=== PATIENT | female | born 1935 | race Caucasian/White ===

== ENCOUNTER → 2020-11-28 15:33 | Outpatient (CLI) | payer OTHER, SELFPAY ==
--- NOTE | ~2020-11-28 | MM_ITS ---
EXAMINATION: MM screening aileen BI w guerrero HISTORY: Screening mammogram TECHNIQUE: Craniocaudal and mediolateral oblique 3-D tomosynthesis images were obtained and synthetic 2-D images were generated. CAD analysis was submitted and interpreted. COMPARISON: 12/30/2016, 12/28/2014, 02/27/2013 BREAST PARENCHYMAL COMPOSITION: There are scattered areas of fibroglandular density. FINDINGS: Again noted are bilateral breast masses which are stable on multiple prior examinations. Th ere is no evidence of suspicious mass, calcification, or architectural distortion to suggest malignan cy in either breast. There has been no suspicious interval change. IMPRESSION: 1. No mammographic evidence of malignancy. 2. Recommend routine screening mammography while the patient remains in good health. BI-RADS Category 2: Benign finding(s). Reviewed, dictated and finalized at location A. IMPRESSION: 1. No mammographic evidence of malignancy. 2. Recommend routine screening mammography while the patient remains in good he alth. BI-RADS Category 2: Benign finding(s).
== END ==
PROVIDERS: PCP Family Medicine; Visit Provider Family Medicine
DX: Z12.31 Encounter for screening mammogram for malignant neoplasm of breast (principal)
CPT/HCPCS: 77063; 77067

== ENCOUNTER 2022-06-27 15:44 | Inpatient (IN) | payer OTHER, SELFPAY ==
[2022-06-27] VITALS (8 sets, daily range): BP systolic 135–205; BP diastolic 64–94; PULSE 93–117; RESP 20–26; TEMP 36.6–37; O2SAT 95–100; BMI 37.2
--- NOTE | ~2022-06-27 | XR_ITS ---
XR chest 1V portable DATE: 06/28/2022 06:12 INDICATION: Preoperative evaluation TECHNIQUE: Portable upright AP chest on June 28, 2022 at 0545 hours COMPARISON: None FINDINGS: Cardiomegaly. Aortic calcification. No hilar or mediastinal enlargement. There is mild discoid atelectasis or scarring in the left lung base. Suggestion of bronchiectasis in the right lower lung. No pulmonary consolidation. No pleural effusion or pulmonary vascular congestio n or pneumothorax. Osteopenia. And levoscoliosis of the thoracic spine. IMPRESSION: Discoid atelectasis or scarring at the left lung base and suggestion of some bronchiectas is in the right lower lung Aortic atherosclerosis Osteopenia Reviewed, dictated and finalized at location A. SE SPECIALIST IMPRESSION: Discoid atelectasis or scarring at the left lung base and suggestio n of some bronchiectasis in the right lower lung Aortic atherosclerosis Osteopenia
--- NOTE | ~2022-06-27 | XR_ITS ---
EXAMINATION: XR surgery orthopedic DATE: 07/01/2022 16:00 ASSEMBLY DETAILER INDICATION: ORIF LT ANKLE . TECHNIQUE: 4 fluoroscopic images of the left ankle were obtained during left ankle ORIF performed by the surgeon. I was not present in the operating room. Fluoroscopy exposure time was 18 minutes and 39 .5 seconds. Air Kerma 45.405 mGy. DAP 0.9001 mGym2. COMPARISON: 06/27/2022 FINDINGS: Partially visualized fibular intramedullary romel. Syndesmotic fixation. Screw and plate fixation of th e medial malleolus. No unexpected radiopaque foreign body. IMPRESSION: Fluoroscopic documentation of left ankle ORIF. Please refer to the operative note for complete proced ural details . Reviewed, dictated and finalized at location K. MBLY DETAILER IMPRESSION: Fluoroscopic documentation of left ankle ORIF. Please refer to the operative no te for complete procedural details .
--- NOTE | ~2022-06-27 | XR_ITS ---
EXAM: XR ankle LT 2V DATE: 06/27/2022 18:16 HISTORY: post reduction . COMPARISON: X-ray ankle, same date at 4:05 PM. FINDINGS/IMPRESSION: Anatomic alignment of the tibiotalar joint, with persistent widening of the medi al gutter. Improved alignment of the trimalleolar fractures. Mild persistent posterior lateral displa cement of the distal fibular fragment. Mild anterior displacement and distraction of the malleolus fr agment. The posterior malleolar fragment appears to be anatomically aligned but is obscured by obliqu ity in the lateral view. Reviewed, dictated and finalized at location K. ET CLERK
--- NOTE | ~2022-06-27 | XR_ITS ---
EXAM: XR knee LT 3V, XR tibia fibula LT 2V, XR ankle LT 2V DATE: 06/27/2022 16:25 HISTORY: pain . COMPARISON: None available. FINDINGS: Normal mineralization. No fracture or dislocation. No lytic or blastic lesion. Moderate le ft knee osteoarthritis. Quadriceps enthesopathy. Oblique, posteriorly angulated fracture of the dista l left fibula above the level of the ankle joint. Transverse and posteriorly displaced fracture of th e medial malleolus. Dislocation of the talus. Posteriorly displaced posterior malleolus fracture. Ach illes and plantar enthesopathy. No erosion or periosteal change. Soft tissue swelling about the ankle . IMPRESSION: Displaced trimalleolar fracture of the left ankle, with posterior tibiotalar dislocation. No acute osseous finding in the remainder of the left tibia/fibula or the left knee. Reviewed, dictated and finalized at [facility] K. O PRESENTATION OPERATOR IMPRESSION: Displaced trimalleolar fracture of the left ankle, with posterior t ibiotalar dislocation. No acute osseous finding in the remainder of the left ti radha/fibula or the left knee. IMPRESSION: Displaced trimalleolar fracture of the left ankle, with posterior t ibiotalar dislocation. No acute osseous finding in the remainder of the left ti radha/fibula or the left knee.
--- NOTE | ~2022-06-27 | XR_ITS ---
EXAM: XR pelvis 1-2V DATE: 06/27/2022 16:25 HISTORY: fall . COMPARISON: None available. FINDINGS: Decreased mineralization. No fracture or dislocation. No lytic or blastic lesion. Degenera tive change in the lumbar spine and bilateral hips. No erosion or periosteal change. Soft tissues wit hin normal limits. IMPRESSION: No acute osseous finding in the pelvis. Reviewed, dictated and finalized at location K. ION WORKER
[2022-06-27 17:18] LABS: Basophils Absolute Auto 0.1 K/mm3 (0.0-0.1); Basophils Percent Auto 0.7 % (0.2-1.2); Eosinophils Absolute Auto 0.1 K/mm3 (0-0.3); Eosinophils Percent Auto 1.2 % (0-4.4); Hematocrit 39.9 % (37.0-47.0); Hemoglobin 12.9 g/dL (12.0-15.0); Immature Granulocyte Absolute 0.04 K/mm3 (0.00-0.031); Immature Granulocyte Percent A 0.4 % (0-0.5); Lymphocytes Absolute Auto 1.31 K/mm3 (0.9-3.2); Lymphocytes Percent Auto 12.1 % (18.3-44.2); Mean Corpuscular HGB Conc 32.3 g/dl (32-36); Mean Corpuscular Hemoglobin 28.9 pg (26-34); Mean Corpuscular Volume 89.5 fl (80-100); Monocytes Absolute Auto 0.8 K/mm3 (0.1-0.6); Monocytes Percent Auto 7.1 % (2.6-8.5); Neutrophils Absolute Auto 8.5 K/mm3 (1.3-6.7); Neutrophils Percent Auto 78.5 % (45.5-73.1); Platelet Count Result 211 k/mm3 (150-375); Red Blood Count 4.46 M/mm3 (4.2-5.4); Red Cell Distribution Width 14.1 % (11.5-14.5); White Blood Count 10.9 K/mm3 (4.5-10.0)
--- NOTE | 2022-06-27 17:28 | ED.LOWEXIN ---
HPI - Extremity Injury (Lower) General Chief Complaint: Extremity Injury, Lower Stated Complaint: Fell off ladder 6ft, ankle injury Time Seen by Provider: 06/27/22 15:50 History of Present Illness HPI Narrative: 86-year-old female who fell off the third rung of a ladder while trying to catch a squirrel, endorsing severe pain to her left ankle. Denies any numbness and is able to wiggle her toes but with pain. She is on Xarelto, denies pain anywhere else, denies hitting her head or neck, she landed only on her left ankle. Related Data Home Medications Medication Instructions Recorded Confirmed cholestyramine (with sugar) 4 gram 1 ea DAILY 06/27/22 06/27/22 oral powder hydralazine 25 mg tablet 25 mg PO TID 06/27/22 06/27/22 potassium chloride 10 mEq 10 meq PO DAILY 06/27/22 06/27/22 capsule,extended release rivaroxaban 20 mg tablet (Xarelto) 20 mg PO DAILY 06/27/22 06/27/22 ropinirole 1 mg tablet 1 mg PO DAILY 06/27/22 06/27/22 Allergies Allergy/AdvReac Type Severity Reaction Status Date / Time armodafinil Allergy Severe DYSPNEA Verified 03/16/16 10:26 bupropion Allergy Intermediate Siezure Verified 03/10/16 16:03 Tetracyclines Allergy Mild HIVES Verified 03/16/16 10:26 iodine Allergy Unknown Verified 03/10/16 16:03 Review of Systems Review of Systems: CONST: No fever. HEENT: No head trauma or neck trauma C/V: No chest pain RESP: No cough GI: No abdominal pain, nausea or vomiting : No dysuria. M/S: Left ankle pain SKIN: No rash. NEURO: [No headache or focal numbness or weakness] PSYCH: [No depression] [facility] Past Medical History Medical History (Updated 06/27/22 @ 23:05 by Isabella Isidro MD) Chronic anticoagulation Hypertension Paroxysmal atrial fibrillation Restless leg syndrome Surgical History Surgical History (Updated 06/27/22 @ 22:02 by Joy Nicholson PA-C) History of cardiac catheterization Mild, nonobstructing disease per patient report. History of cholecystectomy History of hysterectomy for benign disease History of laparoscopy For endometriosis. Family History Family History (Updated 06/27/22 @ 22:02 by Joy Nicholson PA-C) Other Heart disease Hypertension Social History Social History (Updated 06/27/22 @ 22:04 by Joy Nicholson PA-C) Social History: Surrogate medical decision maker: Prudence Elias, friend. Code status: Do not resuscitate. Smoking status: Never smoker Alcohol intake: never Substance use: never Lack of Transportation: No Lack of Food: Never True Current Housing: I Have Housing Concerned About Future Housing: No Difficulty Paying Gas/Electric Bills: No Difficulty Paying for Meds: No Currently Unemployed: No Education: High School Diploma/GED Difficulty w/ Childcare or Family Care: No Additional living arrangements comments: The patient lives in her own home in [place]. She has 2 children, 1 daughter in [place] and another on [facility] with him she does not keep in close contact. 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 Spiritual care concerns: No Exam Narrative: EXAMINATION OF ORGAN SYSTEMS/BODY AREAS: Constitutional: Vital signs per nursing GENERAL: Appears to be in pain HEAD: Normal with no signs of head trauma. EYES: EOMI, conjunctiva normal ENT: Hearing grossly intact NECK: No c spine tenderness LUNGS: Nonlabored breathing. No chest wall tenderness HEART: [Regular rate and rhythm] ABD: [Soft], [nontender to palpation] EXT: Obvious deformity left ankle with swelling; DP pulse palpable, able to wiggle toes SKIN: [No rashes or lesions.] NEURO: [Alert and oriented x 3. No gross focal sensory or strength deficits.] PSYCH: Normal affect Course Vital Signs Vital signs: Vital Signs Temperature 97.9 F 06/27/22 15:46 Pulse Rate 99 06/27/22 15:46 Respiratory Rate 26 H 06/27/22 15:46 Blood Pressure 205/84 H 06/27/22 15:46 Pulse Oximetry 100 02
[2022-06-27 17:29] LABS: Anion Gap 7 mmol/L (8-16); Blood Urea Nitrogen 13 mg/dL (7-17); Calcium 8.4 mg/dL (8.4-10.2); Carbon Dioxide 27 mmol/L (22-30); Chloride 109 mmol/L (98-107); Estimated CRCL calculation 36 ml/min; Estimated Glomerular Filt Rate 53; Glucose 111 mg/dL (65-110); Potassium 3.5 mmol/L (3.4-5.0); Sodium 143 mmol/L (137-145)
--- NOTE | 2022-06-27 17:57 | PC.NURSE ---
1757: EDP Isidro and ED respiratory in room for sedation. EDP gave 80mg Propofol IVP at this time. 1758: EDP gave an additional 40mg Propofol IVP.
--- NOTE | 2022-06-27 18:56 | PC.NURSE ---
Morphine not given, patient in no pain following reduction of left ankle.
--- NOTE | 2022-06-27 19:00 | PM.IMHP ---
H&P: HPI History of Present Illness Date/Time: 06/27/22 19:00 Chief Complaint: Left ankle pain after fall. Narrative: This is a very pleasant 86-year-old female with history of pontine stroke, paroxysmal atrial fibrillation on chronic anticoagulation, hypertension, and restless leg syndrome who presented to the emergency department via EMS from home for evaluation of left ankle pain after a fall. She was on the 3rd rung of a step ladder trying to fix a suet feeder that had been moved from its position by a menacing squirrel. The leg of the ladder was in soft soil and it tilted and caused her to slip off of the ladder. She landed with a majority of her weight on her left leg, twisted her ankle, and fell forward onto her hands. She had immediate pain in the left ankle and was unable to get herself up. She called [facility] and was brought into the ER where she was found to have a displaced left trimalleolar fracture which has subsequently been reduced and splinted. She is being admitted in this setting for pain control and orthopedic consultation. She sustained no other injuries in the fall and denies head trauma and loss of consciousness. She denies skin color, paresthesias, and temperature changes distal to the fracture site. Review of Systems Review of Systems: Twelve systems were reviewed. No fever, chills, or sweats. No recent cold or flu symptoms. She denies syncope near syncope. No exertional chest pain or shortness of breath. She is followed by Dr. aJy and she reports having an echocardiogram and stress test done within the last 1 year, never abnormal. Years ago she had a cardiac catheterization which showed mild, nonobstructing disease. Except as documented, all other systems were reviewed and are negative. [facility] Past Medical History Medical History (Updated 06/28/22 @ 15:27 by Joy Nicholson PA-C) Chronic anticoagulation Gout Hypertension Obstructive sleep apnea Paroxysmal atrial fibrillation Restless leg syndrome Surgical History Surgical History (Updated 06/28/22 @ 15:27 by Joy Nicholson PA-C) History of bilateral cataract extraction History of cardiac catheterization Mild, nonobstructing disease per patient report. History of cholecystectomy History of hysterectomy for benign disease History of laparoscopy For endometriosis. Family History Family History Other Heart disease Hypertension Social History Social History Social History: Surrogate medical decision maker: Prudence Elias, friend. Code status: Do not resuscitate. Smoking status: Never smoker Alcohol intake: never Substance use: never Lack of Transportation: No Lack of Food: Never True Current Housing: I Have Housing Concerned About Future Housing: No Difficulty Paying Gas/Electric Bills: No Difficulty Paying for Meds: No Currently Unemployed: No Education: High School Diploma/GED Difficulty w/ Childcare or Family Care: No Additional living arrangements comments: The patient lives in her own home in [place]. She has 2 children, 1 daughter in [place] and another on [facility] with him she does not keep in close contact. 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
[2022-06-27 19:35] LABS: Influenza A QL RT-PCR Negative (Negative); Influenza B QL RT-PCR Negative (Negative); RSV RNA, RT-PCR Negative (Negative); SARS-CoV-2 RNA PCR Negative
--- NOTE | 2022-06-27 19:58 | ADMGEN ---
This patient, Ana Laura Perez, was admitted to Medical Room 249-01. Patient/family oriented to hospital policies and general routines including ID bracelet, bed and alarms, visiting hours, pain management, procedures, bathroom and other care routines, personal items, smoking policy, room service/diet, and visiting hours. Information on how to activate the Rapid Response Team has been discussed. Patient/Family are encouraged to report perceived risks to care and to ask questions if they do not understand what they are told or what they should do.
[2022-06-27] MEDS: MORPHINE SULFATE (*CRX) 4 MG/ML INJ IV PUSH (20:25)
[2022-06-27] MEDS: rOPINIRole HCL 1 MG TABLET PO (21:55)
[2022-06-27] MEDS: HYDROcodone/acetaminophen (*CRX) 5-325 MG TABLET 1 TAB PO (23:15)
[2022-06-27] MEDS: hydrALAZINE HCL 25 MG TABLET PO (23:31)
--- NOTE | 2022-06-28 00:10 | ECG_ITS ---
Measurements Intervals Lagrange Rate: 91 P: 72 IA: 188 QRS: -6 QRSD: 87 T: 60 QT: 373 QTc: 460 Interpretive Statements SINUS RHYTHM NONSPECIFIC T-WAVE ABNORMALITY NO PREVIOUS ECG AVAILABLE FOR COMPARISON Electronically Signed On 06-28-2022 8:29:12 COMMUNICATION CLERK by Anay Noyola M.D.
[2022-06-28 01:05] VITALS: O2SAT 98
[2022-06-28 02:00] VITALS: BP 145/56
[2022-06-28] MEDS: HYDROcodone/acetaminophen (*CRX) 5-325 MG TABLET 1 TAB PO ×3 (05:10→14:03)
[2022-06-28 05:20] LABS: Hematocrit 37.3 % (37.0-47.0); Mean Corpuscular HGB Conc 32.2 g/dl (32-36); Mean Corpuscular Hemoglobin 28.8 pg (26-34); Mean Corpuscular Volume 89.7 fl (80-100); Mean Platelet Volume 9.9 fl (7.4-10.4); Platelet Count Result 207 k/mm3 (150-375); Red Blood Count 4.16 M/mm3 (4.2-5.4); Red Cell Distribution Width 14.3 % (11.5-14.5); White Blood Count 10.8 K/mm3 (4.5-10.0)
[2022-06-28 05:44] LABS: Alanine Aminotransferase 30 U/L (6-35); Albumin Level 4.1 g/dL (3.5-5.1); Alkaline Phosphatase 74 U/L (38-126); Anion Gap 6 mmol/L (8-16); Aspartate Amino Transferase 33 U/L (14-36); Bilirubin,Total 0.5 mg/dL (0.2-1.3); Blood Urea Nitrogen 12 mg/dL (7-17); Calcium 8.3 mg/dL (8.4-10.2); Carbon Dioxide 26 mmol/L (22-30); Chloride 109 mmol/L (98-107); Estimated CRCL calculation 41 ml/min; Estimated Glomerular Filt Rate 60; Glucose 121 mg/dL (65-110); Potassium 3.5 mmol/L (3.4-5.0); Sodium 141 mmol/L (137-145)
[2022-06-28 06:00] VITALS: BP 138/48; PULSE 88; RESP 18; TEMP 37.4; O2SAT 95
--- NOTE | 2022-06-28 07:45 | PM.IMPN ---
Progress Note: A&P Assessment and Plan (1) Displaced trimalleolar fracture of left ankle: Qualifiers: Encounter type: initial encounter Fracture type: closed Qualified Code(s): S82.852A - Displaced trimalleolar fracture of left lower leg, initial encounter for closed fracture Code(s): S82.852A - Displaced trimalleolar fracture of left lower leg, initial encounter for closed fracture Status: Acute Assessment and Plan: Patient is s/p fall from a ladder and imaging demonstrates left displaced trimalleolar fracture, reduced in the ED. Orthopedic surgery was consulted. Plan to reevaluate in the morning for improvement in soft-tissue swelling. NPO after midnight. Continue pain control- change to scheduled acetaminophen 1 gram Q8 hours, PRN tramadol 50 mg Q4 hours and PRN IV morphine for breakthrough pain. EKG SR with flattened T-waves in leads I, II, III, aVL and aVF. Revised Cardiac Risk Index score 1 and >65 yo- Check Troponin, BNP and echocardiogram d/t murmur. H/O paroxysmal afib and does not tolerate most blood pressure medications Hold Xarelto preop. Last dose Wednesday evening. (2) Fall from ladder: Qualifiers: Encounter type: initial encounter Qualified Code(s): W11.XXXA - Fall on and from ladder, initial encounter Code(s): W11.XXXA - Fall on and from ladder, initial encounter Status: Acute Assessment and Plan: PT/OT eval when cleared for out of bed by ortho. (3) Hypertension: Qualifiers: Hypertension type: primary hypertension Qualified Code(s): I10 - Essential (primary) hypertension Code(s): I10 - Essential (primary) hypertension Status: Chronic Assessment and Plan: chronic, BP 134/58 to 181/85 and likely elevated due to some component of pain. Continue hydralazine 25 mg TID. She is not currently on a beta-javed. (4) Restless leg syndrome: Code(s): G25.81 - Restless legs syndrome Status: Chronic Assessment and Plan: chronic, continue ropinirole. (5) Paroxysmal atrial fibrillation: Code(s): I48.0 - Paroxysmal atrial fibrillation Status: Chronic Assessment and Plan: H/O paroxysmal afib. EKG shows sinus rhythm On Xarelto, which is on hold currently preop (6) Chronic diarrhea: Code(s): K52.9 - Noninfective gastroenteritis and colitis, unspecified Status: Chronic Assessment and Plan: Post-cholecystectomy, chronic, not in acute exacerbation. Continue cholestyramine daily and PRN loperamide. (7) Vitamin D deficiency: Code(s): E55.9 - Vitamin D deficiency, unspecified Status: Acute Assessment and Plan: Vitamin D 25-oh 24. Ca 8.3 with normal albumin Start Vitamin D2 2000 IU daily, calcium carbonate/vit D supplement BID Plan CODE STATUS: DNR Discharge disposition: patient Time Spent With Patient Time: 25 min time spent reviewing chart, imaging, labs, patient assessment and developing plan of care. Subjective Date/time seen: 06/28/22 07:45 Patient is a 86-year-old female with history of pontine strokes, post-stroke/medication induced seizures in 2003, paroxysmal atrial fibrillation on chronic anticoagulation, hypertension, gout and restless leg syndrome who presented to the emergency department via EMS from home for evaluation of left ankle pain after a fall. Imaging demonstrated displaced left trimalleolar fracture that was reduced and splinted in the ED. She was admitted for orthopedic surgery evaluation and pain control. Patient found lying in bed. She reports persistent pain to her left ankle despite IV acetaminophen, norco and IV morphine use. She denies pallor, paralysis, but has neuropathy to both feet at baseline. No chest pain, SOB, palpitations, abd pain, N/V or constipation. She has chronic diarrhea that is not worsened. She is concerned some of her pain is from gout. Review of Systems Review of Systems: All s
[2022-06-28 08:58] LABS: Vitamin D 25 Hydroxy 24.7 ng/mL
[2022-06-28] MEDS: hydrALAZINE HCL 25 MG TABLET PO ×3 (09:14→18:08)
[2022-06-28] MEDS: POTASSIUM CHLORIDE 10 MEQ TABLET.ER PO (09:16)
[2022-06-28 10:03] LABS: Folic Acid > 20.0 ng/mL (2.76->20); Vitamin B12 > 1000.0 pg/mL (239-931)
--- NOTE | 2022-06-28 12:06 | PM.CNOR ---
Assessment and Plan Assessment and plan (1) Displaced trimalleolar fracture of left ankle: Qualifiers: Encounter type: initial encounter Fracture type: closed Qualified Code(s): S82.852A - Displaced trimalleolar fracture of left lower leg, initial encounter for closed fracture Code(s): S82.852A - Displaced trimalleolar fracture of left lower leg, initial encounter for closed fracture Status: Acute Assessment and Plan: WAYNE IS HERE FOR HER INJURY TO THE LEFT ANKLE RESULTING IN A TRIMALLEOLAR FRACTURE DISLOCATION OF THE LEFT ANKLE. SHE IS IN A SPLINT WITH GOOD ANKLE JOINT REDUCTION. SHE WILL REQUIRE LEFT ANKLE ORIF. WE WILL NEED TO CHECK HER SOFT TISSUES PRIOR TO SURGERY TO ASSESS THE TIMING OF SURGERY FOR IMMEDIATE ORIF VS DELAYED ORIF DUE TO SOFT TISSUE TRAUMA. HISTORY, EXAM AND RADIOGRAPHS REVIEWED WITH THE PATIENT. REFERRING PHYSICIAN RECORDS AND IMAGES REVIEWED. CONDITION, NATURE, ETIOLOGY AND COURSE OF NATURAL HISTORY REVIEWED. CONSERVATIVE AND OPERATIVE TREATMENT OPTIONS REVIEWED WELL THE RISKS AND BENEFITS OF EACH. PLAN IS TO TAKE THE PATIENT TO SURGERY FOR ORIF VS CLOSED REDUCTION AND SPLINTING IF HER SOFT TISSUES ARE NOT APPROPRIATE FOR SURGICAL TREATMENT DUE TO SEVERE SWELLING AND ECCHYMOSIS, SHE WILL HAVE TO WAIT FOR APPROXIMATELY 7 TO 10 DAYS UNTIL HER SWELLING HAS IMPROVED. SHE IS ALSO TAKING XARELTO AND HER LAST DOSE WAS TAKEN THIS 2 DAYS AGO. DISCUSSED NONOPERATIVE AND OPERATIVE TREATMENT OPTIONS WITH THE PATIENT. THE PATIENT'S QUESTIONS WERE ANSWERED. THE PATIENT DESIRES OPERATIVE TREATMENT. DISCUSSED ___ORIF LEFT ANKLE VS CLOSED REDUCTION AND SPLINTING . RISKS OF SURGERY INCLUDING BUT NOT LIMITED TO NEUROVASCULAR DAMAGE, WOUND COMPLICATIONS, BLOOD CLOT, PULMONARY EMBOLUS, STROKE, TX, ANESTHETIC RISKS UP TO AND INCLUDING WERE REVIEWED. CONTINUED PAIN AND POSSIBLE DYSFUNCTION WERE EXPLAINED. NO GUARANTEES WERE OFFERED. THE PATIENT UNDERSTANDS AND WISHES TO PROCEED. WILL PROCEED ONCE THE PATIENT HAS BEEN CLEARED BY INTERNAL MEDICINE. History of Present Illness HPI Consult date: 06/28/22 Chief complaint: trimal fx ankle Narrative: WAYNE IS HERE FOR EVALUATION OF HER LEFT ANKLE INJURY. SHE FELL OFF A LADDER AND TWISTED HER LEFT ANKLE. SHE WAS SEEN I THE ED AND DIAGNOSED WITH A TRIMALLEOLAR LEFT ANKLE FRACTURE DISLOCATION. SHE UNDERWENT CLOSED REDUCTION AND PLACED IN A SPLINT. POST REDUCTION XRAYS SHOW ANKLE JOINT REDUCED. SHE CURRENTLY C/O ONLY OF LEFT ANKLE PAIN. SHE DENIES ANY OTHER UPPER OR LOWER EXTREMITY PAIN OR ANY BACK OR NECK PAIN. [facility] Past Medical History Medical History Chronic anticoagulation Hypertension Paroxysmal atrial fibrillation Restless leg syndrome Surgical History Surgical History History of cardiac catheterization Mild, nonobstructing disease per patient report. History of cholecystectomy History of hysterectomy for benign disease History of laparoscopy For endometriosis. Family History Family History Other Heart disease Hypertension Social History Social History Social History: Surrogate medical decision maker: Prudence Elias, friend. Code status: Do not resuscitate. Smoking status: Never smoker Alcohol intake: never Substance use: never Lack of Transportation: No Lack of Food: Never True Current Housing: I Have Housing Concerned About Future Housing: No Difficulty Paying Gas/Electric Bills: No Difficulty Paying for Meds: No Currently Unemployed: No Education: High School Diploma/GED Difficulty w/ Childcare or Family Care: No Additional living arrangements comments: The patient lives in her own home in [place]. She has 2 children, 1 daughter in [facility]
[2022-06-28] MEDS: CHOLESTYRAMINE LIGHT 4 GM POWD.PACK 1 GM BY MOUTH (12:27)
[2022-06-28] MEDS: MORPHINE SULFATE (*CRX) 2 MG/ML INJ IV PUSH (12:28)
[2022-06-28 14:00] VITALS: BP 134/58; PULSE 100; RESP 18; TEMP 37.1; O2SAT 94
[2022-06-28 16:28] LABS: Troponin I < 0.012 ng/mL (0.000-0.034)
[2022-06-28] MEDS: traMADol HCL (*CRX) 50 MG TABLET PO (18:08)
[2022-06-28] MEDS: rOPINIRole HCL 1 MG TABLET PO (18:11)
[2022-06-28 21:20] VITALS: O2SAT 97
[2022-06-28] MEDS: ACETAMINOPHEN 500 MG TABLET 1000 MG PO (21:27)
[2022-06-28 22:00] VITALS: BP 154/64; PULSE 90; RESP 16; TEMP 36.9; O2SAT 97
--- NOTE | 2022-06-29 | ECHO_ITS ---
Patient Info Name: Ana Laura Perez Age: 86 years : 1935 Gender: Female Ht: 61 in Wt: 196 lbs BSA: 2.00 m2 HR: 88 bpm BP: 142 / 60 mmHg Heart Rhythm: Sinus Rhythm Technical Quality: Fair Exam Date: 06/29/2022 1:38 PM Exam Location: [facility] Pulmonary Exam Room: 249 Patient Status: Inpatient Admit Date: 06/27/2022 Staff Ordering Physician: Kathia Regan APRN Thoracic Medicine Specialist: Margo Vega RDCS Attending Provider: Milton Diaz MD Referring Physician: Jass GARCIAS; Exam Type: CA echo doppler color flow Study Info Indications - murmur pre op Complete two-dimensional, color flow and Doppler transthoracic echocardiogram is performed. Summary 1. Complete two-dimensional, color flow and Doppler transthoracic echocardiogram is performed. 2. Normal left ventricular size with mild concentric hypertrophy. Good systolic function of all segments with an ejection fraction 65%. No segmental wall motion abnormalities noted. Grade 2 diastolic dysfunction is present. 3. There is mild aortic valve stenosis with a peak velocity of 261 cm/s, mean gradient of 15 mmHg, and aortic valve area of 1.5 cm2. 4. There is mild mitral valve regurgitation. 5. There is mild eccentric tricuspid valve regurgitation. 6. Moderate pulmonary hypertension, estimated pulmonary arterial systolic pressure is 46 mmHg. 7. Normal sinus rhythm. Left Ventricle Left ventricular chamber dimension is normal. Left ventricular systolic function is normal, estimated at 60-65%. There is mildly increased left ventricular wall thickness. Left ventricular septal wall motion is normal. The left ventricular diastolic function is grade II diastolic dysfunction. Right Ventricle Right ventricular chamber dimension is normal. Right ventricular systolic function is normal. Left Atria Left atrial chamber dimension is moderately enlarged. Right Atria Right atrial chamber dimension is normal. Aortic Valve The aortic valve is trileaflet. There is no aortic valve sclerosis. There is mild aortic valve stenosis with a peak velocity of 261 cm/s, mean gradient of 15 mmHg, and aortic valve area of 1.5 cm2. There is trace aortic valve regurgitation. There is mild aortic valve calcification. Pulmonic Valve The pulmonic valve is normal. There is no pulmonic valve stenosis. There is no pulmonic regurgitation. Mitral Valve The mitral valve has normal leaflets. There is no mitral valve stenosis. There is mild mitral valve regurgitation. Tricuspid Valve The tricuspid valve leaflets are normal. There is no significant tricuspid valve stenosis. There is mild eccentric tricuspid valve regurgitation. Moderate pulmonary hypertension, estimated pulmonary arterial systolic pressure is 46 mmHg. Pericardium/Pleural The pericardium appears normal. There is no pericardial effusion. Inferior Vena Cava Normal inferior vena cava with >50% collapse upon inspiration consistent with Empty right atrial pressure, 10 mmHg. Aorta The aortic root size at the sinus of Valsalva is normal. The prox ascending aorta size is normal. Left Ventricular Outflow Tract Name Value Normal LVOT 2D LVOT Diameter 2.0 cm
[2022-06-29 05:13] LABS: INR 1.2; Prothrombin Time 14.9 Seconds (11.1-14.7)
[2022-06-29 05:14] LABS: Partial Thromboplastin Time 31.9 SECONDS (22.3-36.8)
[2022-06-29 05:17] LABS: Alanine Aminotransferase 26 U/L (6-35); Albumin Level 4.1 g/dL (3.5-5.1); Alkaline Phosphatase 73 U/L (38-126); Anion Gap 9 mmol/L (8-16); Aspartate Amino Transferase 27 U/L (14-36); Bilirubin,Total 0.7 mg/dL (0.2-1.3); Blood Urea Nitrogen 13 mg/dL (7-17); Calcium 8.3 mg/dL (8.4-10.2); Carbon Dioxide 26 mmol/L (22-30); Chloride 105 mmol/L (98-107); Estimated CRCL calculation 41 ml/min; Estimated Glomerular Filt Rate 60; Glucose 116 mg/dL (65-110); Potassium 3.3 mmol/L (3.4-5.0); Sodium 140 mmol/L (137-145)
[2022-06-29 05:20] LABS: NT Pro B Type Natriuretic Pept 137 pg/mL (19.9-100)
[2022-06-29] MEDS: ACETAMINOPHEN 500 MG TABLET 1000 MG PO ×3 (05:20→21:03)
[2022-06-29 06:00] VITALS: BP 142/60; PULSE 88; RESP 16; TEMP 36.9; O2SAT 94
--- NOTE | 2022-06-29 08:44 | PM.IMPN ---
Progress Note: A&P Assessment and Plan (1) Displaced trimalleolar fracture of left ankle: Qualifiers: Encounter type: initial encounter Fracture type: closed Qualified Code(s): S82.852A - Displaced trimalleolar fracture of left lower leg, initial encounter for closed fracture Code(s): S82.852A - Displaced trimalleolar fracture of left lower leg, initial encounter for closed fracture Status: Acute Assessment and Plan: Patient is s/p fall from a ladder and imaging demonstrates left displaced trimalleolar fracture, reduced in the ED. Orthopedic surgery was consulted. Plan to reevaluate in the morning for improvement in soft-tissue swelling. NPO after midnight. Continue pain control- change to scheduled acetaminophen 1 gram Q8 hours, PRN tramadol 50 mg Q4 hours and PRN IV morphine for breakthrough pain. Pain is tolerable on current regimen. EKG SR with flattened T-waves in leads I, II, III, aVL and aVF. Revised Cardiac Risk Index score 1 and >65 yo- Check Troponin, BNP and echocardiogram d/t murmur. H/O paroxysmal afib and does not tolerate most blood pressure medications Holding Xarelto preop. Last dose Wednesday evening. (2) Fall from ladder: Qualifiers: Encounter type: initial encounter Qualified Code(s): W11.XXXA - Fall on and from ladder, initial encounter Code(s): W11.XXXA - Fall on and from ladder, initial encounter Status: Acute Assessment and Plan: PT/OT eval when cleared for out of bed by ortho. (3) Hypertension: Qualifiers: Hypertension type: primary hypertension Qualified Code(s): I10 - Essential (primary) hypertension Code(s): I10 - Essential (primary) hypertension Status: Chronic Assessment and Plan: chronic, BP 134/58 to 181/85 and likely elevated due to some component of pain. Continue hydralazine 25 mg TID. She is not currently on a beta-javed. (4) Restless leg syndrome: Code(s): G25.81 - Restless legs syndrome Status: Chronic Assessment and Plan: chronic, continue ropinirole. (5) Paroxysmal atrial fibrillation: Code(s): I48.0 - Paroxysmal atrial fibrillation Status: Chronic Assessment and Plan: H/O paroxysmal afib. EKG shows sinus rhythm On Xarelto, which is on hold currently preop (6) Chronic diarrhea: Code(s): K52.9 - Noninfective gastroenteritis and colitis, unspecified Status: Chronic Assessment and Plan: Post-cholecystectomy, chronic, not in acute exacerbation. Continue cholestyramine daily and PRN loperamide. (7) Vitamin D deficiency: Code(s): E55.9 - Vitamin D deficiency, unspecified Status: Acute Assessment and Plan: Vitamin D 25-oh 24. Ca 8.3 with normal albumin Started Vitamin D2 2000 IU daily, calcium carbonate/vit D supplement BID Plan CODE STATUS: DNR Discharge disposition: patient Time Spent With Patient Time: 25 minutes spent reviewing chart, labs, patient assessment and adjusting treatment plan. Patient's questions all answered to the best of my ability. Subjective Date/time seen: 06/29/22 08:44 Patient is a 86-year-old female with history of pontine strokes, post-stroke/medication induced seizures in 2003, paroxysmal atrial fibrillation on chronic anticoagulation, hypertension, gout and restless leg syndrome who presented to the emergency department via EMS from home for evaluation of left ankle pain after a fall. Imaging demonstrated displaced left trimalleolar fracture that was reduced and splinted in the ED. She was admitted for orthopedic surgery evaluation and pain control. She reports pain is tolerable on scheduled acetaminophen extra strength and PRN tramadol. She denies new symptoms, except felt a little sick to her stomach after taking potassium supplements. No nausea, vomiting, diarrhea, dysuira, paresthesia, pallor, or paralysis to left ankle. Review of Systems Review of Vettro
[2022-06-29 09:20] LABS: Magnesium 2.1 mg/dL (1.6-2.3)
[2022-06-29] MEDS: POTASSIUM CHLORIDE 20 MEQ PACKET (FOR LIQUID) 60 MEQ PO (09:21)
[2022-06-29] MEDS: CHOLECALCIFEROL 1,000 UNITS TABLET 2000 UNITS PO (09:21)
[2022-06-29] MEDS: hydrALAZINE HCL 25 MG TABLET PO ×3 (09:22→17:34)
[2022-06-29 09:48] LABS: Hematocrit 37.2 % (37.0-47.0); Hemoglobin 11.7 g/dL (12.0-15.0); Mean Corpuscular HGB Conc 31.5 g/dl (32-36); Mean Corpuscular Hemoglobin 28.6 pg (26-34); Mean Platelet Volume 10.3 fl (7.4-10.4); Platelet Count Result 202 k/mm3 (150-375); Red Blood Count 4.09 M/mm3 (4.2-5.4); Red Cell Distribution Width 14.3 % (11.5-14.5); White Blood Count 11.7 K/mm3 (4.5-10.0)
[2022-06-29] MEDS: traMADol HCL (*CRX) 50 MG TABLET PO ×3 (10:26→22:27)
[2022-06-29] MEDS: CHOLESTYRAMINE LIGHT 4 GM POWD.PACK BY MOUTH (12:24)
[2022-06-29 14:36] VITALS: BP 143/46; PULSE 93; RESP 17; TEMP 36.7; O2SAT 94
[2022-06-29] MEDS: HEPARIN SODIUM 5,000 UNITS/ML VIAL 5000 UNITS SUB-Q ×2 (14:52→21:03)
[2022-06-29 19:38] VITALS: BP 130/61; PULSE 93; RESP 17; TEMP 36.9; O2SAT 96
[2022-06-29] MEDS: rOPINIRole HCL 1 MG TABLET PO (21:03)
[2022-06-30 03:31] VITALS: BP 132/70; PULSE 81; RESP 17; TEMP 36.3; O2SAT 95
[2022-06-30] MEDS: traMADol HCL (*CRX) 50 MG TABLET PO ×3 (03:33→16:57)
[2022-06-30] MEDS: ACETAMINOPHEN 500 MG TABLET 1000 MG PO ×3 (05:16→20:54)
[2022-06-30 06:21] LABS: Hematocrit 34.7 % (37.0-47.0); Hemoglobin 10.9 g/dL (12.0-15.0); Mean Corpuscular HGB Conc 31.4 g/dl (32-36); Mean Corpuscular Hemoglobin 28.2 pg (26-34); Mean Corpuscular Volume 89.7 fl (80-100); Mean Platelet Volume 10.3 fl (7.4-10.4); Platelet Count Result 182 k/mm3 (150-375); Red Blood Count 3.87 M/mm3 (4.2-5.4); White Blood Count 9.6 K/mm3 (4.5-10.0)
[2022-06-30 06:32] LABS: Anion Gap 6 mmol/L (8-16); Blood Urea Nitrogen 14 mg/dL (7-17); Calcium 8.6 mg/dL (8.4-10.2); Carbon Dioxide 27 mmol/L (22-30); Chloride 104 mmol/L (98-107); Estimated CRCL calculation 41 ml/min; Estimated Glomerular Filt Rate 60; Glucose 104 mg/dL (65-110); Magnesium 2.1 mg/dL (1.6-2.3); Potassium 3.7 mmol/L (3.4-5.0); Sodium 137 mmol/L (137-145)
[2022-06-30] MEDS: hydrALAZINE HCL 25 MG TABLET PO ×3 (09:01→16:57)
[2022-06-30] MEDS: POTASSIUM CHLORIDE 10 MEQ TABLET.ER 20 MEQ PO (09:01)
[2022-06-30] MEDS: CHOLECALCIFEROL 1,000 UNITS TABLET 2000 UNITS PO (09:02)
[2022-06-30] MEDS: HEPARIN SODIUM 5,000 UNITS/ML VIAL 5000 UNITS SUB-Q (09:03)
[2022-06-30] MEDS: CHOLESTYRAMINE LIGHT 4 GM POWD.PACK BY MOUTH (10:07)
--- NOTE | 2022-06-30 10:24 | PM.IMPN ---
Progress Note: A&P Assessment and Plan (1) Displaced trimalleolar fracture of left ankle: Qualifiers: Encounter type: initial encounter Fracture type: closed Qualified Code(s): S82.852A - Displaced trimalleolar fracture of left lower leg, initial encounter for closed fracture Code(s): S82.852A - Displaced trimalleolar fracture of left lower leg, initial encounter for closed fracture Status: Acute Assessment and Plan: Patient is s/p fall from a ladder and imaging demonstrates left displaced trimalleolar fracture, reduced in the ED. Orthopedic surgery was consulted. Plan for OR evaluation and possible ORIF. NPO after midnight per surgery team. Continue pain control- change to scheduled acetaminophen 1 gram Q8 hours, PRN tramadol 50 mg Q4 hours and PRN IV morphine for breakthrough pain. Pain is tolerable on current regimen. EKG SR with flattened T-waves in leads I, II, III, aVL and aVF. Troponin <0.012, BNP 173. Stable. Revised Cardiac Risk Index score 1 and >65 yo. echocardiogram d/t murmur completed and report pending. No overt volume overload. H/O paroxysmal afib and does not tolerate most blood pressure medications Holding Xarelto preop. Last dose Wednesday evening, 06/26/2022. Stop SQ heparin for possible surgery tomorrow. (2) Fall from ladder: Qualifiers: Encounter type: initial encounter Qualified Code(s): W11.XXXA - Fall on and from ladder, initial encounter Code(s): W11.XXXA - Fall on and from ladder, initial encounter Status: Acute Assessment and Plan: PT/OT eval when cleared for out of bed by ortho. (3) Hypertension: Qualifiers: Hypertension type: primary hypertension Qualified Code(s): I10 - Essential (primary) hypertension Code(s): I10 - Essential (primary) hypertension Status: Chronic Assessment and Plan: chronic, BP 134/58. Continue hydralazine 25 mg TID. She is not currently on a beta-javed. (4) Restless leg syndrome: Code(s): G25.81 - Restless legs syndrome Status: Chronic Assessment and Plan: chronic, continue ropinirole. (5) Paroxysmal atrial fibrillation: Code(s): I48.0 - Paroxysmal atrial fibrillation Status: Chronic Assessment and Plan: H/O paroxysmal afib. EKG shows sinus rhythm On Xarelto, which is on hold currently preop (6) Chronic diarrhea: Code(s): K52.9 - Noninfective gastroenteritis and colitis, unspecified Status: Chronic Assessment and Plan: Post-cholecystectomy, chronic, not in acute exacerbation. Continue cholestyramine daily and PRN loperamide. (7) Vitamin D deficiency: Code(s): E55.9 - Vitamin D deficiency, unspecified Status: Acute Assessment and Plan: Vitamin D 25-oh 24. Ca 8.3 with normal albumin Started Vitamin D2 2000 IU daily, calcium carbonate/vit D supplement BID Plan CODE STATUS: DNR Discharge disposition: patient Time Spent With Patient Time: 20 minutes time spent reviewing nursing and specialist documentation, labs, vitals, and patient assessment. Subjective Date/time seen: 06/30/22 10:24 Patient is a 86-year-old female with multiple chronic medical conditions who presented to the emergency department for evaluation of left ankle pain after a fall. Imaging demonstrated displaced left trimalleolar fracture that was reduced and splinted in the ED. She was admitted for orthopedic surgery evaluation and pain control. She had increased pain last night, but it is improved today. She is awaiting orthopedic surgery. No chest pain, SOB, palpitations, abd pain, N/V/D or dysuria. She does have mild right lateral foot pain that she attributes to her fall, but no redness or swelling noted. Review of Systems Review of Systems: All systems reviewed & are unremarkable except as noted in HPI and below Exam Narrative: General: Lying in bed. No acute distress. HEENT: Nor
--- NOTE | 2022-06-30 11:28 | PM.PNORT ---
Progress Note: A&P Assessment and Plan (1) Displaced trimalleolar fracture of left ankle: Qualifiers: Encounter type: initial encounter Fracture type: closed Qualified Code(s): S82.852A - Displaced trimalleolar fracture of left lower leg, initial encounter for closed fracture Code(s): S82.852A - Displaced trimalleolar fracture of left lower leg, initial encounter for closed fracture Status: Acute Assessment and Plan: History, exam and radiographs reviewed with the patient. Radiographs of the left ankle reveal a left ankle fracture. Condition, nature, etiology and course of natural history discussed. Conservative and operative treatment options reviewed as well as the risks and benefits of both. Patient would benefit from ORIF of the left ankle. Xarelto has been held since Wednesday evening. Cleared by medicine team. Risks of surgery including but not limited to neurovascular damage, wound complications, blood clot, pulmonary embolus, stroke, myocardial infarction, anesthetic risks up to and including were reviewed. Continued pain and possible dysfunction were explained. No guarantees were offered. The patient understands and wishes to proceed. Plan: ORIF left ankle vs. closed reduction and splint application by Dr. Morales. Decision to be made at time of surgery by Dr. Morales. Continue pain control. NWB LLE. Ice. Elevate. NPO at midnight. Obtain consent. (2) Fall from ladder: Qualifiers: Encounter type: initial encounter Qualified Code(s): W11.XXXA - Fall on and from ladder, initial encounter Code(s): W11.XXXA - Fall on and from ladder, initial encounter Status: Acute Assessment and Plan: PT/OT evaluation s/p surgery tomorrow. Patient will likely need NIKOLE at discharge as she lives alone and will be NWB LLE post op x6 weeks. Care coordination consult requested. (3) Hypertension: Qualifiers: Hypertension type: primary hypertension Qualified Code(s): I10 - Essential (primary) hypertension Code(s): I10 - Essential (primary) hypertension Status: Chronic (4) Restless leg syndrome: Code(s): G25.81 - Restless legs syndrome Status: Chronic Assessment and Plan: (5) Paroxysmal atrial fibrillation: Code(s): I48.0 - Paroxysmal atrial fibrillation Status: Chronic Assessment and Plan: H/O paroxysmal afib. EKG shows sinus rhythm Xarelto on hold since Wednesday evening (6) Chronic diarrhea: Code(s): K52.9 - Noninfective gastroenteritis and colitis, unspecified Status: Chronic (7) Vitamin D deficiency: Code(s): E55.9 - Vitamin D deficiency, unspecified Status: Acute Plan CODE STATUS: DNR Discharge disposition: patient Time Spent With Patient Time: 25 minutes spent reviewing chart, labs, patient assessment and adjusting treatment plan. Patient's questions all answered to the best of my ability. Subjective Subjective Date/Time Seen: 06/30/22 0930 Interval history: Patient doing well. Pain well controlled after some difficulty overnight due to medication lapse. Anxious to undergo surgery. Concern about discharge plan. Review of Systems Review of Systems: All systems reviewed & are unremarkable except as noted in HPI and below Exam Const: General: comfortable and no acute distress Resp: Effort & Inspection: normal respiratory effort Cardio: Rate: regular rate Rhythm: regular rhythm GI: GI Palp: Yes Soft to palpation Urinary Catheter: Urinary Catheter: patent and draining Neuro: Speech: normal speech Extrem: Other: Splint LLE c/d/i. Palpable pedal pulses. Sensation intact. Moves toes. Knee without effusion. Psych: Mental Status: mental status grossly normal Objective Data Vital Signs Vital Signs: Vital Signs - 24 hr 06/29/22 14:36 06/29/22 19:38 06/29/22 23:38 Temperature 36.7 C 36.9 C Pulse Rate 93 93 Respiratory Rate 17 17
[2022-06-30] MEDS: MORPHINE SULFATE (*CRX) 2 MG/ML INJ IV PUSH (11:38)
[2022-06-30 14:00] VITALS: BP 136/57; PULSE 79; RESP 18; TEMP 37.1; O2SAT 96
--- NOTE | 2022-06-30 14:00 | PCPTNOTE ---
Pt. getting surgery on ankle fx tomorrow. Will be seen after surgery for evaluation.
[2022-06-30] MEDS: rOPINIRole HCL 1 MG TABLET PO ×2 (15:20→20:54)
--- NOTE | 2022-06-30 15:26 | PC.NURSE ---
On 06/30/22, the student, Vera Jama, provided care and completed [facility] documentation on this patient. I have reviewed the student's documentation and agree with the findings.
[2022-06-30 20:00] VITALS: O2SAT 92
[2022-06-30 21:15] VITALS: BP 131/57; PULSE 86; RESP 17; TEMP 36.9; O2SAT 92
[2022-07-01] VITALS (14 sets, daily range): BP systolic 132–179; BP diastolic 54–86; PULSE 48–124; RESP 14–20; TEMP 36.2–37.5; O2SAT 93–98
[2022-07-01 06:15] LABS: Hematocrit 34.7 % (37.0-47.0); Hemoglobin 10.9 g/dL (12.0-15.0); Mean Corpuscular HGB Conc 31.4 g/dl (32-36); Mean Corpuscular Hemoglobin 28.3 pg (26-34); Mean Corpuscular Volume 90.1 fl (80-100); Mean Platelet Volume 10.3 fl (7.4-10.4); Platelet Count Result 200 k/mm3 (150-375); Red Blood Count 3.85 M/mm3 (4.2-5.4); Red Cell Distribution Width 14.1 % (11.5-14.5); White Blood Count 8.1 K/mm3 (4.5-10.0)
[2022-07-01 06:25] LABS: INR 1.1; Prothrombin Time 13.9 Seconds (11.1-14.7)
[2022-07-01 06:26] LABS: Partial Thromboplastin Time 30.3 SECONDS (22.3-36.8)
[2022-07-01 06:32] LABS: Anion Gap 5 mmol/L (8-16); Blood Urea Nitrogen 17 mg/dL (7-17); Calcium 8.9 mg/dL (8.4-10.2); Carbon Dioxide 28 mmol/L (22-30); Chloride 101 mmol/L (98-107); Estimated CRCL calculation 37 ml/min; Estimated Glomerular Filt Rate 53; Glucose 103 mg/dL (65-110); Potassium 3.7 mmol/L (3.4-5.0); Sodium 134 mmol/L (137-145)
--- NOTE | 2022-07-01 07:23 | WPDHPUPDATE1 ---
History and Physical Update Update Date/Time: 07/01/22 07:23 History and Physical has been reviewed, including an updated exam of the patient. There are NO changes in the patient's condition. Risks, benefits, and alternatives have been discussed and questions answered. Patient agrees to proceed with procedure.
[2022-07-01] MEDS: MORPHINE SULFATE (*CRX) 2 MG/ML INJ IV PUSH (11:32)
[2022-07-01] MEDS: rOPINIRole HCL 1 MG TABLET PO ×2 (12:37→21:35)
--- NOTE | 2022-07-01 13:44 | PC.NURSE ---
Report called to [facility] Pre[facility] at 1340. To OR via bed at 1343. Friend at bedside.
--- NOTE | 2022-07-01 14:08 | WPDANESEPPF ---
Anes - Initial Pre Proc Eval Procedure: Operation Date: 07/01/22 15:00 Proposed Procedures p Open Reduction Internal Fixation Left Ankle Fracture - Severino Morales MD Date/Time: 07/01/22 14:08 Surgeon: Loren Aragon PA-C Pre Op Diagnosis: trimal fx ankle Patient Data Age: 86 Gender: F Height: 1.55 m Weight: 90.4 kg Last Vital Signs Temp 37.1 C 07/01/22 07:57 Pulse 68 07/01/22 07:57 Resp 18 07/01/22 09:13 BP 139/59 L 07/01/22 07:57 Pulse Ox 97 07/01/22 09:13 O2 Del Method Autopap 07/01/22 09:13 O2 Flow Rate 2 06/27/22 17:58 Allergies Allergy/AdvReac Type Severity Reaction Status Date / Time armodafinil Allergy Severe DYSPNEA Verified 03/16/16 10:26 bupropion Allergy Intermediate Siezure Verified 03/10/16 16:03 Tetracyclines Allergy Mild HIVES Verified 03/16/16 10:26 iodine Allergy Unknown Unknown Verified 06/29/22 14:00 tetracycline Allergy Hives Verified 06/29/22 14:00 zinc Allergy Rash Verified 06/29/22 14:00 adhesive AdvReac Rash Verified 06/29/22 14:00 amlodipine AdvReac Fatigued Verified 06/29/22 14:00 amoxicillin AdvReac Diarrhea Verified 06/29/22 14:00 clonidine AdvReac Fatigued Verified 06/29/22 14:00 escitalopram AdvReac Fatigued Verified 06/29/22 14:00 fluconazole AdvReac Fatigued Verified 06/29/22 14:00 hydrochlorothiazide AdvReac Fatigued Verified 06/29/22 14:00 irbesartan AdvReac Fatigued Verified 06/29/22 14:00 levothyroxine AdvReac Fatigued Verified 06/29/22 14:00 naproxen AdvReac Anxiety Verified 06/29/22 14:00 nebivolol AdvReac Fatigued Verified 06/29/22 14:00 paroxetine AdvReac Fatigued Verified 06/29/22 14:00 quinapril AdvReac Fatigued Verified 06/29/22 14:00 rosuvastatin AdvReac Fatigued Verified 06/29/22 14:00 sertraline AdvReac Fatigued Verified 06/29/22 14:00 spironolactone AdvReac Fatigued Verified 06/29/22 14:00 venlafaxine AdvReac Fatigued Verified 06/29/22 14:00 Home Medications Medication Instructions Recorded Confirmed Type cholestyramine (with sugar) 4 gram 1 ea DAILY 06/27/22 06/27/22 History oral powder hydralazine 25 mg tablet 25 mg PO TID 06/27/22 06/27/22 History potassium chloride 10 mEq 10 meq PO DAILY 06/27/22 06/27/22 History capsule,extended release rivaroxaban 20 mg tablet (Xarelto) 20 mg PO DAILY 06/27/22 06/27/22 History ropinirole 1 mg tablet 1 mg PO DAILY 06/27/22 06/27/22 History Laboratory Tests 07/01/22 07/01/22 07/01/22 05:58 05:58 05:58 WBC 8.1 K/mm3 K/mm3 (4.5-10.0) RBC 3.85 M/mm3 L M/mm3 (4.2-5.4) Hgb 10.9 g/dL L g/dL (12.0-15.0) Hct 34.7 % L % (37.0-47.0) MCV 90.1 fl fl (80-100) MCH 28.3 pg pg (26-34) MCHC 31.4 g/dl L g/dl (32-36) RDW 14.1 % % (11.5-14.5) Plt Count 200 k/mm3 k/mm3 (150-375) MPV 10.3 fl fl (7.4-10.4) PT 13.9 Seconds Seconds (11.1-14.7) INR 1.1 APTT 30.3 SECONDS SECONDS (22.3-36.8) Sodium 134 mmol/L L mmol/L (137-145) Potassium 3.7 mmol/L mmol/L (3.4-5.0) Chloride 101 mmol/L mmol/L (98-107) Carbon Dioxide 28 mmol/L mmol/L (22-30) Anion Gap 5 mmol/L L mmol/L (8-16) BUN 17 mg/dL mg/dL (7-17) Creatinine 1.00 mg/dL mg/dL (0.7-1.0) Estim Creat Clear Calc 37 ml/min ml/min Estimated GFR 53 L (59 - ) Glucose 103 mg/dL mg/dL (65-110) Calcium 8.9 mg/dL mg/dL (8.4-10.2) Patient hx anesthesia problems: none Family hx anesthesia problems: none Results Review: All pre-operative results and documents have been reviewed as part of the pre-operative evaluation. [facility] Past Medical History Medical History Chronic anticoagulation Gout Hypertension Obstructive sleep apnea Paroxysmal atrial fibrillation Restless leg syndrome Surgical History
[2022-07-01] MEDS: LACTATED RINGERS 1,000 ML 30 ML IV CONT (14:10)
--- NOTE | 2022-07-01 15:09 | PCOTNOTE ---
Pt. not seen today due to surgery being preformed later in day. Will be seen for evaluation after surgery completed and patient safe to participate
--- NOTE | 2022-07-01 15:16 | PM.IMPN ---
Progress Note: A&P Assessment and Plan (1) Displaced trimalleolar fracture of left ankle: Qualifiers: Encounter type: initial encounter Fracture type: closed Qualified Code(s): S82.852A - Displaced trimalleolar fracture of left lower leg, initial encounter for closed fracture Code(s): S82.852A - Displaced trimalleolar fracture of left lower leg, initial encounter for closed fracture Status: Acute Assessment and Plan: Patient is s/p fall from a ladder and imaging demonstrates left displaced trimalleolar fracture, reduced in the ED. Orthopedic surgery was consulted. Planning for likely ORIF this afternoon vs close reduction and splint application per Orthopedic surgery Patient NPO for procedure at this time Continue pain control- change to scheduled acetaminophen 1 gram Q8 hours, PRN tramadol 50 mg Q4 hours and PRN IV morphine for breakthrough pain. Pain is tolerable on current regimen. EKG SR with flattened T-waves in leads I, II, III, aVL and aVF. Troponin <0.012, BNP 173. Stable. Revised Cardiac Risk Index score 1 and >65 yo. echocardiogram reviewed due to presence of murmur with grade 2 diastolic dysfunction, no significant valvular disease Xarelto on hold perioperatively. Last dose Wednesday evening, 06/26/2022 postoperative DVT prophylaxis deferred to Orthopedic surgery (2) Fall from ladder: Qualifiers: Encounter type: initial encounter Qualified Code(s): W11.XXXA - Fall on and from ladder, initial encounter Code(s): W11.XXXA - Fall on and from ladder, initial encounter Status: Acute Assessment and Plan: as above. Will need PT/OT postoperatively (3) Hypertension: Qualifiers: Hypertension type: primary hypertension Qualified Code(s): I10 - Essential (primary) hypertension Code(s): I10 - Essential (primary) hypertension Status: Chronic Assessment and Plan: blood pressures have been reasonably controlled, slightly elevated this afternoon at 175/54 may be related to pain verses holding of oral BP medications while NPO resume p.o. hydralazine 25 mg t.i.d. postoperatively (4) Restless leg syndrome: Code(s): G25.81 - Restless legs syndrome Status: Chronic Assessment and Plan: chronic continue ropinirole. (5) Paroxysmal atrial fibrillation: Code(s): I48.0 - Paroxysmal atrial fibrillation Status: Chronic Assessment and Plan: H/O paroxysmal afib. EKG shows sinus rhythm. rate remains controlled Xarelto on hold preoperatively (6) Chronic diarrhea: Code(s): K52.9 - Noninfective gastroenteritis and colitis, unspecified Status: Chronic Assessment and Plan: Post-cholecystectomy, chronic, not in acute exacerbation. Continue cholestyramine daily and PRN loperamide. (7) Vitamin D deficiency: Code(s): E55.9 - Vitamin D deficiency, unspecified Status: Acute Assessment and Plan: Vitamin D 25-oh 24. Ca 8.3 with normal albumin Started Vitamin D2 2000 IU daily, calcium carbonate/vit D supplement BID Subjective Date/time seen: 07/01/22 15:16 Interval history: date of service: 07/01/2022 Ana Laura Perez is an 86-year-old female with a history of BARBARA, paroxysmal atrial fibrillation on chronic anticoagulation, restless leg syndrome, and hypertension who is seen in follow-up for left trimalleolar ankle fracture. She is awaiting surgical repair this afternoon. At this time, she states her pain is well controlled. She had some pain medications about half an hour before my visit and she states at this time her pain is 0/10. This morning it was about 6-7/10. She has been able to get up and pivot on her right foot to the bedside commode and is tolerating this well. She denies any urinary symptoms. Reports having a bowel movement today. No abdominal pain, nausea, vomiting, fever, or chills. Main complaint at this time is fee
[2022-07-01] MEDS: ceFAZolin 2 GM/D5W 50 ML 2 GM/50 ML BAG IVPB ×2 (15:42→21:40)
[2022-07-01] MEDS: BUPivacaine HCL 0.5% PF 30 ML VIAL INFILTRATE (16:19)
--- NOTE | 2022-07-01 16:27 | PCPTNOTE ---
Pt. not seen today due to surgery being performed later in day. Will be seen for evaluation after surgery completed and patient safe to participate
--- NOTE | 2022-07-01 19:06 | SUR.OPER ---
XRAYS DONE IN OR
--- NOTE | 2022-07-01 19:21 | W.PM.PROC2 ---
Procedure Note - Detailed Date of Procedure 07/01/22 Pre-op Diagnosis tri malleolar fracture left ankle Post-op Diagnosis Same Procedure Performed ORIF LEFT TRI MALLEOLAR ANKLE FRACTURE WITH IM FIBULAR EDEL WITH SYNDESMOTIC FIXATION AND MEDIAL MALLEOLUS HOOK PLATE Surgeon Severino Morales MD Anesthesia General Description of Procedure THE PATIENT WAS TAKEN TO THE OR. THE RIGHT LEG WAS PREPPED AND DRAPED IN THE NORMAL FASHION. AN INCISION WAS MADE AT THE DISTAL FIBULA TIP. A GUIDE PIN WAS INSERTED USING FLUOROSCOPY AND BRIDGING THE FRACTURE FRAGMENTS. A REAMER WAS USED TO REAM THE PROXIMAL AND DISTAL FRACTURE FRAGMENTS. A 13 X 130 MM ARTHREX FIBULAR EDEL WAS INSERTED AND LOCKED BOTH PROXIMALLY AND DISTALLY. NEXT 2 TIGHTROPE IMPLANTS WERE INSERTED THROUGH THE EDEL AND OUT THE MEDIAL CORTEX OF THE TIBIA. THE COMPONENT WAS TIGHTENED WITH THE ANKLE IN NEUTRAL FLEXION. C ARM WAS USED THE IMAGE THE ANKLE AND IT WAS FOUND THAT HARDWARE WAS IN GOOD POSITION AND THE SYNDESMOSIS AND FIBULA FRACTURE WAS REDUCED WELL. THE POSTERIOR MALLEOLUS WAS ALSO REDUCED ANATOMICALLY. C ARM WAS USED THE CONFIRM THE POSITION OF THE ANKLE AND HARDWARE. NEXT AN INCISION WAS MADE ON THE MEDIAL SIDE OF THE ANKLE EXPOSING THE MEDIAL MALLEOLUS FRACTURE. THE FRACTURE WAS HIGHLY COMMINUTED. IT WAS DECIDED TO USE A MEDIAL HOOK PLATE FOR IMPROVED FIXATION. A 5 HOLE MEDIAL HOOK PLATE BY ARTHREX WAS PLACED CAPTURING THE COMMINUTED MEDIAL MALLEOLUS. SCREWS WERE PLACED INCLUDING LOCKING SCREWS AND CANCELLOUS SCREWS. ALL SCREWS HAD GOOD BITES. XRAYS SHOWED HARDWARE TO BE IN GOOD POSITION WITH. THE WOUNDS WERE WASHED AND APPROXIMATED WITH 3-0 AND 2-0 VICRYL AND SAVAGE WERE USED TO REPAIR THE SKIN. A STERILE DRESSING, THEN A PLASTER SPLINT WAS PLACED. PATIENT WAS EXTUBATED AND SENT TO RECOVERY ROOM IN STABLE CONDITION. Estimated Blood Loss 40 Urine Output 200 Complications No immediate complications Condition Stable Disposition PACU
[2022-07-01] MEDS: fentaNYL CITRATE INJ (*CRX) 100 MCG/2 ML VIAL 25 MCG IV PUSH ×2 (20:19→20:31)
[2022-07-01] MEDS: ACETAMINOPHEN 500 MG TABLET 1000 MG PO (21:34)
[2022-07-01] MEDS: hydrALAZINE HCL 25 MG TABLET PO (21:34)
[2022-07-01] MEDS: DEXTROSE 5%/0.45% SOD CHL 1,000 ML 80 ML IV CONT (21:40)
[2022-07-01] MEDS: HYDROcodone/acetaminophen (*CRX) 7.5-325 MG TABLET 1 TAB PO (22:08)
[2022-07-02] VITALS (8 sets, daily range): BP systolic 126–145; BP diastolic 50–67; PULSE 61–100; RESP 16–24; TEMP 36.4–37.1; O2SAT 93–96
[2022-07-02] MEDS: MORPHINE SULFATE (*CRX) 4 MG/ML INJ 3 MG IV PUSH ×3 (01:07→22:52)
[2022-07-02] MEDS: HYDROcodone/acetaminophen (*CRX) 7.5-325 MG TABLET 1 TAB PO ×3 (04:33→17:12)
[2022-07-02] MEDS: ceFAZolin 2 GM/D5W 50 ML 2 GM/50 ML BAG IVPB ×2 (05:53→13:19)
[2022-07-02 06:10] LABS: Hematocrit 31.9 % (37.0-47.0); Hemoglobin 10.4 g/dL (12.0-15.0); Mean Corpuscular HGB Conc 32.6 g/dl (32-36); Mean Corpuscular Volume 88.9 fl (80-100); Mean Platelet Volume 10.1 fl (7.4-10.4); Platelet Count Result 226 k/mm3 (150-375); Red Blood Count 3.59 M/mm3 (4.2-5.4); Red Cell Distribution Width 13.8 % (11.5-14.5); White Blood Count 9.7 K/mm3 (4.5-10.0)
[2022-07-02 06:25] LABS: Anion Gap 7 mmol/L (8-16); Blood Urea Nitrogen 16 mg/dL (7-17); Calcium 7.7 mg/dL (8.4-10.2); Carbon Dioxide 27 mmol/L (22-30); Chloride 104 mmol/L (98-107); Estimated CRCL calculation 37 ml/min; Estimated Glomerular Filt Rate 53; Glucose 122 mg/dL (65-110); Potassium 3.5 mmol/L (3.4-5.0); Sodium 138 mmol/L (137-145)
[2022-07-02] MEDS: hydrALAZINE HCL 25 MG TABLET PO ×3 (08:52→16:59)
[2022-07-02] MEDS: CHOLECALCIFEROL 1,000 UNITS TABLET 2000 UNITS PO (08:52)
[2022-07-02] MEDS: POTASSIUM CHLORIDE 10 MEQ TABLET.ER 20 MEQ PO (08:53)
[2022-07-02] MEDS: RIVAROXABAN 20 MG TABLET PO (08:54)
--- NOTE | 2022-07-02 09:24 | WPDANESPN ---
Anes - Prog Note Post-Op Date/Time: 07/02/22 08:55 Cardiovascular status: normal Respiratory status: normal Airway patency: baseline Mental status: baseline Post-Op hydration status: normal Vital Signs: Last Vital Signs Temp 98.1 F 07/02/22 06:18 Pulse 90 07/02/22 06:18 Resp 16 07/02/22 06:18 BP 133/67 07/02/22 06:18 Pulse Ox 94 07/02/22 06:18 O2 Del Method Nasal Cannula 07/01/22 20:44 O2 Flow Rate 2 07/01/22 20:44 Pain Score (VAS): 3 I/O: Intake & Output 07/01/22 07/02/22 07/02/22 23:59 07:59 15:59 Intake Total 250 600 794 Output Total 200 750 Balance 50 -150 794 Laboratory Tests 07/02/22 05:45 07/02/22 05:45 07/02/22 07/02/22 05:45 05:45 WBC 9.7 RBC 3.59 L Hgb 10.4 L Hct 31.9 L MCV 88.9 MCH 29.0 MCHC 32.6 RDW 13.8 Plt Count 226 MPV 10.1 Sodium 138 Potassium 3.5 Chloride 104 Carbon Dioxide 27 Anion Gap 7 L BUN 16 Creatinine 1.00 Estim Creat Clear Calc 37 Estimated GFR 53 L Glucose 122 H Calcium 7.7 L Post-procedural complaints: none Patient Feedback: Patient satisfied with anesthetic care.
--- NOTE | 2022-07-02 10:03 | PM.PNORT ---
Progress Note: A&P Assessment and Plan (1) Status post ORIF of fracture of ankle: Code(s): Z98.890 - Other specified postprocedural states; Z87.81 - Personal history of (healed) traumatic fracture Status: Acute Assessment and Plan: POD #1: ORIF Left Ankle Continue PT/OT. NWB LLE. Walker. HIGH FALL RISK. Continue pain control. Ice Ankle/Foot. Protect skin. Incentive Spirometry Use reviewed. Lilorelto Resumed by Dr. Morales Monitor splint. Keep c/d/i. Bowel Regimen. Dispo: SNF vs. [facility] pending medical clearance. (2) Displaced trimalleolar fracture of left ankle: Qualifiers: Encounter type: initial encounter Fracture type: closed Qualified Code(s): S82.852A - Displaced trimalleolar fracture of left lower leg, initial encounter for closed fracture Code(s): S82.852A - Displaced trimalleolar fracture of left lower leg, initial encounter for closed fracture Status: Acute Subjective Subjective Date/Time Seen: 07/02/22 10:03 Post Op day: 1 Interval history: POD #1: ORIF Left Ankle Patient doing well. Pain well controlled. Slow progress with PT/OT. Review of Systems Review of Systems: All systems reviewed & are unremarkable except as noted in HPI and below Exam Const: General: comfortable and no acute distress Resp: Effort & Inspection: normal respiratory effort Cardio: Rate: regular rate Rhythm: regular rhythm Extrem: Left lower extremity: lower leg (splint c/d/i ) Details: normal to inspection and tenderness (entire left ankle), ankle (splint c/d/i ) and foot (splint c/d/i ) Details: normal capillary refill, edema, vascular exam Details: dorsalis pedis pulse present and motor-sensory exam light-touch normal; no unusual warmth and no ecchymosis Psych: Affect: normal affect Objective Data Vital Signs Vital Signs: Vital Signs - 24 hr 07/01/22 14:16 07/01/22 19:22 07/01/22 19:35 Temperature 37.5 C 36.2 C L Pulse Rate 48 L 98 94 Respiratory Rate 16 17 20 Blood Pressure 175/54 H 179/86 H 165/78 H Pulse Oximetry 93 97 95 Oxygen Delivery Room Air Simple Face Mask Simple Face Mask Oxygen Flow Rate 10 10 07/01/22 19:50 07/01/22 20:05 07/01/22 20:20 Temperature Pulse Rate 91 89 86 Respiratory Rate 17 20 14 Blood Pressure 158/76 H 161/68 H 156/60 H Pulse Oximetry 96 96 93 Oxygen Delivery Nasal Cannula Nasal Cannula Nasal Cannula Oxygen Flow Rate 3 2 2 07/01/22 20:48 07/01/22 21:18 07/01/22 22:18 Temperature 36.3 C L 36.6 C 36.4 C L Pulse Rate 124 H 85 79 Respiratory Rate 16 20 18 Blood Pressure 154/65 H 175/73 H 132/62 Pulse Oximetry 93 98 95 Oxygen Delivery Oxygen Flow Rate 07/01/22 20:44 07/02/22 02:18 07/02/22 06:18 Temperature 36.6 C 36.7 C Pulse Rate 61 90 Respiratory Rate 18 16 Blood Pressure 135/50 L 133/67 Pulse Oximetry 95 96 94 Oxygen Delivery Nasal Cannula Oxygen Flow Rate 2 Intake/Output Intake/Output: Intake & Output 06/29/22 06/30/22 07/01/22 07/02/22 23:59 23:59 23:59 23:59 Intake Total 740 7476 738 0236 Output Total 9942 550 0583 750 Balance -910 920 -600 644 Meds/Results Medications: Active Medications Generic Name Dose Route Start Last Admin Trade Name Candelarioq PRN Reason Stop Dose Admin Acetaminophen 1,000 mg 06/28/22 22:00 07/02/22 05:46 Acetaminophen 500 Mg Tablet PO Not Given Q8HR [facility] Acetaminophen 650 mg 07/01/22 20:33 Acetaminophen 325 Mg Tablet PO Q6H PRN Pain Rated 1-3 Hydrocodone Bitart/Acetaminophen 1 tab 07/01/22 20:33 07/02/22 04:33 Hydrocodone/Acetaminophen (*Crx) 7.5-325 Mg Tablet PO 1 tab Q6H PRN Administration Pain Rated 4-6 Calcium Carbonate 500 mg 06/28/22 17:00 07/02/22 08:53 Calcium/Vitamin D 500 Mg Tablet PO 500 mg BIDWM CHERI Administration Cholestyramine Resin 4 gm 06/29/22 10:00 07/01/22 08:59 Cholestyramine Light 4 Gm Powd.Pack BY MOUTH Not Given DAILY@1000 [facility] Fentanyl Citrate 25 mcg 02
[2022-07-02] MEDS: CHOLESTYRAMINE LIGHT 4 GM POWD.PACK BY MOUTH (10:18)
[2022-07-02] MEDS: rOPINIRole HCL 1 MG TABLET PO ×2 (13:19→20:38)
--- NOTE | 2022-07-02 15:02 | PM.IMPN ---
Progress Note: A&P Assessment and Plan (1) Displaced trimalleolar fracture of left ankle: Qualifiers: Encounter type: initial encounter Fracture type: closed Qualified Code(s): S82.852A - Displaced trimalleolar fracture of left lower leg, initial encounter for closed fracture Code(s): S82.852A - Displaced trimalleolar fracture of left lower leg, initial encounter for closed fracture Status: Acute Assessment and Plan: Patient is s/p fall from a ladder and imaging demonstrates left displaced trimalleolar fracture, reduced in the ED. patient has been seen in consultation by Orthopedic surgery underwent ORIF on 07/01/2022 and tolerated procedure well continue PT/OT postoperatively supportive care. Analgesics available as needed for pain home Xarelto has been resumed likely planning for SNF on discharge (2) Fall from ladder: Qualifiers: Encounter type: initial encounter Qualified Code(s): W11.XXXA - Fall on and from ladder, initial encounter Code(s): W11.XXXA - Fall on and from ladder, initial encounter Status: Acute Assessment and Plan: as above. (3) Hypertension: Qualifiers: Hypertension type: primary hypertension Qualified Code(s): I10 - Essential (primary) hypertension Code(s): I10 - Essential (primary) hypertension Status: Chronic Assessment and Plan: blood pressures have been recently control continue home hydralazine 25 mg t.i.d. monitor BP trends (4) Restless leg syndrome: Code(s): G25.81 - Restless legs syndrome Status: Chronic Assessment and Plan: chronic continue ropinirole. (5) Paroxysmal atrial fibrillation: Code(s): I48.0 - Paroxysmal atrial fibrillation Status: Chronic Assessment and Plan: H/O paroxysmal afib. EKG shows sinus rhythm. rate remains controlled Xarelto has been resume (6) Chronic diarrhea: Code(s): K52.9 - Noninfective gastroenteritis and colitis, unspecified Status: Chronic Assessment and Plan: Post-cholecystectomy, chronic, not in acute exacerbation. Continue cholestyramine daily and PRN loperamide. (7) Vitamin D deficiency: Code(s): E55.9 - Vitamin D deficiency, unspecified Status: Acute Assessment and Plan: Vitamin D 25-oh 24. Ca 8.3 with normal albumin Started Vitamin D2 2000 IU daily, calcium carbonate/vit D supplement BID (8) Rash: Code(s): R21 - Rash and other nonspecific skin eruption Status: Acute Assessment and Plan: patient with nonspecific macular rash on back multiple medication allergies listed. Does not appear patient has received any medications that she is allergic to, however may have been related to intraoperative medications or postoperative antibiotics begin Pepcid 20 mg b.i.d. Benadryl as needed monitor closely Subjective Date/time seen: 07/02/22 15:02 Interval history: Date of service: 07/02/2022 Ana Laura Perez is an 86-year-old female with a history of BARBARA, paroxysmal atrial fibrillation on chronic anticoagulation, restless leg syndrome, and hypertension who is seen in follow-up for left trimalleolar ankle fracture. she is s/p ORIF yesterday and tolerated this procedure well. Her pain is fairly controlled at this time. She does complain of aching discomfort in her javed which she rates as 4/10. She complains of decreased sensation in her left lower extremity. she was able to get out of bed today and into a chair by the bedside with assistance. She states that she did struggle with this quite a bit. She denies any postoperative shortness of breath, cough, or chest pain. She has been able to void independently. She is passing flatus. Last bowel movement was 2 days ago. She endorses feeling chronic fatigue. I did notice a macular rash on the upper third of her back that the patient did not mention, cindy
[2022-07-02] MEDS: FAMOTIDINE 20 MG TABLET PO (20:38)
[2022-07-02] MEDS: HYDROcodone/acetaminophen (*CRX) 5-325 MG TABLET 1 TAB PO (20:46)
[2022-07-03 05:54] LABS: Hematocrit 32.8 % (37.0-47.0); Hemoglobin 10.4 g/dL (12.0-15.0); Mean Corpuscular HGB Conc 31.7 g/dl (32-36); Mean Corpuscular Hemoglobin 29.1 pg (26-34); Mean Corpuscular Volume 91.6 fl (80-100); Mean Platelet Volume 9.9 fl (7.4-10.4); Platelet Count Result 220 k/mm3 (150-375); Red Blood Count 3.58 M/mm3 (4.2-5.4); Red Cell Distribution Width 14.1 % (11.5-14.5); White Blood Count 9.8 K/mm3 (4.5-10.0)
[2022-07-03 06:00] VITALS: BP 175/70; PULSE 93; RESP 16; TEMP 36.9; O2SAT 94
[2022-07-03 06:10] LABS: Anion Gap 7 mmol/L (8-16); Blood Urea Nitrogen 14 mg/dL (7-17); Calcium 8.3 mg/dL (8.4-10.2); Carbon Dioxide 28 mmol/L (22-30); Chloride 103 mmol/L (98-107); Estimated CRCL calculation 41 ml/min; Estimated Glomerular Filt Rate 60; Glucose 109 mg/dL (65-110); Potassium 3.7 mmol/L (3.4-5.0); Sodium 138 mmol/L (137-145)
[2022-07-03] MEDS: HYDROcodone/acetaminophen (*CRX) 10-325 MG TABLET 1 TAB PO ×2 (06:29→14:31)
[2022-07-03] MEDS: CHOLECALCIFEROL 1,000 UNITS TABLET 2000 UNITS PO (08:28)
[2022-07-03] MEDS: FAMOTIDINE 20 MG TABLET PO ×2 (08:28→20:04)
[2022-07-03] MEDS: POTASSIUM CHLORIDE 20 MEQ PACKET (FOR LIQUID) PO (08:28)
[2022-07-03] MEDS: hydrALAZINE HCL 25 MG TABLET PO ×3 (08:28→17:53)
[2022-07-03] MEDS: RIVAROXABAN 20 MG TABLET PO (08:29)
--- NOTE | 2022-07-03 09:31 | PM.PNORT ---
Progress Note: A&P Assessment and Plan (1) Status post ORIF of fracture of ankle: Code(s): Z98.890 - Other specified postprocedural states; Z87.81 - Personal history of (healed) traumatic fracture Status: Acute Assessment and Plan: POD #2: ORIF Left Ankle Continue PT/OT. NWB LLE. Walker. HIGH FALL RISK. Continue pain control. Ice Ankle/Foot. Protect skin. Incentive Spirometry Use reviewed. Lilorelto Resumed by Dr. Morales Monitor splint. Keep c/d/i. Bowel Regimen. Dispo: SNF vs. [facility] pending medical clearance. (2) Displaced trimalleolar fracture of left ankle: Qualifiers: Encounter type: initial encounter Fracture type: closed Qualified Code(s): S82.852A - Displaced trimalleolar fracture of left lower leg, initial encounter for closed fracture Code(s): S82.852A - Displaced trimalleolar fracture of left lower leg, initial encounter for closed fracture Status: Acute Subjective Subjective Date/Time Seen: 07/03/22 09:31 Post Op day: 2 Interval history: POD #2: ORIF Left Ankle Patient doing well. Pain well controlled, improved from yesterday. Slow progress with PT/OT. Review of Systems Review of Systems: All systems reviewed & are unremarkable except as noted in HPI and below Exam Const: General: comfortable and no acute distress Resp: Effort & Inspection: normal respiratory effort Cardio: Rate: regular rate Rhythm: regular rhythm Extrem: Left lower extremity: lower leg (splint c/d/i ) Details: normal to inspection and tenderness (entire left ankle), ankle (splint c/d/i ) and foot (splint c/d/i ) Details: normal capillary refill, edema, vascular exam Details: dorsalis pedis pulse present and motor-sensory exam light-touch normal; no unusual warmth and no ecchymosis Psych: Affect: normal affect Objective Data Vital Signs Vital Signs: Vital Signs - 24 hr 07/02/22 10:06 07/02/22 11:39 07/02/22 14:00 Temperature 36.4 C L 37.1 C Pulse Rate 99 100 Respiratory Rate 16 24 H Blood Pressure 126/56 L 137/52 L Pulse Oximetry 96 93 Oxygen Delivery Room Air 07/02/22 20:00 07/02/22 22:06 07/02/22 23:50 Temperature 36.8 C Pulse Rate 90 85 Respiratory Rate 18 Blood Pressure 145/64 H Pulse Oximetry 93 96 96 Oxygen Delivery Room Air Autopap 07/03/22 06:00 Temperature 36.9 C Pulse Rate 93 Respiratory Rate 16 Blood Pressure 175/70 H Pulse Oximetry 94 Oxygen Delivery Intake/Output Intake/Output: Intake & Output 06/30/22 07/01/22 07/02/22 07/03/22 23:59 23:59 23:59 23:59 Intake Total 6807 881 3710 500 Output Total 200 1000 2150 800 Balance 920 -600 294 -300 Meds/Results Medications: Active Medications Generic Name Dose Route Start Last Admin Trade Name Freq PRN Reason Stop Dose Admin Acetaminophen 650 mg 07/01/22 20:33 Acetaminophen 325 Mg Tablet PO Q6H PRN Pain Rated 1-3 Hydrocodone Bitart/Acetaminophen 1 tab 07/02/22 19:39 07/02/22 20:46 Hydrocodone/Acetaminophen (*Crx) 5-325 Mg Tablet PO 1 tab Q4H PRN Administration Pain Rated 4-6 Hydrocodone Bitart/Acetaminophen 1 tab 07/02/22 19:40 07/03/22 06:29 Hydrocodone/Acetaminophen (*Crx) 10-325 Mg Tablet PO 1 tab Q6H PRN Administration Pain Rated 7-10 Calcium Carbonate 500 mg 06/28/22 17:00 07/03/22 08:28 Calcium/Vitamin D 500 Mg Tablet PO 500 mg BIDWM CHERI Administration Cholestyramine Resin 4 gm 06/29/22 10:00 07/02/22 10:18 Cholestyramine Light 4 Gm Powd.Pack BY MOUTH 4 gm DAILY@1000 CHERI Administration Diphenhydramine HCl 25 mg 07/02/22 11:47 Diphenhydramine Hcl Cap 25 Mg Capsule PO Q6H PRN Itching Famotidine 20 mg 07/02/22 21:00 07/03/22 08:28 Famotidine 20 Mg Tablet PO 20 mg Q12HR CHERI Administration Fentanyl Citrate 25 mcg 07/01/22 14:12 07/01/22 20:31 Fentanyl Citrate Inj (*Crx) 100 Mcg/2 Ml Vial IV PUSH 25 mcg Q2M PRN Administration Pain Hydralaz
[2022-07-03] MEDS: CHOLESTYRAMINE LIGHT 4 GM POWD.PACK BY MOUTH (10:21)
--- NOTE | 2022-07-03 10:45 | PCNWS ---
Weekly nutritional screen. Patient is tolerating current diet with adequate intake. No weight loss reported. No nutritional needs at this time.
[2022-07-03 14:10] VITALS: BP 143/59; PULSE 95; RESP 16; TEMP 37.2; O2SAT 97
--- NOTE | 2022-07-03 14:10 | PM.IMPN ---
Progress Note: A&P Assessment and Plan (1) Displaced trimalleolar fracture of left ankle: Qualifiers: Encounter type: initial encounter Fracture type: closed Qualified Code(s): S82.852A - Displaced trimalleolar fracture of left lower leg, initial encounter for closed fracture Code(s): S82.852A - Displaced trimalleolar fracture of left lower leg, initial encounter for closed fracture Status: Acute Assessment and Plan: Patient is s/p fall from a ladder and imaging demonstrates left displaced trimalleolar fracture, reduced in the ED. patient has been seen in consultation by Orthopedic surgery underwent ORIF on 07/01/2022 and tolerated procedure well continue PT/OT postoperatively supportive care. Analgesics available as needed for pain home Xarelto has been resumed likely planning for SNF on discharge (2) Fall from ladder: Qualifiers: Encounter type: initial encounter Qualified Code(s): W11.XXXA - Fall on and from ladder, initial encounter Code(s): W11.XXXA - Fall on and from ladder, initial encounter Status: Acute Assessment and Plan: as above. (3) Hypertension: Qualifiers: Hypertension type: primary hypertension Qualified Code(s): I10 - Essential (primary) hypertension Code(s): I10 - Essential (primary) hypertension Status: Chronic Assessment and Plan: blood pressures have been reasonably controlled continue home hydralazine 25 mg t.i.d. monitor BP trends (4) Restless leg syndrome: Code(s): G25.81 - Restless legs syndrome Status: Chronic Assessment and Plan: chronic continue ropinirole. (5) Paroxysmal atrial fibrillation: Code(s): I48.0 - Paroxysmal atrial fibrillation Status: Chronic Assessment and Plan: H/O paroxysmal afib. EKG shows sinus rhythm. rate remains controlled continue Xarelto (6) Chronic diarrhea: Code(s): K52.9 - Noninfective gastroenteritis and colitis, unspecified Status: Chronic Assessment and Plan: Post-cholecystectomy, chronic, not in acute exacerbation. patient request cholestyramine to be held at this time as she has not had a bowel movement since her surgery. will begin stool softeners and MiraLax as needed (7) Vitamin D deficiency: Code(s): E55.9 - Vitamin D deficiency, unspecified Status: Acute Assessment and Plan: Vitamin D 25-oh 24. Ca 8.3 with normal albumin Started Vitamin D2 2000 IU daily, calcium carbonate/vit D supplement BID (8) Rash: Code(s): R21 - Rash and other nonspecific skin eruption Status: Acute Assessment and Plan: patient with nonspecific macular rash on back multiple medication allergies listed. Does not appear patient has received any medications that she is allergic to and rash not consistent with drup eruption continue Pepcid 20 mg b.i.d. Benadryl as needed although rash is not bothersome to patient monitor closely Subjective Date/time seen: 07/03/22 14:10 Interval history: Date of service: 07/02/2022 Ana Laura Perez is an 86-year-old female with a history of BARBARA, paroxysmal atrial fibrillation on chronic anticoagulation, restless leg syndrome, and hypertension who is seen in follow-up for left trimalleolar ankle fracture. she is s/p ORIF on 07/01/2022. She tolerated the procedure well. At this time, her pain is well controlled. When she is at rest she has no pain. She is able to get up in the bed and to the chair by standing and pivoting. She does have increased pain with activity and this morning it was up to 9/10. She feels that she is doing well with therapy. Planning for SNF following discharge. She has not had a bowel movement since her surgery. She is voiding without difficulty. Denies dysuria or hematuria. She does have some mild irritation of her back, however this seems to be improved. Denies fev
[2022-07-03] MEDS: HYDROcodone/acetaminophen (*CRX) 5-325 MG TABLET 1 TAB PO (19:01)
[2022-07-03 20:00] VITALS: O2SAT 95
[2022-07-03] MEDS: DOCUSATE SODIUM 100 MG CAPSULE PO (20:04)
[2022-07-03] MEDS: rOPINIRole HCL 1 MG TABLET PO (20:04)
[2022-07-03 21:45] VITALS: BP 123/48; PULSE 87; RESP 16; TEMP 36.8; O2SAT 95
[2022-07-03 22:55] VITALS: PULSE 79; O2SAT 96
[2022-07-04] MEDS: HYDROcodone/acetaminophen (*CRX) 5-325 MG TABLET 1 TAB PO (00:11)
[2022-07-04 06:00] VITALS: BP 147/59; PULSE 73; RESP 20; TEMP 36.4; O2SAT 98
[2022-07-04 06:27] LABS: Hematocrit 33.8 % (37.0-47.0); Hemoglobin 10.8 g/dL (12.0-15.0); Mean Corpuscular Hemoglobin 28.6 pg (26-34); Mean Corpuscular Volume 89.4 fl (80-100); Mean Platelet Volume 9.9 fl (7.4-10.4); Platelet Count Result 269 k/mm3 (150-375); Red Blood Count 3.78 M/mm3 (4.2-5.4); White Blood Count 9.7 K/mm3 (4.5-10.0)
[2022-07-04 06:41] LABS: Anion Gap 5 mmol/L (8-16); Blood Urea Nitrogen 14 mg/dL (7-17); Carbon Dioxide 30 mmol/L (22-30); Chloride 101 mmol/L (98-107); Estimated CRCL calculation 36 ml/min; Estimated Glomerular Filt Rate 53; Glucose 102 mg/dL (65-110); Potassium 3.2 mmol/L (3.4-5.0); Sodium 136 mmol/L (137-145)
[2022-07-04 08:22] VITALS: BP 154/61; PULSE 86
[2022-07-04] MEDS: POTASSIUM CHLORIDE 20 MEQ PACKET (FOR LIQUID) PO ×2 (08:26)
[2022-07-04] MEDS: CHOLECALCIFEROL 1,000 UNITS TABLET 2000 UNITS PO (08:27)
[2022-07-04] MEDS: hydrALAZINE HCL 25 MG TABLET PO ×3 (08:28→17:36)
[2022-07-04] MEDS: FAMOTIDINE 20 MG TABLET PO (08:28)
[2022-07-04] MEDS: DOCUSATE SODIUM 100 MG CAPSULE PO (08:28)
[2022-07-04] MEDS: RIVAROXABAN 20 MG TABLET PO (08:29)
[2022-07-04] MEDS: HYDROcodone/acetaminophen (*CRX) 10-325 MG TABLET 1 TAB PO (10:01)
--- NOTE | 2022-07-04 10:14 | PM.DS ---
DS: Admitting Diagnosis Discharge Date 07/04/2022 Admitting Diagnosis left ankle fracture DS: Discharge Diagnosis Discharge Diagnosis (1) Displaced trimalleolar fracture of left ankle: Qualifiers: Encounter type: initial encounter Fracture type: closed Qualified Code(s): S82.852A - Displaced trimalleolar fracture of left lower leg, initial encounter for closed fracture Code(s): S82.852A - Displaced trimalleolar fracture of left lower leg, initial encounter for closed fracture Status: Acute Assessment and Plan: Patient suffered a fall from a ladder and imaging showed left displaced trimalleolar fracture, reduced in the ED. patient was seen in consultation by Orthopedic surgery underwent ORIF on 07/01/2022 and tolerated procedure well Participated in PT/OT postoperatively and will continue therapy at [facility] Supportive care provided Xarelto was continued for DVT prophylaxis Outpatient orthopedic surgery follow-up arranged (2) Fall from ladder: Qualifiers: Encounter type: initial encounter Qualified Code(s): W11.XXXA - Fall on and from ladder, initial encounter Code(s): W11.XXXA - Fall on and from ladder, initial encounter Status: Acute Assessment and Plan: as above. (3) Hypertension: Qualifiers: Hypertension type: primary hypertension Qualified Code(s): I10 - Essential (primary) hypertension Code(s): I10 - Essential (primary) hypertension Status: Chronic Assessment and Plan: blood pressures stable during admission continue home hydralazine 25 mg t.i.d. (4) Restless leg syndrome: Code(s): G25.81 - Restless legs syndrome Status: Chronic Assessment and Plan: chronic continue ropinirole. (5) Paroxysmal atrial fibrillation: Code(s): I48.0 - Paroxysmal atrial fibrillation Status: Chronic Assessment and Plan: H/O paroxysmal afib. EKG showed sinus rhythm. rate controlled continue Xarelto (6) Chronic diarrhea: Code(s): K52.9 - Noninfective gastroenteritis and colitis, unspecified Status: Chronic Assessment and Plan: Post-cholecystectomy, chronic, not in acute exacerbation. patient requested cholestyramine to be held given some complaints of postoperative constipation. Continue to hold on discharge and resume when stool patterns are normalized Continue with Colace and MiraLax postoperatively. This can be stopped if patient develops diarrhea. (7) Vitamin D deficiency: Code(s): E55.9 - Vitamin D deficiency, unspecified Status: Acute Assessment and Plan: Vitamin D 25-oh 24. Ca 8.3 with normal albumin Started Vitamin D2 2000 IU daily and calcium carbonate/vit D supplement BID (8) Rash: Code(s): R21 - Rash and other nonspecific skin eruption Status: Acute Assessment and Plan: Patient with nonspecific macular rash on back multiple medication allergies listed. Does not appear patient has received any medications that she is allergic to and rash not consistent with drup eruption Received Pepcid 20 mg b.i.d. with p.r.n. Benadryl which patient did not take as she had no pruritus Continue with observation. No indication for any topical or systemic management at this time DS: Summary Hospital Course Hospital Course: Date of admission: 06/27/2022 Date of discharge: 07/04/2022 Ana Laura Perez is an 86 year old female with a history of paroxysmal atrial fibrillation on chronic anticoagulation, restless leg syndrome, and hypertension who presented to the emergency department on 06/27/2022 After falling off the 3rd rung of a ladder with complaints of left ankle pain. On presentation to the ED, her vital signs were stable, she was afebrile, white blood cell count 10.9, additional laboratory workup unremarkable,, and ankle x-ray revealed displaced trimalleolar fracture of the left ankle with posterior ti
[2022-07-04] MEDS: rOPINIRole HCL 1 MG TABLET PO (10:30)
[2022-07-04 13:42] LABS: EDCOVIDSCREEN Negative (Negative)
[2022-07-04 14:00] VITALS: BP 143/58; PULSE 81; RESP 16; TEMP 36.7; O2SAT 94
--- NOTE | 2022-07-04 17:40 | PC.NURSE ---
Pt requested to speak to the Charge Nurse. Pt asked me if I was familiar with her history & specifically described her restless legs. I told her, yes and I knew that she was asking for her home medication requip early. Her nurse, Jennifer had previously been in the room and explained that she would be unable to administer the medication prior to 1999 for administration scheduled time of 2100. She said that her doctor had ordered it and that she takes it early at home all the time and that her doctor said that it was okay. I explained to her that her doctor didn't order the medication here and I would not be able to speak with him about the early administration of the med. I offered her to take another stronger pain pill if she was having pain. She continued ask me When was the last time I had constant pain of 8/10? I told her that it had been awhile since I had suffered a debilitating migraine and I am sorry for you discomfort. After listening to her concerns and looking for a solution of taking norco and, if she is still here at 8pm, she can have the requip then. The patient had a discharge order and was going to be transported to [facility] via EMS. We were awaiting ambulance. I spoke with the nurse and told her the patient was agreeable to take the norco for pain until 8 pm, which she would pass along to the night nurse coming on. The nurse went to her room to give the patient her medications, assessed her pain. She asked, What is your pain level? Patient said, Zero. The nurse said I can't justify giving you a strong narcotic pain medication when you don't have pain. Patient said, Get the f__k out of my room. When the nurse came out of the room, EMS arrived to take her to [facility] & patient was discharged.
== END 2022-07-04 17:57 | DRG 494 ==
LOC: ANHED 16:32 → ANH2MED 20:53
PROVIDERS: Nurse Practitioner Family; Orthopaedic Surgery; Physician Assistant; Admitting Provider Chiropractor; Emergency Provider Emergency Medicine; PCP Family Medicine; Visit Provider Physician Assistant
PROC: 0QSH04Z Reposition Left Tibia with Internal Fixation Device, Open Approach (ICD-10-PCS; principal; 2022-07-01 15:00)
DX: S82.852A Displaced trimalleolar fracture of left lower leg, initial encounter for closed fracture (principal); W11.XXXA Fall on and from ladder, initial encounter; G25.81 Restless legs syndrome; G47.33 Obstructive sleep apnea (adult) (pediatric); I10 Essential (primary) hypertension; I48.0 Paroxysmal atrial fibrillation; K52.9 Noninfective gastroenteritis and colitis, unspecified; R21 Rash and other nonspecific skin eruption; Z66 Do not resuscitate; M10.9 Gout, unspecified; E55.9 Vitamin D deficiency, unspecified; Z90.49 Acquired absence of other specified parts of digestive tract; Z20.822 Contact with and (suspected) exposure to COVID-19; Z79.01 Long term (current) use of anticoagulants; Z86.73 Personal history of transient ischemic attack (TIA), and cerebral infarction without residual deficits; Z90.710 Acquired absence of both cervix and uterus
CPT/HCPCS: 27818; 36415; 71045; 72170; 73562; 73590; 73600; 80048; 80053; 82306; 82607; 82746; 83735; 83880; 84443; 84484; 85025; 85027; 85610; 85730; 87426; 87637; 93005; 93306; 97110; 97161; 97165; 97530; 97535; 99199; 99285; A9270; C1713; C1769; C9803; J0131; J0690; J1170; J1644; J2270; J2370; J2405; J2704; J3010; J7120

== ENCOUNTER 2022-09-29 11:50 | Emergency (ER) | payer OTHER, SELFPAY ==
[2022-09-29 11:51] VITALS: BP 179/86; PULSE 83; RESP 16; TEMP 36.3; O2SAT 100
--- NOTE | 2022-09-29 14:08 | ED.EPISTAXIS ---
HPI - Epistaxis General Chief complaint: Epistaxis Stated complaint: nose bleed Time Seen by Provider: 09/29/22 13:29 History of Present Illness HPI Narrative: Patient is an 87-year-old female on Xarelto presenting with epistaxis. Patient states that she has had several nosebleeds over the last week. States that she has been able to control them by putting tissues in her nose. States that this morning she was unable to control it with Kleenex's so she called EMS. EMS gave her a nasal clamp which has significantly improved the bleeding. States that it seemed to stop for at least an hour but she had a small amount of oozing over the last few minutes. States that she thinks is coming from her right nostril. Denies recent trauma. Denies lightheadedness, chest pain, shortness of breath. Related Data Home Medications Medication Instructions Recorded Confirmed cholestyramine (with sugar) 4 gram 1 ea DAILY 06/27/22 09/24/22 oral powder hydralazine 25 mg tablet 25 mg PO TID 06/27/22 09/24/22 potassium chloride 10 mEq 10 meq PO DAILY 06/27/22 09/24/22 capsule,extended release rivaroxaban 20 mg tablet (Xarelto) 20 mg PO DAILY 06/27/22 09/24/22 ropinirole 1 mg tablet 1 mg PO DAILY 06/27/22 09/24/22 Allergies Allergy/AdvReac Type Severity Reaction Status Date / Time armodafinil Allergy Severe DYSPNEA Verified 09/24/22 13:22 bupropion Allergy Intermediate Siezure Verified 09/24/22 13:22 Tetracyclines Allergy Mild HIVES Verified 09/24/22 13:22 iodine Allergy Unknown Unknown Verified 09/24/22 13:22 tetracycline Allergy Hives Verified 09/24/22 13:22 zinc Allergy Rash Verified 09/24/22 13:22 adhesive AdvReac Rash Verified 09/24/22 13:22 amlodipine AdvReac Fatigued Verified 09/24/22 13:22 amoxicillin AdvReac Diarrhea Verified 09/24/22 13:22 clonidine AdvReac Fatigued Verified 09/24/22 13:22 escitalopram AdvReac Fatigued Verified 09/24/22 13:22 fluconazole AdvReac Fatigued Verified 09/24/22 13:22 hydrochlorothiazide AdvReac Fatigued Verified 09/24/22 13:22 irbesartan AdvReac Fatigued Verified 09/24/22 13:22 levothyroxine AdvReac Fatigued Verified 09/24/22 13:22 naproxen AdvReac Anxiety Verified 09/24/22 13:22 nebivolol AdvReac Fatigued Verified 09/24/22 13:22 paroxetine AdvReac Fatigued Verified 09/24/22 13:22 quinapril AdvReac Fatigued Verified 09/24/22 13:22 rosuvastatin AdvReac Fatigued Verified 09/24/22 13:22 sertraline AdvReac Fatigued Verified 09/24/22 13:22 spironolactone AdvReac Fatigued Verified 09/24/22 13:22 venlafaxine AdvReac Fatigued Verified 09/24/22 13:22 Review of Systems Review of Systems: All systems reviewed & are unremarkable except as noted in HPI and below PMFSH Past Medical History Medical History Chronic anticoagulation Gout Hypertension Obstructive sleep apnea Paroxysmal atrial fibrillation Restless leg syndrome Surgical History Surgical History History of bilateral cataract extraction History of cardiac catheterization Mild, nonobstructing disease per patient report. History of cholecystectomy History of hysterectomy for benign disease History of laparoscopy For endometriosis. Status post ORIF of fracture of ankle Family History Family History Other Heart disease Hypertension Social History Social History Social History: Surrogate medical decision maker: Prudence Elias, friend. Code status: Do not resuscitate. Smoking status: Never smoker Alcohol intake: never Substance use: never Lack of Transportation: No Lack of Food: Never True Current Housing: I Have Housing Concerned About Future Housing: No Difficulty Paying Gas/Electric Bills: No Difficulty Paying for Meds: No Currently Unemployed: No Education: High School Dipl
[2022-09-29 14:43] LABS: Basophils Absolute Auto 0.1 K/mm3 (0.0-0.1); Basophils Percent Auto 0.7 % (0.2-1.2); Eosinophils Absolute Auto 0.2 K/mm3 (0-0.3); Eosinophils Percent Auto 1.7 % (0-4.4); Hematocrit 39.4 % (37.0-47.0); Hemoglobin 12.5 g/dL (12.0-15.0); Immature Granulocyte Absolute 0.03 K/mm3 (0.00-0.031); Immature Granulocyte Percent A 0.3 % (0-0.5); Lymphocytes Absolute Auto 1.73 K/mm3 (0.9-3.2); Lymphocytes Percent Auto 18.5 % (18.3-44.2); Mean Corpuscular HGB Conc 31.7 g/dl (32-36); Mean Corpuscular Hemoglobin 28.2 pg (26-34); Mean Corpuscular Volume 88.7 fl (80-100); Monocytes Absolute Auto 0.7 K/mm3 (0.1-0.6); Monocytes Percent Auto 7.2 % (2.6-8.5); Neutrophils Absolute Auto 6.7 K/mm3 (1.3-6.7); Neutrophils Percent Auto 71.6 % (45.5-73.1); Platelet Count Result 233 k/mm3 (150-375); Red Blood Count 4.44 M/mm3 (4.2-5.4); Red Cell Distribution Width 14.6 % (11.5-14.5); White Blood Count 9.4 K/mm3 (4.5-10.0)
[2022-09-29 14:49] LABS: Anion Gap 6 mmol/L (8-16); Blood Urea Nitrogen 21 mg/dL (7-17); Calcium 9.3 mg/dL (8.4-10.2); Carbon Dioxide 30 mmol/L (22-30); Chloride 106 mmol/L (98-107); Estimated CRCL calculation 44 ml/min; Estimated Glomerular Filt Rate > 60; Glucose 100 mg/dL (65-110); Potassium 3.4 mmol/L (3.4-5.0); Sodium 142 mmol/L (137-145)
[2022-09-29 14:50] LABS: INR 0.9
[2022-09-29 14:51] LABS: Partial Thromboplastin Time 23.6 SECONDS (22.3-36.8)
[2022-09-29] MEDS: OXYMETAZOLINE HCL 0.05% NAS 15 ML BTL (*BKC) 1 SPRAY NASAL (15:39)
[2022-09-29 17:08] VITALS: BP 168/91; PULSE 74; RESP 18; O2SAT 99
== END 2022-09-29 17:09 | disposition home or self-care (01) ==
PROVIDERS: Emergency Provider Emergency Medicine; PCP Family Medicine
DX: R04.0 Epistaxis (principal); I48.0 Paroxysmal atrial fibrillation; I10 Essential (primary) hypertension; M10.9 Gout, unspecified; G47.33 Obstructive sleep apnea (adult) (pediatric); G25.81 Restless legs syndrome; Z98.42 Cataract extraction status, left eye; Z98.41 Cataract extraction status, right eye; Z90.49 Acquired absence of other specified parts of digestive tract; Z90.710 Acquired absence of both cervix and uterus; Z66 Do not resuscitate; Z79.01 Long term (current) use of anticoagulants
CPT/HCPCS: 36415; 80048; 85025; 85610; 85730; 99283; A9270

== ENCOUNTER 2022-10-08 00:46 | Emergency (ER) | payer OTHER, SELFPAY ==
[2022-10-08 00:50] VITALS: BP 190/75; PULSE 103; RESP 20; TEMP 36.6; O2SAT 95
--- NOTE | 2022-10-08 01:20 | ED.EPISTAXIS ---
HPI - Epistaxis General Chief complaint: Epistaxis Stated complaint: epitaxis Time Seen by Provider: 10/08/22 00:54 History of Present Illness HPI Narrative: Patient is a 87-year-old female here due to epistaxis x90 minutes. Patient had her nose cauterized as an outpatient 3 days ago due to recurrent nosebleeds. She has been doing well until today when it recurred. Denies obvious trigger including trauma or picking her nose. She has been off of her Xarelto due to recurrent nosebleeds. No weakness, lightheadedness, chest pain, shortness of breath, bleeding elsewhere. Related Data Home Medications Medication Instructions Recorded Confirmed cholestyramine (with sugar) 4 gram 1 ea DAILY 06/27/22 09/24/22 oral powder hydralazine 25 mg tablet 25 mg PO TID 06/27/22 09/24/22 potassium chloride 10 mEq 10 meq PO DAILY 06/27/22 09/24/22 capsule,extended release rivaroxaban 20 mg tablet (Xarelto) 20 mg PO DAILY 06/27/22 09/24/22 ropinirole 1 mg tablet 1 mg PO DAILY 06/27/22 09/24/22 Allergies Allergy/AdvReac Type Severity Reaction Status Date / Time armodafinil Allergy Severe DYSPNEA Verified 10/08/22 00:58 bupropion Allergy Intermediate Siezure Verified 10/08/22 00:58 Tetracyclines Allergy Mild HIVES Verified 10/08/22 00:58 iodine Allergy Unknown Unknown Verified 10/08/22 00:58 zinc Allergy Rash Verified 10/08/22 00:58 adhesive AdvReac Rash Verified 10/08/22 00:58 amlodipine AdvReac Fatigued Verified 10/08/22 00:58 amoxicillin AdvReac Diarrhea Verified 10/08/22 00:58 clonidine AdvReac Fatigued Verified 10/08/22 00:58 escitalopram AdvReac Fatigued Verified 10/08/22 00:58 fluconazole AdvReac Fatigued Verified 10/08/22 00:58 hydrochlorothiazide AdvReac Fatigued Verified 10/08/22 00:58 irbesartan AdvReac Fatigued Verified 10/08/22 00:58 levothyroxine AdvReac Fatigued Verified 10/08/22 00:58 naproxen AdvReac Anxiety Verified 10/08/22 00:58 nebivolol AdvReac Fatigued Verified 10/08/22 00:58 paroxetine AdvReac Fatigued Verified 10/08/22 00:58 quinapril AdvReac Fatigued Verified 10/08/22 00:58 rosuvastatin AdvReac Fatigued Verified 10/08/22 00:58 sertraline AdvReac Fatigued Verified 10/08/22 00:58 spironolactone AdvReac Fatigued Verified 10/08/22 00:58 venlafaxine AdvReac Fatigued Verified 10/08/22 00:58 Review of Systems Review of Systems: Gen.: Denies fevers or chills Eyes: Denies eye pain or visual change ENT: Reports nosebleed Respiratory: Denies shortness of breath or cough CV: Denies chest pain or palpitations GI: Denies abdominal pain nausea, emesis or diarrhea denies burning, urgency, frequency or hematuria Musculoskeletal: Denies back pain or muscle pain Neuro: Denies numbness, tingling, weakness or focal weakness Skin: Denies rash Except as documented, all other systems reviewed and negative [facility] Past Medical History Medical History Chronic anticoagulation Gout Hypertension Obstructive sleep apnea Paroxysmal atrial fibrillation Restless leg syndrome Surgical History Surgical History History of bilateral cataract extraction History of cardiac catheterization Mild, nonobstructing disease per patient report. History of cholecystectomy History of hysterectomy for benign disease History of laparoscopy For endometriosis. Status post ORIF of fracture of ankle Family History Family History Other Heart disease Hypertension Social History Social History Social History: Caffeine-none Surrogate medical decision maker: Prudence Elias, friend. Code status: Do not resuscitate. Smoking status: Never smoker Alcohol intake: never Substance use: never Lack of Transportation: No Lack of Food: Never True Current Housing: I Have Housing Concerned Abo
[2022-10-08] MEDS: OXYMETAZOLINE HCL 0.05% NAS 15 ML BTL (*BKC) 1 SPRAY NASAL (01:56)
[2022-10-08 02:06] VITALS: BP 194/77; PULSE 86; RESP 20; O2SAT 97
[2022-10-08 02:10] VITALS: BP 196/82
[2022-10-08] MEDS: hydrALAZINE HCL 25 MG TABLET PO (02:33)
[2022-10-08 02:57] VITALS: BP 170/75; PULSE 88; RESP 16; O2SAT 96
== END 2022-10-08 02:59 | disposition home or self-care (01) ==
PROVIDERS: Emergency Provider Physician Assistant; PCP Family Medicine
DX: R04.0 Epistaxis (principal); I48.0 Paroxysmal atrial fibrillation; I10 Essential (primary) hypertension; G47.33 Obstructive sleep apnea (adult) (pediatric); G25.81 Restless legs syndrome; M10.9 Gout, unspecified; Z98.42 Cataract extraction status, left eye; Z98.41 Cataract extraction status, right eye; Z90.49 Acquired absence of other specified parts of digestive tract; Z90.710 Acquired absence of both cervix and uterus; Z66 Do not resuscitate; Z79.01 Long term (current) use of anticoagulants
CPT/HCPCS: 99283; A9270

== ENCOUNTER 2022-10-14 05:29 | Emergency (ER) | payer OTHER, SELFPAY ==
[2022-10-14 05:33] VITALS: BP 220/70; PULSE 77; RESP 14; TEMP 36.6; O2SAT 98
--- NOTE | 2022-10-14 06:19 | ED.EPISTAXIS ---
HPI - Epistaxis General Chief complaint: Epistaxis Stated complaint: R nare bleeding Time Seen by Provider: 10/14/22 06:02 History of Present Illness HPI Narrative: Patient is an 87-year-old female who presents ER with right nare epistaxis. Patient has had recurrent epistaxis and been in the ER. She was seen by ENT yesterday and underwent cautery of bleeding from Susannah box plexus. She then had a Merocel sponge packed into the nose. There is supposed to remain until 10/19/2022. She woke up this morning and the sponges stained with blood and there is slight oozing. She also spit out some blood. Patient is currently taking aspirin and is supposed to start a low-dose blood thinner in the near future. Patient also reports she was using some phenylephrine nasal spray last night. She did not wear her CPAP. No fevers or chills or sweats. No difficulty breathing or swallowing but has some discomfort breathing through her nose due to packing. Related Data Home Medications Medication Instructions Recorded Confirmed cholestyramine (with sugar) 4 gram 1 ea DAILY 06/27/22 09/24/22 oral powder hydralazine 25 mg tablet 25 mg PO TID 06/27/22 09/24/22 potassium chloride 10 mEq 10 meq PO DAILY 06/27/22 09/24/22 capsule,extended release ropinirole 1 mg tablet 1 mg PO DAILY 06/27/22 09/24/22 rivaroxaban 10 mg tablet (Xarelto) 10 mg PO DAILY 10/13/22 Allergies Allergy/AdvReac Type Severity Reaction Status Date / Time armodafinil Allergy Severe DYSPNEA Verified 10/13/22 13:34 bupropion Allergy Intermediate Siezure Verified 10/13/22 13:34 Tetracyclines Allergy Mild HIVES Verified 10/13/22 13:34 iodine Allergy Unknown Unknown Verified 10/13/22 13:34 zinc Allergy Rash Verified 10/13/22 13:34 adhesive AdvReac Rash Verified 10/13/22 13:34 amlodipine AdvReac Fatigued Verified 10/13/22 13:34 amoxicillin AdvReac Diarrhea Verified 10/13/22 13:34 clonidine AdvReac Fatigued Verified 10/13/22 13:34 escitalopram AdvReac Fatigued Verified 10/13/22 13:34 fluconazole AdvReac Fatigued Verified 10/13/22 13:34 hydrochlorothiazide AdvReac Fatigued Verified 10/13/22 13:34 irbesartan AdvReac Fatigued Verified 10/13/22 13:34 levothyroxine AdvReac Fatigued Verified 10/13/22 13:34 naproxen AdvReac Anxiety Verified 10/13/22 13:34 nebivolol AdvReac Fatigued Verified 10/13/22 13:34 paroxetine AdvReac Fatigued Verified 10/13/22 13:34 quinapril AdvReac Fatigued Verified 10/13/22 13:34 rosuvastatin AdvReac Fatigued Verified 10/13/22 13:34 sertraline AdvReac Fatigued Verified 10/13/22 13:34 spironolactone AdvReac Fatigued Verified 10/13/22 13:34 venlafaxine AdvReac Fatigued Verified 10/13/22 13:34 Review of Systems Constitutional: Constitutional: Denies chills, Denies fatigue and Denies fever(s) ENT: Reports epistaxis, Reports nasal congestion and Denies sore throat Comments: No facial pain Respiratory: Respiratory: Denies cough and Denies dyspnea PMFSH Past Medical History Medical History Chronic anticoagulation Gout Hypertension Obstructive sleep apnea Paroxysmal atrial fibrillation Restless leg syndrome Surgical History Surgical History History of bilateral cataract extraction History of cardiac catheterization Mild, nonobstructing disease per patient report. History of cholecystectomy History of hysterectomy for benign disease History of laparoscopy For endometriosis. Status post ORIF of fracture of ankle Family History Family History Other Heart disease Hypertension Social History Social History Social History: Caffeine-none Surrogate medical decision maker: Prudence Elias, friend. Code status: Do not resuscitate. Smoking status: Never smoker Alcohol intake: never Substance use: never [place]
[2022-10-14 06:27] VITALS: BP 169/74; PULSE 89; RESP 20; O2SAT 96
[2022-10-14 06:42] VITALS: BP 155/68; PULSE 84; RESP 20; O2SAT 95
[2022-10-14 06:47] VITALS: BP 155/68; PULSE 90; RESP 16; O2SAT 96
== END 2022-10-14 06:48 | disposition home or self-care (01) ==
PROVIDERS: Emergency Provider Emergency Medicine; PCP Family Medicine
DX: R04.0 Epistaxis (principal); I48.0 Paroxysmal atrial fibrillation; I10 Essential (primary) hypertension; M10.9 Gout, unspecified; G47.33 Obstructive sleep apnea (adult) (pediatric); G25.81 Restless legs syndrome; Z98.42 Cataract extraction status, left eye; Z98.41 Cataract extraction status, right eye; Z90.49 Acquired absence of other specified parts of digestive tract; Z90.710 Acquired absence of both cervix and uterus; Z66 Do not resuscitate; Z79.82 Long term (current) use of aspirin; Z79.01 Long term (current) use of anticoagulants
CPT/HCPCS: 99281

== ENCOUNTER 2023-10-21 15:00 | Outpatient (RCR) | payer OTHER, SELFPAY | END 2023-10-25 16:45 | disposition home or self-care (01) | LOC: ANHCPREHAB 15:00 | PROVIDERS: Visit Provider Internal Medicine Cardiovascular Disease | DX: Z95.5 Presence of coronary angioplasty implant and graft (principal) | CPT/HCPCS: 93798 ==

== ENCOUNTER 2025-05-07 13:00 | Emergency (ER) | payer OTHER, SELFPAY ==
--- OUTSIDE RECORDS SUMMARY | 2024-04-01 21:00 | XMS_ITS ---
Author Organization [facility] Address [address] [place] [id number] Phone [phone] Care Team Providers Care Pyrometer Mechanic Name Role Phone Leydi Henderson MD Primary Care Provider Migration, Provider Unavailable Unavailable Allergies Allergen (clinical drug ingredient) Drug/Non Drug Allergy documented on EMR Reaction Allergy Type Onset Date Status MAGNESIUM TAURATE (uncoded) Unknown Allergy Active amoxicillin Amoxicillin Unknown Drug Allergy Act aj fluconazole Fluconazole Unknown Drug Allergy Act aj hydrochlorothiazide hydroCHLOROthiazide Unknown Drug Aller gy Active irbesartan Irbesartan Unknown Drug Allergy Activ e naproxen Naproxen Unknown Drug Allergy Active spironolactone Spironolactone Unknown Drug Allergy Active zinc gluconate Zinc Gluconate Unknown Drug Allergy Active armodafinil Armodafinil Unknown Drug Allergy Act aj clonidine cloNIDine Unknown Drug Allergy Active amlodipine amLODIPine Unknown Drug Allergy Activ e bupropion buPROPion Unknown Drug Allergy Active escitalopram Escitalopram Unknown Drug Allergy A ctive levothyroxine Levothyroxine Unknown Drug Allergy Active nebivolol Nebivolol Unknown Drug Allergy Active paroxetine PARoxetine Unknown Drug Allergy Activ e quinapril Quinapril Unknown Drug Allergy Active rosuvastatin Rosuvastatin Unknown Drug Allergy A ctive sertraline Sertraline Unknown Drug Allergy Activ e tetracycline Tetracycline Unknown Drug Allergy A ctive venlafaxine Venlafaxine Unknown Drug Allergy Act aj REASON FOR VISIT Multum To Medispan Conversion Encounter Medications Medication SIG (Take, Route, Frequency, Duration) Notes Start Date End Date Diagnosis (ICD Code) Status Unithroid 25 MCG (0.025 MG) TABLET 1 TAB(S) ORALLY EVERY OTHER DAY; Duration: 90 DAYS *Please review and pick correct strength-formul ation from [employer] options. If intended option is not shown, discontinue and re-order from Quick Search* *Pick strength-form from [facility] for eRX* 4 Hypothyroidism, unspecified (ICD_10 - E03.9) Active Liothyronine Sodium 5 MCG Tablet 1 tab(s) orally every other day in afternoon / opposite from unithroid; Duration: 90 days 4 Hypothyroidism, unspecified (ICD_10 - E03.9) Active rOPINIRole HCl 0.5 MG Tablet 1 tab(s) orally 3 times a day Active dilTIAZem HCl 180 MG/24 HOURS CAPSULE, EXTENDED RELEASE 1 CAP(S) ORALLY ONCE A DAY *Please review for potential replacement for e-prescription and drug interaction check* *Pick strength-form from [facility] for eRX* Active Potassium Chloride Cynthia ER 10 MEQ Tablet Extended Release 1 tab(s) orally 2 times a day Active hydrALAZINE HCl 50 MG Tablet 1 tab(s) orally 4 times a day Active Liothyronine Sodium 5 MCG Tablet 1 tab(s) orally twice daily; Duration: 90 days Autoimmune thyroiditis (ICD_10 - E06.3) Active Social History Sex Observation Social History Observation Description Sex Observation Female Encounters Date Time Type Facility Location Provider Diagnosis 4 09:00 PM Office Visit [address] [id number] Provider Migration Hypothyroidism, unspecified E03.9 Assessments Encounter Date Diagnosis (ICD Code) Assessment Notes Treat ment Notes Section Notes 04/01/2024 Hypothyroidism, unspecified (ICD-10 - E03.9) Plan Of Treatment Medication Medication Name Sig Start Date Stop Date Notes Unithroid 25 MCG (0.025 MG) TABLET 1 TAB(S) ORALLY EVERY OTHER DAY; Duration: 90 DAYS 03/31/2024 *Please review and pick correct strength-formulation from [facility] options. If intended option is not shown, discontinue and re-order from Quick Search* *Pick strength-form from [facility] for eRX* Liothyronine Sodium 5 MCG Tablet 1 tab(s) orally every other day in afternoon / opposite from unithroid; Duration: 90 days 03/31/2024 Medical (General) History Surgical History Surgery Date(Month/Year) Stent placement Hospitalization History Reason Date(Month/Year) Stent placement Progress Notes * Violetta OLIVAOB:1935 (89 yo F)Acc No.[id number]:04/01/2024 Patient: Ana Laura Oliva Provider: Provider Migration :1935 Age:88 Y Sex:Female Date:04/01/2024 [facility] [id number] Pcp:Leydi Henderson Subjective: * Chief Complaints: * [facility] * Medications: TakingPotassium Chloride Cynthia ER 10 MEQ Tablet Extended Release 1 tab(s) orally 2 times a day Potassium Chloride Cynthia ER 10 MEQ Tablet Extended Release 1 tab(s) orally 2 times a day [id number] HCl 0.5 MG Tablet 1 tab(s) orally 3 times a day rOPINIRole HCl 0.5 MG Tablet 1 tab(s) orally 3 times a day [id number] HCl 180 MG/24 HOURS CAPSULE, EXTENDED RELEASE 1 CAP(S) ORALLY ONCE A DAY , Notes to Pharmacist: *Please review for potential replacement for e-prescription and drug interaction check* *Pick strength-form from [facility] for eRX*dilTIAZem HCl 180 MG/24 HOURS CAPSULE, EXTENDED RELEASE 1 CAP(S) ORALLY ONCE A DAY , Notes to Pharmacist: *Please review for potential replacement for e-prescription and drug interaction check* *Pick strength-form from [facility] for eRX*[id number] HCl 50 MG Tablet 1 tab(s) orally 4 times a day hydrALAZINE HCl 50 MG Tablet 1 tab(s) orally 4 times a day [id number] Sodium 5 MCG Tablet 1 tab(s) orally twice daily Liothyronine Sodium 5 MCG Tablet 1 tab(s) orally twice daily [id number] Potassium Chloride Cynthia ER 10 MEQ Tablet Extended Release 1 tab(s) orally 2 times a day Taking rOPINIRole HCl 0.5 MG Tablet 1 tab(s) orally 3 times a day Taking dilTIAZem HCl 180 MG/24 HOURS CAPSULE, EXTENDED RELEASE 1 CAP(S) ORALLY ONCE A DAY , Notes to Pharmacist: *Please review for potential replacement for e-prescription and drug interaction check* *Pick strength-form from [facility] for eRX*Taking hydrALAZINE HCl 50 MG Tablet 1 tab(s) orally 4 times a day Taking Liothyronine Sodium 5 MCG Tablet 1 tab(s) orally twice daily * Allergies: PARoxetineQuinaprilRosuvastatinSertralineSpironolactoneTetracyclineVenlafaxineNa proxenIrbesartanhydroCHLOROthiazideamLODIPineArmodafinilbuPROPioncloNIDineEscita lopramZinc GluconateFluconazoleAmoxicillinLevothyroxineNebivololMAGNESIUM TAURATE Assessment: * Assessment: 1. Hypothyroidism, unspecified - E03.9 Plan: * Treatment: * Electronic signature of Prov ider Migration on 05/07/2025 at 02:43 PM ENGINEERING CLERK Sign off status: Pending * Provider: Provider Migration Date: 04/01/2024 Generated for Tahira gonzalez/Mark/Raza on: 05/07/2025 02:43 PM ENGINEERING CLERK
[2025-05-07] VITALS (12 sets, daily range): BP systolic 155–195; BP diastolic 51–91; PULSE 68–85; RESP 13–20; TEMP 36.3; O2SAT 92–98
--- NOTE | ~2025-05-07 | XR_ITS ---
XR chest 1V portable 05/07/2025 15:23 Indication: Cardiac arrhythmia Procedure: AP portable chest Comparison: 06/28/2022 Findings: Chronic bibasilar atelectasis/scarring. Heart size normal. There is atherosclerosis and ectasia of the aorta. There is a prosthetic device overlying the left upper cardiac contour. No acute focal pneumonia. No pneumothorax. Impression: 1: No acute cardiopulmonary disease. Reviewed, dictated and finalized at location O. UP MACHINE OPERATOR Impression: 1: No acute cardiopulmonary disease.
--- NOTE | 2025-05-07 13:02 | ECG_ITS ---
Test Date: 2025-05-07 13:15:45 Measurements Intervals [place]or Rate: 66 P: 58 MN: 203 QRS: -64 QRSD: 84 T: 104 QT: 403 QTc: 425 Interpretive Statements SINUS RHYTHM LEFT AXIS DEVIATION POSSIBLE RIGHT VENTRICULAR CONDUCTION DELAY CANNOT R/O SEPTAL INFARCT, AGE INDETERMINATE BORDERLINE ST-T WAVE ABNORMALITY- HIGH LATERAL LEADS BASELINE ARTIFACT- I, II, AVR ABNORMAL ECG No previous ECG available for comparison Electronically Signed On 05-07-2025 13:35:18 URINALYSIS TECHNICIAN by Trino Tang D.O.
--- OUTSIDE RECORDS SUMMARY | 2025-05-07 14:43 | XMS_ITS | Encounter Summary ---
Author Organization [facility] Facility Care Team Providers Care Mill Tender Washing Name Role Phone Migue Hill DO Primary Care Provider + Milton Funes MD Unavailable [phone] Encounter Details Date Type Department Care Team (Latest Contact Info) Description 11/27/2017 Orders Only [facility] CLINCONV ProviderMel MD [address] [place], [place] [phone] Social History Tobacco Use Types Packs/Day Years Used Date Smoking Tobacco: Never Assessed Comments Unknown Sex and Gender Information Value Date Recorded Sex Assigned at Not on file Legal Sex Female 8:19 PM STORAGE GARAGE ATTENDANT Gender Identity Female 04/26/2019 10:43 AM STORAGE GARAGE ATTENDANT Sexual Orientation Straight 04/26/2019 10 :41 AM STORAGE GARAGE ATTENDANT documented as of this encounter Plan of Treatment Not on file documented as of this encounter Procedures Procedure Name Priority Date/Time Associated Diagnosis Comments SCAN - LABS 11/27/2017 12:00 AM CDT documented in this encounter Results * SCAN - LABS (11/27/2017 12:00 AM CDT) Narrative 11/27/2017 12:00 AM CDT Ordered by an unspecified provider. Historical Provider Final Res ult documented in this encounter Visit Diagnoses Not on filedocumented in this encounter Additional Health Concerns Infection Onset Date Last Indicated Resolved Time COVID: Suspected 03/02/2023 03/02/2023 03/02/2023 10:09 PM CDT documented as of this encounter Care Teams Mill Tender Washing Relationship Specialty Start Date End Date Migue Hill DO PCP - General Family Medicine 09/10/21 Milton Funes MD [address] [facility] [address] [place] [address] Consulting Physician Cardiothoracic Surgery 03/30/23 documented as of this encounter
--- OUTSIDE RECORDS SUMMARY | 2025-05-07 14:43 | XMS_ITS | Encounter Summary ---
Author Organization [facility] Address [address] [place] [address] Care Team Providers Care Dye Padder Operator Name Role Phone Migue Hong DO Primary Care Provider [phone] Tristian Kramer MD Unavailable [phone] Encounter Details Date Type Department Care Team (Late st Contact Info) Description 06/24/2017 Abstract [facility] at [facility], [address] [address] [address] [place] Social History Tobacco Use Types Packs/Day Years Used Date Smoking Tobacco: Never Alcohol Use Standard Drinks/Week Comments No 0 (1 standard drink = 0.6 oz pur e alcohol) Comments Unknown Sex and Gender Information Value Date Recorded Sex Assigned at Not on file Legal Sex Female 11:37 PM CDT Gender Identity Not on file Sexual Orientation Not on file documented as of this encounter Plan of Treatment Not on file documented as of this encounter Procedures Procedure Name Priority Date/Time Associated Diagnosis Comments COMPREHENSIVE METABOLIC PANEL Routine 04/27/2017 PHOSPHORUS, INORGANIC PHOSPHATE Routine 04/27/2017 CBC (OUTSIDE LAB) Routine 10/15/2016 COMPREHENSIVE METABOLIC PANEL Routine 08/04/2016 LIPID PANEL Routine 08/04/2016 HEMOGLOBIN GLYCOSYLATED A1C Routine 08/04/2016 C-REACTIVE PROTEIN Routine 08/04/2016 documented in this encounter Results * PHOSPHORUS, INORGANIC PHOSPHATE (04/27/2017) PHOSPHORUS 3.1 04/27/2017 [facility] Abstract LABORATORY Final Result * COMPREHENSIVE METABOLIC PANEL (04/27/2017) SODIUM S/P/B 143 POTASSIUM S/P/B 4.4 CO2 21 CHLORIDE S/P/B 104 GLUCOSE 97 mg/dL CALCIUM S/P/B 9.5 BUN 16 CREATININE S/P/B 0.89 0.5 - 1.0 EGFR AFR. AMER. 71 <=90 EGFR NON-AFR. AMER. 61 <=90 ALKALINE PHOSPHATASE S/P/B 89 ALT 20 AST 23 BILIRUBIN TOTAL S/P/B 0.2 ALBUMIN S/P/B 4.4 3.5 - 5.0 TOTAL PROTEIN S/P/B 7.7 GLOBULIN 3.3 04/27/2017 us [facility] Abstract LABORATORY Final Result * CBC (OUTSIDE LAB) (10/15/2016) WBC 7.4 HGB 14.1 HCT 42.6 PLT 220 10/15/2016 us [facility] Abstract LAB-OUTSIDE/ABSTRACTED Final Result * C-REACTIVE PROTEIN (08/04/2016) CRP 5.98 08/04/2016 us [facility] Abstract LABORATORY Final Result * HEMOGLOBIN, GLYCOSYLATED (08/04/2016) HGB A1C 5.6 08/04/2016 us Doc [facility] Abstract LABORATORY Final Result * LIPID PANEL (08/04/2016) CHOLESTEROL 150 HDL 56 TRIGLYCERIDES 146 LDL (CALCULATED) 65 08/04/2016 us Doc [facility] Abstract LABORATORY Final Result * COMPREHENSIVE METABOLIC PANEL (08/04/2016) SODIUM S/P/B 145 POTASSIUM S/P/B 4.8 CO2 23 CHLORIDE S/P/B 103 GLUCOSE 99 mg/dL CALCIUM S/P/B 9.7 BUN 14 CREATININE S/P/B 0.84 0.5 - 1.0 EGFR AFR. AMER. 76 <=90 EGFR NON-AFR. AMER. 66 <=90 ALKALINE PHOSPHATASE S/P/B 89 ALT 17 AST 19 BILIRUBIN TOTAL S/P/B 0.3 ALBUMIN S/P/B 4.4 3.5 - 5.0 TOTAL PROTEIN S/P/B 7.4 GLOBULIN 3.0 08/04/2016 us Doc [facility] Abstract LABORATORY Final Result documented in this encounter Visit Diagnoses Not on filedocumented in this encounter Care Teams Dye Padder Operator Relationship Specialty Start Date End Date Migue Hong DO PCP - General FAMILY PRACTICE 10/16/15 Tristian Kramer MD [facility]. [id number] [place] [address] [place] Truck Crane Operator CARDIOVASCULAR DISEASE 05/28/17 documented as of this encounter
--- OUTSIDE RECORDS SUMMARY | 2025-05-07 14:43 | XMS_ITS | Encounter Summary ---
Author Organization [facility] Facility Care Team Providers Care Group Segment Consultant Name Role Phone Migue Hill DO Primary Care Provider + Milton Funes MD Unavailable [phone] Encounter Details Date Type Department Care Team (Latest Contact Info) Description 08/04/2016 Orders Only [facility] CLINCONV ProviderMel MD [address] [place], [place] [id number] Social History Tobacco Use Types Packs/Day Years Used Date Smoking Tobacco: Never Assessed Comments Unknown Sex and Gender Information Value Date Recorded Sex Assigned at Not on file Legal Sex Female 8:19 PM EVENT STAFF Gender Identity Female 04/26/2019 10:43 AM EVENT STAFF Sexual Orientation Straight 04/26/2019 10 :41 AM EVENT STAFF documented as of this encounter Plan of Treatment Not on file documented as of this encounter Procedures Procedure Name Priority Date/Time Associated Diagnosis Comments SCAN - LABS 10/15/2016 12:00 AM CDT documented in this encounter Results * SCAN - LABS (10/15/2016 12:00 AM CDT) Narrative 10/15/2016 12:00 AM CDT Ordered by an unspecified provider. Historical Provider Final Res ult documented in this encounter Visit Diagnoses Not on filedocumented in this encounter Additional Health Concerns Infection Onset Date Last Indicated Resolved Time COVID: Suspected 03/02/2023 03/02/2023 03/02/2023 10:09 PM CDT documented as of this encounter Care Teams Group Segment Consultant Relationship Specialty Start Date End Date Migue Hill DO PCP - General Family Medicine 09/10/21 Milton Funes MD [address] [facility] [address] [place] [address] Consulting Physician Cardiothoracic Surgery 03/30/23 documented as of this encounter
--- OUTSIDE RECORDS SUMMARY | 2025-05-07 14:43 | XMS_ITS | Clinical Summary ---
Author Organization [facility] Address [address] [place] [id number] Phone Care Team Providers Care Ash Conveyor Operator Name Role Phone Migue Hong DO Primary Care Provider [phone] Social History Tobacco Use Types Packs/Day Years Used Date Smoking Tobacco: Never Assessed Comments Unknown Sex and Gender Information Value Date Recorded Sex Assigned at Not on file Legal Sex Female 10:39 AM CDT Gender Identity Not on file Sexual Orientation Not on file Plan of Treatment Health Maintenance Due Date Last Done Comments DTAP/TDAP/TD VACCINES (1 - Tdap) 07[birth year]27/1954 PNEUMOCOCCAL VACCINE 50+ YEARS (1 of 2 - PCV) 07/26/18 56 ZOSTER VACCINE (1 of 2) 1986 OSTEOPOROSIS SCREENING 2001 RSV VACCINE (60+ or ) (1 - 1-dose 75+ series) 07/27/2011 INFLUENZA VACCINE (#1) 2024 Insurance [facility] OPTIONS PPO [id number] Care Teams Ash Conveyor Operator Relationship Specialty Start Date End Date Migue Hong DO PCP - General Family Practice 10/03/15
--- OUTSIDE RECORDS SUMMARY | 2025-05-07 14:43 | XMS_ITS | Clinical Summary ---
Author Organization [facility] Address [address] [place] [address] Care Team Providers Care Doll Wig Maker Rooted Hair Name Role Phone Migue Hong DO Primary Care Provider [phone] Tristian Kramer MD Unavailable [phone] Allergies Active Allergy Reactions Criticality Noted Date Comments Amlodipine Other (see comment) 06/03/2016 weary Armodafinil Shortness of Breath High 06/03/2016 Dyspnea Bupropion Seizure 06/03/2016 Seizures Escitalopram Other (see comment) 06/03/2016 Fatigue Hydrochlorothiazide Other (see comment) 017 fatigue Irbesartan Other (see comment) 06/03/2016 Severe Fatigue Naproxen Anxiety Low 06/03/2016 Paroxetine Other (see comment) 06/03/2016 Fatigue Quinapril Hcl Other (see comment) 06/03/2016 weary Rosuvastatin Other (see comment) 06/03/2016 fatigue Sertraline Other (see comment) 06/03/2016 weary Spironolactone Other (see comment) 06/03/2016 fatigue Tape Contact Dermatitis 06/03/2016 Tetracycline Hives 06/03/2016 Venlafaxine Other (see comment) 06/03/2016 Weakness and fatigue Zinc Rash Low 06/03/2016 Medications nebivolol (BYSTOLIC) 2.5 MG tablet Take 1 tablet by mouth daily. 5 Active Coenzyme Q10 (CO Q-10) 100 MG Cap Take 1 tablet by mouth daily. 3 Active Multiple Vitamin (DAILY VITAMINS) Tab Take 1 tablet by mouth daily. 6 Active potassium chloride 10 MEQ Tab CR tablet Take 1 tablet by mouth daily. 5 Active [facility] TRIPLE MAGNESIUM COMPLEX OR Take 2 tablets by mouth daily. 5 Active Vitamin D, Ergocalciferol , 70777 UNITS capsule Take 1 capsule by mouth once a week. 5 Active testosterone 25 MG/2.5GM (1%) Gel gel Place 0.5 mLs onto the skin. Active Acetylcysteine (A-LWTBNE-X-CY STEINE) 600 MG Cap Take 1 capsule by mouth 2 (two) times daily. 8 Active calcium citrate (CALCITRATE) 950 (200 CA) MG Tab tablet Take 1 tablet (950 mg total) by mouth 3 (three) times daily. 8 Active Cod Liver Oil Oil Take 1 tablet by mouth see administration instructions. twice a week 8 Active CPAP DME DEVICE nightly at bedtime. 8 Active cyanocobalamin 1000 MCG/ML injection Inject 1 mL (1,000 mcg total) into the muscle see administration instructions. Twice a day 8 Active Estradiol 0.75 MG/1.25 GM (0.06%) Gel daily. 8 Active probiotic capsule Take 1 capsule by mouth 2 (two) times daily with meals. 8 Active ropinirole (REQUIP) 1 MG tablet Take 1 tablet (1 mg total) by mouth nightly at bedtime. 8 Active Taurine 500 MG Cap Take 2 capsules by mouth nightly at bedtime. 8 Active thyroid (ARMOUR THYROID) 30 MG tablet Take 1.5 tablets (45 mg total) by mouth 2 (two) times daily. 8 Active progesterone 100 MG capsule Take 1 capsule (100 mg total) by mouth nightly at bedtime. 8 Active Active Problems Problem Noted Date Diagnosed Date (aortic stenosis) 06/06/2016 BARBARA on CPAP 06/06/2016 Chronic fatigue 06/06/2016 Essential hypertension Hyperlipidemia Family History Medical History Relation Comments no premature coronary artery disease Other Relation Status Comments Other Social History Tobacco Use Types Packs/Day Years Used Date Smoking Tobacco: Never Alcohol Use Standard Drinks/Week Comments No 0 (1 standard drink = 0.6 oz pur e alcohol) Comments Unknown Sex and Gender Information Value Date Recorded Sex Assigned at Not on file Legal Sex Female 11:37 PM CDT Gender Identity Not on file Sexual Orientation Not on file Last Filed Vital Signs Vital Sign Reading Time Taken Comments Blood Pressure 132/80 06/09/2017 9:32 AM MANAGER PERFORMANCE IMPROVEMENT Pulse 68 06/09/2017 9:32 AM MANAGER PERFORMANCE IMPROVEMENT Temperature - - Respiratory Rate - - Oxygen Saturation 98% 06/03/2016 10:22 AM MANAGER PERFORMANCE IMPROVEMENT Inhaled Oxygen Concentration - - Weight 74.4 kg (164 lb) 06/09/2017 9:32 AM MANAGER PERFORMANCE IMPROVEMENT Height 157.5 cm (5' 2) 06/09/2017 9:32 AM MANAGER PERFORMANCE IMPROVEMENT Body Mass Index 30 06/09/2017 9:32 AM MANAGER PERFORMANCE IMPROVEMENT Plan of Treatment Health Maintenance Due Date Last Done Comments DTaP, Tdap and Td Vaccines ( 1 - Tdap) [birth year]27/1954 Pneumococcal Vaccine: 50+ Ye ars (1 of 1 - PCV) 1986 Zoster Vaccines (1 of 2) 1986 RSV Immunization or 60+ Years (1 - 1-dose 75+ series) 07/27/2011 COVID-19 Vaccine ( - 2024-2 6 season) 2025 Influenza Adult (#1) 2025 Hepatitis A Vaccines Aged Out No long er eligible based on patient's age to complete this topic Meningococcal B Vaccine Aged Out No l onger eligible based on patient's age to complete this topic Meningococcal Vaccine Aged Out No mallory pardeep eligible based on patient's age to complete this topic RSV Immunizations Under 20 Months Aged Out No longer eligible based on patient's age to complete this topic Insurance [facility] Care Teams Doll Wig Maker Rooted Hair Relationship Specialty Start Date End Date Migue Hong DO PCP - General FAMILY PRACTICE 10/16/15 Tristian Kramer MD [facility] [address] [place] [address] Bulmaro Mail Carrier CARDIOVASCULAR DISEASE 05/28/17
--- OUTSIDE RECORDS SUMMARY | 2025-05-07 14:43 | XMS_ITS | Encounter Summary ---
Author Organization [facility] Care Team Providers Care Digital Forensics Examiner Name Role Phone Migue Hill DO Primary Care Provider + Milton Funes MD Unavailable [phone] Encounter Details Date Type Department Care Team (Latest Contact Info) Description 07/27/2017 Orders Only [facility] CLINCONV ProviderMel MD [address] [place], [place] [phone] Social History Tobacco Use Types Packs/Day Years Used Date Smoking Tobacco: Never Assessed Comments Unknown Sex and Gender Information Value Date Recorded Sex Assigned at Not on file Legal Sex Female 8:19 PM SCIENTIFIC DIVER Gender Identity Female 04/26/2019 10:43 AM SCIENTIFIC DIVER Sexual Orientation Straight 04/26/2019 10 :41 AM SCIENTIFIC DIVER documented as of this encounter Plan of Treatment Not on file documented as of this encounter Procedures Procedure Name Priority Date/Time Associated Diagnosis Comments SCAN - LABS 07/27/2017 12:00 AM CDT documented in this encounter Results * SCAN - LABS (07/27/2017 12:00 AM CDT) Narrative 07/27/2017 12:00 AM CDT Ordered by an unspecified provider. Historical Provider Final Res ult documented in this encounter Visit Diagnoses Not on filedocumented in this encounter Additional Health Concerns Infection Onset Date Last Indicated Resolved Time COVID: Suspected 03/02/2023 03/02/2023 03/02/2023 10:09 PM CDT documented as of this encounter Care Teams Digital Forensics Examiner Relationship Specialty Start Date End Date Migue Hill DO PCP - General Family Medicine 09/10/21 Milton Funes MD [address] [facility] [address] [place] [address] Consulting Physician Cardiothoracic Surgery 03/30/23 documented as of this encounter
--- OUTSIDE RECORDS SUMMARY | 2025-05-07 14:43 | XMS_ITS | Clinical Summary ---
Author Organization [facility] Address [address], [address] [address] Phone Care Team Providers Care Advertising Campaign Manager Name Role Phone Migue Hill MD Primary Care Provider + Allergies Active Allergy Reactions Criticality Noted Date Comments Quinapril Hcl Other (see Comments) 03/30/2016 Fatigue Adhesive Tape Other (see Comments) 03/30/2016 Blisters Irbesartan Other (see Comments) 03/30/2016 Severe Fatigue Rosuvastatin Calcium Other (see Comments) 03/30 fatigue Venlafaxine Other (see Comments) 03/30/2016 Weakness and fatigue Hydrochlorothiazide Other (see Comments) 2015 Weary, don't feel good Escitalopram Oxalate Other (see Comments) 03/30 Fatigue Naproxen Other (see Comments) 03/30/2016 Depression Amlodipine Besylate Other (see Comments) 2015 weary Armodafinil Other (see Comments) 03/30/2016 Dyspnea Other Rash,Itching 03/30/2016 [place]an Paroxetine Hcl Other (see Comments) 03/30/2016 Fatigue Spironolactone Other (see Comments) 03/30/2016 fatigue Tetracycline Hives 03/30/2016 Bupropion Hcl Other (see Comments) 03/30/2016 Seizures Sertraline Hcl Other (see Comments) 03/30/2016 Hypotension Medications polyethylene glycol (MIRALAX) Powder Mix the entire bottle with 64 oz of a clear liquid. Use as directed by the office for colonoscopy prep. 255 g 0 6 Active potassium chloride (MICRO-K) 10 MEQ Capsule CR Take 1 Cap by mouth daily. 0 6 Active rOPINIRole (REQUIP) 1 MG Tablet Take 1 Tab by mouth nightly. 3 6 Active ARMOUR THYROID 15 MG Tablet Take 1 Tab by mouth 2 times daily. 0 6 Active nebivolol (BYSTOLIC) 5 MG Tablet Take 2.5 mg by mouth daily. Active estradiol (ESTROGEL) 0.75 MG/1.25 GM (0.06%) Gel 1 Applicator by Transdermal route daily. Active Acetylcysteine (C-YTGLQJ-K-CYS TEINE) 600 MG Capsule Take 1 Tab by mouth 2 times daily. Active otherIndication s:Immune Extract 0.3 mg by Other route every 7 days. Indications: Immune Extract Active Cyanocobalamin (B-12) 1000 MCG/ML Kit 0.2 mg by Injection route every 14 days. Active TESTOSTERONE TD 0.5 mL by Transdermal route daily. Active B Complex Vitamins (B COMPLEX PO)Indications: W/Folate and B-12 Take 1 Tab by mouth daily. Indications: W/Folate and B-12 Active Taurine 500 MG Capsule Take 2 Caps by mouth nightly. Active Coenzyme Q10 (COQ-10) 100 MG Capsule Take 1 Cap by mouth nightly. Active Cholecalciferol (D3-50) 82808 UNIT Capsule Take 1 Cap by mouth every 7 days. Active otherIndication s:Tri-Magnesium 600 mg by Other route daily. Indications: Tri-Magnesium Active Calcium Citrate 200 MG Tablet Take 1 Tab by mouth 3 times daily. Active COD LIVER OIL PO Take 1 Tab by mouth twice a week. Active Multiple Vitamins/Iron TabletIndicatio ns:w/Copper Take 6 Tabs by mouth daily. Indications: w/Copper Active Probiotic Product (PROBIOTIC DAILY PO) Take 2 Caps by mouth daily. 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 Hx of colonic polyps 05/28/2016 Family History Medical History Relation Name Comments Parkinsonism Father Stroke Father Prostate Cancer Other 1 Grandfather Breast Cancer Other 2 Niece and Neph ew Breast Cancer Other 3 Cousin x2 Relation Name Status Comments Father (Age 76) Mother (Age 98) Other 1 Other 2 Other 3 Social History Tobacco Use Types Packs/Day Years Used Date Smoking Tobacco: Never Smokeless Tobacco: Never Tobacco Cessation:Counseling Given: Yes Alcohol Use Standard Drinks/Week Comments Yes 0 (1 standard drink = 0.6 oz pur e alcohol) 1 drink per month Comments No Sex and Gender Information Value Date Recorded Sex Assigned at Not on file Legal Sex Female 3:23 PM CDT Gender Identity Not on file Sexual Orientation Not on file 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 Not on file Not on file Not on melonie e Last Filed Vital Signs Vital Sign Reading Time Taken Comments Blood Pressure 130/78 05/28/2016 2:34 PM AMMONIA PRINT OPERATOR Pulse 66 05/28/2016 2:34 PM AMMONIA PRINT OPERATOR Temperature 36.2 C (97.2 F) 05/28/2016 2:34 PM AMMONIA PRINT OPERATOR Respiratory Rate 18 05/28/2016 2:34 PM AMMONIA PRINT OPERATOR Oxygen Saturation 98% 05/28/2016 2:34 PM AMMONIA PRINT OPERATOR Inhaled Oxygen Concentration - - Weight 74.2 kg (163 lb 9.6 oz) 05/28/2016 2:34 P M AMMONIA PRINT OPERATOR Height 157.5 cm (5' 2) 05/28/2016 2:34 PM AMMONIA PRINT OPERATOR Body Mass Index 29.92 05/28/2016 2:34 PM AMMONIA PRINT OPERATOR Plan of Treatment Health Maintenance Due Date Last Done Comments Hepatitis C Virus (HCV) Screening 1935 TdaP Immunization 1935 Pneumococcal Immunization (5 0+ years) (1 of 1 - PCV) 1986 Zoster Immunization (1 of 2) 1986 Respiratory Syncytial Virus (RSV) Immunization (Adult) (1 - 1-dose 75+ series) 07/27/2011 Influenza Immunization (#1) 2025 SARS-COV-2 Immunization ( - season) 2025 Hepatitis B Immunization Aged Out No longer eligible based on patient's age to complete this topic Human Papillomavirus (HPV) Immunization (No Doses Required) Completed Meningococcal Immunization (ACWY) Aged Out No longer eligible based on patient's age to complete this topic Rotavirus Immunization Aged Out No lo nger eligible based on patient's age to complete this topic Insurance [facility] Care Teams Advertising Campaign Manager Relationship Specialty Start Date End Date Migue Hill MD PCP - General Family Medicine 03/18/16
--- OUTSIDE RECORDS SUMMARY | 2025-05-07 14:43 | XMS_ITS | Encounter Summary ---
Author Organization [facility] Facility Care Team Providers Care Life Enrichment Specialist Name Role Phone Migue Hill DO Primary Care Provider + Milton Funes MD Unavailable [phone] Encounter Details Date Type Department Care Team (Latest Contact Info) Description 02/01/2013 Orders Only [facility] CLINCONV ProviderMel MD [address] [place], [place] [phone] Social History Tobacco Use Types Packs/Day Years Used Date Smoking Tobacco: Never Assessed Comments Unknown Sex and Gender Information Value Date Recorded Sex Assigned at Not on file Legal Sex Female 8:19 PM INSOLE PRESSER Gender Identity Female 04/26/2019 10:43 AM INSOLE PRESSER Sexual Orientation Straight 04/26/2019 10 :41 AM INSOLE PRESSER documented as of this encounter Plan of Treatment Not on file documented as of this encounter Procedures Procedure Name Priority Date/Time Associated Diagnosis Comments CARDIOLOGY REPORT 02/01/2013 12: 00 AM CDT documented in this encounter Results * CARDIOLOGY REPORT (02/01/2013 12:00 AM CDT) Anatomical Region Laterality Modality Other Narrative 02/01/2013 12:00 AM CDT Ordered by an unspecified provider. Historical Provider [facility] ALEX DUBOIS Final Result documented in this encounter Visit Diagnoses Not on filedocumented in this encounter Additional Health Concerns Infection Onset Date Last Indicated Resolved Time COVID: Suspected 03/02/2023 03/02/2023 03/02/2023 10:09 PM CDT documented as of this encounter Care Teams Life Enrichment Specialist Relationship Specialty Start Date End Date Migue Hill DO PCP - General Family Medicine 09/10/21 Milton Funes MD [address] [facility] [address] [place] [address] Consulting Physician Cardiothoracic Surgery 03/30/23 documented as of this encounter
--- OUTSIDE RECORDS SUMMARY | 2025-05-07 14:43 | XMS_ITS | Encounter Summary ---
Author Organization [facility] Facility Care Team Providers Care Lead Database Administrator Name Role Phone Migue Hill DO Primary Care Provider + Milton Funes MD Unavailable [phone] Encounter Details Date Type Department Care Team (Latest Contact Info) Description 04/27/2017 Orders Only [facility] CLINCONV ProviderMel MD [address] [place], [place] [phone] Social History Tobacco Use Types Packs/Day Years Used Date Smoking Tobacco: Never Assessed Comments Unknown Sex and Gender Information Value Date Recorded Sex Assigned at Not on file Legal Sex Female 8:19 PM CADASTRAL ENGINEER Gender Identity Female 04/26/2019 10:43 AM CADASTRAL ENGINEER Sexual Orientation Straight 04/26/2019 10 :41 AM CADASTRAL ENGINEER documented as of this encounter Plan of Treatment Not on file documented as of this encounter Procedures Procedure Name Priority Date/Time Associated Diagnosis Comments SCAN - LABS 06/14/2017 12:00 AM CADASTRAL ENGINEER documented in this encounter Results * SCAN - LABS (06/14/2017 12:00 AM CADASTRAL ENGINEER) Narrative 06/14/2017 12:00 AM CADASTRAL ENGINEER Ordered by an unspecified provider. Historical Provider Final Res ult documented in this encounter Visit Diagnoses Not on filedocumented in this encounter Additional Health Concerns Infection Onset Date Last Indicated Resolved Time COVID: Suspected 03/02/2023 03/02/2023 03/02/2023 10:09 PM CDT documented as of this encounter Care Teams Lead Database Administrator Relationship Specialty Start Date End Date Migue Hill DO PCP - General Family Medicine 09/10/21 Milton Funes MD [address] [facility] [address] [place] [address] Consulting Physician Cardiothoracic Surgery 03/30/23 documented as of this encounter
--- OUTSIDE RECORDS SUMMARY | 2025-05-07 14:43 | XMS_ITS | Encounter Summary ---
Author Organization [facility] Facility Care Team Providers Care Vocational Training Director Name Role Phone Migue Hill DO Primary Care Provider + Milton Funes MD Unavailable [phone] Encounter Details Date Type Department Care Team (Latest Contact Info) Description 03/14/2018 Orders Only [facility] CLINCONV ProviderMel MD [address] [place], [place] [phone] Social History Tobacco Use Types Packs/Day Years Used Date Smoking Tobacco: Never Assessed Comments Unknown Sex and Gender Information Value Date Recorded Sex Assigned at Not on file Legal Sex Female 8:19 PM SUPERVISOR RIDE ASSEMBLY Gender Identity Female 04/26/2019 10:43 AM SUPERVISOR RIDE ASSEMBLY Sexual Orientation Straight 04/26/2019 10 :41 AM SUPERVISOR RIDE ASSEMBLY documented as of this encounter Plan of Treatment Not on file documented as of this encounter Procedures Procedure Name Priority Date/Time Associated Diagnosis Comments SCAN - LABS 03/14/2018 12:00 AM CDT documented in this encounter Results * SCAN - LABS (03/14/2018 12:00 AM CDT) Narrative 03/14/2018 12:00 AM CDT Ordered by an unspecified provider. Historical Provider Final Res ult documented in this encounter Visit Diagnoses Not on filedocumented in this encounter Additional Health Concerns Infection Onset Date Last Indicated Resolved Time COVID: Suspected 03/02/2023 03/02/2023 03/02/2023 10:09 PM CDT documented as of this encounter Care Teams Vocational Training Director Relationship Specialty Start Date End Date Migue Hill DO PCP - General Family Medicine 09/10/21 Milton Funes MD [address] [facility] [address] [place] [address] Consulting Physician Cardiothoracic Surgery 03/30/23 documented as of this encounter
--- OUTSIDE RECORDS SUMMARY | 2025-05-07 14:43 | XMS_ITS | Encounter Summary ---
Author Organization [facility] Facility Care Team Providers Care Auction Clerk Name Role Phone Migue Hill DO Primary Care Provider + Milton Funes MD Unavailable [phone] Encounter Details Date Type Department Care Team (Latest Contact Info) Description 11/04/2017 Orders Only [facility] CLINCONV ProviderMel MD [address] [place], [place] [phone] Social History Tobacco Use Types Packs/Day Years Used Date Smoking Tobacco: Never Assessed Comments Unknown Sex and Gender Information Value Date Recorded Sex Assigned at Not on file Legal Sex Female 8:19 PM ASSISTANT GROCERY STORE MANAGER Gender Identity Female 04/26/2019 10:43 AM ASSISTANT GROCERY STORE MANAGER Sexual Orientation Straight 04/26/2019 10 :41 AM ASSISTANT GROCERY STORE MANAGER documented as of this encounter Plan of Treatment Not on file documented as of this encounter Procedures Procedure Name Priority Date/Time Associated Diagnosis Comments SCAN - LABS 11/12/2017 12:00 AM CDT documented in this encounter Results * SCAN - LABS (11/12/2017 12:00 AM CDT) Narrative 11/12/2017 12:00 AM CDT Ordered by an unspecified provider. Historical Provider Final Res ult documented in this encounter Visit Diagnoses Not on filedocumented in this encounter Additional Health Concerns Infection Onset Date Last Indicated Resolved Time COVID: Suspected 03/02/2023 03/02/2023 03/02/2023 10:09 PM CDT documented as of this encounter Care Teams Auction Clerk Relationship Specialty Start Date End Date Migue Hill DO PCP - General Family Medicine 09/10/21 Milton Funes MD [address] [facility] [address] [place] [address] Consulting Physician Cardiothoracic Surgery 03/30/23 documented as of this encounter
--- OUTSIDE RECORDS SUMMARY | 2025-05-07 14:43 | XMS_ITS | Encounter Summary ---
Author Organization [facility] Facility Care Team Providers Care Static Balancer Name Role Phone Migue Hill DO Primary Care Provider + Milton Funes MD Unavailable [phone] Encounter Details Date Type Department Care Team (Latest Contact Info) Description 10/21/2016 Orders Only [facility] CLINCONV ProviderMel MD [address] [place], [place] [id number] Social History Tobacco Use Types Packs/Day Years Used Date Smoking Tobacco: Never Assessed Comments Unknown Sex and Gender Information Value Date Recorded Sex Assigned at Not on file Legal Sex Female 8:19 PM SLIPPER MAKER Gender Identity Female 04/26/2019 10:43 AM SLIPPER MAKER Sexual Orientation Straight 04/26/2019 10 :41 AM SLIPPER MAKER documented as of this encounter Plan of Treatment Not on file documented as of this encounter Procedures Procedure Name Priority Date/Time Associated Diagnosis Comments SCAN - LABS 10/21/2016 12:00 AM CDT SCAN - LABS 10/21/2016 12:00 AM CDT SCAN - LABS 10/21/2016 12:00 AM CDT SCAN - LABS 10/21/2016 12:00 AM CDT documented in this encounter Results * SCAN - LABS (10/21/2016 12:00 AM CDT) Narrative 10/21/2016 12:00 AM CDT Ordered by an unspecified provider. Historical Provider MD Final Res ult * SCAN - LABS (10/21/2016 12:00 AM CDT) Narrative 10/21/2016 12:00 AM CDT Ordered by an unspecified provider. Historical Provider MD Final Res ult * SCAN - LABS (10/21/2016 12:00 AM CDT) Narrative 10/21/2016 12:00 AM CDT Ordered by an unspecified provider. Historical Provider MD Final Res ult * SCAN - LABS (10/21/2016 12:00 AM CDT) Narrative 10/21/2016 12:00 AM CDT Ordered by an unspecified provider. [facility] Provider MD Final Res ult documented in this encounter Visit Diagnoses Not on filedocumented in this encounter Additional Health Concerns Infection Onset Date Last Indicated Resolved Time COVID: Suspected 03/02/2023 03/02/2023 03/02/2023 10:09 PM CDT documented as of this encounter Care Teams Static Balancer Relationship Specialty Start Date End Date Migue Hill DO PCP - General Family Medicine 09/10/21 Milton Funes MD [address] [place] [address] Consulting Physician Cardiothoracic Surgery 03/30/23 documented as of this encounter
--- OUTSIDE RECORDS SUMMARY | 2025-05-07 14:43 | XMS_ITS | Encounter Summary ---
Author Organization [facility] Facility Care Team Providers Care Assistant To The Vice President Name Role Phone Migue Hill DO Primary Care Provider + Milton Funes MD Unavailable [phone] Encounter Details Date Type Department Care Team (Latest Contact Info) Description 08/27/2017 Orders Only [facility] CLINCONV ProviderMel MD [address] [place], [place] [phone] Social History Tobacco Use Types Packs/Day Years Used Date Smoking Tobacco: Never Assessed Comments Unknown Sex and Gender Information Value Date Recorded Sex Assigned at Not on file Legal Sex Female 8:19 PM PHYSICAL THERAPY ASSISTANT INSTRUCTOR Gender Identity Female 04/26/2019 10:43 AM PHYSICAL THERAPY ASSISTANT INSTRUCTOR Sexual Orientation Straight 04/26/2019 10 :41 AM PHYSICAL THERAPY ASSISTANT INSTRUCTOR documented as of this encounter Plan of Treatment Not on file documented as of this encounter Procedures Procedure Name Priority Date/Time Associated Diagnosis Comments CARDIOLOGY REPORT 08/27/2017 12: 00 AM CDT documented in this encounter Results * CARDIOLOGY REPORT (08/27/2017 12:00 AM CDT) Anatomical Region Laterality Modality Other Narrative 08/27/2017 12:00 AM CDT Ordered by an unspecified provider. Historical Provider [facility] ALEX DUBOIS Final Result documented in this encounter Visit Diagnoses Not on filedocumented in this encounter Additional Health Concerns Infection Onset Date Last Indicated Resolved Time COVID: Suspected 03/02/2023 03/02/2023 03/02/2023 10:09 PM CDT documented as of this encounter Care Teams Assistant To The Vice President Relationship Specialty Start Date End Date Migue Hill DO PCP - General Family Medicine 09/10/21 Milton Funes MD [address] [facility] [address] [place] [address] Consulting Physician Cardiothoracic Surgery 03/30/23 documented as of this encounter
--- OUTSIDE RECORDS SUMMARY | 2025-05-07 14:43 | XMS_ITS | Encounter Summary ---
Author Organization [facility] Facility Care Team Providers Care Band Sawing Machine Operator Name Role Phone Migue Hill DO Primary Care Provider + Milton Funes MD Unavailable [phone] Encounter Details Date Type Department Care Team (Latest Contact Info) Description 11/07/2015 Orders Only [facility] CLINCONV ProviderMel MD [address] [place], [place] [phone] Social History Tobacco Use Types Packs/Day Years Used Date Smoking Tobacco: Never Assessed Comments Unknown Sex and Gender Information Value Date Recorded Sex Assigned at Not on file Legal Sex Female 8:19 PM SAP BUSINESS INTELLIGENCE CONSULTANT Gender Identity Female 04/26/2019 10:43 AM SAP BUSINESS INTELLIGENCE CONSULTANT Sexual Orientation Straight 04/26/2019 10 :41 AM SAP BUSINESS INTELLIGENCE CONSULTANT documented as of this encounter Plan of Treatment Not on file documented as of this encounter Procedures Procedure Name Priority Date/Time Associated Diagnosis Comments PROCEDURE - RESULT 11/07/2015 12 :00 AM CDT documented in this encounter Results * PROCEDURE - RESULT (11/07/2015 12:00 AM CDT) Narrative 11/07/2015 12:00 AM CDT Ordered by an unspecified provider. Historical Provider Final Res ult documented in this encounter Visit Diagnoses Not on filedocumented in this encounter Additional Health Concerns Infection Onset Date Last Indicated Resolved Time COVID: Suspected 03/02/2023 03/02/2023 03/02/2023 10:09 PM CDT documented as of this encounter Care Teams Band Sawing Machine Operator Relationship Specialty Start Date End Date Migue Hill DO PCP - General Family Medicine 09/10/21 Milton Funes MD [address] [facility] [address] [place] [address] Consulting Physician Cardiothoracic Surgery 03/30/23 documented as of this encounter
--- OUTSIDE RECORDS SUMMARY | 2025-05-07 14:43 | XMS_ITS | Encounter Summary ---
Author Organization [facility] Facility Care Team Providers Care Trimmer Buffing Wheel Name Role Phone Migue Hill DO Primary Care Provider + Milton Funes MD Unavailable [phone] Encounter Details Date Type Department Care Team (Latest Contact Info) Description 03/19/2016 Orders Only [facility] CLINCONV ProviderMel MD [address] [place], [place] [phone] Social History Tobacco Use Types Packs/Day Years Used Date Smoking Tobacco: Never Assessed Comments Unknown Sex and Gender Information Value Date Recorded Sex Assigned at Not on file Legal Sex Female 8:19 PM OUTREACH MANAGER Gender Identity Female 04/26/2019 10:43 AM OUTREACH MANAGER Sexual Orientation Straight 04/26/2019 10 :41 AM OUTREACH MANAGER documented as of this encounter Plan of Treatment Not on file documented as of this encounter Procedures Procedure Name Priority Date/Time Associated Diagnosis Comments COLONOSCOPY - SCAN 03/19/2016 12 :00 AM CDT documented in this encounter Results * COLONOSCOPY - SCAN (03/19/2016 12:00 AM CDT) Narrative 03/19/2016 12:00 AM CDT Ordered by an unspecified provider. Historical Provider Final Res ult documented in this encounter Visit Diagnoses Not on filedocumented in this encounter Additional Health Concerns Infection Onset Date Last Indicated Resolved Time COVID: Suspected 03/02/2023 03/02/2023 03/02/2023 10:09 PM CDT documented as of this encounter Care Teams Trimmer Buffing Wheel Relationship Specialty Start Date End Date Migue Hill DO PCP - General Family Medicine 09/10/21 Milton Funes MD [address] [facility] [address] [place] [address] Consulting Physician Cardiothoracic Surgery 03/30/23 documented as of this encounter
--- OUTSIDE RECORDS SUMMARY | 2025-05-07 14:43 | XMS_ITS | Patient Health Record ---
Author Organization [facility] Address [address] [place], [place] [id number] Phone [phone] Care Team Providers Care Boring Machine Feeder Name Role Phone Leydi Henderson MD Primary Care Provider Allergies Allergen (clinical drug ingredient) Drug/Non Drug [...] venlafaxine Venlafaxine Unknown Drug Allergy Act aj Results Component Value Reference Range Flag Notes TSH Order date: 05/12/2024 Reviewed date:05/14/2024 11:50:03 AM Interpretation: Performing Lab:[facility], [facility], [facility] [address], [place], [address] [facility] Notes/Report: TSH 1.91 0.40-4.50 mIU/L N T4, FREE Order date: 05/12/2024 Reviewed date:05/14/2024 11:50:03 AM Interpretation: Performing Lab:[facility], [address] [place], [address] [facility] Notes/Report: T4, FREE 0.7 0.8-1.8 ng/dL L CBC (INCLUDES DIFF/PLT) Order date: 05/12/2024 Reviewed date:05/14/2024 11:50:03 AM Interpretation: Performing Lab:[facility], [address] [place], [address] [facility] Notes/Report: For adults, a slight decrease in the calculated MCHC value (in the range of 30 to 32 g/dL) is most likely not clinically significant; however, it should be interpreted with caution in correlation with other red cell parameters and the patient's clinical condition. WHITE BLOOD CELL COUNT 6.5 3.8-10.8 Thousand/uL N RED BLOOD CELL COUNT 4.58 3.80-5.10 Million/uL N HEMOGLOBIN 13.0 11.7-15.5 g/dL N HEMATOCRIT 40.2 35.0-45.0 % N MCV 87.8 80.0-100.0 fL N MCH 28.4 27.0-33.0 pg N MCHC 32.3 32.0-36.0 g/dL N RDW 13.4 11.0-15.0 % N PLATELET COUNT 222 140-400 Thousand/uL N MPV 10.4 7.5-12.5 fL N ABSOLUTE NEUTROPHILS 4063 6775-7078 cells/uL N ABSOLUTE LYMPHOCYTES 5893 698-7809 cells/uL N ABSOLUTE MONOCYTES 559 200-950 cells/uL N ABSOLUTE EOSINOPHILS 189 15-500 cells/uL N ABSOLUTE BASOPHILS 59 0-200 cells/uL N NEUTROPHILS 62.5 N LYMPHOCYTES 25.1 N MONOCYTES 8.6 N EOSINOPHILS 2.9 N BASOPHILS 0.9 N T3, FREE Order date: 05/12/2024 Reviewed date:05/14/2024 11:50:03 AM Interpretation: Performing Lab:[facility], [facility], [address] [facility], [place], [address] Anthony Hernandez MD Notes/Report: T3, FREE 3.6 2.3-4.2 pg/mL N COMPREHENSIVE METABOLIC PANE L Order date: 05/12/2024 Reviewed date:05/14/2024 11:50:03 AM Interpretation: Performing Lab:, [facility], [address], [place], [address] Anthony Hernandez Notes/Report: Fasting reference interval GLUCOSE 86 65-99 mg/dL N UREA NITROGEN (BUN) 17 7-25 mg/dL N CREATININE 1.02 0.60-0.95 mg/dL H EGFR 53 > OR = 60 mL/min/1.73m2 L BUN/CREATININE RATIO 17 6-22 (calc) N SODIUM 141 135-146 mmol/L N POTASSIUM 3.8 3.5-5.3 mmol/L N CHLORIDE 104 98-110 mmol/L N CARBON DIOXIDE 28 20-32 mmol/L N CALCIUM 9.9 8.6-10.4 mg/dL N PROTEIN, TOTAL 7.5 6.1-8.1 g/dL N ALBUMIN 4.3 3.6-5.1 g/dL N GLOBULIN 3.2 1.9-3.7 g/dL (calc) N ALBUMIN/GLOBULIN RATIO 1.3 1.0-2.5 (calc) N BILIRUBIN, TOTAL 0.4 0.2-1.2 mg/dL N ALKALINE PHOSPHATASE 71 37-153 U/L N AST 23 10-35 U/L N ALT 18 6-29 U/L N Reason For Referral No Information Medications Medication SIG (Take, Route, Frequency, Duration) Notes Start Date End Date Diagnosis (ICD Code) Status Liothyronine Sodium 5 MCG Tablet TAKE 1 TABLET BY MOUTH TWICE A DAY; Duration: 90 Hypothyroidism, unspecified (ICD_10 - E03.9) Active Unithroid 25 MCG (0.025 MG) TABLET 1 TAB(S) ORALLY EVERY OTHER DAY; Duration: 90 DAYS *Please review and pick correct strength-formul ation from [employer] options. If intended option is not shown, discontinue and re-order from Quick Search* *Pick strength-form from [employer] for eRX* 4 Hypothyroidism, unspecified (ICD_10 - E03.9) Active hydrALAZINE HCl 50 MG Tablet 1 tab(s) orally 4 times a day Active rOPINIRole HCl 0.5 MG Tablet 1 tab(s) orally 3 times a day Active dilTIAZem HCl 180 MG/24 HOURS CAPSULE, EXTENDED RELEASE 1 CAP(S) ORALLY ONCE A DAY *Please review for potential replacement for e-prescription and drug interaction check* *Pick strength-form from [employer] for eRX* Active Potassium Chloride Cynthia ER 10 MEQ Tablet Extended Release 1 tab(s) orally 2 times a day Active Social History Sex Observation Social History Observation Description Sex Observation Female Problems Problem Type SNOMED Code ICD Code Dates Problem Status W/U Status Risk Notes Problem Hypothyroidism (56832057) Hypothyroidism, unspecified (E03.9) Added On:2023 Active confirmed Problem 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) Added On:2023 Active confirmed Problem Autoimmune thyroiditis (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) 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) Added On:2023 Active confirmed Problem Vitamin D deficiency (66751441) Vitamin D deficiency, unspecified (E55.9) Added On:2023 Active confirmed Encounters Date Time Type Facility Location Provider Diagnosis 5 09:38 AM Telephone Encounter [address] [address] [facility] Hypothyroidism, unspecified E03.9 Assessments Encounter Date Diagnosis (ICD Code) Assessment Notes Treat ment Notes Section Notes 09/01/2024 Hypothyroidism, unspecified (ICD-10 - E03.9) Plan Of Treatment No Information Medical (General) History Surgical History Surgery Date(Month/Year) Stent placement Hospitalization History Reason Date(Month/Year) Stent placement
--- OUTSIDE RECORDS SUMMARY | 2025-05-07 14:43 | XMS_ITS | Encounter Summary ---
Author Organization [facility] Facility Care Team Providers Care Pulp Bleacher Name Role Phone Migue Hill DO Primary Care Provider + Milton Funes MD Unavailable [phone] Encounter Details Date Type Department Care Team (Latest Contact Info) Description 02/02/2017 Orders Only [facility] CLINCONV ProviderMel MD [address] [place], [place] [phone] Social History Tobacco Use Types Packs/Day Years Used Date Smoking Tobacco: Never Assessed Comments Unknown Sex and Gender Information Value Date Recorded Sex Assigned at Not on file Legal Sex Female 8:19 PM BROACHING MACHINE OPERATOR Gender Identity Female 04/26/2019 10:43 AM BROACHING MACHINE OPERATOR Sexual Orientation Straight 04/26/2019 10 :41 AM BROACHING MACHINE OPERATOR documented as of this encounter Plan of Treatment Not on file documented as of this encounter Procedures Procedure Name Priority Date/Time Associated Diagnosis Comments SCAN - LABS 02/02/2017 12:00 AM CDT documented in this encounter Results * SCAN - LABS (02/02/2017 12:00 AM CDT) Narrative 02/02/2017 12:00 AM CDT Ordered by an unspecified provider. Historical Provider Final Res ult documented in this encounter Visit Diagnoses Not on filedocumented in this encounter Additional Health Concerns Infection Onset Date Last Indicated Resolved Time COVID: Suspected 03/02/2023 03/02/2023 03/02/2023 10:09 PM CDT documented as of this encounter Care Teams Pulp Bleacher Relationship Specialty Start Date End Date Migue Hill DO PCP - General Family Medicine 09/10/21 Milton Funes MD [address] [facility] [address] [place] [address] Consulting Physician Cardiothoracic Surgery 03/30/23 documented as of this encounter
--- OUTSIDE RECORDS SUMMARY | 2025-05-07 14:43 | XMS_ITS | Encounter Summary ---
Author Organization [facility] Facility Care Team Providers Care Lumber Carrier Name Role Phone Migue Hill DO Primary Care Provider + Milton Funes MD Unavailable [phone] Encounter Details Date Type Department Care Team (Latest Contact Info) Description 03/17/2016 Orders Only [facility] CLINCONV ProviderMel MD [address] [place], [place] [phone] Social History Tobacco Use Types Packs/Day Years Used Date Smoking Tobacco: Never Assessed Comments Unknown Sex and Gender Information Value Date Recorded Sex Assigned at Not on file Legal Sex Female 8:19 PM PATIENT SERVICES TECHNICIAN Gender Identity Female 04/26/2019 10:43 AM PATIENT SERVICES TECHNICIAN Sexual Orientation Straight 04/26/2019 10 :41 AM PATIENT SERVICES TECHNICIAN documented as of this encounter Plan of Treatment Not on file documented as of this encounter Procedures Procedure Name Priority Date/Time Associated Diagnosis Comments COLONOSCOPY - SCAN 03/17/2016 12 :00 AM CDT documented in this encounter Results * COLONOSCOPY - SCAN (03/17/2016 12:00 AM CDT) Narrative 03/17/2016 12:00 AM CDT Ordered by an unspecified provider. Historical Provider Final Res ult documented in this encounter Visit Diagnoses Not on filedocumented in this encounter Additional Health Concerns Infection Onset Date Last Indicated Resolved Time COVID: Suspected 03/02/2023 03/02/2023 03/02/2023 10:09 PM CDT documented as of this encounter Care Teams Lumber Carrier Relationship Specialty Start Date End Date Migue Hill DO PCP - General Family Medicine 09/10/21 Milton Funes MD [address] [facility] [address] [place] [address] Consulting Physician Cardiothoracic Surgery 03/30/23 documented as of this encounter
--- OUTSIDE RECORDS SUMMARY | 2025-05-07 14:43 | XMS_ITS | Encounter Summary ---
Author Organization [facility] Facility Care Team Providers Care Spindle Sander Name Role Phone Migue Hill DO Primary Care Provider + Milton Funes MD Unavailable [phone] Encounter Details Date Type Department Care Team (Latest Contact Info) Description 03/03/2013 Orders Only [facility]G CLINCONV ProviderMel MD [address] [place], [place] [phone] Social History Tobacco Use Types Packs/Day Years Used Date Smoking Tobacco: Never Assessed Comments Unknown Sex and Gender Information Value Date Recorded Sex Assigned at Not on file Legal Sex Female 8:19 PM SHEATHER Gender Identity Female 04/26/2019 10:43 AM SHEATHER Sexual Orientation Straight 04/26/2019 10 :41 AM SHEATHER documented as of this encounter Plan of Treatment Not on file documented as of this encounter Procedures Procedure Name Priority Date/Time Associated Diagnosis Comments CARDIOLOGY REPORT 03/03/2013 12: 00 AM CDT documented in this encounter Results * CARDIOLOGY REPORT (03/03/2013 12:00 AM CDT) Anatomical Region Laterality Modality Other Narrative 03/03/2013 12:00 AM CDT Ordered by an unspecified provider. Historical Provider [facility] ALEX DUBOIS Final Result documented in this encounter Visit Diagnoses Not on filedocumented in this encounter Additional Health Concerns Infection Onset Date Last Indicated Resolved Time COVID: Suspected 03/02/2023 03/02/2023 03/02/2023 10:09 PM CDT documented as of this encounter Care Teams Spindle Sander Relationship Specialty Start Date End Date Migue Hill DO PCP - General Family Medicine 09/10/21 Milton Funes MD [address] [facility] [address] [place] [address] Consulting Physician Cardiothoracic Surgery 03/30/23 documented as of this encounter
--- OUTSIDE RECORDS SUMMARY | 2025-05-07 14:43 | XMS_ITS | Encounter Summary ---
Author Organization [facility] Facility Care Team Providers Care Paint Laboratory Technician Name Role Phone Migue Hill DO Primary Care Provider + Milton Funes MD Unavailable [phone] Encounter Details Date Type Department Care Team (Latest Contact Info) Description 08/26/2017 Orders Only [facility] CLINCONV ProviderMel MD [address] [place], [place] [phone] Social History Tobacco Use Types Packs/Day Years Used Date Smoking Tobacco: Never Assessed Comments Unknown Sex and Gender Information Value Date Recorded Sex Assigned at Not on file Legal Sex Female 8:19 PM INSURANCE JOB TITLES Gender Identity Female 04/26/2019 10:43 AM INSURANCE JOB TITLES Sexual Orientation Straight 04/26/2019 10 :41 AM INSURANCE JOB TITLES documented as of this encounter Plan of Treatment Not on file documented as of this encounter Procedures Procedure Name Priority Date/Time Associated Diagnosis Comments CARDIOLOGY REPORT 08/26/2017 12: 00 AM CDT documented in this encounter Results * CARDIOLOGY REPORT (08/26/2017 12:00 AM CDT) Anatomical Region Laterality Modality Other Narrative 08/26/2017 12:00 AM CDT Ordered by an unspecified provider. Historical Provider [facility] ALEX DUBOIS Final Result documented in this encounter Visit Diagnoses Not on filedocumented in this encounter Additional Health Concerns Infection Onset Date Last Indicated Resolved Time COVID: Suspected 03/02/2023 03/02/2023 03/02/2023 10:09 PM CDT documented as of this encounter Care Teams Paint Laboratory Technician Relationship Specialty Start Date End Date Migue Hill DO PCP - General Family Medicine 09/10/21 Milton Funes MD [address] [facility] [address] [place] [address] Consulting Physician Cardiothoracic Surgery 03/30/23 documented as of this encounter
--- OUTSIDE RECORDS SUMMARY | 2025-05-07 14:43 | XMS_ITS | Encounter Summary ---
Author Organization [facility] Facility Care Team Providers Care Poultry Farmer Meat Name Role Phone Migue Hill DO Primary Care Provider + Milton Funes MD Unavailable [phone] Encounter Details Date Type Department Care Team (Latest Contact Info) Description 10/03/2015 Orders Only [facility] CLINCONV ProviderMel MD [address] [place], [place] [phone] Social History Tobacco Use Types Packs/Day Years Used Date Smoking Tobacco: Never Assessed Comments Unknown Sex and Gender Information Value Date Recorded Sex Assigned at Not on file Legal Sex Female 8:19 PM COMMUNITY ENGAGEMENT SPECIALIST Gender Identity Female 04/26/2019 10:43 AM COMMUNITY ENGAGEMENT SPECIALIST Sexual Orientation Straight 04/26/2019 10 :41 AM COMMUNITY ENGAGEMENT SPECIALIST documented as of this encounter Plan of Treatment Not on file documented as of this encounter Procedures Procedure Name Priority Date/Time Associated Diagnosis Comments SCAN - LABS 10/03/2015 12:00 AM CDT documented in this encounter Results * SCAN - LABS (10/03/2015 12:00 AM CDT) Narrative 10/03/2015 12:00 AM CDT Ordered by an unspecified provider. Historical Provider Final Res ult documented in this encounter Visit Diagnoses Not on filedocumented in this encounter Additional Health Concerns Infection Onset Date Last Indicated Resolved Time COVID: Suspected 03/02/2023 03/02/2023 03/02/2023 10:09 PM CDT documented as of this encounter Care Teams Poultry Farmer Meat Relationship Specialty Start Date End Date Migue Hill DO PCP - General Family Medicine 09/10/21 Milton Funes MD [address] [facility] [address] [place] [address] Consulting Physician Cardiothoracic Surgery 03/30/23 documented as of this encounter
--- OUTSIDE RECORDS SUMMARY | 2025-05-07 14:43 | XMS_ITS | Encounter Summary ---
Author Organization [facility] Facility Care Team Providers Care Pot Liner Name Role Phone Migue Hill DO Primary Care Provider + Milton Funes MD Unavailable [phone] Encounter Details Date Type Department Care Team (Latest Contact Info) Description 11/15/2017 Orders Only [facility]INCON[facility] ProviderMel MD [address] [place], [place] [id number] Social History Tobacco Use Types Packs/Day Years Used Date Smoking Tobacco: Never Assessed Comments Unknown Sex and Gender Information Value Date Recorded Sex Assigned at Not on file Legal Sex Female 8:19 PM MANUFACTURING LEADER Gender Identity Female 04/26/2019 10:43 AM MANUFACTURING LEADER Sexual Orientation Straight 04/26/2019 10 :41 AM MANUFACTURING LEADER documented as of this encounter Plan of Treatment Not on file documented as of this encounter Procedures Procedure Name Priority Date/Time Associated Diagnosis Comments CARDIOLOGY REPORT 11/15/2017 12: 00 AM CDT documented in this encounter Results * CARDIOLOGY REPORT (11/15/2017 12:00 AM CDT) Anatomical Region Laterality Modality Other Narrative 11/15/2017 12:00 AM CDT Ordered by an unspecified provider. Historical Provider [facility] A[facility]BO[facility] Final Result documented in this encounter Visit Diagnoses Not on filedocumented in this encounter Additional Health Concerns Infection Onset Date Last Indicated Resolved Time COVID: Suspected 03/02/2023 03/02/2023 03/02/2023 10:09 PM CDT documented as of this encounter Care Teams Pot Liner Relationship Specialty Start Date End Date Migue Hill DO PCP - General Family Medicine 09/10/21 Milton Funes MD [address] [facility] [address] [place] [address] Consulting Physician Cardiothoracic Surgery 03/30/23 documented as of this encounter
--- OUTSIDE RECORDS SUMMARY | 2025-05-07 14:44 | XMS_ITS ---
Author Organization [facility] Address [address] [place] [address] Care Team Providers Care Reel Winder Name Role Phone Migue Hill DO Primary Care Provider + Milton Funes MD Unavailable [phone] Active Problems Problem Noted Date Diagnosed Date Dizziness 01/18/2025 Lightheadedness 11/25/2023 Morbid (severe) obesity due to excess calories 0 08/10/2023 Bloating 07/30/2023 A-fib 02/09/2023 Postprandial nausea 02/01/2023 Acute pain of left knee 12/24/2022 Assessment & Plan (12/24/2022 11:45 AM CDT): X-ray shows only mild arthritis her pain seems out of proportion to the x-ray. She is also been having pain in the left ankle she will see her specialist in January. I am going to check a THIERNO. RF. ESR. Uric acid. She has had gout in the past and this does not feel like gout to her Right calf pain 12/24/2022 Assessment & Plan (12/24/2022 11:46 AM CDT): She relates this to a Charley horse sensation. She does have acute tenderness with palpation. She is on anticoagulation. I will check a stat venous Doppler however to rule out a DVT Chronic anticoagulation 12/04/2022 PAF (paroxysmal atrial fibrillation) 12/04/2022 Assessment & Plan (12/24/2022 11:37 AM CDT): Patient is well controlled. Continue current treatment. Encounter for Medicare annual wellness exam 08/2022 Assessment & Plan (09/17/2022 5:04 PM CDT): meds reviewed and reconciled Trimalleolar fracture of left ankle 08/17/2022 Assessment & Plan (08/17/2022 12:10 PM CDT): Post op Will follow with ortho in 2 weeks Irritable bowel syndrome wit h both constipation and diarrhea 01/06/2022 Assessment & Plan (01/07/2022 1:44 PM CDT): Cont questran Generalized muscle weakness 12/12/2021 Tubular adenoma of colon 11/11/2021 Chronic renal impairment, stage 3a 11/06/2021 Assessment & Plan (12/24/2022 11:38 AM CDT): Is using ibuprofen prn Assessment & Plan (09/17/2022 5:05 PM CDT): stable Assessment & Plan (12/16/2021 11:50 AM CDT): No new orders Assessment & Plan (11/06/2021 10:12 AM CDT): Stable No new orders Aortic valve regurgitation 11/06/2021 Assessment & Plan (11/06/2021 10:15 AM CDT): Mild Sees spring salvage worker Moderate episode of recurrent major depressive d isorder 11/06/2021 Assessment & Plan (12/24/2022 11:37 AM CDT): stable Assessment & Plan (01/07/2022 1:45 PM CDT): Patient is well controlled. Continue current treatment. Assessment & Plan (11/06/2021 10:25 AM CDT): Add elavil 10 mg at hs Chronic diarrhea 09/16/2021 Annual physical exam 08/05/2021 Assessment & Plan (08/05/2021 11:12 AM CDT): Routine lab in 3 months Intermittent diarrhea 07/30/2021 Assessment & Plan (12/24/2022 11:38 AM CDT): Doing well at this time History of colon polyps 07/30/2021 Family history of colon cancer-NEPHEW 07/30/2021 Bowel habit changes 07/30/2021 Overview (09/03/2021): Added automatically from request for surgery [id number] Fecal urgency 07/30/2021 Overview (09/03/2021): Added automatically from request for surgery [id number] Hormone replacement therapy 05/26/2021 Assessment & Plan (05/26/2021 4:29 PM HYDRAULIC REPAIRER): Will change progesterone to q other day Dyspnea on exertion 12/30/2020 Assessment & Plan (03/20/2025 11:49 AM HYDRAULIC REPAIRER): Her dyspnea on exertion is multifactorial. She does not have evidence of obstruction but her spirometry flows are reduced and I suspect this is related to her kyphosis. She has multi valve regurgitation and I did ask her to contact her spring salvage worker regarding the recent echo results. Assessment & Plan (09/14/2024 1:48 PM CDT): I suspect the dyspnea on exertion is related to her aortic stenosis. She never smoked. She would like a pulmonary evaluation and I will order a chest x-ray, PFTs with a 6 minute walk test Assessment & Plan (01/05/2022 11:14 AM CDT): The patient continues to have atrial fibrillation and her rate is controlled. She is currently not in favor of PFTs or a chest x-ray at this time. Assessment & Plan (09/04/2021 11:56 AM CDT): He was recently diagnosed with atrial fibrillation and does have dyspnea with exertion. She did have normal PFTs in December 2019. She never smoked. Assessment & Plan (12/30/2020 2:34 PM CDT): The patient still has some dyspnea with exertion. She had had normal PFTs 1 year ago. PLMD (periodic limb movement disorder) Assessment & Plan (03/20/2025 11:48 AM HYDRAULIC REPAIRER): PLMD are under reasonable control with Requip 1 mg sublingual at 8:00 p.m. and at bedtime. She continues to use gabapentin 300 mg at 8:00 p.m.. Assessment & Plan (09/14/2024 1:49 PM CDT): PLMD are reasonably controlled with Requip 1 mg sublingual around 8:00 p.m. and at bedtime. She is also using gabapentin 300 mg at 8:00 p.m.. Assessment & Plan (03/16/2024 10:55 AM CDT): She is not aware that she is having PLMS with use of Requip 1 mg sublingual between 6 and 8:00 p.m. and 1 mg of Requip at bedtime. She is also using gabapentin 300 mg p.o. q.h.s. Recent renal function and ferritin levels were adequate Assessment & Plan (01/06/2024 11:07 AM CDT): The PLMS are currently controlled with Requip 1 mg sublingually at 6:00 p.m. and 8:00 p.m. and then she is taking 1 mg p.o. at bedtime. Assessment & Plan (11/23/2023 10:51 AM CDT): The patient continues to use Requip 1 mg sublingually between 6 and 8:00 p.m. and then takes 1 mg p.o. at bedtime. This is controlling the PLMS. Assessment & Plan (10/05/2023 11:20 AM CDT): Her PLMS are under control with Requip 1 mg sublingually between 6 and 8:00 p.m. and 1 mg p.o. q.h.s. Assessment & Plan (04/06/2023 10:41 AM HYDRAULIC REPAIRER): The RLS/PLMD symptoms are being controlled with Requip 1 mg sublingually between 6 and 8:00 p.m. and Requip 1 mg p.o. at bedtime. Assessment & Plan (10/06/2022 11:33 AM CDT): PLMS/RLS symptoms have been more intense since she is been more immobile following the left ankle fracture. She continues to use Requip 1 mg sublingually around 6:00 p.m. and taking a 2nd dose between 2:00 a.m. and 3:00 a.m.. I did recommend trying to take 2 mg before bedtime to see if this will help prevent the awakenings in the middle the night. Assessment & Plan (04/07/2022 11:14 AM HYDRAULIC REPAIRER): The PLMS are under control with Requip 1 mg at bedtime and she will occasionally take a 2nd pill in the early evening if her legs are bothering her after the evening meal. Assessment & Plan (01/05/2022 11:15 AM CDT): She continues on Requip 1 mg at bedtime that she is taking sublingually. She will occasionally take a 2nd tablet if the PLMS are active. Assessment & Plan (09/04/2021 11:56 AM CDT): Her limbs are under good control with Requip 1 mg at bedtime. She is concerned that the itching may related to the limb movements as well. She is considering seeing a neurologist. Assessment & Plan (12/30/2020 2:34 PM CDT): The patient continues to benefit from Requip 1 mg sublingually at bedtime BARBARA (obstructive sleep apnea) 11/09/2019 Assessment & Plan (03/20/2025 11:49 AM HYDRAULIC REPAIRER): The patient continues to benefit from CPAP at 20 cm water pressure. Her DME supplier is [employer]. She will follow up here in 6 months. Assessment & Plan (09/14/2024 1:48 PM CDT): The patient continues to benefit from CPAP at 20 cm water pressure for ongoing symptoms of BARBARA. Her DME supplier is [employer]. She will follow up here in 6 months. Assessment & Plan (03/16/2024 10:54 AM CDT): The patient continues to benefit from CPAP at 20 cm water pressure for ongoing symptoms BARBARA. Her DME supplier is [employer]. She will follow up here in 6 months Assessment & Plan (01/06/2024 11:06 AM CDT): The patient continues to be compliant with the auto titrating CPAP unit with a range of 17-20 cm water pressure. Her AHI remains elevated. She is having more mask leak with a new CPAP mask. I have recommended proceeding with a CPAP titration study starting at 15 cm water pressure and she will follow up here in 2 months. Her DME supplier is [employer]. Assessment & Plan (11/23/2023 10:51 AM CDT): The patient will switch to [employer] in [place] and I will send an order to adjust her auto titrating range to 17-20 cm water. She will follow up here in 6 weeks. Assessment & Plan (10/05/2023 11:20 AM CDT): The patient continues to benefit from the auto titrating CPAP unit for ongoing symptoms of BARBARA. Her AHI is slightly elevated and I will have an order sent to her supplier who is [employer] in [facility] to change the auto titrating range to 17-20 cm water. She will follow up here in 2 months to assess her progress. Assessment & Plan (04/06/2023 10:41 AM HYDRAULIC REPAIRER): The patient continues to benefit from the auto titrating CPAP unit with a range of 15-20 cm water pressure for ongoing BARBARA symptoms. She will follow up here in 6 months. Her DME supplier is [employer] in [place]. Assessment & Plan (10/06/2022 11:32 AM CDT): She continues to benefit from the auto titrating CPAP unit with a range of 15-20 cm water pressure. Her DME supplier is [employer] in [facility]. She will follow-up with me in 6 months. Assessment & Plan (04/07/2022 11:14 AM HYDRAULIC REPAIRER): The patient continues to benefit from the auto titrating CPAP unit with a range of 15-20 cm water pressure. Her DME supplier is [employer] in [address] She will follow-up with me in 6 months. Assessment & Plan (01/05/2022 11:15 AM CDT): I will continue to gather data on the auto titrating CPAP unit with a range of 15-20 cm water pressure and she will follow-up with me in 3 months. She is not in favor of any stimulant therapy currently. Assessment & Plan (09/04/2021 11:56 AM CDT): The patient continues to be compliant with CPAP at 15 cm water pressure. She is benefiting from its use. Her AHI is slightly elevated I did recommend a CPAP titration study and she would like to hold off on that for now. She will follow- up with me in 4 months. Assessment & Plan (12/30/2020 2:34 PM CDT): The patient continues to benefit from CPAP at 15 cm water pressure. She does have some leakage from the mask and I will order a new CPAP mask, head gear and the humidifier reservoir through [employer]. Assessment & Plan (11/05/2020 11:42 AM CDT): Patient is well controlled. Continue current treatment. Cont CPAP Assessment & Plan (11/09/2019 11:43 AM CDT): See Dr. Cruz for a recheck Secondary hypocortisolism 08/22/2019 Assessment & Plan (09/17/2022 5:05 PM CDT): Patient is well controlled. Continue current treatment. Assessment & Plan (11/06/2021 10:07 AM CDT): Patient is well controlled. Continue current treatment. 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 Continue current treatment. Assessment & Plan (11/06/2021 10:13 AM CDT): Patient is well controlled. Continue current treatment. Peripheral polyneuropathy 04/15/2019 Assessment & Plan (03/23/2023 4:51 PM HYDRAULIC REPAIRER): Chronic condition Worsening Add gabapentin 100 mg daily Assessment & Plan (09/17/2022 5:05 PM CDT): stable Assessment & Plan (01/07/2022 1:45 PM CDT): Check a a1c and a uacr Assessment & Plan (11/06/2021 10:08 AM CDT): Patient is well controlled. Continue current treatment. Diabetic peripheral neuropathy 04/14/2019 Heart murmur 12/13/2018 Assessment & Plan (12/13/2018 4:34 PM CDT): Echocardiogram HTN (hypertension) 09/13/2018 Assessment & Plan (12/24/2022 11:37 AM CDT): Patient is well controlled. Continue current treatment. Assessment & Plan (04/21/2022 1:54 PM HYDRAULIC REPAIRER): Patient is well controlled. Continue current treatment. Assessment & Plan (12/16/2021 11:50 AM CDT): Patient is well controlled. Continue current treatment. Assessment & Plan (11/06/2021 10:07 AM CDT): Patient is well controlled. Continue current treatment. Assessment & Plan (05/07/2021 3:04 PM HYDRAULIC REPAIRER): Patient is well controlled. Continue current treatment. Assessment & Plan (02/05/2021 10:37 AM CDT): Doing well with hydralazine Cardiology notes reviewed Assessment & Plan (11/05/2020 11:40 AM CDT): Patient is well controlled. Continue current treatment. Will start hydralazine Assessment & Plan (10/02/2020 11:01 AM CDT): Stable Has been off medication on own Assessment & Plan (05/13/2020 10:51 AM HYDRAULIC REPAIRER): Can not tolerate multiple meds Discussed Wishes no new meds Assessment & Plan (02/09/2020 10:47 AM CDT): Off bystolic Will see cardiology in 3 days Assessment & Plan (10/26/2019 10:21 AM CDT): Patient is well controlled. Continue current treatment. Assessment & Plan (10/19/2019 9:38 AM CDT): Patient bp is elevated Does not tolerate meds well Does not want new med or increase at this time Fu 1 week Assessment & Plan (07/19/2019 9:27 AM HYDRAULIC REPAIRER): Patient is well controlled. Continue current treatment. Assessment & Plan (05/04/2019 11:11 AM HYDRAULIC REPAIRER): Start isosorbide Assessment & Plan (04/25/2019 12:37 PM HYDRAULIC REPAIRER): Patient is well controlled. Continue current treatment. Assessment & Plan (04/19/2019 9:55 AM HYDRAULIC REPAIRER): Patient is well controlled. Continue current treatment. Assessment & Plan (12/13/2018 4:29 PM CDT): Patient is well controlled. Continue current treatment. Assessment & Plan (10/24/2018 9:40 AM CDT): Patient is well controlled. Continue current treatment. Assessment & Plan (10/17/2018 9:45 AM CDT): Patient is well controlled. Continue current treatment. Assessment & Plan (09/27/2018 11:14 AM CDT): Could not tolerate the clonidine Assessment & Plan (09/13/2018 11:36 AM CDT): Add clonidine mg at hs Hypothyroidism, unspecified 10/27/2017 Assessment & Plan (11/06/2021 10:08 AM CDT): Patient is well controlled. Continue current treatment. Assessment & Plan (05/07/2021 3:04 PM HYDRAULIC REPAIRER): Check a TSH and free T4 in 3 months Assessment & Plan (02/05/2021 10:43 AM CDT): Cont rx Assessment & Plan (11/05/2020 11:42 AM CDT): Patient is well controlled. No new orders Assessment & Plan (10/02/2020 11:01 AM CDT): tsh Free t4 Now Has been off medication Assessment & Plan (08/15/2020 12:28 PM CDT): Subclinical hypothyroidism TSH is very stable The patient not able to tolerate any dose of levothyroxine Continue monitoring TSH by PCP every 6 to 12 months Assessment & Plan (05/13/2020 10:52 AM HYDRAULIC REPAIRER): Recheck lab in 3 months Assessment & Plan (03/07/2020 4:49 PM CDT): Keep off of LT4 Recheck TFT's Assessment & Plan (02/09/2020 10:48 AM CDT): No new orders Sees bread icer Assessment & Plan (11/09/2019 11:37 AM CDT): Stable Assessment & Plan (10/26/2019 10:14 AM CDT): Sees bread icer Assessment & Plan (10/24/2019 1:03 PM CDT): Keep off of Levothyroxine Recheck TFT's in 2 months. Assessment & Plan (08/22/2019 4:19 PM CDT): I explained to Ms. Perez that the goal of treatment with hypothyroidism is to normalize TSH. The risk of over replacement includes cardiac arrhythmias, including atrial fibrillation. Bone density loss is also a major concern At this moment have recommended to recheck TFTs within the next few days. Will adjust dose of levothyroxine accordingly Assessment & Plan (05/04/2019 11:11 AM HYDRAULIC REPAIRER): Patient is well controlled. Continue current treatment. Assessment & Plan (01/10/2019 12:03 PM CDT): Recent lab nl Assessment & Plan (12/13/2018 4:29 PM CDT): Patient is well controlled. Continue current treatment. Assessment & Plan (09/13/2018 11:27 AM CDT): Continues on levothyroxine 12.5 mg bid Recheck lab COPD (chronic obstructive pulmonary disease) Overview (09/13/2018): Patient had exposure to secondhand smoking Assessment & Plan (12/24/2022 11:38 AM CDT): stable Assessment & Plan (09/17/2022 5:05 PM CDT): Stable No changes Assessment & Plan (08/17/2022 12:10 PM CDT): Patient is well controlled. Continue current treatment. Assessment & Plan (04/21/2022 1:54 PM HYDRAULIC REPAIRER): occ sob Check a cxr Assessment & Plan (01/07/2022 1:45 PM CDT): Patient is well controlled. Continue current treatment. Assessment & Plan (12/16/2021 11:50 AM CDT): Patient is well controlled. Continue current treatment. Assessment & Plan (11/06/2021 10:07 AM CDT): Patient is well controlled. Continue current treatment. Assessment & Plan (05/07/2021 3:03 PM HYDRAULIC REPAIRER): Patient is well controlled. Continue current treatment. Assessment & Plan (02/05/2021 10:42 AM CDT): Patient is well controlled. Continue current treatment. Assessment & Plan (05/13/2020 10:51 AM HYDRAULIC REPAIRER): Patient is well controlled. Continue current treatment. Assessment & Plan (02/09/2020 10:47 AM CDT): Patient is well controlled. Continue current treatment. Assessment & Plan (11/09/2019 11:38 AM CDT): Stable Assessment & Plan (10/26/2019 10:13 AM CDT): Patient is well controlled. Continue current treatment. Assessment & Plan (10/19/2019 9:30 AM CDT): Patient is well controlled. Continue current treatment. Assessment & Plan (07/19/2019 9:27 AM HYDRAULIC REPAIRER): Sees Dr. Cruz Assessment & Plan (04/19/2019 9:55 AM HYDRAULIC REPAIRER): Patient is well controlled. Continue current treatment. Assessment & Plan (01/10/2019 12:03 PM CDT): Patient is well controlled. Continue current treatment. Assessment & Plan (09/27/2018 11:23 AM CDT): Check a cxr Chronic fatigue 10/08/2016 Assessment & Plan (03/23/2023 4:52 PM HYDRAULIC REPAIRER): Chronic condition Worsening Check lab including a b 12 and a tsh Assessment & Plan (04/21/2022 1:55 PM HYDRAULIC REPAIRER): Worsening Chronic condition Not at goal Will have a stress test Assessment & Plan (05/07/2021 3:02 PM HYDRAULIC REPAIRER): No new issues Assessment & Plan (02/05/2021 10:45 AM CDT): Overall doing well Assessment & Plan (11/05/2020 11:41 AM CDT): Recent hair analysis from outside company reviewed Discussed with pt Assessment & Plan (05/13/2020 10:51 AM HYDRAULIC REPAIRER): Patient is well controlled. Continue current treatment. Assessment & Plan (10/26/2019 10:14 AM CDT): No new orders Assessment & Plan (10/19/2019 9:30 AM CDT): Has had her thyroid stopped by endocrinology Assessment & Plan (04/25/2019 12:37 PM HYDRAULIC REPAIRER): Patient is well controlled. Continue current treatment. Assessment & Plan (04/19/2019 9:55 AM HYDRAULIC REPAIRER): Doing better Had meds adjusted Assessment & Plan (01/10/2019 12:02 PM CDT): No new orders Patient is well controlled. Continue current treatment. 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 Capone on May 12, 2021 Assessment & Plan (12/13/2018 4:30 PM CDT): Better after abx Assessment & Plan (10/24/2018 9:47 AM CDT): No new issues Current Treatment and Therapy Plans No current plan information found. Past Treatment and Therapy Plans No past plan information found. Lifetime Dose Tracking * Chemical Lifetime Dose Automatic Entry Manual Entr y Fluoro Time 21.7 minutes 0 minutes 21.7 minutes Air kerma at the reference point (Ka,r) 1,488.91 mGy 0 mGy 1,488.91 mGy DAP 100.963 Gy-cm2 0 Gy-cm2 100.963 Gy-cm 2 Resolved Problems Problem Noted Date Diagnosed Date Resolved Date Severe obesity (BMI 35.0-39. 9) with comorbidity 11/06/2021 12/24/2022 Assessment & Plan (09/17/2022 5:05 PM CDT): Healthy diet Assessment & Plan (08/17/2022 12:09 PM CDT): Healthy diet Assessment & Plan (04/21/2022 1:55 PM HYDRAULIC REPAIRER): Healthy diet Assessment & Plan (01/07/2022 1:39 PM CDT): Healthy diet Weight loss Assessment & Plan (11/06/2021 10:09 AM CDT): Healthy diet Regular exercise Rash 11/06/2021 01/07/2022 Assessment & Plan (11/06/2021 5:33 PM CDT): Patient has a ring-like rash over the medial left clavicle. Approximately 1-2 cm in size I will add Lamisil cream daily she will update me in 2 weeks Hyperlipidemia 07/30/2021 08/05/2021 Bowel habit changes 07/30/2021 08/06/19 Fecal urgency 07/30/2021 08/05/2021 Abdominal cramping 07/30/2021 Gastrointestinal food sensitivity 07/30/2021 08/05/2021 Foot pain, left 10/02/2020 08/05/2021 Assessment & Plan (10/02/2020 11:00 AM CDT): Cbc Uric acid Prednisone 10 mg daily 4 days Annual physical exam 08/05/2020 022 Assessment & Plan (08/05/2020 12:27 PM CDT): Doing well Declines any BP med Skin lesion 11/09/2019 02/09/2020 Assessment & Plan (11/09/2019 11:44 AM CDT): Refer to derm Scabbed lesion posterior left neck Bronchitis 04/25/2019 11/05/2020 Assessment & Plan (05/04/2019 11:10 AM HYDRAULIC REPAIRER): Doing better Finish rx Assessment & Plan (04/28/2019 11:43 AM HYDRAULIC REPAIRER): Better Finish abx Fu 3 days Assessment & Plan (04/25/2019 12:36 PM HYDRAULIC REPAIRER): z rafal Malignant tumor of breast 04/15/2019 Polyp of colon 04/15/2019 08/05/2021 Weakness 12/13/2018 02/09/2020 Assessment & Plan (11/09/2019 11:37 AM CDT): Work up negative Assessment & Plan (10/26/2019 10:19 AM CDT): Check b 12 bnp Sed rate Assessment & Plan (10/19/2019 9:31 AM CDT): Check lab Assessment & Plan (07/19/2019 9:27 AM HYDRAULIC REPAIRER): Will have a cardiac cath Assessment & Plan (01/10/2019 12:04 PM CDT): Remains feeling weak Lab ok Assessment & Plan (12/13/2018 4:29 PM CDT): lab Abdominal pain 10/14/2018 02/09/2020 Assessment & Plan (10/24/2018 9:40 AM CDT): Resolved Monitor Colonoscopy is up to date Assessment & Plan (10/17/2018 9:45 AM CDT): Resolved Finish abx Assessment & Plan (10/14/2018 10:38 AM CDT): Possible diverticulitis Lab abx Call if worsening Liquid diet ER If needs 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 Continue current treatment. Assessment & Plan (01/10/2019 12:02 PM CDT): Patient is well controlled. Continue current treatment. Ectopic beats 11/11/2017 10/24/2018 Heart murmur 11/11/2017 10/24/2018 Overview (09/13/2018): Patient had a history of heart murmur before. Heart valve regurgitation 11/11/2017 Obesity (BMI 30.0-34.9) 11/11/201710/16 Palpitations 11/11/2017 02/09/2020 Overview (09/13/2018): Monitor done in August 2017 showed 293 APCs and 149 PVCs. 5 beat run of SVT noted. Patient's symptoms correlated with normal sinus rhythm at that time. Restless leg syndrome 11/11/20172021 Assessment & Plan (05/07/2021 3:05 PM HYDRAULIC REPAIRER): She remains on Requip at night time Assessment & Plan (02/05/2021 10:45 AM CDT): Doing well Stopped melatonin Assessment & Plan (09/13/2018 11:30 AM CDT): Patient is well controlled. Continue current treatment. Peripheral neuropathy 11/11/20172021 Abnormal results of thyroid function studies 8 09/27/2018 Hx of colonic polyps 05/28/2016 022 Assessment & Plan (10/17/2018 9:46 AM CDT): Last colonoscopy apr 01 Not recommended for any further workup at that time
--- OUTSIDE RECORDS SUMMARY | 2025-05-07 14:44 | XMS_ITS | Clinical Summary ---
Author Organization [facility] at [facility] Address [address] [place] [address] Care Team Providers Care Bend Up Name Role Phone Migue Hill DO Primary Care Provider + Milton Funes MD Unavailable [phone] Allergies Active Allergy Reactions Criticality Noted Date Comments Adhesive Other (See comments) Low 03/30/2016 Blisters Other reaction(s): Contact Dermatitis Amoxicillin Diarrhea Low 07/19/2019 Armodafinil Unknown,Shortness of breath High 03/30/2016 Dyspnea Dyspnea Irbesartan Other (See comments),Unknown Low 03/30/2016 Severe Fatigue Severe Fatigue Bupropion Unknown,Seizures High 03/30/2016 Seizures Seizures Nebivolol Fatigue Low 02/09/2020 Clonidine Fatigue Low 10/14/2018 Rosuvastatin Unknown 03/30/2016 fatigue Other reaction(s): Other (see comment) fatigue Fluconazole Other (See comments) Low 04/19/2019 Troy like flu sx Venlafaxine Unknown 03/30/2016 Weakness and fatigue Other reaction(s): Other (see comment) Weakness and fatigue Hydrochlorothiazide Unknown,Other (See comments) Low 03/30/2016 Weary, don't feel good fatigue Levothyroxine Other (See comments),Fatigue Low 10/19/2019 just does not feel well Escitalopram Other (See comments) Low 06/03/2016 Fatigue Magnesium Diarrhea Low 10/29/2023 Uncontrollable diarrhea Magnesium Taurate Rash Medium 10/15/2020 Naproxen Unknown,Anxiety Low 03/30/2016 Depression Amlodipine Other (See comments),Unknown Low 03/30/2016 weary weary Paroxetine Other (See comments),Unknown Low 03/30/2016 Fatigue Fatigue Quinapril Other (See comments) Low 03/30/2016 Fatigue Quinapril Hcl Other (See comments) Low 06/03/2016 weary Spironolactone Other (See comments) Low 03/30/2016 fatigue Other reaction(s): Other (see comment) fatigue Tetracycline Hives Medium 03/30/2016 Zinc Rash Medium 06/03/2016 Sertraline Unknown 03/30/2016 Hypotension Other reaction(s): Other (see comment) weary Medications pyridoxine (VITAMIN B-6) 100 mg tablet Take 1 tablet (100 mg total) by mouth daily Active omega 1-sgt-lza-fis h oil 1,600-500-800 mg/5 mL liquid Take 1 tablet by mouth daily Active FOLIC ACID ORAL Take 1 tablet by mouth daily Active coenzyme Q10 (Q-Sorb Co Q-10) 100 mg capsule Take 1 capsule (100 mg total) by mouth daily 90 capsule 3 11/06/19 21 Active cholecalcifer ol (VITAMIN D-3) 2000 unit capsule Take 1 capsule (2,000 Units total) by mouth daily 11/18/19 23 Active potassium chloride ER 10 mEq CR tablet TAKE 1 CAPSULE BY MOUTH EVERY DAY 90 tablet/caps ule 04/22/20 23 Active calcium carbonate (OYSTER SHELL CALCIUM ORAL) Take 1 tablet by mouth 2 (two) times a day Active ginseng 250 mg capsule Take by mouth Activ e ribose, bulk, 100 % powder Active multivitamin with minerals tablet Take 1 tablet by mouth daily Active clopidogreL (PLAVIX) 75 mg tablet TAKE 1 TABLET BY MOUTH EVERY DAY 90 tablet 3 07/03/19 25 Active liothyronine (CYTOMEL) 5 mcg tablet Take 1 tablet (5 mcg total) by mouth 2 (two) times a day 08/25/19 25 Active rOPINIRole (REQUIP) 1 mg tablet TAKE 1 TABLET BY MOUTH NIGHTLY TAKE 1 ADDITIONAL TABLET IF NEEDED 180 tablet 2 01/13/20 25 Active hydrALAZINE (APRESOLINE) 50 mg tablet TAKE 1 TABLET BY MOUTH THREE TIMES A DAY 270 tablet 01/13/20 25 Active Additional Information Patient taking differently:50 mg oral2 times daily, Reported on 03/20/2025 gabapentin (NEURONTIN) 300 mg capsule TAKE 1 CAPSULE BY MOUTH EVERY DAY AT NIGHT 90 capsule 1 02/09/20 25 Active dilTIAZem XR 120 mg 24 hr capsule TAKE 1 CAPSULE BY MOUTH EVERY DAY 90 capsule 3 04/16/20 25 Active Banophen 25 mg capsuleIndica tions:Urticar ia Take 1 tablet/capsule (25 mg total) by mouth every 6 (six) hours as needed for allergies, itching or sleep 0 07/28/19 23 023 Discontinued(Ot her) dilTIAZem CD/XR/XT (CARDIZEM CD,DILACOR XR) 120 mg 24 hr capsule Take 1 capsule (120 mg total) by mouth daily 90 capsule 3 07/03/19 25 025 Discontinued Active Problems Problem Noted Date Diagnosed Date [...] Plan (11/06/2021 10:15 AM CDT): 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 She does not have evidence of obstruction but her spirometry flows are reduced and I suspect this is related to her kyphosis. She has multi valve regurgitation and I did ask her to contact her band cutting machine operator regarding the recent echo results. Assessment & [...] disorder) Assessment & Plan (03/20/2025 11:48 AM HIMS CODER): PLMD are under reasonable control with Requip [...] q.h.s. Assessment & Plan (04/06/2023 10:41 AM HIMS CODER): The RLS/PLMD symptoms are being controlled with [...] night. Assessment & Plan (04/07/2022 11:14 AM HIMS CODER): The PLMS are under control with Requip [...] 11/09/2019 Assessment & Plan (03/20/2025 11:49 AM HIMS CODER): The patient continues to benefit from CPAP at 20 cm water pressure. Her DME supplier is [facility]. She will follow up here in 6 [...] The patient will switch to [employer] in [place] and I will send an order to [...] order sent to her supplier who is [employer] in [facility] to change the auto titrating range to 17-20 cm water. She will follow up here in 2 months to assess her progress. Assessment & Plan (04/06/2023 10:41 AM HIMS CODER): The patient continues to benefit from the auto titrating CPAP unit with a range of 15-20 cm water pressure for ongoing BARBARA symptoms. She will follow up here in 6 months. Her DME supplier is [employer] in [place]. Assessment & Plan (10/06/2022 11:32 AM CDT): She continues to benefit from the auto titrating CPAP unit with a range of 15-20 cm water pressure. Her DME supplier is [employer] in [facility]. She will follow-up with me in 6 months. Assessment & Plan (04/07/2022 11:14 AM HIMS CODER): The patient continues to benefit from the auto titrating CPAP unit with a range of 15-20 cm water pressure. Her DME supplier is [employer] in [address] She will follow-up with me in [...] & Plan (10/19/2019 9:31 AM CDT): Seeing library consultant Assessment & Plan (08/22/2019 4:21 PM CDT): [...] mg daily Coronary artery disease invo lving em[place] coronary artery of [place] heart without angina pectoris 07/08/2019 Dyslipidemia 07/08/2019 Assessment & Plan (12/24/2022 11:38 AM CDT): Patient is well controlled. Continue current treatment. Assessment & Plan (11/06/2021 10:13 AM CDT): Patient is well controlled. Continue current treatment. Peripheral polyneuropathy 04/15/2019 Assessment & Plan (03/23/2023 4:51 PM HIMS CODER): Chronic condition Worsening Add gabapentin 100 mg [...] treatment. Assessment & Plan (04/21/2022 1:54 PM HIMS CODER): Patient is well controlled. Continue current treatment. Assessment & Plan (12/16/2021 11:50 AM CDT): Patient is well controlled. Continue current treatment. Assessment & Plan (11/06/2021 10:07 AM CDT): Patient is well controlled. Continue current treatment. Assessment & Plan (05/07/2021 3:04 PM HIMS CODER): Patient is well controlled. Continue current treatment. Assessment & Plan (02/05/2021 10:37 AM CDT): Doing well with hydralazine Cardiology notes reviewed Assessment & Plan (11/05/2020 11:40 AM CDT): Patient is well controlled. Continue current treatment. Will start hydralazine Assessment & Plan (10/02/2020 11:01 AM CDT): Stable Has been off medication on own Assessment & Plan (05/13/2020 10:51 AM HIMS CODER): Can not tolerate multiple meds Discussed Wishes no new meds Assessment & Plan (02/09/2020 10:47 AM CDT): Off erik Will see cardiology in 3 days Assessment & Plan (10/26/2019 10:21 AM CDT): Patient is well controlled. Continue current treatment. Assessment & Plan (10/19/2019 9:38 AM CDT): Patient bp is elevated Does not tolerate meds well Does not want new med or increase at this time Fu 1 week Assessment & Plan (07/19/2019 9:27 AM HIMS CODER): Patient is well controlled. Continue current treatment. Assessment & Plan (05/04/2019 11:11 AM HIMS CODER): Start isosorbide Assessment & Plan (04/25/2019 12:37 PM HIMS CODER): Patient is well controlled. Continue current treatment. Assessment & Plan (04/19/2019 9:55 AM HIMS CODER): Patient is well controlled. Continue current treatment. [...] treatment. Assessment & Plan (05/07/2021 3:04 PM HIMS CODER): Check a TSH and free T4 in [...] months Assessment & Plan (05/13/2020 10:52 AM HIMS CODER): Recheck lab in 3 months Assessment & Plan (03/07/2020 4:49 PM CDT): Keep off of LT4 Recheck TFT's Assessment & Plan (02/09/2020 10:48 AM CDT): No new orders Sees library consultant Assessment & Plan (11/09/2019 11:37 AM CDT): Stable Assessment & Plan (10/26/2019 10:14 AM CDT): Sees library consultant Assessment & Plan (10/24/2019 1:03 PM CDT): Keep off of Levothyroxine Recheck TFT's in 2 months. Assessment & Plan (08/22/2019 4:19 PM CDT): I explained to that the goal of treatment with hypothyroidism is to normalize TSH. The risk of over replacement includes cardiac arrhythmias, including atrial fibrillation. Bone density loss is also a major concern At this moment have recommended to recheck TFTs within the next few days. Will adjust dose of levothyroxine accordingly Assessment & Plan (05/04/2019 11:11 AM HIMS CODER): Patient is well controlled. Continue current treatment. [...] treatment. Assessment & Plan (04/21/2022 1:54 PM HIMS CODER): occ sob Check a cxr Assessment & Plan (01/07/2022 1:45 PM CDT): Patient is well controlled. Continue current treatment. Assessment & Plan (12/16/2021 11:50 AM CDT): Patient is well controlled. Continue current treatment. Assessment & Plan (11/06/2021 10:07 AM CDT): Patient is well controlled. Continue current treatment. Assessment & Plan (05/07/2021 3:03 PM HIMS CODER): Patient is well controlled. Continue current treatment. Assessment & Plan (02/05/2021 10:42 AM CDT): Patient is well controlled. Continue current treatment. Assessment & Plan (05/13/2020 10:51 AM HIMS CODER): Patient is well controlled. Continue current treatment. Assessment & Plan (02/09/2020 10:47 AM CDT): Patient is well controlled. Continue current treatment. Assessment & Plan (11/09/2019 11:38 AM CDT): Stable Assessment & Plan (10/26/2019 10:13 AM CDT): Patient is well controlled. Continue current treatment. Assessment & Plan (10/19/2019 9:30 AM CDT): Patient is well controlled. Continue current treatment. Assessment & Plan (07/19/2019 9:27 AM HIMS CODER): Sees Dr. Cruz Assessment & Plan (04/19/2019 9:55 AM HIMS CODER): Patient is well controlled. Continue current treatment. Assessment & Plan (01/10/2019 12:03 PM CDT): Patient is well controlled. Continue current treatment. Assessment & Plan (09/27/2018 11:23 AM CDT): Check a cxr Chronic fatigue 10/08/2016 Assessment & Plan (03/23/2023 4:52 PM HIMS CODER): Chronic condition Worsening Check lab including a b 12 and a tsh Assessment & Plan (04/21/2022 1:55 PM HIMS CODER): Worsening Chronic condition Not at goal Will have a stress test Assessment & Plan (05/07/2021 3:02 PM HIMS CODER): No new issues Assessment & Plan (02/05/2021 10:45 AM CDT): Overall doing well Assessment & Plan (11/05/2020 11:41 AM CDT): Recent hair analysis from outside company reviewed Discussed with pt Assessment & Plan (05/13/2020 10:51 AM HIMS CODER): Patient is well controlled. Continue current treatment. Assessment & Plan (10/26/2019 10:14 AM CDT): No new orders Assessment & Plan (10/19/2019 9:30 AM CDT): Has had her thyroid stopped by endocrinology Assessment & Plan (04/25/2019 12:37 PM HIMS CODER): Patient is well controlled. Continue current treatment. Assessment & Plan (04/19/2019 9:55 AM HIMS CODER): Doing better Had meds adjusted Assessment & [...] 05/28/2016 Assessment & Plan (05/07/2021 3:04 PM HIMS CODER): She will have a colonoscopy with Dr. Capone on May 12, 2021 Assessment & Plan (12/13/2018 4:30 PM CDT): Better after abx Assessment & Plan (10/24/2018 9:47 AM CDT): No new issues Resolved Problems Problem Noted Date Diagnosed Date Resolved Date Severe obesity (BMI 35.0-39. 9) with comorbidity 11/06/2021 12/24/2022 Assessment & Plan (09/17/2022 5:05 PM CDT): Healthy diet Assessment & Plan (08/17/2022 12:09 PM CDT): Healthy diet Assessment & Plan (04/21/2022 1:55 PM HIMS CODER): Healthy diet Assessment & Plan (01/07/2022 1:39 [...] 11/05/2020 Assessment & Plan (05/04/2019 11:10 AM HIMS CODER): Doing better Finish rx Assessment & Plan (04/28/2019 11:43 AM HIMS CODER): Better Finish abx Fu 3 days Assessment & Plan (04/25/2019 12:36 PM HIMS CODER): z rafal Malignant tumor of breast 04/15/2019 Polyp of colon 04/15/2019 08/05/2021 Weakness 12/13/2018 02/09/2020 Assessment & Plan (11/09/2019 11:37 AM CDT): Work up negative Assessment & Plan (10/26/2019 10:19 AM CDT): Check b 12 bnp Sed rate Assessment & Plan (10/19/2019 9:31 AM CDT): Check lab Assessment & Plan (07/19/2019 9:27 AM HIMS CODER): Will have a cardiac cath Assessment & [...] 11/11/201711/06 Assessment & Plan (05/07/2021 3:03 PM HIMS CODER): sma 7 in 3 months Assessment & [...] 11/11/20172021 Assessment & Plan (05/07/2021 3:05 PM HIMS CODER): She remains on Requip at night time [...] for any further workup at that time Encounters Date Type Department Care Team Description 03/27/2025 5:19 PM HIMS CODER - 03/27/2025 11:59 PM HIMS CODER Hospital Encounter [address] [address] Pain in left arm Discharge Disposition: Discharge to home or self care 03/20/2025 11:15 AM HIMS CODER Office Visit [facility] [address] [place] [address] Quinn Cruz MD PLMD (periodic limb movement disorder) (Primary Dx); Dyspnea on exertion; BARBARA (obstructive sleep apnea) 02/22/2025 10:40 AM CDT - 02/22/2025 11:59 PM CDT Hospital Encounter [facility] [address] [place] [address] Follow-up examination of abnormal mammogram Discharge Disposition: Discharge to home or self care 02/22/2025 10:38 AM CDT - 02/22/2025 11:59 PM CDT Hospital Encounter [facility] Medical Office [address] [place] [address] Follow-up examination of abnormal mammogram Discharge Disposition: Discharge to home or self care 02/20/2025 1:00 PM CDT Ancillary Procedure [facility] Medical [facility] at [address] [place] [address] Nonrheumatic aortic valve insufficiency; Nonrheumatic aortic valve stenosis from Last 3 Months Immunizations Immunization Administration Dates Next Due COVID-19 MRNA (MODERNA) .5 M L (50 MCG) VACCINE (12 YEARS AND UP) 02/02/2023 Influenza, Quad, Adjuvantate d, Intramuscular 02/19/2023,02/25/2021 Influenza, Quadrivalent, Hig h Dose, Preservative Free, Intrr 02/12/2022,03/11/2020 Influenza, Trivalent, High D ose, Split, Preservative Free, Intramuscular 01/30/2019,02/14/2018,02/13/2018,02/22,03/03/2016,03/07/2015 Influenza, Trivalent, IM (MDV) 04/13/2012 Influenza, Trivalent, Preser vative Free, Intramuscular 02/17/2013 Pneumococcal Conjugate PCV 13 11/06/2021 Pneumococcal Polysaccharide PPV23 05/13/2020 ZOSTER Recombinant 05/20/2020,01/23/2020 Surgical History Surgery Date Site/Laterality Comments HYSTERECTOMY 1973 CHOLECYSTECTOMY 1994 CATARACT EXTRACTION 2003 UPPER GASTROINTESTINAL ENDOSCOPY COLONOSCOPY 03/16/2016 Dr. Kruse [facility] APPENDECTOMY 1960 FRACTURE SURGERY 2022 ABDOMINAL SURGERY 1960, 1972, 1994 CARDIAC ASSIST DEVICE INSERTION 02/09/2023 Has the Watchman for Afib/stroke prevention Medical History Medical History Date Comments Neuropathy Heart valve regurgitation COPD (chronic obstructive pu lmonary disease) Hypertension Kidney disease Endometriosis h/o Fatigue Palpitation Weakness Thyroid disease Colon polyp Atrial fibrillation (HCC) Sleep apnea 2010 sleep apnea cpap at night Chronic diarrhea Stroke (HCC) 2004 Seizures (HCC) 2003 wellbutrin and s troke caused seizures Osteoporosis Cataract 2003 Emphysema of lung Heart disease Neuromuscular disorder GI (gastrointestinal bleed) Menstrual problem 1963 Family History Medical History Relation Name Comments Heart disease Father Clay Oliva Parkinsonism Father Clay Oliva Stroke Father Clay Oliva Hearing loss Mother Maggi Oliva Hypertension Mother Maggi Oliva Obesity Mother's Sister Tavia Davalos Colon cancer Nephew Ovarian cancer Nephew Breast cancer Niece Dementia Sister 1 1 Hearing loss Sister 3 Norah Jaramillo Relation Name Status Comments Father Clay Oliva Mother Maggi Oliva Mother's Sister Tavia Davalos Nephew Other Niece Sister 1 1 Alive Sister 2 1 Sister 3 Norah Jaramillo Social History Tobacco Use Types Packs/Day Years Used Date Smoking Tobacco: Never Smokeless Tobacco: Never Tobacco Cessation:Counseling Given: Not Answered Alcohol Use Standard Drinks/Week Comments Never 0 (1 standard drink = 0.6 oz pur e alcohol) OASIS D0700: Social Isolation Answer Da te Recorded Frequency of experiencing loneliness or isolatio n Never 12/23/2022 OASIS A1250: Transportation Answer Date Recorded Lack of Transportation (Medical) No 12/23/2022 Lack of Transportation (Non-Medical) No 12/23/2022 Patient Unable or Declines to Respond No 12/23/2022 OASIS B1300: Health Literacy Answer Ced e Recorded Frequency of needing help to read materials from doctor or pharmacy Never 12/23/2022 AUDIT-C Answer Date Recorded Q1: How often do you have a drink containing alcohol? Never 09/20/2024 Q2: How many drinks containi ng alcohol do you have on a typical day when you are drinking? Patient does not drink Frequency of Binge Drinking Not on file 11/2024 PHQ-2 Answer Date Recorded PHQ-2 Total Score (If total score is 3 or more points, staff should administer the PHQ-9) 0 09/17/2022 Personal Safety Answer Date Recorded Have you ever been in or are you currently in a harmful physical or emotional relationship or is someone making you feel afraid or unsafe? Denies 12/16/2023 Comments No Sex and Gender Information Value Date Recorded Sex Assigned at Not on file Legal Sex Female 8:19 PM HIMS CODER Gender Identity Female 04/26/2019 10:43 AM HIMS CODER Sexual Orientation Straight 04/26/2019 10 :41 AM HIMS CODER Obstetrics History Para Term AB IAB SAB Ectopic Multiple Livin g Live Births 0 0 0 0 0 0 0 0 0 0 0 Last Filed Vital Signs Vital Sign Reading Time Taken Comments Blood Pressure 122/64 03/20/2025 11:09 AM HIMS CODER Pulse 85 03/20/2025 11:09 AM HIMS CODER Temperature 36.4 C (97.5 F) 03/20/2025 11:09 AM HIMS CODER Respiratory Rate 18 03/20/2025 11:09 AM HIMS CODER Oxygen Saturation 98% 03/20/2025 11:09 AM HIMS CODER Inhaled Oxygen Concentration - - Weight 86 kg (189 lb 8 oz) 03/20/2025 11:[address] Height 154.9 cm (5' 0.98) 03/20/2025 11:[address] Body Mass Index 35.83 03/20/2025 11:09 AM HIMS CODER Plan of Treatment Health Maintenance Due Date Last Done Comments DTaP/Tdap/Td Vaccine (1 - Tdap) 07/27/1946 Hepatitis B Screening 1953 Osteoporosis Screening-Bone Density Scan 07/12/2022 07/12/2020 Albumin Creatinine Ratio, Urine 04/13/2023 Hemoglobin A1C 06/26/2023 12/24/2022, 03/18, 10/28/2021 Depression Screening 09/18/2023 09/17/2022, 09/17/2022, 12/16/2021, Additional history exists Foot Exam 09/18/2023 09/17/2022, 08/05/2021 Well Visit 65+ 09/18/2023 09/17/2022, 07/16, 08/05/2020 Dilated Eye Exam 12/19/2023 12/18/2022 Lipid Panel 12/25/2023 12/24/2022, 10/15, 10/19/2019, Additional history exists Fall Risk Assessment 07/19/2024 07/20/2023, 09/17/2022, 12/16/2021, Additional history exists eGFR 11/28/2024 11/29/2023, 06/18, 04/05/2023, Additional history exists Covid-19 Vaccine (2024-06 6 season) 2025 02/02/2023, 09/24/2022, 02/05/2022, Additional history exists Zoster Vaccine Completed 05/20/2020, 01/23/2020 Pneumococcal vaccine 65+ Completed 11/06/2021, 04/17 Influenza Vaccine Completed 02/16/2025, , 02/19/2023, Additional history exists Medical Devices Implanted Type Area Boiler Mechanic Device Identifier Shelf Expiration Date Model / Serial / Lot [employer] Puja Watchman Flx Procedure Device Wmflxperproc - [id number] - [id number] Implanted:Qty: 1 on 02/09/2023 by Rogers Montanez MD at [facility] Left Atrial Appendage Occluder [employer] 10/13/2025 [id number] / [id number] / [id number] [employer] Device Vascular Closure Femoral Artery Bioabsorbable Dual Method Vascade 6-7fr Collagen [id number] - S0 - [id number] Implanted:Qty: 1 on 04/20/2023 by Rogers Montanez MD at [facility] Vascular Closure Device Right: Femoral Vein [employer] 12/28/2024 [id number] / 0 / [id number] Irvin V[employer] Device Clsr Perclose Prostyle Sut-Mediatd Closure-Repair Sys 66693-67 - S0 - [id number] Implanted:Qty: 1 on 04/20/2023 by Rogers Montanez MD at [facility] Vascular Closure Device Right: Femoral [employer] 01/14/2025 [id number] / 0 / [id number] [employer] V[employer] Device Clsr Perclose Prostyle Sut-Mediatd Closure-Repair Sys 07858-10 - S0 - [id number] Implanted:Qty: 1 on 02/09/2023 by Rogers Montanez MD at [facility] [employer] 11/13/2024 [id number] / 0 / [id number] [employer] Device Clsr Perclose Prostyle Sut-Mediatd Closure-Repair Sys 38534-89 - S0 - [id number] Implanted:Qty: 1 on 02/09/2023 by Rogers Montanez MD at [facility] [employer] 09/13/2024 [id number] / 0 / [id number] [employer] Puja Synergy Xd Monorail 2.5mm 20mm 144cm Delivery System 1 Access [id number] - S0 - [id number] Implanted:Qty: 1 on 07/20/2023 by Rogers Montanez MD at [facility] [employer] 06/23/2024 [id number] / 0 / [id number] [employer] Synergy Xd Monorail 3mm 32mm 144cm Delivery System 1 Access Port [id number] - S0 - [id number] Implanted:Qty: 1 on 07/20/2023 by Rogers Montanez MD at [facility] [employer] 06/08/2024 [id number] / 0 / [id number] Procedures Procedure Name Priority Date/Time Associated Diagnosis Comments XR RADIUS ULNA LEFT 2 VIEWS Schedule TAYE, Read TAYE (Appt Today, Awaiting Results) 03/27/2025 5:22 PM HIMS CODER Pain in left arm US BREAST LEFT LIMITED Schedule Routine, Read Routine (OP Routine) 02/22/2025 11:22 AM CDT Follow-up examination of abnormal mammogram DIAGNOSTIC MAMMOGRAM LEFT W ARNOL Schedule Routine, Read Routine (OP Routine) 02/22/2025 10:55 AM CDT Follow-up examination of abnormal mammogram TRANSTHORACIC ECHO (TTE) COMPLETE W DOPPLER/CF WO CONTRAST Routine 02/20/2025 1:47 PM CDT Nonrheumatic aortic valve insufficiency Nonrheumatic aortic valve stenosis BASIC METABOLIC PANEL Routine 11/29/2023 1:41 PM CDT Dyspnea on exertion HEMOGLOBIN A1C Routine 12/24/2022 2:43 PM CDT Elevated glucose LIPID PANEL Routine 12/24/2022 2:43 PM CDT Primary hypertension HM DIABETES EYE EXAM Routine 12/18/2022 ALBUMIN CREATININE RATIO, URINE Routine 04/13/2022 2:40 PM HIMS CODER Diabetic peripheral neuropathy (HCC) Primary hypertension DEXA AXIAL SKELETON BONE DENSITY 1 OR MORE SITES 07/12/2020 2:16 PM HIMS CODER from Last 3 Months or Most Recently Relevant to Health Maintenance Results * XR Radius Ulna Left 2 Views (03/27/2025 5:22 PM HIMS CODER) Anatomical Region Laterality Modality Upper Extremities, Forearm Left Compu chemo Radiography 03/27/2025 6:54 PM HIMS CODER Impressions 03/27/2025 6:54 PM HIMS CODER Nondisplaced fracture of the distal left ulnar shaft. Electronically signed by: Abiel Ramachandran MD Narrative 03/27/2025 6:54 PM HIMS CODER EXAMINATION: XR RADIUS ULNA LEFT 2 VIEWS HISTORY: pain. Left arm pain. TECHNIQUE: 2 views of the left forearm. COMPARISON: none FINDINGS: There is a nondisplaced spiral fracture of the distal shaft of the ulna. No other fractures appreciated. Soft tissues are grossly unremarkable. Procedure Note Abiel Ramachandran MD - 03/27/2025 EXAMINATION: XR RADIUS ULNA LEFT 2 VIEWS HISTORY: pain. Left arm pain. TECHNIQUE: 2 views of the left forearm. COMPARISON: none FINDINGS: There is a nondisplaced spiral fracture of the distal shaft of the ulna. No other fractures appreciated. Soft tissues are grossly unremarkable. IMPRESSION: Nondisplaced fracture of the distal left ulnar shaft. Electronically signed by: Abiel Ramachandran MD Migue Hill DO IMG XR PROCEDURES Final Result * US Breast Left Limited (02/22/2025 11:22 AM CDT) Anatomical Region Laterality Modality Breast Left Ultrasound 02/22/2025 6:00 PM CDT Impressions 02/22/2025 6:00 PM CDT No imaging findings to suggest malignancy are seen. The patient may return to screening mammography as per ACR guidelines. OVERALL FINAL ASSESSMENT: [id number] Electronically signed by: Cookie Cantrell M.D. Narrative 02/22/2025 6:00 PM CDT EXAMINATION: LEFT DIGITAL DIAGNOSTIC MAMMOGRAM AND DIGITAL BREAST TOMOSYNTHESIS; LEFT BREAST SONOGRAM HISTORY: Follow-up COMPARISON: Studies dating back to August 10. TECHNIQUE: Full field digital mammographic views of the left breast(s) were performed, including computer aided detection (CAD) and digital breast tomosynthesis (DBT). Directed ultrasound evaluation of the left breast(s) was performed. BREAST PARENCHYMAL COMPOSITION: There are scattered areas of fibroglandular density. MAMMOGRAM FINDINGS: There are findings consistent with the known breast cysts. There are no suspicious masses. No suspicious calcifications are seen. There is no unexplained architectural distortion. There is no skin thickening seen. There are no mammographically abnormal lymph nodes seen in the axillae or elsewhere. ULTRASOUND FINDINGS: Sonography through the 12:00 left breast again demonstrates a cluster of small cysts, versus, less likely, a septated cystic structure. The maximum common glomerate measurement is 8 mm. Previously it was 10 mm. Migue Hill DO IMG MAMMO PROCEDURES Fin al Result * Diagnostic Mammogram Left W [place] (02/22/2025 10:55 AM CDT) Anatomical Region Laterality Modality Breast Left Mammography 02/22/2025 6:00 PM CDT Impressions 02/22/2025 6:00 PM CDT No imaging findings to suggest malignancy are seen. The patient may return to screening mammography as per ACR guidelines. OVERALL FINAL ASSESSMENT: [id number] Electronically signed by: Cookie Cantrell M.D. Narrative 02/22/2025 6:00 PM CDT EXAMINATION: LEFT DIGITAL DIAGNOSTIC MAMMOGRAM AND DIGITAL BREAST TOMOSYNTHESIS; LEFT BREAST SONOGRAM HISTORY: Follow-up COMPARISON: Studies dating back to August 10. TECHNIQUE: Full field digital mammographic views of the left breast(s) were performed, including computer aided detection (CAD) and digital breast tomosynthesis (DBT). Directed ultrasound evaluation of the left breast(s) was performed. BREAST PARENCHYMAL COMPOSITION: There are scattered areas of fibroglandular density. MAMMOGRAM FINDINGS: There are findings consistent with the known breast cysts. There are no suspicious masses. No suspicious calcifications are seen. There is no unexplained architectural distortion. There is no skin thickening seen. There are no mammographically abnormal lymph nodes seen in the axillae or elsewhere. ULTRASOUND FINDINGS: Sonography through the 12:00 left breast again demonstrates a cluster of small cysts, versus, less likely, a septated cystic structure. The maximum common glomerate measurement is 8 mm. Previously it was 10 mm. us Migue Hill DO IMG MAMMO PROCEDURES Fin al Result * TRANSTHORACIC ECHO (TTE) COMPLETE W DOPPLER/CF WO CONTRAST (02/20/2025 1:47 PM CDT) Estimated EF 70-75 % CONS SCIMAGE EF Mod BP 61 % CONS SCIMAGE Anatomical Region Laterality Modality Ultrasound 02/20/2025 1:00 PM CDT Narrative 02/20/2025 4:54 PM CDT [facility] [address] , [address], [place] [address] P:[phone] P:[phone] Echocardiographic Report Patient Name: ANA LAURA OLIVA M : 1935 Study Date: 02/20/2025 1:00:08 PM Sex: F Underwriting Consultant: SUMMER Location: [facility] Ref Provider: SIENNA ZACARIAS Height(Cm): 155 BSA: 1.9 Weight(Kg): 83.5 Heart Rate: 86 BP: 166 / 74 Quality: Good Order Provider: SIENNA ZACARIAS PROCEDURES: Echocardiographic Report: Transthoracic echocardiogram with complete 2D, M-Mode, and color Doppler examination. With Strain Analysis. INDICATIONS: I35.1 Nonrheumatic aortic (valve) insufficiency and I35.0 Nonrheumatic aortic (valve) stenosis. MEASUREMENTS: 2D/MM Value Range Doppler Value Range EF Mod BP 61 % [ 54 - 74 ] MERRY Vmax 1.34 cm2 [ 2.00 - 4.00 ] EF Teich MM 68 % [ 54 - 74 ] AV Mean PG 22 mmHg Estimated EF 70-75 % AV Peak Lorenzo 3.08 m/s [ 1.00 - 1.70 ] LV GLS -19.90 % AV Peak PG 38 mmHg LVIDd 2D 4.58 cm [ 3.80 - 5.20 ] AV VTI 65.19 cm LVIDd MM 5.51 cm [ 3.80 - 5.20 ] LVOT Diam 1.96 cm [ 1.70 - 2.10 ] LVIDs 2D 3.26 cm [ 2.20 - 3.50 ] LVOT Peak Lorenzo 1.38 m/s [ 0.70 - 1.10 ] LVIDs MM 3.39 cm [ 2.20 - 3.50 ] LVOT VTI 34.10 cm LVPWd 2D 1.04 cm [ 0.60 - 0.90 ] MV E Peak Lorenzo 1.44 m/s [ 0.60 - 1.30 ] LVPWd MM 0.89 cm [ 0.60 - 0.90 ] MV A Peak Lorenzo 1.09 m/s [ 1.00 - 1.20 ] IVSd 2D 1.07 cm [ 0.60 - 0.90 ] MV Mean PG 4 mmHg [ 0 - 5 ] IVSd MM 0.96 cm [ 0.60 - 0.90 ] MV PHT 65 msec [ 20 - 100 ] LA Dimension MM 5.14 cm [ 2.70 - 3.80 ] MVA PHT 3.36 cm2 [ 2.00 - 4.00 ] AoR Diam MM 3.18 cm [ 2.70 - 3.70 ] MV Decel Time 249 msec [ 104 - 258 ] LA Volume 79.33 ml [ 22.00 - 52.00 ] PV Peak Lorenzo 1.43 m/s [ 0.40 - 0.80 ] LA Volume Index 42 cc/m2 [ 16 - 28 ] TR Peak Lorenzo 3.08 m/s [ 1.00 - 2.80 ] ACS MM 1.16 cm TR Peak PG 38 mmHg RA Volume 59.87 ml RVSP 46.00 mmHg [ 10.00 - 36.00 ] RV S` 0.13 m/s Lateral E` 0.08 m/s [ 0.10 - 0.15 ] Septal E` 0.06 m/s [ 0.08 - 0.15 ] E` 0.07 m/s E/E` 20 Tapse 2.04 cm [ 1.71 - 5.00 ] 2D/MM Value Range Doppler Value Range - FINDINGS: Interpretation Site: Exam was interpreted at [facility]. Left Ventricle: Normal left ventricular systolic function. No focal wall motion abnormalities. Normal left ventricular size. Mild concentric left ventricular hypertrophy. Normal left ventricular diastolic function. Ejection Fraction is visually estimated to be 70-75 %. Global Longitudinal Strain is -20 %. GLS is normal. Right Ventricle: Normal right ventricular size. Normal right ventricular systolic function. Left Atrium: There is moderate enlargement of left atrium. Right Atrium: There is mild enlargement of right atrium. Atrial Septum: Normal atrial septum. Mitral Valve: Mitral valve leaflets appear mildly thickened. Mild mitral annular calcification. Mild to moderate mitral valve regurgitation. There is no hemodynamically significant mitral stenosis by Doppler. Peak gradient of 10.00 mmHg. Mean gradient of 4.00 mmHg. Valve area of 3.4 cm2. Aortic Valve: Moderate aortic stenosis (although appears to be severe). Peak Velocity of 3.08 m/s. Peak gradient of 38.0 mmHg. Mean gradient of 22.0 mmHg. Valve area of 1.3 cm2. Aortic cusps appear moderately calcified. Trileaflet aortic valve. Mild aortic valve regurgitation. Tricuspid Valve: Normal appearance of the tricuspid valve. Moderate pulmonary hypertension based on right ventricular systolic pressure. Estimated peak RVSP is 46 mmHg. Mild tricuspid regurgitation. Pulmonic Valve: Normal appearance of the pulmonic valve. No pulmonic stenosis. Mild pulmonic regurgitation. Pericardium: Normal pericardium with no significant pericardial effusion. Aorta: No aortic root dilation. IVC: Normal size and normal respiratory collapse consistent with normal right atrial pressure (<5 mmHg). CONCLUSIONS: Normal left ventricular systolic function. No focal wall motion abnormalities. Normal left ventricular size. Mild concentric left ventricular hypertrophy. Normal left ventricular diastolic function. Ejection Fraction is visually estimated to be 70-75 %. Global Longitudinal Strain is -20 %. GLS is normal. There is moderate enlargement of left atrium. There is mild enlargement of right atrium. Mitral valve leaflets appear mildly thickened. Mild mitral annular calcification. Mild to moderate mitral valve regurgitation. There is no hemodynamically significant mitral stenosis by Doppler. Peak gradient of 10.00 mmHg. Mean gradient of 4.00 mmHg. Valve area of 3.4 cm2. Peak Velocity of 3.08 m/s. Peak gradient of 38.0 mmHg. Mean gradient of 22.0 mmHg. Valve area of 1.3 cm2. Aortic cusps appear moderately calcified. Trileaflet aortic valve. Mild aortic valve regurgitation. Moderate pulmonary hypertension based on right ventricular systolic pressure. Estimated peak RVSP is 46 mmHg. Mild tricuspid regurgitation. Mild pulmonic regurgitation. Normal sinus rhythm. Electronically Signed By: Sienna Zaacrias MD 02/20/2025 4:54:18 PM CDT Procedure Note Sienna Zacarias MD - 02/20/2025 [facility] Medical [facility] Cardiology [address] , [address], [place] [address] P:[phone] P:[phone] Echocardiographic Report Patient Name: ANA LAURA OLIVA M : 1935 Study Date: 02/20/2025 1:00:08 PM Sex: F Underwriting Consultant: SUMMER Location: [facility] Ref Provider: SIENNA ZACARIAS Height(Cm): 155 BSA: 1.9 Weight(Kg): 83.5 Heart Rate: 86 BP: 166 / 74 Quality: Good Order Provider: SIENNA ZACARIAS PROCEDURES: Echocardiographic Report: Transthoracic echocardiogram with complete 2D, M-Mode, and color Dopplerexamination. With Strain Analysis. INDICATIONS: I35.1 Nonrheumatic aortic (valve) insufficiency and I35.0 Nonrheumaticaortic (valve) stenosis. MEASUREMENTS: 2D/MM Value Range Doppler ValueRange EF Mod BP 61 % [ 54 - 74 ] MERRY Vmax 1.34cm2 [ 2.00 - 4.00 ] EF Teich MM 68 % [ 54 - 74 ] AV Mean PG 22mmHg Estimated EF 70-75 % AV Peak Lorenzo 3.08m/s [ 1.00 - 1.70 ] LV GLS -19.90 % AV Peak PG 38mmHg LVIDd 2D 4.58 cm [ 3.80 - 5.20 ] AV VTI 65.19cm LVIDd MM 5.51 cm [ 3.80 - 5.20 ] LVOT Diam 1.96cm [ 1.70 - 2.10 ] LVIDs 2D 3.26 cm [ 2.20 - 3.50 ] LVOT Peak Lorenzo 1.38m/s [ 0.70 - 1.10 ] LVIDs MM 3.39 cm [ 2.20 - 3.50 ] LVOT VTI 34.10cm LVPWd 2D 1.04 cm [ 0.60 - 0.90 ] MV E Peak Lorenzo 1.44m/s [ 0.60 - 1.30 ] LVPWd MM 0.89 cm [ 0.60 - 0.90 ] MV A Peak Lorenzo 1.09m/s [ 1.00 - 1.20 ] IVSd 2D 1.07 cm [ 0.60 - 0.90 ] MV Mean PG 4mmHg [ 0 - 5 ] IVSd MM 0.96 cm [ 0.60 - 0.90 ] MV PHT 65msec [ 20 - 100 ] LA Dimension MM 5.14 cm [ 2.70 - 3.80 ] MVA PHT 3.36cm2 [ 2.00 - 4.00 ] AoR Diam MM 3.18 cm [ 2.70 - 3.70 ] MV Decel Time 249msec [ 104 - 258 ] LA Volume 79.33 ml [ 22.00 - 52.00 ] PV Peak Lorenzo 1.43m/s [ 0.40 - 0.80 ] LA Volume Index 42 cc/m2 [ 16 - 28 ] TR Peak Lorenzo 3.08m/s [ 1.00 - 2.80 ] ACS MM 1.16 cm TR Peak PG 38mmHg RA Volume 59.87 ml RVSP 46.00mmHg [ 10.00 - 36.00 ] RV S` 0.13 m/s Lateral E` 0.08 m/s [ 0.10 - 0.15 ] Septal E` 0.06 m/s [ 0.08 - 0.15 ] E` 0.07 m/s E/E` 20 Tapse 2.04 cm [ 1.71 - 5.00 ] 2D/MM Value Range Doppler ValueRange - FINDINGS: Interpretation Site: Exam was interpreted at [facility]. Left Ventricle: Normal left ventricular systolic function. No focal wall motionabnormalities. Normal left ventricular size. Mild concentric left ventricular hypertrophy.Normal left ventricular diastolic function. Ejection Fraction is visually estimated cassie 70- 75 %. Global Longitudinal Strain is -20 %. GLS is normal. Right Ventricle: Normal right ventricular size. Normal right ventricular systolicfunction. Left Atrium: There is moderate enlargement of left atrium. Right Atrium: There is mild enlargement of right atrium. Atrial Septum: Normal atrial septum. Mitral Valve: Mitral valve leaflets appear mildly thickened. Mild mitral annularcalcification. Mild to moderate mitral valve regurgitation. There is no hemodynamicallysignificant mitral stenosis by Doppler. Peak gradient of 10.00 mmHg. Mean gradient of 4.00mmHg. Valve area of 3.4 cm2. Aortic Valve: Moderate aortic stenosis (although appears to be severe). Peak Velocity of3.08 m/s. Peak gradient of 38.0 mmHg. Mean gradient of 22.0 mmHg. Valve area of 1.3 cm2.Aortic cusps appear moderately calcified. Trileaflet aortic valve. Mild aortic valveregurgitation. Tricuspid Valve: Normal appearance of the tricuspid valve. Moderate pulmonary hypertensionbased on right ventricular systolic pressure. Estimated peak RVSP is 46 mmHg. Mildtricuspid regurgitation. Pulmonic Valve: Normal appearance of the pulmonic valve. No pulmonic stenosis. Mildpulmonic regurgitation. Pericardium: Normal pericardium with no significant pericardial effusion. Aorta: No aortic root dilation. IVC: Normal size and normal respiratory collapse consistent with normal rightatrial pressure (<5 mmHg). CONCLUSIONS: Normal left ventricular systolic function. No focal wall motionabnormalities. Normal left ventricular size. Mild concentric left ventricular hypertrophy.Normal left ventricular diastolic function. Ejection Fraction is visually estimated cassie 70- 75 %. Global Longitudinal Strain is -20 %. GLS is normal. There is moderate enlargement of left atrium. There is mild enlargement of right atrium. Mitral valve leaflets appear mildly thickened. Mild mitral annularcalcification. Mild to moderate mitral valve regurgitation. There is no hemodynamicallysignificant mitral stenosis by Doppler. Peak gradient of 10.00 mmHg. Mean gradient of 4.00mmHg. Valve area of 3.4 cm2. Peak Velocity of 3.08 m/s. Peak gradient of 38.0 mmHg. Mean gradient of22.0 mmHg. Valve area of 1.3 cm2. Aortic cusps appear moderately calcified. Trileafletaortic valve. Mild aortic valve regurgitation. Moderate pulmonary hypertension based on right ventricular systolicpressure. Estimated peak RVSP is 46 mmHg. Mild tricuspid regurgitation. Mild pulmonic regurgitation. Normal sinus rhythm. Electronically Signed By: Sienna Zacarias MD 02/20/2025 4:54:18 PM CDT us Sienna Zacarias MD CV ECHO PROCEDURES Final Result * (ABNORMAL) Basic metabolic panel (11/29/2023 1:41 PM CDT) Glucose 99 65 - 139 mg/dL [facility] Comment: Non-fasting reference interval BUN 20 7 - 25 mg/dL [facility] Creatinine 1.19(H) 0.60 - 0.95 mg/dL [facility] eGFR 44(L) > OR = 60 mL/min/1.7 3m2 [facility] BUN/creat ratio 17 6 - 22 (calc) [facility] Sodium 141 135 - 146 mmol/L [facility] Potassium, pl 4.0 3.5 - 5.3 mmol/L [facility] Chloride 106 98 - 110 mmol/L [facility] CO2 27 20 - 32 mmol/L [facility] Calcium 9.3 8.6 - 10.4 mg/dL [facility] Blood 11/29/2023 1:41 PM CDT 11/29/2023 1:42 PM CDT Narrative [facility] - 11/30/2023 12:32 AM CDT FASTING:NO FASTING: NO us Rogers Montanez MD LAB BLOOD ORDERABLES Final Resul t [facility] [address] [place] [address] * Hemoglobin A1c (12/24/2022 2:43 PM CDT) Hgb A1C 5.3 <5.7 % of total Hgb [facility] Comment: For the purpose of screening for the presence of diabetes: <5.7% Consistent with the absence of diabetes 5.7-6.4% Consistent with increased risk for diabetes (prediabetes) > or =6.5% Consistent with diabetes This assay result is consistent with a decreased risk of diabetes. Currently, no consensus exists regarding use of hemoglobin A1c for diagnosis of diabetes in children. According to [place] Diabetes Association (ADA) guidelines, hemoglobin A1c <7.0% represents optimal control in non- diabetic patients. Different metrics may apply to specific patient populations. Standards of Medical Care in Diabetes(ADA). Blood 12/24/2022 2:43 PM CDT 12/24/2022 2:44 PM CDT Narrative [facility] - 12/25/2022 3:39 PM CDT FASTING:YES FASTING: YES Migue Hill DO LAB BLOOD ORDERABLES Fin al Result Performing Organization Address City/[facility]/ZIP Co de Phone Number [facility] [address] [place] [phone] * Lipid panel (12/24/2022 2:43 PM CDT) Pathologist [facility] Cholesterol 166 <200 mg/dL [facility] HDL 57 > OR = 50 mg/dL [facility] Triglycerides 123 <150 mg/dL [facility] LDL 87 mg/dL (calc) [facility] Comment: Reference range: <100 Desirable range <100 mg/dL for primary prevention; <70 mg/dL for patients with CHD or diabetic patients with > or = 2 CHD risk factors. LDL-C is now calculated using the Isabel calculation, which is a validated novel method providing better accuracy than the Friedewald equation in the estimation of LDL-C. Peter HARRIS et al. ALEXANDER. 2013;310(19): 9068-5597 (http://education.InvoiceSharing/faq/QCD548) Chol/HDL ratio 2.9 <5.0 (calc) [facility] Non-HDL, (LDL+VLDL) 109 <130 mg/dL (calc) [facility] Comment: For patients with diabetes plus 1 major ASCVD risk factor, treating to a non-HDL-C goal of <100 mg/dL (LDL-C of <70 mg/dL) is considered a therapeutic option. Blood 12/24/2022 2:43 PM CDT 12/24/2022 2:44 PM CDT Narrative [facility] - 12/25/2022 3:39 PM CDT FASTING:YES FASTING: YES Migue Hill DO LAB BLOOD ORDERABLES Fin al Result Performing Organization Address City/[facility]/ZIP Co de Phone Number [facility] [address] [place] [phone] * DIABETES EYE EXAM (12/18/2022) Historical Provider HEALTH MAINTENANCE Final Result * Albumin Creatinine Ratio, Urine (04/13/2022 2:40 PM HIMS CODER) Creatinine, ur 56 20 - 275 mg/dL [facility] Microalbumin, ur 1.4 See Note: mg/dL [facility] Comment: Reference Range: Reference Range Not established Microalbumin/creat ratio 25 <30 mcg/mg creat [facility] Comment: The ADA defines abnormalities in albumin excretion as follows: Albuminuria Category Result (mcg/mg creatinine) Normal to Mildly increased <30 Moderately increased 30-299 Severely increased > OR = 300 The ADA recommends that at least two of three specimens collected within a 3-6 month period be abnormal before considering a patient to be within a diagnostic category. Urine 04/13/2022 2:40 PM HIMS CODER 04/13/2022 2:40 PM HIMS CODER Narrative [facility] - 04/14/2022 1:30 PM HIMS CODER SPLIT 04/11/2022 FROM [id number] FASTING:NO FASTING: NO Migue Hill DO LAB URINE ORDERABLES Fin al Result [facility] [address] [place] [address] * Dexa Axial Skeleton Bone Density 1 or 2 Site (07/12/2020 2:16 PM HIMS CODER) Anatomical Region Laterality Modality Body N/A Radiographic Lizzie ging 07/12/2020 4:32 PM HIMS CODER Narrative 07/12/2020 4:33 PM HIMS CODER Patient Name: ANA LAURA OLIVA Ordering Dr: Migue Hill DO D.O.B: 1935 Exam Date: 07/12/20 1416 Age: 84 Sex: Female MR#: [id number] Loc: RADIOLOGY REPORT Order #[id number] Bone Density Bone Density Hip/Spine (STD) Signed EXAM DESCRIPTION: Bone Density Hip/Spine (STD) REASON FOR STUDY: 84 year old female with given history of premature menopause. 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 Reported use of hormone replacement therapy. COMPARISON: None available. FINDINGS: AP LUMBAR SPINE L1-L4: Total BMD is 0.853 g/cm2 T-score is -1.8 LEFT HIP: Total BMD is 0.843 g/cm2 T-score is -0.8 Femoral neck BMD is 0.585 g/cm2 T-score is -2.4 IMPRESSION: 1. Low bone mass. 2. Fracture risk assessment (FRAX): 10 year risk for a major osteoporotic fracture is 40 % 10 year risk for a hip fracture is 26 % The FRAX tool has not been validated in patients currently or previously treated with pharmacotherapy for osteoporosis. In such patients, clinical judgement must be exercised in interpreting FRAX scores as the fracture risk may be overestimated. REFERENCE: Bone mineral density: Normal (T-score above or = -1.0) Low bone mass (T-score between -1.0 and -2.5) replaces the previously used term osteopenia Osteoporosis (T-score = or below -2.5) Medical evaluation for secondary causes of low bone mineral density may be appropriate. FRAX is a World Health Organization validated fracture risk assessment tool that calculates a person's 10 year probability of a major osteoporosis related fracture and hip fracture. According to the National Osteoporosis Foundation guidelines, postmenopausal women and men age 50 or older with low bone mass and a 10 year probability of a major osteoporosis related fracture = or greater than 20% or a 10 year probability of a hip fracture = or greater than 3% should be considered for treatment. For further information, including treatment recommendations, please refer to the 2013 ISCD Official Positions (http://www.iscd.org) and the NOF's Clinician's Guide to Prevention and Treatment of Osteoporosis (http://www.nof.org/professionals/clinical-guidelines) THIS IS AN ELECTRONICALLY VERIFIED FINAL REPORT 07/12/2020 4:33 PM - Electronically signed by Sienna Gant M.D. MD: Report ID: [id number] Reading Location: [place] [address] REPORT ELECTRONICALLY SIGNED IN OTHER VENDOR SYSTEM Resulting Agency Comment O Procedure Note Sienna Gant MD - 07/12/2020 Patient Name: ANA LAURA OLIVA Dr: Migue Hill DO, D.O.B: 1935 Exam Date: 07/12/20 141 Age: 84 Sex: Female MR#: [id number] Loc: RADIOLOGY REPORT Order #[id number] Bone Density Bone Density Hip/Spine (STD) Signed EXAM DESCRIPTION: Bone Density Hip/Spine (STD) REASON FOR STUDY: 84 year old female with given history of premature menopause. 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 Reported use of hormone replacement therapy. COMPARISON: None available. FINDINGS: AP LUMBAR SPINE L1-L4: Total BMD is 0.853 g/cm2 T-score is -1.8 LEFT HIP: Total BMD is 0.843 g/cm2 T-score is -0.8 Femoral neck BMD is 0.585 g/cm2 T-score is -2.4 IMPRESSION: 1. Low bone mass. 2. Fracture risk assessment (FRAX): 10 year risk for a major osteoporotic fracture is 40 % 10 year risk for a hip fracture is 26 % The FRAX tool has not been validated in patients currently or previously treated with pharmacotherapy for osteoporosis. In such patients,clinical judgement must be exercised in interpreting FRAX scores as the fracturerisk may be overestimated. REFERENCE: Bone mineral density: Normal (T-score above or = -1.0) Low bone mass (T-score between -1.0 and -2.5) replaces thepreviously used term osteopenia Osteoporosis (T-score = or below -2.5) Medical evaluation for secondary causes of low bone mineral density maybe appropriate. FRAX is a World Health Organization validated fracture risk assessmenttool that calculates a person's 10 year probability of a major osteoporosisrelated fracture and hip fracture. According to the National OsteoporosisFoundation guidelines, postmenopausal women and men age 50 or older with low bonemass and a 10 year probability of a major osteoporosis related fracture = or greater than 20% or a 10 year probability of a hip fracture = or greaterthan 3% should be considered for treatment. For further information, including treatment recommendations, pleaserefer to the 2013 ISCD Official Positions (http://www.iscd.org) and the NOF's Clinician's Guide to Prevention and Treatment of Osteoporosis (http://www.nof.org/professionals/clinical-guidelines) THIS IS AN ELECTRONICALLY VERIFIED FINAL REPORT 07/12/2020 4:33 PM - Electronically signed by Sienna Gant M.D. MD: Report ID: [id number] Reading Location: [place] [address] REPORT ELECTRONICALLY SIGNED IN OTHER VENDOR SYSTEM Migue Hill DO IMG DXA PROCEDURES Final Result from Last 3 Months or Most Recently Relevant to Health Maintenance Insurance [place] [address] [facility] Direct[facility] For more information, please contact: [phone] Documents on File Type Date Recorded Patient Clinical Transformation Specialist Expl anation ADVANCE DIRECTIVE 02/11/2023 7:21 PM LIVIN G WILL ADVANCE DIRECTIVE 02/11/2023 7:21 PM POWER OF HEARING DOG TRAINER-MEDICAL ADVANCE DIRECTIVE 02/10/2023 9:34 PM LIVIN G WILL ADVANCE DIRECTIVE 02/10/2023 9:34 PM POWER OF HEARING DOG TRAINER-MEDICAL ADVANCE DIRECTIVE 12/17/2003 * Full Code (Latest Code Status on File) Date Activated Date Inactivated Comments 07/20/2023 1:47 PM 07/20/2023 8:21 PM * Full Code Date Activated Date Inactivated Comments 04/20/2023 3:08 PM 04/20/2023 10:30 PM * Full Code Date Activated Date Inactivated Comments 02/09/2023 2:15 PM 02/10/2023 6:27 PM * Full Code Date Activated Date Inactivated Comments 09/09/2021 12:57 PM 09/09/2021 8:13 PM * Full Code Date Activated Date Inactivated Comments 09/09/2021 12:57 PM 09/09/2021 12:57 PM Care Teams Bend Up Relationship Specialty Start Date End Date Migue Hill DO PCP - General Family Medicine 09/10/21 Milton Funes MD [address] [address] [place] [address] Consulting Physician Cardiothoracic Surgery 03/30/23
--- NOTE | 2025-05-07 15:03 | ED.GENADULT ---
HPI - General Adult General Chief complaint: Arrhythmia/Palpitations Stated complaint: concerned she is in a-fib Time Seen by Provider: 05/07/25 14:27 History of Present Illness HPI narrative: 89-year-old female presents emergency department for evaluation for intermittent heart palpitations. Patient states that yesterday or day she was having some intermittent chest pain. Patient states she has also been having some intermittent heart palpitations. Patient did have a recent Holter monitor that showed no acute findings. At time of evaluation patient is having some PVCs but patient is not able to tell she is having these. Patient states she primarily notices the skipped beats when she is standing. I attempted to sit the patient up and she was still not able to since her PVCs. At time of evaluation patient denies having any chest pain Related Data Home Medications ?Medication ?Instructions ?Recorded ?Confirmed ?Last Taken ?Type cholestyramine (with sugar) 4 gram 1 ea DAILY 06/27/22 03/30/25 Unknown History oral powder Held on 07/04/22. Instructions: Hold until stool pattern becomes regular hydralazine 25 mg tablet 25 mg PO TID 06/27/22 03/30/25 Unknown History potassium chloride 10 mEq 10 meq PO DAILY 06/27/22 03/30/25 Unknown History capsule,extended release ropinirole 1 mg tablet 1 mg PO DAILY 06/27/22 03/30/25 Unknown History rivaroxaban 10 mg tablet (Xarelto) 10 mg PO DAILY 10/13/22 03/30/25 Unknown History Allergies Allergy/AdvReac Type Severity Reaction Status Date / Time armodafinil Allergy Severe DYSPNEA Verified 05/07/25 14:32 bupropion Allergy Intermediate Siezure Verified 05/07/25 14:32 Tetracyclines Allergy Mild HIVES Verified 05/07/25 14:32 iodine Allergy Unknown Unknown Verified 05/07/25 14:32 zinc Allergy Rash Verified 05/07/25 14:32 adhesive AdvReac Rash Verified 05/07/25 14:32 amlodipine AdvReac Fatigued Verified 05/07/25 14:32 amoxicillin AdvReac Diarrhea Verified 05/07/25 14:32 clonidine AdvReac Fatigued Verified 05/07/25 14:32 escitalopram AdvReac Fatigued Verified 05/07/25 14:32 fluconazole AdvReac Fatigued Verified 05/07/25 14:32 hydrochlorothiazide AdvReac Fatigued Verified 05/07/25 14:32 irbesartan AdvReac Fatigued Verified 05/07/25 14:32 levothyroxine AdvReac Fatigued Verified 05/07/25 14:32 naproxen AdvReac Anxiety Verified 05/07/25 14:32 nebivolol AdvReac Fatigued Verified 05/07/25 14:32 paroxetine AdvReac Fatigued Verified 05/07/25 14:32 quinapril AdvReac Fatigued Verified 05/07/25 14:32 rosuvastatin AdvReac Fatigued Verified 05/07/25 14:32 sertraline AdvReac Fatigued Verified 05/07/25 14:32 spironolactone AdvReac Fatigued Verified 05/07/25 14:32 venlafaxine AdvReac Fatigued Verified 05/07/25 14:32 Review of Systems Review of Systems: All systems reviewed & are unremarkable except as noted in HPI and below PMFSH Past Medical History Medical History Left knee DJD Gout Obstructive sleep apnea Chronic anticoagulation Paroxysmal atrial fibrillation Hypertension Restless leg syndrome Surgical History Surgical History Status post ORIF of fracture of ankle History of bilateral cataract extraction History of laparoscopy For endometriosis. History of hysterectomy for benign disease History of cholecystectomy History of cardiac catheterization Mild, nonobstructing disease per patient report. Family History Family History Father Cerebrovascular accident Other Heart disease Hypertension Social History Social History Social History: Caffeine-none Surrogate medical decision maker: Prudence Elias, friend. Code status: Do not resuscitate. Smoking status: Never smoker Alcohol intake: never Substance use: never Lack of Transportation: No Lack of Food: Never True Current Housing: I Have Housing Concerned About Future Housing: No Difficulty Paying Gas/Electric Bills: No Difficulty Paying for Meds: No Currently Unemployed: No Education: High School Diploma/GED Difficulty w/ Childcare or Family Care: No Additional living arrangements comments: The patient lives in her own home in [place]. She has 2 children, 1 daughter in [place] and another on [facility] with him she does not keep in close contact. 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 Spiritual care concerns: No Exam Narrative: APPEARANCE: Well appearing, no pain, no distress, well-nourished. HEAD: normocephalic, atraumatic. EYES: PERRLA/EOMI, conjunctivae clear. NOSE: Normal no drainage EARS:TMS clear with good light reflex. THROAT: Pharynx clear, no exudate. NECK: Supple. No adenopathy, no masses. RESPIRATORY: Airway patent, respirations nonlabored. Clear to auscultation bilaterally, no rales, rhonchi, wheezing. CARDIOVASCULAR: Regular rate and rhythm without murmurs rubs or gallops. ABDOMINAL: Soft, nontender, nondistended, normal bowel sounds MUSCULOSKELETAL: Moves all extremities. Strength/ROM intact, No edema, No calf tenderness. NEURO: Alert. Cranial nerves II through XII intact. Good gait. Good coordination SKIN: Warm, dry. Normal Color PSYCHIATRIC: Normal affect/mood. Course Vital Signs Vital signs: Vital Signs Temperature 97.4 F L 05/07/25 13:08 Pulse Rate 68 05/07/25 13:08 Respiratory Rate 18 05/07/25 13:08 Blood Pressure 155/66 H 05/07/25 13:08 Pulse Oximetry 98 05/07/25 13:08 Oxygen Delivery Room Air 05/07/25 13:08 Temperature 97.4 F L 05/07/25 13:08 Pulse Rate 80 05/07/25 17:33 Respiratory Rate 18 05/07/25 17:33 Blood Pressure 188/84 H 05/07/25 17:33 Pulse Oximetry 96 05/07/25 17:33 Oxygen Delivery Room Air 05/07/25 14:29 [facility] Narrative Medical decision making narrative: 89-year-old female presents emergency department for evaluation for intermittent heart palpitations. Patient did have a recent cardiac workup that was negative. Patient denies any current chest pain denies any current help palpitations. Patient is currently afebrile the looked 0 cyst and a stable hemoglobin. Patient has 9 of 1.0. Patient has no acute abnormalities on her CMP is patient has a normal TSH and a normal magnesium. Patient's troponin was negative. Chest x-ray shows no acute cardiopulmonary abnormality. EKG shows normal sinus rhythm. Patient was up to the results of workup. Patient was course of close follow-up primary care physician. Differential Diagnosis Differential Diagnosis: PVCs, PACs, atrial fibrillation, sinus tach, sick sinus syndrome Lab Data MDM Lab Attestation statement: I personally reviewed the patient's lab results. 05/07/25 16:23 05/07/25 16:23 Labs: Lab Results 05/07/25 Range/Units 16:23 WBC 8.1 (4.5-10.0) K/mm3 RBC 4.65 (4.2-5.4) M/mm3 Hgb 13.1 (12.0-15.0) g/dL Hct 40.5 (37.0-47.0) % MCV 87.1 (80-100) fl MCH 28.2 (26-34) pg MCHC 32.3 (32-36) g/dl RDW 14.1 (11.5-14.5) % Plt Count 224 (150-375) k/mm3 MPV 9.9 (7.4-10.4) fl Immature Gran % (Auto) 0.2 (0-0.5) % Neut % (Auto) 68.2 (45.5-73.1) % Lymph % (Auto) 22.8 (18.3-44.2) % Tift % (Auto) 6.2 (2.6-8.5) % Eos % (Auto) 1.7 (0-4.4) % Baso % (Auto) 0.9 (0.2-1.2) % Lymph # (Auto) 1.85 (0.9-3.2) K/mm3 Tift # (Auto) 0.5 (0.1-0.6) K/mm3 Eos # (Auto) 0.1 (0-0.3) K/mm3 Baso # (Auto) 0.1 (0.0-0.1) K/mm3 Abs Immat Gran (auto) 0.02 (0.00-0.031) K/mm3 Absolute Neuts (auto) 5.6 (1.3-6.7) K/mm3 Absolute Nucleated RBC 0.000 (0.0-0.012) K/mm3 Nucleated RBC % 0.0 (0.0-0.2) % PT 13.0 (11.1-14.7) Seconds INR 1.0 APTT 29.4 (22.3-36.8) Seconds Sodium 144 (137-145) mmol/L Potassium 3.4 (3.4-5.0) mmol/L Chloride 108 H (98-107) mmol/L Carbon Dioxide 25 (22-30) mmol/L Anion Gap 11 (4-12) mmol/L BUN 16 (7-17) mg/dL Creatinine 0.81 (0.7-1.0) mg/dL Estim Creat Clear Calc 42 ml/min Estimated GFR > 60 (59 - ) Glucose 96 (65-110) mg/dL Calcium 9.4 (8.4-10.2) mg/dL Magnesium 2.0 (1.6-2.3) mg/dL Total Bilirubin 0.4 (0.2-1.3) mg/dL AST 35 (14-36) U/L ALT 24 (6-35) U/L Alkaline Phosphatase 93 (38-126) U/L Troponin I < 0.012 (0.000-0.034) ng/mL Total Protein 8.0 (6.3-8.2) g/dL Albumin 4.6 (3.5-5.1) g/dL TSH (Reflex) 2.060 (0.465-4.68) uIU/mL Imaging Data Radiologist's impression: ITS Impressions Chest X-Ray 05/07/25 15:24 Impression: 1: No acute cardiopulmonary disease. Discharge Plan Discharge Clinical Impression: Heart palpitations Patient Disposition: Home Condition: Stable Instructions: Antibiotic Form, Heart Palpitations (DC) Additional Instructions: Continue to have close follow-up with your primary care physician. If you have any worsening symptoms then please call or return to the emergency department. Patient Language: Hebrew Prescriptions: No Action Xarelto 10 mg tablet 10 mg PO DAILY Rx Instructions: for 35 days potassium chloride 10 mEq capsule, extended release 10 meq PO DAILY ropinirole 1 mg tablet 1 mg PO DAILY hydralazine 25 mg tablet 25 mg PO TID cholestyramine (with sugar) 4 gram powder 1 ea DAILY calcium carbonate-vitamin D3 [Oyster Shell Calcium-Vit D3] 500 mg-5 mcg (200 unit) Tablet 500 mg PO BIDWM Qty: 60 0RF silver 200 mcg/gram gel 1 applic topical DAILY Qty: 45 0RF cholecalciferol (vitamin D3) [Vitamin D3] 25 mcg (1,000 unit) tablet 2,000 unit PO DAILY Qty: 30 4RF Follow-up/Referrals: Sergio,Migue Culver MD [Primary Care Provider]
--- OUTSIDE RECORDS SUMMARY | 2025-05-07 16:26 | XMS_ITS | Encounter Summary ---
Author Organization [facility] Address [address] [place] [id number] Care Team Providers Care Coal Crusher Operator Name Role Phone Migue Hong DO Primary Care Provider [phone] Tristian Kramer MD Unavailable [phone] Encounter Details Date Type Department Care Team (Late st Contact Info) Description 06/24/2017 Abstract [facility] at [facility], [address] [address] [place] Social History Tobacco Use [...] on filedocumented in this encounter Care Teams Coal Crusher Operator Relationship Specialty Start Date End Date Migue Hong DO PCP - General FAMILY PRACTICE 10/16/15 Tristian Kramer MD [facility]. [id number] [place] [address] Hanahan Car Racer CARDIOVASCULAR DISEASE 05/28/17 documented as of this encounter
--- OUTSIDE RECORDS SUMMARY | 2025-05-07 16:26 | XMS_ITS | Clinical Summary ---
Author Organization [facility] Address [address] [place] [phone] Phone Care Team Providers Care Soap Press Feeder Name Role Phone Migue Hong DO Primary Care Provider [phone] Social History Tobacco Use Types Packs/Day Years [...] series) 07/27/2011 INFLUENZA VACCINE (#1) 2024 Insurance [facility] OPT[employer] PPO [id number] Care Teams Soap Press Feeder Relationship Specialty Start Date End Date Migue Hong DO PCP - General Family Practice 10/03/15
--- OUTSIDE RECORDS SUMMARY | 2025-05-07 16:26 | XMS_ITS | Encounter Summary ---
Author Organization [facility] Facility Care Team Providers Care Consulting Marine Engineer Name Role Phone Migue Hill DO Primary Care Provider + Milton Funes MD Unavailable Encounter Details Date Type Department Care Team (Latest Contact Info) Description 03/17/2016 Orders Only [facility] ProviderMel MD [address] [place], [place] [phone] Social History Tobacco Use Types Packs/Day Years Used Date Smoking Tobacco: Never Assessed Comments Unknown Sex and Gender Information Value Date Recorded Sex Assigned at Not on file Legal Sex Female 8:19 PM HIGHER EDUCATION ADMINISTRATOR Gender Identity Female 04/26/2019 10:43 AM HIGHER EDUCATION ADMINISTRATOR Sexual Orientation Straight 04/26/2019 10 :41 AM HIGHER EDUCATION ADMINISTRATOR documented as of this encounter Plan of [...] documented as of this encounter Care Teams Consulting Marine Engineer Relationship Specialty Start Date End Date Miuge Hill DO PCP - General Family Medicine 09/10/21 Milton Funes MD [address] [facility] [address] [place] [address] Consulting Physician Cardiothoracic Surgery 03/30/23 documented as of this encounter
--- OUTSIDE RECORDS SUMMARY | 2025-05-07 16:26 | XMS_ITS | Encounter Summary ---
Author Organization [facility] Facility Care Team Providers Care Transformer Tester Name Role Phone Migue Hill DO Primary Care Provider + Milton Funes MD Unavailable [phone] Encounter Details Date Type Department Care Team (Latest Contact Info) Description 08/26/2017 Orders Only [facility]INCON[facility] ProviderMel MD [address] [place], [place] [phone] Social History Tobacco Use Types Packs/Day Years Used Date Smoking Tobacco: Never Assessed Comments Unknown Sex and Gender Information Value Date Recorded Sex Assigned at Not on file Legal Sex Female 8:19 PM ABSEILING INSTRUCTOR Gender Identity Female 04/26/2019 10:43 AM ABSEILING INSTRUCTOR Sexual Orientation Straight 04/26/2019 10 :41 AM ABSEILING INSTRUCTOR documented as of this encounter Plan [...] documented as of this encounter Care Teams Transformer Tester Relationship Specialty Start Date End Date Migue Hill DO PCP - General Family Medicine 09/10/21 Milton Funes MD [address] [facility] [address] [place] [address] Consulting Physician Cardiothoracic Surgery 03/30/23 documented as of this encounter
--- OUTSIDE RECORDS SUMMARY | 2025-05-07 16:26 | XMS_ITS | Encounter Summary ---
Author Organization [facility] Facility Care Team Providers Care Psychology Lecturer Name Role Phone Migue Hill DO Primary Care Provider + Milton Funes MD Unavailable [phone] Encounter Details Date Type Department Care Team (Latest Contact Info) Description 02/02/2017 Orders Only [facility] CLINCONV ProviderMel MD [address] [place], [place] [phone] Social History Tobacco Use Types Packs/Day Years Used Date Smoking Tobacco: Never Assessed Comments Unknown Sex and Gender Information Value Date Recorded Sex Assigned at Not on file Legal Sex Female 8:19 PM RADIOPHARMACIST Gender Identity Female 04/26/2019 10:43 AM RADIOPHARMACIST Sexual Orientation Straight 04/26/2019 10 :41 AM RADIOPHARMACIST documented as of this encounter Plan of [...] documented as of this encounter Care Teams Psychology Lecturer Relationship Specialty Start Date End Date Migue Hill DO PCP - General Family Medicine 09/10/21 Milton Funes MD [address] [facility] [address] [place] [address] Consulting Physician Cardiothoracic Surgery 03/30/23 documented as of this encounter
--- OUTSIDE RECORDS SUMMARY | 2025-05-07 16:26 | XMS_ITS | Encounter Summary ---
Author Organization [facility] Facility Care Team Providers Care Provider Scribe Name Role Phone Migue Hill DO Primary Care Provider + Milton Funes MD Unavailable [phone] Encounter Details Date Type Department Care Team (Latest Contact Info) Description 03/19/2016 Orders Only [facility] CLINCONV ProviderMel MD [address] [place], [place] [phone] Social History Tobacco Use Types Packs/Day Years Used Date Smoking Tobacco: Never Assessed Comments Unknown Sex and Gender Information Value Date Recorded Sex Assigned at Not on file Legal Sex Female 8:19 PM CNC LATHE MACHINIST Gender Identity Female 04/26/2019 10:43 AM CNC LATHE MACHINIST Sexual Orientation Straight 04/26/2019 10 :41 AM CNC LATHE MACHINIST documented as of this encounter Plan of [...] documented as of this encounter Care Teams Provider Scribe Relationship Specialty Start Date End Date Migue Hill DO PCP - General Family Medicine 09/10/21 Milton Funes MD [address] [facility] [address] [place] [address] Consulting Physician Cardiothoracic Surgery 03/30/23 documented as of this encounter
--- OUTSIDE RECORDS SUMMARY | 2025-05-07 16:26 | XMS_ITS | Encounter Summary ---
Author Organization [facility] Facility Care Team Providers Care Asbestos Brake Lining Finisher Name Role Phone Migue Hill DO Primary Care Provider + Milton Funes MD Unavailable [phone] Encounter Details Date Type Department Care Team (Latest Contact Info) Description 10/21/2016 Orders Only [facility] CLINCONV ProviderMel MD [address] [place], [place] [phone] Social History Tobacco Use Types Packs/Day Years Used Date Smoking Tobacco: Never Assessed Comments Unknown Sex and Gender Information Value Date Recorded Sex Assigned at Not on file Legal Sex Female 8:19 PM SOFTWARE TEST SPECIALIST Gender Identity Female 04/26/2019 10:43 AM SOFTWARE TEST SPECIALIST Sexual Orientation Straight 04/26/2019 10 :41 AM SOFTWARE TEST SPECIALIST documented as of this encounter Plan [...] AM CDT Ordered by an unspecified provider. [facility] Provider MD Final Res ult documented in this encounter Visit Diagnoses Not on filedocumented in this encounter Additional Health Concerns Infection Onset Date Last Indicated Resolved Time COVID: Suspected 03/02/2023 03/02/2023 03/02/2023 10:09 PM CDT documented as of this encounter Care Teams Asbestos Brake Lining Finisher Relationship Specialty Start Date End Date Migue Hill DO PCP - General Family Medicine 09/10/21 Milton Funes MD [address] [facility] [address] [place] [address] Consulting Physician Cardiothoracic Surgery 03/30/23 documented as of this encounter
--- OUTSIDE RECORDS SUMMARY | 2025-05-07 16:26 | XMS_ITS | Encounter Summary ---
Author Organization [facility] Facility Care Team Providers Care Health Editor Name Role Phone Migue Hill DO Primary Care Provider + Milton Funes MD Unavailable [phone] Encounter Details Date Type Department Care Team (Latest Contact Info) Description 10/03/2015 Orders Only [facility] CLINCONV ProviderMel MD [address] [place], [place] [phone] Social History Tobacco Use Types Packs/Day Years Used Date Smoking Tobacco: Never Assessed Comments Unknown Sex and Gender Information Value Date Recorded Sex Assigned at Not on file Legal Sex Female 8:19 PM CONTROL SYSTEMS ENGINEER Gender Identity Female 04/26/2019 10:43 AM CONTROL SYSTEMS ENGINEER Sexual Orientation Straight 04/26/2019 10 :41 AM CONTROL SYSTEMS ENGINEER documented as of this encounter Plan [...] documented as of this encounter Care Teams Health Editor Relationship Specialty Start Date End Date Migue Hill DO PCP - General Family Medicine 09/10/21 Milton Funes MD [address] [facility] [address] [place] [address] Consulting Physician Cardiothoracic Surgery 03/30/23 documented as of this encounter
--- OUTSIDE RECORDS SUMMARY | 2025-05-07 16:26 | XMS_ITS | Encounter Summary ---
Author Organization [facility] Facility Care Team Providers Care Global Logistics Manager Name Role Phone Migue Hill DO Primary Care Provider + Milton Funes MD Unavailable [phone] Encounter Details Date Type Department Care Team (Latest Contact Info) Description 02/01/2013 Orders Only [facility] CLINCONV ProviderMel MD [address] [place], [place] [phone] Social History Tobacco Use Types Packs/Day Years Used Date Smoking Tobacco: Never Assessed Comments Unknown Sex and Gender Information Value Date Recorded Sex Assigned at Not on file Legal Sex Female 8:19 PM QA SOFTWARE TEST ENGINEER Gender Identity Female 04/26/2019 10:43 AM QA SOFTWARE TEST ENGINEER Sexual Orientation Straight 04/26/2019 10 :41 AM QA SOFTWARE TEST ENGINEER documented as of this encounter Plan [...] documented as of this encounter Care Teams Global Logistics Manager Relationship Specialty Start Date End Date Migue Hill DO PCP - General Family Medicine 09/10/21 Milton Funes MD [address] [facility] [address] [place] [address] Consulting Physician Cardiothoracic Surgery 03/30/23 documented as of this encounter
--- OUTSIDE RECORDS SUMMARY | 2025-05-07 16:26 | XMS_ITS | Encounter Summary ---
Author Organization [facility] Facility Care Team Providers Care Mixing Machine Tender Cork Rod Name Role Phone Migue Hill DO Primary Care Provider + Milton Funes MD Unavailable [phone] Encounter Details Date Type Department Care Team (Latest Contact Info) Description 07/27/2017 Orders Only [facility] CLINCONV ProviderMel MD [address] [place], [place] [phone] Social History Tobacco Use Types Packs/Day Years Used Date Smoking Tobacco: Never Assessed Comments Unknown Sex and Gender Information Value Date Recorded Sex Assigned at Not on file Legal Sex Female 8:19 PM GENERATOR WORKER Gender Identity Female 04/26/2019 10:43 AM GENERATOR WORKER Sexual Orientation Straight 04/26/2019 10 :41 AM GENERATOR WORKER documented as of this encounter Plan of [...] documented as of this encounter Care Teams Mixing Machine Tender Cork Rod Relationship Specialty Start Date End Date Migue Hill DO PCP - General Family Medicine 09/10/21 Milton Funes MD [address] [facility] [address] [place] [address] Consulting Physician Cardiothoracic Surgery 03/30/23 documented as of this encounter
--- OUTSIDE RECORDS SUMMARY | 2025-05-07 16:26 | XMS_ITS | Encounter Summary ---
Author Organization [facility] Facility Care Team Providers Care Centerless Grinding Machine Adjuster Name Role Phone Migue Hill DO Primary Care Provider + Milton Funes MD Unavailable [phone] Encounter Details Date Type Department Care Team (Latest Contact Info) Description 11/15/2017 Orders Only [facility] CLINCONV ProviderMel MD [address] [place], [place] [phone] Social History Tobacco Use Types Packs/Day Years Used Date Smoking Tobacco: Never Assessed Comments Unknown Sex and Gender Information Value Date Recorded Sex Assigned at Not on file Legal Sex Female 8:19 PM ELECTRIC WHEELCHAIR REPAIRER Gender Identity Female 04/26/2019 10:43 AM ELECTRIC WHEELCHAIR REPAIRER Sexual Orientation Straight 04/26/2019 10 :41 AM ELECTRIC WHEELCHAIR REPAIRER documented as of this encounter Plan of [...] documented as of this encounter Care Teams Centerless Grinding Machine Adjuster Relationship Specialty Start Date End Date Migue Hill DO PCP - General Family Medicine 09/10/21 Milton Funes MD [address] [facility] [address] [place] [address] Consulting Physician Cardiothoracic Surgery 03/30/23 documented as of this encounter
--- OUTSIDE RECORDS SUMMARY | 2025-05-07 16:26 | XMS_ITS | Clinical Summary ---
Author Organization [facility] Address [address], [address] [address] Phone Care Team Providers Care Kiln Stoker Name Role Phone Migue Hill MD Primary [...] Applicator by Transdermal route daily. Active Acetylcysteine (Z-[id number]-U-CYS TEINE) 600 MG Capsule Take 1 Tab [...] Cap by mouth nightly. Active Cholecalciferol (D3-50) 12893 UNIT Capsule Take 1 Cap by mouth [...] Comments Blood Pressure 130/78 05/28/2016 2:34 PM WIRE MACHINE CUTTER Pulse 66 05/28/2016 2:34 PM WIRE MACHINE CUTTER Temperature 36.2 C (97.2 F) 05/28/2016 2:34 PM WIRE MACHINE CUTTER Respiratory Rate 18 05/28/2016 2:34 PM WIRE MACHINE CUTTER Oxygen Saturation 98% 05/28/2016 2:34 PM WIRE MACHINE CUTTER Inhaled Oxygen Concentration - - Weight 74.2 kg (163 lb 9.6 oz) 05/28/2016 2:34 P M WIRE MACHINE CUTTER Height 157.5 cm (5' 2) 05/28/2016 2:34 PM WIRE MACHINE CUTTER Body Mass Index 29.92 05/28/2016 2:34 PM WIRE MACHINE CUTTER Plan of Treatment Health Maintenance Due Date [...] patient's age to complete this topic Insurance [employer] Care Teams Kiln Stoker Relationship Specialty Start Date End Date Migue Hill MD PCP - General Family Medicine 03/18/16
--- OUTSIDE RECORDS SUMMARY | 2025-05-07 16:26 | XMS_ITS | Encounter Summary ---
Author Organization [facility] Facility Care Team Providers Care Geological Aide Name Role Phone Migue Hill DO Primary Care Provider + Milton Funes MD Unavailable [phone] Encounter Details Date Type Department Care Team (Latest Contact Info) Description 08/04/2016 Orders Only [facility] ProviderMel MD [address] [place], [place] [id number] Social History Tobacco Use Types Packs/Day Years Used Date Smoking Tobacco: Never Assessed Comments Unknown Sex and Gender Information Value Date Recorded Sex Assigned at Not on file Legal Sex Female 8:19 PM SENIOR POWER PLANT OPERATOR Gender Identity Female 04/26/2019 10:43 AM SENIOR POWER PLANT OPERATOR Sexual Orientation Straight 04/26/2019 10 :41 AM SENIOR POWER PLANT OPERATOR documented as of this encounter Plan [...] documented as of this encounter Care Teams Geological Aide Relationship Specialty Start Date End Date Migue Hill DO PCP - General Family Medicine 09/10/21 Milton Funes MD [address] [facility] [address] [place] [address] Consulting Physician Cardiothoracic Surgery 03/30/23 documented as of this encounter
--- OUTSIDE RECORDS SUMMARY | 2025-05-07 16:26 | XMS_ITS | Encounter Summary ---
Author Organization [facility] Facility Care Team Providers Care Technical Documentation Specialist Name Role Phone Migue Hill DO Primary Care Provider + Milton Funes MD Unavailable [phone] Encounter Details Date Type Department Care Team (Latest Contact Info) Description 11/04/2017 Orders Only [facility] CLINCONV ProviderMel MD [address] [place], [place] [id number] Social History Tobacco Use Types Packs/Day Years Used Date Smoking Tobacco: Never Assessed Comments Unknown Sex and Gender Information Value Date Recorded Sex Assigned at Not on file Legal Sex Female 8:19 PM SUPERVISOR OPENING AND PICKING Gender Identity Female 04/26/2019 10:43 AM SUPERVISOR OPENING AND PICKING Sexual Orientation Straight 04/26/2019 10 :41 AM SUPERVISOR OPENING AND PICKING documented as of this encounter Plan of [...] documented as of this encounter Care Teams Technical Documentation Specialist Relationship Specialty Start Date End Date Migue Hill DO PCP - General Family Medicine 09/10/21 Milton Funes MD [address] [facility] [address] [place] [address] Consulting Physician Cardiothoracic Surgery 03/30/23 documented as of this encounter
--- OUTSIDE RECORDS SUMMARY | 2025-05-07 16:26 | XMS_ITS | Data Portability ---
Author Organization [facility] Address [address] [facility] [place] [address] Assessment No assessment recorded. Plan of Treatment Reminders Order Date Submit Date Provider Last Modified By Organization Details Last Modified Time Details Appointments ANY 2025 01:15P Coty Ryder MD Not available Not available Not available ANY 2025 01:15P Coty Hill, DO Not available Not available Not available Lab TSH + free T4, serum 2024 025 [employer] [facility], [address], [place], [address], 03/27/2025 12:43:24 T3, free, serum or plasma 2024 025 [facility], [address], [place], [address], 03/27/2025 12:43:36 CBC w/ auto diff [email or web address] [facility], [address], [place], [address], 12/13/2024 02:23:34 BMP, serum or plasma 2024 025 [email or web address] [facility], [address], [place], [address], 12/13/2024 02:23:33 lipid panel, serum 2024 025 [email or web address] [facility], [address], [place], [address], 12/13/2024 02:23:32 hepatic functio n panel, serum 2024 025 [employer] [facility], [address], [place], [address], 12/13/2024 02:23:33 TSH + free T4, serum 2024 025 [employer] [facility], [address], [place], [address], 12/13/2024 02:23:32 Referral cardiol ogist referra l 2024 025 LINA Caruso MD, [address] [facility], [facility] [address], [place], [address], 03/29/2025 09:30:13 Procedures None recorde d. Surgeries None recorde d. Imaging XR, forearm , 2 view - left forearm 2024 025 [facility], [address] [place], [address], 03/27/2025 20:57:29 Medication Orders hydrala zine 50 mg tablet 2024 025 [email or web address] [facility][id number], [address] [place], [address], 12/26/2024 16:13:51 cyanoco balamin (vit B-12) 1,000 mcg/mL injecti on solutio n 2024 025 [email or web address] [facility] [address] [facility], [address] , [place], [address], 12/26/2024 14:32:58 Patient TargetsNo targets recorded. Patient Instructions Encounter Date Encounter Id Patient Instructions Last Modified By Organization Details Last Modified Time 06/23/2024 [id number] A healthy lifestyle: care instructions [email or web address] Not available 06/23/2024 13:46:57 09/21/2024 [id number] A healthy lifestyle: care instructions [email or web address] Not available 09/21/2024 17:26:03 12/26/2024 [id number] A healthy lifestyle: care instructions [email or web address] Not available 12/26/2024 16:13:51 03/27/2025 [id number] A healthy lifestyle: care instructions [email or web address] Not available 03/27/2025 17:41:13 Reason for Referral Guard Range Referral for Mo derate aortic valve stenosis Referring Physician: Migue Hill, Family Medicine, Encounter Date: 03/27/2025 Results Created Date Observation Date Name Description Value Unit Range Abnormal Flag Note LastModifiedBy Organization Detail LastModifiedTime 08/08/1908/09/2024 THYRO ID PEROX IDASE AND THYRO GLOBU BERNADETTE ANTIB ODIES thyroglobuli n antibodies <1 IU/mL < or = 1 Not Available [address], [address], 08/09/2024 10:01:49 08/08/19 25 08/09/2024 THYRO ID PEROX IDASE AND THYRO GLOBU BERNADETTE ANTIB ODIES thyroid peroxidase antibodies <1 IU/mL <9 Not Available [address], [address], 08/09/2024 10:01:49 08/08/1908/09/2024 TSH+F REE T4 TSH 2.99 mIU/L 0.40-4 .50 normal Not Available [address], [address], 08/09/2024 10:01:50 08/08/19 25 08/09/2024 TSH+F REE T4 T4, free 0.8 NG/dL 0.8-1. 8 normal Not Available [address], [address], 08/09/2024 10:01:50 07/29/12/13/2024 LIPID PANEL WITH RATIO S cholesterol, total 160 mg/dL <200 normal Not Available [facility] [address] [address] [place], [address], 12/13/2024 03:51:23 12/13/1912/13/2024 LIPID PANEL WITH RATIO S HDL cholesterol 56 mg/dL > or = 50 normal Not Available [facility] [address] [address] [place], [address], 12/13/2024 03:51:23 12/13/1912/13/2024 LIPID PANEL WITH RATIO S triglyceride s 113 mg/dL <150 normal Not Available [facility] [address] [address] [place], [address], 12/13/2024 03:51:23 12/13/1912/13/2024 LIPID PANEL WITH RATIO S LDL-choleste rol 83 mg/dL _(ravinder c) normal Refer ence range : <100 Diamante able range <100 mg/dL for prima ry preve ntion ; <70 mg/dL for patie nts with CHD or diabe tic patie nts with > or = 2 CHD risk facto rs. LDL-C is now calcu lated using the Selena n-Hop kins calcu cristy n, which is a valid ated novel herio d gilson lopezte r accur acy than the Fried michael equat ion in the estim ation of LDL-C . Selena little SS et al. ALEXANDER. 2013; 310(1 9): 2061- 2068 (http ://ed ucati on.Qu Antonio CFBanks. com/f aq/FA Q164) Not Available [facility] [address] [address] [place], [address], 12/13/2024 03:51:23 12/13/1912/13/2024 LIPID PANEL WITH RATIO S chol/HDLC ratio 2.9 (calc ) <5.0 normal Not Available [facility] [address] [address] [place], [address], 12/13/2024 03:51:23 12/13/1912/13/2024 LIPID PANEL WITH RATIO S LDL/HDL ratio 1.5 (calc ) Below avera ge Risk: <2.34 Colonia ge Risk: 2.35- 4.12 Moder ate Risk: 4.13- 5.56 High Risk: >5.57 Not Available [address], [address], 12/13/2024 03:51:23 12/13/1912/13/2024 LIPID PANEL WITH RATIO S non HDL cholesterol 104 mg/dL _(ravinder c) <130 normal For patie nts with diabe vandana plus 1 major ASCVD risk facto r, treat ing to a non-H DL-C goal of <100 mg/dL (LDL- C of <70 mg/dL ) is consi arlind a thera peuti c optio n. Not Available [address], [address], 12/13/2024 03:51:23 12/13/1912/13/2024 TSH+F REE T4 TSH 2.06 mIU/L 0.40-4 .50 normal Not Available [address], [address], 12/13/2024 05:23:03 12/13/1912/13/2024 TSH+F REE T4 T4, free 0.7 NG/dL 0.8-1. 8 low Not Available [address], [address], 12/13/2024 05:23:03 12/13/1912/13/2024 BASIC METAB OLIC PANEL glucose 97 mg/dL 65-99 normal Fasti ng refer ence inter quynh Not Available [address], [address], 12/13/2024 03:51:25 12/13/1912/13/2024 BASIC METAB OLIC PANEL urea nitrogen (BUN) 30 mg/dL 7-25 high Not Available [address], [address], 12/13/2024 03:51:25 12/13/1912/13/2024 BASIC METAB OLIC PANEL creatinine 1.15 mg/dL 0.60-0 .95 high Not Available [address], [address], 12/13/2024 03:51:25 12/13/1912/13/2024 BASIC METAB OLIC PANEL eGFR 46 mL/mi n/1.7 3m2 > or = 60 low Not Available [address], [address], 12/13/2024 03:51:25 12/13/1912/13/2024 BASIC METAB OLIC PANEL BUN/creatini ne ratio 26 (calc ) 6-22 high Not Available [address], [address], 12/13/2024 03:51:25 12/13/1912/13/2024 BASIC METAB OLIC PANEL sodium 140 mmol/ L 135-14 6 normal Not Available [address], [address], 12/13/2024 03:51:25 12/13/1912/13/2024 BASIC METAB OLIC PANEL potassium 4.3 mmol/ L 3.5-5. 3 normal Not Available [address], [address], 12/13/2024 03:51:25 12/13/1912/13/2024 BASIC METAB OLIC PANEL chloride 107 mmol/ L 98-110 normal Not Available [address], [address], 12/13/2024 03:51:25 12/13/1912/13/2024 BASIC METAB OLIC PANEL carbon dioxide 25 mmol/ L 20-32 normal Not Available [address], [address], 12/13/2024 03:51:25 12/13/19 25 12/13/2024 BASIC METAB OLIC PANEL calcium 9.8 mg/dL 8.6-10 .4 normal Not Available [address], [address], 12/13/2024 03:51:25 12/13/19 25 12/13/2024 HEPAT IC FUNCT ION PANEL protein, total 7.5 g/dL 6.1-8. 1 normal Not Available [address], [address], 12/13/2024 03:51:27 12/13/19 25 12/13/2024 HEPAT IC FUNCT ION PANEL albumin 4.4 g/dL 3.6-5. 1 normal Not Available [address], [address], 12/13/2024 03:51:27 12/13/19 25 12/13/2024 HEPAT IC FUNCT ION PANEL globulin 3.1 g/dL_ (calc ) 1.9-3. 7 normal Not Available [address], [address], 12/13/2024 03:51:27 12/13/19 25 12/13/2024 HEPAT IC FUNCT ION PANEL albumin/glob ulin ratio 1.4 (calc ) 1.0-2. 5 normal Not Available [address], [address], 12/13/2024 03:51:27 12/13/19 25 12/13/2024 HEPAT IC FUNCT ION PANEL bilirubin, total 0.4 mg/dL 0.2-1. 2 normal Not Available [address], [address], 12/13/2024 03:51:27 12/13/19 25 12/13/2024 HEPAT IC FUNCT ION PANEL bilirubin, direct 0.1 mg/dL < or = 0.2 normal Not Available [address], [address], 12/13/2024 03:51:27 12/13/19 25 12/13/2024 HEPAT IC FUNCT ION PANEL bilirubin, indirect 0.3 mg/dL _(ravinder c) 0.2-1. 2 normal Not Available [address], [address], 12/13/2024 03:51:27 12/13/19 25 12/13/2024 HEPAT IC FUNCT ION PANEL alkaline phosphatase 62 U/L 37-153 normal Not Available [address], [address], 12/13/2024 03:51:27 12/13/19 25 12/13/2024 HEPAT IC FUNCT ION PANEL AST 20 U/L 10-35 normal Not Available [address], [address], 12/13/2024 03:51:27 12/13/19 25 12/13/2024 HEPAT IC FUNCT ION PANEL ALT 16 U/L 6-29 normal Not Available [address], [address], 12/13/2024 03:51:27 12/13/19 25 12/13/2024 CBC (INCL UDES DIFF/ PLT) white blood cell count 6.4 thous and/u L 3.8-10 .8 normal Not Available [address], [address], 12/13/2024 02:23:34 12/13/19 25 12/13/2024 CBC (INCL UDES DIFF/ PLT) red blood cell count 4.68 issa on/uL 3.80-5 .10 normal Not Available [address], [address], 12/13/2024 02:23:34 12/13/1912/13/2024 CBC (INCL UDES DIFF/ PLT) hemoglobin 13.3 g/dL 11.7-1 5.5 normal Not Available [address], [address], 12/13/2024 02:23:34 12/13/19 25 12/13/2024 CBC (INCL UDES DIFF/ PLT) hematocrit 42.1 % 35.0-4 5.0 normal Not Available [address], [address], 12/13/2024 02:23:34 12/13/19 25 12/13/2024 CBC (INCL UDES DIFF/ PLT) MCV 90.0 fL 80.0-1 00.0 normal Not Available [address], [address], 12/13/2024 02:23:34 12/13/1912/13/2024 CBC (INCL UDES DIFF/ PLT) MCH 28.4 pg 27.0-3 3.0 normal Not Available [address], [address], 12/13/2024 02:23:34 12/13/1912/13/2024 CBC (INCL UDES DIFF/ PLT) MCHC 31.6 g/dL 32.0-3 6.0 low For adult s, a sligh t decre ase in the calcu lated MCHC value (in the range of 30 to 32 g/dL) is most likel y not clini nadeem signi monik t; robb er, it shoul d be inter prete d with cauti on in corre latio n with other red cell taylor eters and the patie nt's clini ravinder condi tion. Not Available [facility], [address], 12/13/2024 02:23:34 12/13/1912/13/2024 CBC (INCL UDES DIFF/ PLT) RDW 14.2 % 11.0-1 5.0 normal Not Available [address], [address], 12/13/2024 02:23:34 12/13/19 25 12/13/2024 CBC (INCL UDES DIFF/ PLT) platelet count 248 thous and/u L 140-40 0 normal Not Available [address], [address], 12/13/2024 02:23:34 12/13/19 25 12/13/2024 CBC (INCL UDES DIFF/ PLT) MPV 10.8 fL 7.5-12 .5 normal Not Available [address], [address], 12/13/2024 02:23:34 12/13/19 25 12/13/2024 CBC (INCL UDES DIFF/ PLT) absolute neutrophils 3821 cells /uL 1500-7 800 normal Not Available [address], [address], 12/13/2024 02:23:34 12/13/19 25 12/13/2024 CBC (INCL UDES DIFF/ PLT) absolute lymphocytes 1792 cells /uL 850-39 00 normal Not Available [address], [address], 12/13/2024 02:23:34 12/13/19 25 12/13/2024 CBC (INCL UDES DIFF/ PLT) absolute monocytes 544 cells /uL 200-95 0 normal Not Available [address], [address], 12/13/2024 02:23:34 12/13/19 25 12/13/2024 CBC (INCL UDES DIFF/ PLT) absolute eosinophils 160 cells /uL 15-500 normal Not Available [address], [address], 12/13/2024 02:23:34 12/13/19 25 12/13/2024 CBC (INCL UDES DIFF/ PLT) absolute basophils 83 cells /uL 0-200 normal Not Available [address], [address], 12/13/2024 02:23:34 12/13/19 25 12/13/2024 CBC (INCL UDES DIFF/ PLT) neutrophils 59.7 % normal Not Available [address], [address], 12/13/2024 02:23:34 12/13/1912/13/2024 CBC (INCL UDES DIFF/ PLT) lymphocytes 28.0 % normal Not Available [address], [address], 12/13/2024 02:23:34 12/13/1912/13/2024 CBC (INCL UDES DIFF/ PLT) monocytes 8.5 % normal Not Available [address], [address], 12/13/2024 02:23:34 12/13/1912/13/2024 CBC (INCL UDES DIFF/ PLT) eosinophils 2.5 % normal Not Available [address], [address], 12/13/2024 02:23:34 12/13/1912/13/2024 CBC (INCL UDES DIFF/ PLT) basophils 1.3 % normal Not Available [address], [address], 12/13/2024 02:23:34 12/20/19 25 12/20/2024 T3, FREE T3, free 3.1 pg/mL 2.3-4. 2 normal Not Available [address], [address], 12/20/2024 06:14:04 03/23/2003/23/2025 TSH+F REE T4 TSH 2.59 mIU/L 0.40-4 .50 normal Not Available [address], [address], 03/24/2025 00:52:36 03/23/20 25 03/23/2025 TSH+F REE T4 T4, free 0.7 NG/dL 0.8-1. 8 low Not Available [address], [address], 03/24/2025 00:52:36 03/23/20 25 03/24/2025 BASIC METAB OLIC PANEL glucose 83 mg/dL 65-99 normal Fasti ng refer ence inter quynh Not Available [address], [address], 03/24/2025 04:28:42 03/23/20 25 03/24/2025 BASIC METAB OLIC PANEL urea nitrogen (BUN) 22 mg/dL 7-25 normal Not Available [address], [address], 03/24/2025 04:28:42 03/23/20 25 03/24/2025 BASIC METAB OLIC PANEL creatinine 1.01 mg/dL 0.60-0 .95 high Not Available [address], [address], 03/24/2025 04:28:42 03/23/20 25 03/24/2025 BASIC METAB OLIC PANEL eGFR 54 mL/mi n/1.7 3m2 > or = 60 low Not Available [address], [address], 03/24/2025 04:28:42 03/23/20 25 03/24/2025 BASIC METAB OLIC PANEL BUN/creatini ne ratio 22 (calc ) 6-22 normal Not Available [address], [address], 03/24/2025 04:28:42 03/23/20 25 03/24/2025 BASIC METAB OLIC PANEL sodium 138 mmol/ L 135-14 6 normal Not Available [address], [address], 03/24/2025 04:28:42 03/23/20 25 03/24/2025 BASIC METAB OLIC PANEL potassium 3.9 mmol/ L 3.5-5. 3 normal Not Available [address], [address], 03/24/2025 04:28:42 03/23/20 25 03/24/2025 BASIC METAB OLIC PANEL chloride 107 mmol/ L 98-110 normal Not Available [address], [address], 03/24/2025 04:28:42 03/23/20 25 03/24/2025 BASIC METAB OLIC PANEL carbon dioxide 23 mmol/ L 20-32 normal Not Available [address], [address], 03/24/2025 04:28:42 03/23/20 25 03/24/2025 BASIC METAB OLIC PANEL calcium 9.4 mg/dL 8.6-10 .4 normal Not Available [address], [address], 03/24/2025 04:28:42 03/23/20 25 03/24/2025 HEPAT IC FUNCT ION PANEL protein, total 7.4 g/dL 6.1-8. 1 normal Not Available [address], [address], 03/24/2025 04:28:44 03/23/20 25 03/24/2025 HEPAT IC FUNCT ION PANEL albumin 4.4 g/dL 3.6-5. 1 normal Not Available [address], [address], 03/24/2025 04:28:44 03/23/20 25 03/24/2025 HEPAT IC FUNCT ION PANEL globulin 3.0 g/dL_ (calc ) 1.9-3. 7 normal Not Available [address], [address], 03/24/2025 04:28:44 03/23/20 25 03/24/2025 HEPAT IC FUNCT ION PANEL albumin/glob ulin ratio 1.5 (calc ) 1.0-2. 5 normal Not Available [address], [address], 03/24/2025 04:28:44 03/23/20 25 03/24/2025 HEPAT IC FUNCT ION PANEL bilirubin, total 0.3 mg/dL 0.2-1. 2 normal Not Available [address], [address], 03/24/2025 04:28:44 03/23/20 25 03/24/2025 HEPAT IC FUNCT ION PANEL bilirubin, direct 0.1 mg/dL < or = 0.2 normal Not Available [address], [address], 03/24/2025 04:28:44 03/23/20 25 03/24/2025 HEPAT IC FUNCT ION PANEL bilirubin, indirect 0.2 mg/dL _(ravinder c) 0.2-1. 2 normal Not Available [address], [address], 03/24/2025 04:28:44 03/23/20 25 03/24/2025 HEPAT IC FUNCT ION PANEL alkaline phosphatase 63 U/L 37-153 normal Not Available [facility] [address] [address] [place], [address], 03/24/2025 04:28:44 03/23/20 25 03/24/2025 HEPAT IC FUNCT ION PANEL AST 21 U/L 10-35 normal Not Available [facility] [address] [address] [place], [address], 03/24/2025 04:28:44 03/23/20 25 03/24/2025 HEPAT IC FUNCT ION PANEL ALT 15 U/L 6-29 normal Not Available [facility] [address] [address] [place], [address], 03/24/2025 04:28:44 03/23/20 25 03/27/2025 IODIN E, SERUM /PLAS MA iodine, serum/plasma 39 mcg/L 52-109 low This test was jayden blount and its rosa tical perfo rmanc e nereyda cteri stics have been deter mined by [facility] [place]. It has not been clear ed or appro maria m by the U.S. Food and Drug Admin istra tion. This assay has been valid ated pursu ant to the CLIA regul ation s and is used for clini ravinder purpo ses. Not Available [facility] [address] [address] [place], [address], 03/27/2025 11:43:43 03/23/2003/27/2025 TRYPT ASE tryptase 7.4 mcg/L <11.0 Not Available [facility] [address] [address] [place], [address], 03/27/2025 21:13:37 03/23/20 25 03/24/2025 CBC (INCL UDES DIFF/ PLT) white blood cell count 10.0 thous and/u L 3.8-10 .8 normal Not Available [facility] [address] [address] [place], [address], 03/24/2025 02:37:21 03/23/20 25 03/24/2025 CBC (INCL UDES DIFF/ PLT) red blood cell count 4.33 issa on/uL 3.80-5 .10 normal Not Available [address], [address], 03/24/2025 02:37:21 03/23/20 25 03/24/2025 CBC (INCL UDES DIFF/ PLT) hemoglobin 12.3 g/dL 11.7-1 5.5 normal Not Available [address], [address], 03/24/2025 02:37:21 03/23/20 25 03/24/2025 CBC (INCL UDES DIFF/ PLT) hematocrit 39.3 % 35.0-4 5.0 normal Not Available [address], [address], 03/24/2025 02:37:21 03/23/20 25 03/24/2025 CBC (INCL UDES DIFF/ PLT) MCV 90.8 fL 80.0-1 00.0 normal Not Available [address], [address], 03/24/2025 02:37:21 03/23/20 25 03/24/2025 CBC (INCL UDES DIFF/ PLT) MCH 28.4 pg 27.0-3 3.0 normal Not Available [address], [address], 03/24/2025 02:37:21 03/23/20 25 03/24/2025 CBC (INCL UDES DIFF/ PLT) MCHC 31.3 g/dL 32.0-3 6.0 low For adult s, a sligh t decre ase in the calcu lated MCHC value (in the range of 30 to 32 g/dL) is most likel y not clini nadeem signi monik t; robb er, it shoul d be inter prete d with cauti on in [facility] n with other red cell taylor eters and the patie nt's clini ravinder condi tion. Not Available [address], [address], 03/24/2025 02:37:21 03/23/20 25 03/24/2025 CBC (INCL UDES DIFF/ PLT) RDW 13.2 % 11.0-1 5.0 normal Not Available [address], [address], 03/24/2025 02:37:21 03/23/20 25 03/24/2025 CBC (INCL UDES DIFF/ PLT) platelet count 246 thous and/u L 140-40 0 normal Not Available [address], [address], 03/24/2025 02:37:21 03/23/20 25 03/24/2025 CBC (INCL UDES DIFF/ PLT) MPV 10.2 fL 7.5-12 .5 normal Not Available [address], [address], 03/24/2025 02:37:21 03/23/20 25 03/24/2025 CBC (INCL UDES DIFF/ PLT) absolute neutrophils 6820 cells /uL 1500-7 800 normal Not Available [address], [address], 03/24/2025 02:37:21 03/23/20 25 03/24/2025 CBC (INCL UDES DIFF/ PLT) absolute lymphocytes 2090 cells /uL 850-39 00 normal Not Available [address], [address], 03/24/2025 02:37:21 03/23/20 25 03/24/2025 CBC (INCL UDES DIFF/ PLT) absolute monocytes 840 cells /uL 200-95 0 normal Not Available [address] [place], [address], 03/24/2025 02:37:21 03/23/20 25 03/24/2025 CBC (INCL UDES DIFF/ PLT) absolute eosinophils 170 cells /uL 15-500 normal Not Available [address], [address], 03/24/2025 02:37:21 03/23/20 25 03/24/2025 CBC (INCL UDES DIFF/ PLT) absolute basophils 80 cells /uL 0-200 normal Not Available [facility] [address], [address], 03/24/2025 02:37:21 03/23/20 25 03/24/2025 CBC (INCL UDES DIFF/ PLT) neutrophils 68.2 % normal Not Available [facility] [address], [address], 03/24/2025 02:37:21 03/23/20 25 03/24/2025 CBC (INCL UDES DIFF/ PLT) lymphocytes 20.9 % normal Not Available [facility] [address], [address], 03/24/2025 02:37:21 03/23/20 25 03/24/2025 CBC (INCL UDES DIFF/ PLT) monocytes 8.4 % normal Not Available [facility] [address], [address], 03/24/2025 02:37:21 03/23/20 25 03/24/2025 CBC (INCL UDES DIFF/ PLT) eosinophils 1.7 % normal Not Available [facility] [address], [address], 03/24/2025 02:37:21 03/23/20 25 03/24/2025 CBC (INCL UDES DIFF/ PLT) basophils 0.8 % normal Not Available [address], [address], 03/24/2025 02:37:21 03/23/2003/24/2025 T3, FREE T3, free 2.6 pg/mL 2.3-4. 2 normal Not Available [address], [address], 03/24/2025 06:28:30 03/23/2003/29/2025 ZINC zinc 65 mcg/d L 60-130 (Note ) This test was devel oped and its rosa tical perfo rmanc e nereyda cteri stics have been deter mined by [facility]. It has not been clear ed or appro maria m by the FDA. This assay has been valid ated pursu ant to the CLIA regul ation s and is used for clini ravinder purpo ses. MDF med fusio n [address] [facility] [address] [facility] [address] [phone] 00 [facility] MD, PhD Not Available [facility] [address], [address], 03/29/2025 04:25:05 04/20/20 25 04/22/2025 COMPR EHENS JOVANI METAB OLIC PANEL glucose 137 mg/dL 65-139 normal Non-f astin g refer ence inter quynh Not Available [facility] [address], [address], 04/22/2025 13:59:56 04/20/20 25 04/22/2025 COMPR EHENS JOVANI METAB OLIC PANEL urea nitrogen (BUN) 15 mg/dL 7-25 normal Not Available [facility] [address], [address], 04/22/2025 13:59:56 04/20/20 25 04/22/2025 COMPR EHENS JOVANI METAB OLIC PANEL creatinine 1.03 mg/dL 0.60-0 .95 high Not Available [facility] [address], [address], 04/22/2025 13:59:56 04/20/20 25 04/22/2025 COMPR EHENS JOVANI METAB OLIC PANEL eGFR 52 mL/mi n/1.7 3m2 > or = 60 low Not Available [address], [address], 04/22/2025 13:59:56 04/20/20 25 04/22/2025 COMPR EHENS JOVANI METAB OLIC PANEL BUN/creatini ne ratio 15 (calc ) 6-22 normal Not Available [address], [address], 04/22/2025 13:59:56 04/20/20 25 04/22/2025 COMPR EHENS JOVANI METAB OLIC PANEL sodium 143 mmol/ L 135-14 6 normal Not Available [address], [address], 04/22/2025 13:59:56 04/20/20 25 04/22/2025 COMPR EHENS JOVANI METAB OLIC PANEL potassium 3.6 mmol/ L 3.5-5. 3 normal Not Available [address], [address], 04/22/2025 13:59:56 04/20/20 25 04/22/2025 COMPR EHENS JOVANI METAB OLIC PANEL chloride 107 mmol/ L 98-110 normal Not Available [address], [address], 04/22/2025 13:59:56 04/20/20 25 04/22/2025 COMPR EHENS JOVANI METAB OLIC PANEL carbon dioxide 26 mmol/ L 20-32 normal Not Available [address], [address], 04/22/2025 13:59:56 04/20/20 25 04/22/2025 COMPR EHENS JOVANI METAB OLIC PANEL calcium 9.5 mg/dL 8.6-10 .4 normal Not Available [address], [address], 04/22/2025 13:59:56 04/20/20 25 04/22/2025 COMPR EHENS JOVANI METAB OLIC PANEL protein, total 7.1 g/dL 6.1-8. 1 normal Not Available [address], [address], 04/22/2025 13:59:56 04/20/20 25 04/22/2025 COMPR EHENS JOVANI METAB OLIC PANEL albumin 4.3 g/dL 3.6-5. 1 normal Not Available [address], [address], 04/22/2025 13:59:56 04/20/20 25 04/22/2025 COMPR EHENS JOVANI METAB OLIC PANEL globulin 2.8 g/dL_ (calc ) 1.9-3. 7 normal Not Available [address], [address], 04/22/2025 13:59:56 04/20/20 25 04/22/2025 COMPR EHENS JOVANI METAB OLIC PANEL albumin/glob ulin ratio 1.5 (calc ) 1.0-2. 5 normal Not Available [address], [address], 04/22/2025 13:59:56 04/20/20 25 04/22/2025 COMPR EHENS JOVANI METAB OLIC PANEL bilirubin, total 0.4 mg/dL 0.2-1. 2 normal Not Available [address], [address], 04/22/2025 13:59:56 04/20/20 25 04/22/2025 COMPR EHENS JOVANI METAB OLIC PANEL alkaline phosphatase 72 U/L 37-153 normal Not Available [facility] [address] [place], [address], 04/22/2025 13:59:56 04/20/20 25 04/22/2025 COMPR EHENS JOVANI METAB OLIC PANEL AST 21 U/L 10-35 normal Not Available [address], [address], 04/22/2025 13:59:56 04/20/20 25 04/22/2025 COMPR EHENS JOVANI METAB OLIC PANEL ALT 16 U/L 6-29 normal Not Available [address], [address], 04/22/2025 13:59:56 04/20/20 25 04/22/2025 NT PROBN P nt probnp 181 pg/mL <450 normal Not Available [address], [address], 04/22/2025 13:59:56 05/01/20 25 05/02/2025 TSH+F REE T4 TSH 2.21 mIU/L 0.40-4 .50 normal Not Available [address], [address], 05/02/2025 16:01:57 05/01/20 25 05/02/2025 TSH+F REE T4 T4, free 0.8 NG/dL 0.8-1. 8 normal Not Available [address], [address], 05/02/2025 16:01:57 08/23/19 25 08/22/2024 MAMMO , diagn ostic , unila teral No observ ation record ed. [facility] [facility], [address], 09/21/2024 13:48:47 08/23/19 25 08/22/2024 MAMMO , diagn ostic , unila teral No observ ation record ed. [facility] [address], [place], [address], 09/21/2024 13:48:46 02/23/20 25 02/22/2025 US, breas t, unila teral No observ ation record ed. [facility] [address], [place], [address], 02/24/2025 13:18:47 02/23/20 25 02/22/2025 MAMMO , diagn ostic , unila teral No observ ation record ed. [facility] [address], [place], [address], 02/24/2025 13:18:48 03/27/20 25 03/27/2025 XR, forea rm, 2 view No observ ation record ed. [facility] [place] [address], [place], [address], 03/28/2025 10:10:35 04/18/20 25 10/21/2016 elect rocar diogr am No observ ation record ed. BARCODE Not Available 2024 16:09:22 04/19/20 25 04/19/2025 elect rocar diogr am No observ ation record ed. WILMOT In-Office Order Internal Use Only DO Not Attach Compendium DO Not Attach Compendium, Do Not Delete/merge, [id number] 04/19/2025 16:19:31 04/19/20 elect rocar diogr am No observ ation record ed. [email or web address] Not Available 04/19 16:24:28 05/06/20 25 winston r monit or No observ ation record ed. [employer] [address], [place], [address], 05/07/2025 13:07:07 Result Notes None recorded. Problems Name Problem SNOMED Code Status Onset Date Resolution Date Notes Provider Name and Address Organization Details Recorded Time Irritable bowel syndrome with diarrhea 266902898 Active 2023 Migue Hill DO Attn: Accountin g,[address] [facility], [place], [address], [place] - [facility] 4 13:25:41 Depressive disorder 26240834 Active 2023 Migue Hill DO Attn: Accountin g,[address] [facility], [place], [address], [place] [facility] 4 13:25:42 Chronic kidney disease stage 3A 984930090 Active 2023 Migue Hill DO Attn: Accountin g,[address] [facility], [place], [address], [place] [facility] 4 13:25:44 Idiopathic peripheral neuropathy 84440399 Active 2023 Migue Hill DO Attn: Accountin g,[address] [facility], [place], [address], [place] [facility] 4 13:25:45 Coronary arterioscleros is 01481160 Active 2023 Migue Hill DO Attn: Accountin g,[address] [facility], [place], [address], [place] [facility] 4 13:25:48 Aortic valve stenosis 68942085 Active 2023 Migue Hill DO Attn: Accountin g,[address] [facility], [place], [address], [place] [facility] 4 13:25:49 Hypothyroidism 90282536 Active 2023 Migue Hill DO Attn: Accountin g,[address] [facility], [place], [address], [place] [facility] 4 13:25:51 History of cerebrovascula r accident 955279262 Active 2023 Miuge Hill DO Attn: Accountin g,[address] [facility], [place], [address], [place] [facility] 4 13:25:52 Essential hypertension 24683204 Active 2023 Migue Hill DO Attn: Yvonne melara,[address] [facility], [place], [address], [place] [facility] 4 13:25:54 Chronic obstructive pulmonary disease 82438202 Active 2023 Migue Hill DO Attn: Yvonne melara,[address] [facility], [place], [address], [place] [facility] 4 13:25:56 Atrial fibrillation 02978703 Active 2023 Migue Hill DO Attn: Yvonne melara,[address] [facility], [place], [address], [place] [facility] 4 13:25:58 Fatigue 96057842 Active 2023 Migue Hill DO Attn: Yvonne melara,[address] [facility], [place], [address], [place] [facility] 5 13:34:32 Obstructive sleep apnea syndrome 53640698 Active 2023 Migue Hill DO Attn: Yvonne melara,[address] [place], [address], [place] [facility] 4 13:31:28 Vitamin D deficiency 30169078 Active 2023 Migue Hill DO Attn: Yvonne melara,[address] [place], [address], [place] [facility] 4 13:31:30 Restless legs syndrome 08700352 Active 2023 Migue Hill DO Attn: Yvonne melara,[address] [place], [address], [place] [facility] 4 13:31:31 Obesity 238287035 Active 2023 Migue Hill DO Attn: Yvonne melara,[address] [place], [address], [place] [facility] 4 08:48:15 Asthenia 13243621 Active 2024 Migue Hill DO Attn: Yvonne melara,[address] [facility], [place], [address], [facility] - [facility] 5 15:08:50 Problem Notes None recorded. Procedures Surgical History Date Name Laterality Status Provider Name and Address Organization Details Recorded Time Appendectomy completed Khalida [place] [facility] 06/18/2023 12:33:25 Cholecystectomy [place] Khal[place] [facility] 06/18/2023 12:33:31 Eye Surgery completed Khalida [place] [facility] 06/18/2023 12:33:37 Heart Surgery [place] Khal[place] [facility] 06/18/2023 12:33:43 hysterectomy [place] Khalida [place] [facility] 06/18/2023 12:33:50 Imaging Results None recorded. Procedure Notes None recorded. Medical Equipment None Reported. Allergies Allergen ID Allergen Name Allergen Category Reaction Reaction Severity Criticality Documentation Date Start Date Code Code System Note Provider Name and Address Organization Details Recorded Time 844807 Adhesive agent (substanc e) environme nt,medica tion Not available Not available Not available 09/21/20242016 56273 0007 SNOMED unrec ogniz ed react ion (text : Conta ct Cavour titis , code: 17200 004) (from exter nal sourc e) CALLIE Self, [place] - [facility] 5 12:59:51 022431 amlodipin e medicatio n other Not available low 09/21/20242015 46616 RxNorm weary weary unrec ogniz ed react ion (text : Unkno wn, code: 87982 5006) (from ext nal sourc e) CALLIE Self[place] - [facility] 5 12:59:53 485510 amoxicill in medicatio n diarrhea Not available low 09/21/20242019 723 RxNorm CALLIE Self[place] - [facility] 5 12:59:55 777267 armodafin il medicatio n dyspnea Not available high 09/21/20242015 10674 5 RxNorm Dyspn ea Dyspn ea unrec ogniz ed react ion (text : Unkno wn, code: 54048 5006) (from exter formerly [facility] e) Azalea Dugan MA null, [place] - [facility] 5 12:59:57 835833 bupropion Not available Not available Not available high 09/21/20242015 19442 RxNorm Seizu res Seizu res unrec ogniz ed react ion (text : Unkno wn, code: 87831 5006) (from exter nal sour e) unrec ogniz ed react ion (text : Seizu res, code: 09398 4009) (from exter nal sour e) Azalea Dugan [place] null, [place] - [place] 5 13:00:01 759285 clonidine medicatio n Not available Not available low 09/21/20242018 2599 RxNorm unrec ogniz ed react ion (text : Fatig ue, code: 86504 001) (from exter formerly [facility] e) Azalea Dugan [place] null, [place] 5 13:00:03 843921 escitalop romeo Not available other Not available low 09/21/20242016 03426 8 RxNorm Fatig ue Azalea Dugan [place] null, [place] 5 13:00:06 256788 paroxetin e Not available Not available Not available Not available 03/21/2025 21023 RxNorm Not Available lina - External Data Service - prod 12:18:01 789344 nebivolol medicatio n Not available Not available Not available 03/21/2025 48667 RxNorm Not Available lina - External Data Service - prod 5 12:18:01 740581 levothyro xine sodium medicatio n Not available Not available Not available 03/21/2025 02033 RxNorm Not Available lina - External Data Service - prod 5 12:18:01 389373 zinc gluconate medicatio n Not available Not available Not available 03/21/2025 43446 RxNorm Not Available lina - External Data Service - prod 5 12:18:01 289004 spironola ctone medicatio n Not available Not available Not available 03/21/2025 9997 RxNorm Not Available lina - External Data Service - prod 5 12:18:01 320596 naproxen medicatio n Not available Not available Not available 03/21/2025 7258 RxNorm Not Available lina - External Data Service - prod 5 12:18:01 959358 irbesarta n medicatio n Not available Not available Not available 03/21/2025 70967 RxNorm Not Available lina - External Data Service - prod 5 12:18:01 859746 hydrochlo rothiazid e medicatio n Not available Not available Not available 03/21/2025 5487 RxNorm Not Available lina - External Data Service - prod 5 12:18:01 596293 fluconazo le medicatio n Not available Not available Not available 03/21/2025 4450 RxNorm Not Available lina - External Data Service - prod 5 12:18:01 261788 venlafaxi ne medicatio n Not available Not available Not available 03/21/2025 86220 RxNorm Not Available lina - External Data Service - prod 5 12:18:01 806258 tetracycl ine medicatio n Not available Not available Not available 03/21/2025 84553 RxNorm Not Available lina - External Data Service - prod 5 12:18:01 184762 sertralin e medicatio n Not available Not available Not available 03/21/2025 79018 RxNorm Not Available lina - External Data Service - prod 5 12:18:01 238886 rosuvasta tin medicatio n Not available Not available Not available 03/21/2025 94959 2 RxNorm Not Available lina - External Data Service - prod 5 12:18:01 583770 quinapril medicatio n Not available Not available Not available 03/21/2025 92134 RxNorm Not Available lina - External Data Service - prod 5 12:18:01 338297 magnesium medicatio n diarrhea Not available low 03/21/20252023 6574 RxNorm Uncon peyman weems hea Not Available lina - External Data Service - prod 5 12:19:11 257509 quinapril hydrochlo ride medicatio n other Not available low 03/21/20252016 32089 9 RxNorm weary Not Available lina - External Data Service - prod 5 12:19:11 617653 zinc environme nt,medica tion rash Not available high 03/21/20252016 41742 RxNorm Not Available lina - External Data Service - prod 5 12:19:11 385461 levothyro xine sodium medicatio n Not available Not available low 03/27/2025 00515 RxNorm Not Available lina - External Data Service - prod 5 16:08:31 Medications Name Sig Start Date Stop Date Status Note LastModified by Organization Details LastModified Time potassium chloride ER 10 mEq capsule,ext ended release TAKE 1 CAPSULE BY MOUTH EVERY DAY 11/18 completed Not Available Not Available Not Available ropinirole 1 mg tablet TAKE 1 TABLET BY MOUTH NIGHTLY TAKE 1 ADDITIONA L TABLET IF NEEDED active Not Available Not Available No t Available azithromyci n 250 mg tablet TAKE 2 TABLETS BY MOUTH TODAY, THEN TAKE 1 TABLET DAILY FOR 4 DAYS DIRECTED 06/18 completed Not Available Not Available Not Available benzonatate 200 mg capsule TAKE 1 CAPSULE BY MOUTH THREE TIMES A DAY NEEDED FOR COUGH 06/18 completed Not Available Not Available Not Available hydrocodone 5 mg-acetamin ophen 325 mg tablet 06/18 completed Not Available Not Available Not Available atenolol 25 mg tablet TAKE 1 TABLET BY MOUTH EVERY DAY 06/18 completed Not Available Not Available Not Available hydralazine 25 mg tablet TAKE 1 TABLET BY MOUTH THREE TIMES A DAY 09/16 completed Not Available Not Available Not Available potassium chloride ER 10 mEq tablet,exte nded release TAKE 1 TABLET BY MOUTH EVERY DAY active Not Available Not Available No t Available clopidogrel 75 mg tablet TAKE 1 TABLET BY MOUTH EVERY DAY active Not Available Not Available No t Available liothyronin e 5 mcg tablet TAKE 1 TABLET BY MOUTH TWICE A DAY active Not Available Not Available No t Available triamcinolo ne acetonide 0.1 % topical cream APPLY TWICE DAILY TO AFFECTED AREAS, OR NEEDED. 06/18 completed Not Available Not Available Not Available levothyroxi ne 25 mcg tablet TAKE 1 TABLET BY MOUTH EVERY OTHER DAY 06/23 completed Not Available Not Available Not Available cyanocobala min (vit B-12) 1,000 mcg/mL injection solution Inject 1 mL every month by subcutane ous route. 12/26 completed Not Available Not Available Not Available diltiazem ER (XR/XT) 120 mg capsule,ext ended release 24 hr, controlled TAKE 1 CAPSULE BY MOUTH EVERY DAY active Not Available Not Available No t Available docusate sodium 100 mg capsule TAKE 1 CAPSULE BY MOUTH EVERY 12 HOURS NEEDED FOR CONSTIPAT ION 09/16 completed Not Available Not Available Not Available gabapentin 300 mg capsule TAKE 1 CAPSULE BY MOUTH EVERY DAY AT NIGHT active Not Available Not Available No t Available SB Low Dose ASA EC 81 mg tablet,fiorella yed release Take 1 tablet every day by oral route. 09/21 completed Not Available Not Available Not Available folic acid 1 mg tablet Take 1 tablet every day by oral route. active Not Available Not Available No t Available hydralazine 50 mg tablet TAKE 1 TABLET BY MOUTH TWICE A DAY active Not Available Not Available No t Available mupirocin 2 % topical ointment APPLY 3 TIMES A DAY FOR 1 WEEK TO LEFT GREAT TOE DIRECTED active Not Available Not Available No t Available pyridoxine (vitamin B6) 100 mg tablet Take 1 tablet by oral route. active Not Available Not Available No t Available gabapentin 100 mg capsule TAKE 1 CAPSULE BY MOUTH EVERY DAY 06/18 completed Not Available Not Available Not Available ergocalcife rol (vitamin D2) 1,250 mcg (50,000 unit) capsule TAKE 1 CAPSULE BY MOUTH ONCE A WEEK ON MONDAYS FOR 8 WEEKS 09/16 completed Not Available Not Available Not Available albuterol sulfate HFA 90 mcg/actuati on aerosol inhaler TAKE 2 PUFFS BY MOUTH EVERY 6 HOURS NEEDED FOR WHEEZE OR FOR SHORTNESS OF BREATH 06/18 completed Not Available Not Available Not Available cholecalcif jeff (vitamin D3) 25 mcg (1,000 unit) capsule TAKE 2 CAPSULES BY MOUTH EVERY DAY 09/16 completed Not Available Not Available Not Available Oyster Shell Calcium-Vit martin D3 500 mg-5 mcg (200 unit) tablet TAKE 1 TABLET BY MOUTH TWICE A DAY WITH MEALS active Not Available Not Available No t Available Vitamin D3 25 mcg (1,000 unit) tablet TAKE 2 TABLETS BY MOUTH EVERY DAY 06/18 completed Not Available Not Available Not Available cholestyram ine (with sugar) 4 gram oral powder PLEASE SEE ATTACHED FOR DETAILED DIRECTION S 09/16 completed Not Available Not Available Not Available cholestyram ine (with sugar) 4 gram powder for susp in a packet TAKE A FOURTH TO 1 PACKET EVERY MORNING 06/18 completed Not Available Not Available Not Available calcium 250 mg (as carbonate)- vitamin D3 3.125 mcg (125 unit) tablet TAKE 1 TABLET BY MOUTH TWICE A DAY WITH MEALS 09/16 completed Not Available Not Available Not Available coenzyme Q10 1 qd active Not Available Not Available Not Available cholecalcif jeff (vitamin D3) 50 mcg (2,000 unit) capsule TAKE 1 CAPSULE BY MOUTH EVERY DAY 09/16 completed Not Available Not Available Not Available Vitamin D3 50 mcg (2,000 unit) tablet TAKE 1 TABLET BY MOUTH EVERY DAY active Not Available Not Available No t Available cyanocobala min (B12)-cobam amide 5,000 mcg-[address] 1 lozenge by sublingua l route. active Not Available Not Available No t Available Xarelto 10 mg tablet TAKE 1 TABLET BY MOUTH EVERY DAY 06/18 completed Not Available Not Available Not Available Xarelto 15 mg tablet TAKE 1 TABLET BY MOUTH DAILY WITH DINNER. 06/18 completed Not Available Not Available Not Available Xarelto 20 mg tablet TAKE 1 TABLET BY MOUTH EVERY DAY 06/18 completed Not Available Not Available Not Available Eliquis 2.5 mg tablet 06/18 completed Not Available Not Available Not Available Flowflex COVID-19 Antigen Home Test kit USE DIRECTED 06/18 completed Not Available Not Available Not Available Florastor ADVANCED 250 mg-62.5 mg-30 mg capsule Take 1 capsule every day by oral route. active Not Available Not Available No t Available Vitals Date Recorded Systolic And Diastolic Provider Name and Address Organization Details Last Updated DateTime 06/23/2024 138/82 mm[Hg] Savannah Moran Attn: Accounting,[address] [place], [address], [place] [facility] 06/23/2024 13:35:29 Date Recorded Body height Body mass index (BMI) Body weight Provider Name and Address Organization Details Last Updated DateTime 06/23/2024 154.94 cm 35.4 kg/m2 28653.47 g Azalea Dugan [place] [facility] 06/23/2024 12:58:45 Date Recorded Systolic And Diastolic Provider Name and Address Organization Details Last Updated DateTime 09/21/2024 150/78 mm[Hg] Savannah Moran Attn: Accounting,[address] [place], [address], [facility] 09/21/2024 13:33:16 Date Recorded Body height Body mass index (BMI) Body weight Provider Name and Address Organization Details Last Updated DateTime 09/21/2024 154.94 cm 35.7 kg/m2 98206.66 g Azalea Dugan [place] 09/21/2024 12:59:48 Date Recorded Systolic And Diastolic Provider Name and Address Organization Details Last Updated DateTime 12/26/2024 132/72 mm[Hg] Savannah Moran Attn: Accounting,[address] [place], [address], [place] [facility] 12/26/2024 15:06:55 Date Recorded Body height Body mass index (BMI) Body weight Provider Name and Address Organization Details Last Updated DateTime 12/26/2024 154.94 cm 34.4 kg/m2 73803.51 g Azalea Dugan [place] [facility] 12/26/2024 14:32:36 Date Recorded Systolic And Diastolic Provider Name and Address Organization Details Last Updated DateTime 03/27/2025 142/84 mm[Hg] Savannah Moran Attn: Accounting,[address] [place], [address], [place] [facility] 03/27/2025 15:50:35 Date Recorded Body height Body mass index (BMI) Body weight Oxygen saturation Heart rate Provider Name and Address Organization Details Last Updated DateTime 03/27/2025 154.94 cm 35.1 kg/m2 02497.18 g 96 % 89 /min Lesly Escalante [facility] 5 15:27:21 Date Recorded Body height Body mass index (BMI) Body weight Heart rate Oxygen saturation Systolic And Diastolic Provider Name and Address Organization Details Last Updated DateTime 154.94 cm 36.5 kg/m2 40188.3 3 g 96 /min 99 % 190/80 mm[Hg] Nanette ThomsonRADHA [facility] 5 14:01:03 Social History Question Answer Notes LastModified by Datto Details LastModified Time Tobacco Smoking Status Never Smoker [facility] 06/18/2023 12:34:37 What Is Your Level Of Caffeine Consumption? None [email or web address] Information not available 06/18/2023 What Was The Date Of Your Most Recent Tobacco Screening? 04/19/2025 [email or web address] Information not available 04/19/2025 Has Tobacco Cessation Counseling Been Provided? No Information not available 09/17/2023 Sex: Female Functional Status Question Answer Note LastModified by Datto Details LastModified Time Do you use any illicit or recreational drugs? No Information not available 09/17/2023 Do you or have you ever used any other forms of tobacco or nicotine? No Information not available 09/17/2023 What is your level of alcohol consumption? None [email or web address] Information not available 06/18/2023 Mental Status None recorded. Family History Relationship Description Onset Age of this Age Resolved Age Notes LastModified by Organization Details LastModified Time Father Cerebrovascu lar accident [email or web address] Not available 06/2023 12:34:03 Father Heart disease [email or web address] Not available 2023 12:34:17 Mother Hypertensive disorder Not available 2023 12:34:10 Medical History Condition Response Coronary Artery Disease Y Other N High Blood Pressure Y Atrial Fibrillation Y Kidney or Bladder Problems Y Thyroid Problems Y Depression N COPD Y Blood Clots N GI Problems Y Skin Problems N Eating Disorder N Anemia N Heart Attack ([place]) N Anxiety Disorder N Diabetes N Muscle, Joint, or Bone Problems N Arthritis N Seizures/Epilepsy Y Acid Reflux (GERD) N Cancer N Stroke Y Asthma N Allergies N ADHD N Substance Abuse N High Cholesterol N Hepatitis N Liver Disease N Headaches N Schizophrenia N Osteoporosis Y Heart Failure N Gynecological HistoryNo gynecological history recorded. Obstetrics History GPAL:G 0 P 0 0 0 0 Immunizations Vaccine Type Date Status Note Provider Nam e and Address Organization Details Recorded Time Influenza, split virus, trivalent, preservative 2 completed Not Available [facility] 04/19/2025 13:37:27 Influenza, split virus, trivalent, PF 3 completed Not Available [facility] 04/19/2025 13:37:27 Influenza, high-dose, trivalent, PF 5 completed Not Available [facility] 04/19/2025 13:37:27 Influenza, high-dose, trivalent, PF 6 completed Not Available [facility] 04/19/2025 13:37:27 Influenza, high-dose, trivalent, PF 7 completed Not Available [facility] 04/19/2025 13:37:27 Influenza, high-dose, trivalent, PF 8 completed Not Available [facility] 04/19/2025 13:37:27 Influenza, high-dose, trivalent, PF 9 completed Not Available [facility] 04/19/2025 13:37:27 zoster recombinant 0 completed Not Available [facility] 04/19/2025 13:37:27 Influenza, high-dose, quadrivalent, PF 0 completed Not Available [facility] 04/19/2025 13:37:27 pneumococcal polysaccharide PPV23 0 completed Not Available [facility] 04/19/2025 13:37:27 zoster recombinant 1 completed Not Available [facility] 04/19/2025 13:37:27 COVID-19, mRNA, LNP-S, PF, 100 mcg/0.5mL dose or 50 mcg/0.25mL dose 1 completed Not Available [facility] 04/19/2025 13:37:27 COVID-19, mRNA, LNP-S, PF, 100 mcg/0.5mL dose or 50 mcg/0.25mL dose 1 completed Not Available [facility] 04/19/2025 13:37:27 Influenza, adjuvanted, quadrivalent, PF 1 completed Not Available [facility] 04/19/2025 13:37:27 COVID-19, mRNA, LNP-S, PF, 100 mcg/0.5mL dose or 50 mcg/0.25mL dose 1 completed Not Available [facility] 04/19/2025 13:37:27 COVID-19, mRNA, LNP-S, PF, 100 mcg/0.5mL dose or 50 mcg/0.25mL dose 2 completed Not Available [facility] 04/19/2025 13:37:27 Pneumococcal conjugate PCV 13 2 completed Not Available [facility] 04/19/2025 13:37:27 COVID-19, mRNA, LNP-S, bivalent, PF, 50 mcg/0.5 mL or 25mcg/0.25 mL dose 2 completed Not Available [facility] 04/19/2025 13:37:27 Influenza, high-dose, quadrivalent, PF 2 completed Not Available [facility] 04/19/2025 13:37:27 COVID-19, mRNA, LNP-S, bivalent, PF, 50 mcg/0.5 mL or 25mcg/0.25 mL dose 3 completed Not Available [facility] 04/19/2025 13:37:27 COVID-19, mRNA, LNP-S, PF, 50 mcg/0.5 mL 3 completed Not Available [facility] 04/19/2025 13:37:27 Influenza, adjuvanted, quadrivalent, PF 3 completed Not Available [facility] 04/19/2025 13:37:27 RSV, recombinant, protein subunit RSVpreF, adjuvant reconstituted, 0.5 mL, PF 3 completed Not Available [facility] 04/19/2025 13:37:27 COVID-19, mRNA, LNP-S, PF, 50 mcg/0.5 mL 4 completed Not Available [facility] 04/19/2025 13:37:27 COVID-19, mRNA, LNP-S, PF, 50 mcg/0.5 mL 4 completed Not Available [facility] 04/19/2025 13:37:27 Influenza, high-dose, trivalent, PF 4 completed Not Available [facility] 04/19/2025 13:37:27 COVID-19, mRNA, LNP-S, PF, 50 mcg/0.5 mL 5 completed Not Available [facility] 04/19/2025 13:37:27 COVID-19, mRNA, LNP-S, PF, 10 mcg/0.2 mL 5 completed Not Available [facility] 04/19/2025 13:37:27 Influenza, adjuvanted, trivalent, PF 5 completed Not Available [facility] 04/19/2025 13:37:27 Past Encounters Encounter ID Performer Location Encounter Start Date Encounter Closed Date Diagnosis/Indication Diagnosis SNOMED-CT Code Diagnosis ICD10 Code Diagnosis IMO Codes Diagnosis Note [id number] Migue Hill, DO [facility] [place] [facility] [place] [address] [place] [address] 06/18/2023 11:37:21 06/29/2023 12:38:59 Fatigue 05449437 R53.83 labs reviewedst opped plavixshe believes fatigue due to plavixshe discussed this with her cardiologi vitamin b 12 1 cc left deltoid Atrial fibrillation 4943 6004 I48.91 s/p watchman procedured oing well Chronic ob structive pulmonary disease 82491175 J44.9 Dr. Cruz Essential hypertension 29031228 I10 hydralazin e 75 mg tid Osteoporosis 41021507 M8 1.0 otc calcium History of cerebrovascular accident 855051218 Z86.73 has stopped plavix Hypothyroidism 69102135 E03.9 stableon no meds Aortic valve stenosis 60 088791 I35.0 [address]Dr[address] Rell Coronary arteriosclerosis 46981346 I25.10 stopped plavix Idiopathic peripheral neuropathy 34776991 G60.9 stopped gabapentin Chronic ki dney disease stage 3A 374640285 N18.31 no new orders Depressive disorder 8918 9007 F32.A stabledoes not feel depressed Irritable bowel syndrome with diarrhea 103420544 K58.0 using [place]ran Restless l egs syndrome 88288856 G25.81 ropinirole 1 mg at hs Vitamin D deficiency 347 10843 E55.9 otc vitamin d Obstructiv e sleep apnea syndrome 81843658 G47.[address] Cruz Thyroid nodule 715647182 E04[address] Miller surgeon [id number] Migue Hill, DO [facility] [address] [facility] [place] [address] 09/17/2023 10:54:31 09/17/2023 12:53:11 Atrial fibrillation 91825286 I48.91 s/p watchman procedured oing wellChroni c conditionA t goal Chronic ki dney disease stage 3A 698022161 N18.31 no new ordersChro jefry conditionA t goalMainta in blood pressure Coronary arteriosclerosis 63186300 I25.10 stopped plavix but has restarted Chronic conditionh ad stents placed recently at [facility] Depressive disorder 8748 9007 F32.A stabledoes not feel depressed Essential hypertension 15171918 I10 hydralazin e 75 mg tidChronic conditionA t goal [id number] Migue Hill, DO [facility] [address] [place] [address] 11/19/2023 08:04:08 11/19/2023 09:19:14 Aortic valve stenosis 90221306 I35.0 sees cardiologi stDrMatt Rothman january Atrial fibrillation 4943 6004 I48.91 s/p watchman procedured oing wellChroni c conditionA t goal Chronic ki dney disease stage 3A 025896704 N18.31 Chronic conditionA t goalMainta in blood pressureOr porsche a SMA-7 and estimated glomerular filtration rate Chronic ob structive pulmonary disease 03665759 J44.9 Dr. Meño miranda conditionA t goal Coronary arteriosclerosis 32733305 I25.10 stopped plavix but has restarted Chronic conditionh ad stents placed recently at [facility] Depressive disorder 3548 9007 F32.A stabledoes not feel depressed Essential hypertension 80006656 I10 hydralazin e 75 mg tidChronic conditionA t goal Fatigue 52480975 R53.83 labs reviewed she discussed this with her cardiologi st Obesity 939581591 E66.8 chronic conditionn ot at [facility] diet[place] loss Vitamin D deficiency 347 45792 E55.9 otc vitamin d [id number] Migue Hill, DO [facility] [place] [facility] [address] [place] [address] 02/21/2024 10:23:46 02/22/2024 12:26:11 Aortic valve stenosis 12369828 I35.[address] Stephan this past January Chronic ki dney disease stage 3A 380937733 N18.31 Chronic conditionA t goalMainta in blood pressure Chronic ob structive pulmonary disease 77421428 J44.9 Dr. Meño miranda conditionA t goal Coronary arteriosclerosis 05705006 I25.10 stopped plavix but has restarted Chronic conditionh ad stents placed at [facility] Depressive disorder 3548 9007 F32.A stabledoes not feel depressed Essential hypertension 61080455 I10 hydralazin e 75 mg tidChronic conditionA t goal Fatigue 49738095 R53.83 labs reviewed she discussed this with her cardiologi stfelt better after stent placement [id number] Migue Hill, DO [facility] [place] [facility] [address] [place] [address] 06/23/2024 12:26:56 06/26/2024 15:09:47 Aortic valve stenosis 93414045 I35.0 [address] cardi[address]Dr[address] Stephan this past Januaryw ill have a repeat echo this spring Atrial fibrillation 4943 6004 I48.91 s/p watchman procedured oing wellChroni c conditionA t goal Chronic ki dney disease stage 3A 620730530 N18.31 Chronic conditionA t goalMainta in blood pressure Chronic ob structive pulmonary disease 99113755 J44.9 Dr. Meño miranda conditionA t goal Coronary arteriosclerosis 30356915 I25.10 stopped plavix but has restarted Chronic conditionh ad stents placed at [facility] Essential hypertension 59832155 I10 hydralazin e 75 mg tidChronic conditionA t goal Hypothyroidism 54313991 E03.9 stableon no meds Obesity 232920364 E66.9 healthy dietweight loss Obstructiv e sleep apnea syndrome 98098384 G47.[address] Cruz [id number] Migue Hill, DO [facility] [place] [facility] [address] [facility] [address] [place] [address] 09/21/2024 12:19:05 09/22/2024 13:11:51 Aortic valve stenosis 71093529 I35.0 [address] cardi[address]Dr. Tobias repeat echosevere ly enlarged atrium on leftecho reviewedca rdiology note reviewed Atrial fibrillation 4943 6004 I48.91 s/p watchman procedured oing wellChroni c conditionA t goal Chronic ki dney disease stage 3A 641996995 N18.31 Chronic conditionA t goalMainta in blood pressure Chronic ob structive pulmonary disease 98404516 J44.9 Dr. Meño miranda conditionA t goal Depressive disorder 3548 9007 F32.A stabledoes not feel depressed Essential hypertension 97447557 I10 hydralazin e 75 mg tidChronic conditionA t goal Obesity 124498433 E66.9 healthy dietweight loss Fatigue 95333310 R53.82 872813 add 1000 mcg b 12 Obese class II 804568950 1 77006 E66.812 8775579847 healthy dietweight loss [id number] Migue Hill, DO [facility] [facility] [address] [facility] [address] [place] [address] 12/26/2024 14:25:56 12/28/2024 11:05:57 Depressive disorder 89001233 F32.A stabledoes not feel depressed Essential hypertension 32805432 I10 hydralazin e 50 mg tiddecreas e to bidChronic conditionA t goal Coronary arteriosclerosis 09866759 I25.10 plavixChro jefry conditionh ad stents placed at [facility] Atrial fibrillation 4943 6004 I48.91 s/p watchman procedured oing wellChroni c conditionA t goal Hypothyroidism 78895133 E03.9 stableorde r lab in 8 weeks Chronic ki dney disease stage 3A 736130135 N18.31 Chronic conditionA t goalMainta in blood pressure Chronic ob structive pulmonary disease 56407824 J44.9 recent pftChronic conditionA t goal Obstructiv e sleep apnea syndrome 31178891 G47.[address] Cruz Asthenia 12150775 R53.1 02611 100 mch b 12take regularly Obese class I 3006075889 36705 E66.811 E66.3 4926015977 healthy dietweight loss [id number] Migue Hill, DO [facility] [address] [facility] [address] [place] [address] 03/27/2025 14:43:50 03/28/2025 11:32:07 Essential hypertension 35670078 I10 hydralazin e 50 mg tiddecreas e to bidChronic conditionm onitor bp at home Coronary arteriosclerosis 75021029 I25.10 plavixChro jefry conditionh ad stents placed at [facility] Atrial fibrillation 4943 6004 I48.91 s/p watchman procedured oing wellChroni c conditionA t goal Chronic ki dney disease stage 3A 979272989 N18.31 Chronic conditionA t goalMainta in blood pressure Chronic ob structive pulmonary disease 42683467 J44.9 recent pftChronic condition Obstructiv e sleep apnea syndrome 60089134 G47.[address] Cruz Moderate a ortic valve stenosis 213522147 I35.0 062355 sees cardiologi stDr. Tobias repeat echosevere ly enlarged atrium on leftecho reviewedca rdiology note reviewedpe ak gradient across the valve is 38 mm hgi will refer her to Dr. Shady for a second opinion Asthenia 48364890 R53.[address] [facility] a recent fall Obese class II 227781146 1 85705 E66.812 E66.3 4754774292 healthy dietweight loss Pain in left arm 0200968 00 M79.602 692191 recent fall Health Concerns Section Related Observation LastModified by Organization Detai ls LastModified Time None Recorded Concern Status LastModified by Organization Details LastModified Time None Recorded Advance Directives Directive None Recorded Payers Insurance Date Sequence Insurance Name Policy Number Policy Wallace Covered Member ID Wallace Member ID Guarantor Name 04/16/2025 1 [facility] [id number] Ana Laura M Field [id number] Ana Laura Field 07/17/[address] [facility] PRIOR TO 05/17/2024 ([facility]) [id number] Ana Laura M Field [id number] PATLE Ana Laura Field 04/19/2025 2 [facility] ([facility]) [id number] Ana Laura M Field [id number] Ana Laura Field 09/21/2024 1 [facility] [id number] Ana Laura Field [id number] PATEL Ana Laura Field Notes Date Note Type Note Provider Name and Address Organization Details Recorded Time 06/23/2024 text/html routine 3 month follow updoing ok Migue Hill DO Attn: [address] [place], [address], [facility] 06/23/2024 13:46:54 09/21/2024 text/html routine 3 month follow up Migue Hill DO Attn: [address]ing[address] [place], [address], [facility] 09/21/2024 17:39:09 12/26/2024 text/html routine 3 month follow updoing well Migue Hill DO Attn: Accounting[address] [place], [address], [facility] - [facility] 12/26/2024 16:41:02 03/27/2025 text/html routine 3 month follow up Migue Hill DO Attn: Accounting[address] [place], [address], [place] [facility] 03/27/2025 17:53:44 04/19/2025 text/html I had the pleasure of seeing this patient as a new consultation from Dr. Hill for recommendations regarding evaluation and management of cardiac etiologies of dyspnea and exertional fatigue Cardiac History:- Coronary artery disease with PCI to LAD and ramus in July 2023 with positive IFR during cardiac catheterization in April 2023, cardiac catheterization November 2023, Dr. Montanez with patent LAD and ramus stents, mild luminal irregularities in the left circumflex and nondominant RCA, mild aortic stenosis by invasive assessment- Paroxysmal atrial fibrillation status post left atrial appendage occlusion, Watchman FLX 31 mm, 01/2023, Lisseth- Moderate to moderately severe aortic stenosis by echocardiogram- HFpEF- Nonsustained ventricular tachycardia noted on Holter monitor, November 2023- moderate pulmonary hypertension- BARBARA on CPAP- Hypertension- Mixed hyperlipidemia Cardiac diagnostics:Transtho racic echocardiogram, 02/20/2025: LVEF 70-75%, G LS -20%, moderate left atrial enlargement, mild to moderate MR, moderate aortic stenosis with MERRY 1.3, mean gradient 22, V max 3.08, mild AI, moderate pulmonary hypertension with RVSP 46 Cardiac catheterization 12/03/2023: Patent stent in the LAD and ramus, mild luminal irregularities in the dominant RCA and left circumflex 48 hour Holter monitor, 12/01/2023: Average heart rate 75 (46-113), PAC and PVC burden less than 1%, 1 episode of brief junctional/ SVT, 1 episode of 7 beat run of nonsustained ventricular tachycardia, symptom triggered events correlated with sinus rhythm Not Available Not Available Not Available OBGyn Episode No OBEpisode recorded.
--- OUTSIDE RECORDS SUMMARY | 2025-05-07 16:26 | XMS_ITS | Clinical Summary ---
Author Organization [facility] Address [address] [place] [address] Care Team Providers Care Slack Line Yarder Name Role Phone Migue Hong DO Primary Care Provider [phone] Tristian Kramer MD Unavailable [phone] Allergies Active Allergy Reactions Criticality Noted [...] daily. 5 Active Vitamin D, Ergocalciferol , 15217 UNITS capsule Take 1 capsule by mouth once a week. 5 Active testosterone 25 MG/2.5GM (1%) Gel gel Place 0.5 mLs onto the skin. Active Acetylcysteine (I-EQQQCH-Z-CY STEINE) 600 MG Cap Take 1 capsule [...] Comments Blood Pressure 132/80 06/09/2017 9:32 AM SENSITIZER Pulse 68 06/09/2017 9:32 AM SENSITIZER Temperature - - Respiratory Rate - - Oxygen Saturation 98% 06/03/2016 10:22 AM SENSITIZER Inhaled Oxygen Concentration - - Weight 74.4 kg (164 lb) 06/09/2017 9:32 AM SENSITIZER Height 157.5 cm (5' 2) 06/09/2017 9:32 AM SENSITIZER Body Mass Index 30 06/09/2017 9:32 AM SENSITIZER Plan of Treatment Health Maintenance Due Date [...] patient's age to complete this topic Insurance [facility] Care Teams Slack Line Yarder Relationship Specialty Start Date End Date Migue Hong DO PCP - General FAMILY PRACTICE 10/16/15 Tristian Kramer MD [facility] [address] [place] [address] Bulmaro Stationary Steam Engineer CARDIOVASCULAR DISEASE 05/28/17
--- OUTSIDE RECORDS SUMMARY | 2025-05-07 16:26 | XMS_ITS | Encounter Summary ---
Author Organization [facility] Facility Care Team Providers Care Project Architect Name Role Phone Migue Hill DO Primary Care Provider + Milton Funes MD Unavailable [phone] Encounter Details Date Type Department Care Team (Latest Contact Info) Description 08/27/2017 Orders Only [facility] CLINCONV ProviderMel MD [address] [place], [place] [id number] Social History Tobacco Use Types Packs/Day Years Used Date Smoking Tobacco: Never Assessed Comments Unknown Sex and Gender Information Value Date Recorded Sex Assigned at Not on file Legal Sex Female 8:19 PM COMPOSITION FLOOR LAYER Gender Identity Female 04/26/2019 10:43 AM COMPOSITION FLOOR LAYER Sexual Orientation Straight 04/26/2019 10 :41 AM COMPOSITION FLOOR LAYER documented as of this encounter Plan of [...] documented as of this encounter Care Teams Project Architect Relationship Specialty Start Date End Date Migue Hill DO PCP - General Family Medicine 09/10/21 Milton Funes MD [address] [facility] [address] [place] [address] Consulting Physician Cardiothoracic Surgery 03/30/23 documented as of this encounter
--- OUTSIDE RECORDS SUMMARY | 2025-05-07 16:26 | XMS_ITS | Encounter Summary ---
Author Organization [facility] Facility Care Team Providers Care Slip Injector And Applicator Name Role Phone Migue Hill DO Primary Care Provider + Milton Funes MD Unavailable [phone] Encounter Details Date Type Department Care Team (Latest Contact Info) Description 04/27/2017 Orders Only [facility] CLINCONV ProviderMel MD [address] [place], [place] [id number] Social History Tobacco Use Types Packs/Day Years Used Date Smoking Tobacco: Never Assessed Comments Unknown Sex and Gender Information Value Date Recorded Sex Assigned at Not on file Legal Sex Female 8:19 PM CORK MOLDER Gender Identity Female 04/26/2019 10:43 AM CORK MOLDER Sexual Orientation Straight 04/26/2019 10 :41 AM CORK MOLDER documented as of this encounter Plan of Treatment Not on file documented as of this encounter Procedures Procedure Name Priority Date/Time Associated Diagnosis Comments SCAN - LABS 06/14/2017 12:00 AM CORK MOLDER documented in this encounter Results * SCAN - LABS (06/14/2017 12:00 AM CORK MOLDER) Narrative 06/14/2017 12:00 AM CORK MOLDER Ordered by an unspecified provider. Historical Provider Final Res ult documented in this encounter Visit Diagnoses Not on filedocumented in this encounter Additional Health Concerns Infection Onset Date Last Indicated Resolved Time COVID: Suspected 03/02/2023 03/02/2023 03/02/2023 10:09 PM CDT documented as of this encounter Care Teams Slip Injector And Applicator Relationship Specialty Start Date End Date Migue Hill DO PCP - General Family Medicine 09/10/21 Milton Funes MD [address] [facility] [address] [place] [address] Consulting Physician Cardiothoracic Surgery 03/30/23 documented as of this encounter
--- OUTSIDE RECORDS SUMMARY | 2025-05-07 16:26 | XMS_ITS | Encounter Summary ---
Author Organization [facility] Facility Care Team Providers Care Cook Frozen Dessert Name Role Phone Migue Hill DO Primary Care Provider + Milton Funes MD Unavailable [phone] Encounter Details Date Type Department Care Team (Latest Contact Info) Description 03/03/2013 Orders Only [facility] CLINCONV ProvidereMl MD [address] [place], [place] [id number] Social History Tobacco Use Types Packs/Day Years Used Date Smoking Tobacco: Never Assessed Comments Unknown Sex and Gender Information Value Date Recorded Sex Assigned at Not on file Legal Sex Female 8:19 PM BEAD FLIPPER Gender Identity Female 04/26/2019 10:43 AM BEAD FLIPPER Sexual Orientation Straight 04/26/2019 10 :41 AM BEAD FLIPPER documented as of this encounter Plan of [...] documented as of this encounter Care Teams Cook Frozen Dessert Relationship Specialty Start Date End Date Migue Hill DO PCP - General Family Medicine 09/10/21 Milton Funes MD [address] [facility] [address] [place] [address] Consulting Physician Cardiothoracic Surgery 03/30/23 documented as of this encounter
--- OUTSIDE RECORDS SUMMARY | 2025-05-07 16:26 | XMS_ITS | Encounter Summary ---
Author Organization [facility] Facility Care Team Providers Care Veneer Drier Feeder Name Role Phone Migue Hill DO Primary Care Provider + Milton Funes MD Unavailable [phone] Encounter Details Date Type Department Care Team (Latest Contact Info) Description 11/07/2015 Orders Only [facility] CLINCONV ProviderMel MD [address] [place], [place] [phone] Social History Tobacco Use Types Packs/Day Years Used Date Smoking Tobacco: Never Assessed Comments Unknown Sex and Gender Information Value Date Recorded Sex Assigned at Not on file Legal Sex Female 8:19 PM STENCIL MACHINE OPERATOR Gender Identity Female 04/26/2019 10:43 AM STENCIL MACHINE OPERATOR Sexual Orientation Straight 04/26/2019 10 :41 AM STENCIL MACHINE OPERATOR documented as of this encounter [...] documented as of this encounter Care Teams Veneer Drier Feeder Relationship Specialty Start Date End Date Migue Hill DO PCP - General Family Medicine 09/10/21 Milton Funes MD [address] [facility] [address] [place] [address] Consulting Physician Cardiothoracic Surgery 03/30/23 documented as of this encounter
--- OUTSIDE RECORDS SUMMARY | 2025-05-07 16:26 | XMS_ITS | Encounter Summary ---
Author Organization [facility] Facility Care Team Providers Care Equipment Coordinator Name Role Phone Migue Hill DO Primary Care Provider + Milton Funes MD Unavailable [phone] Encounter Details Date Type Department Care Team (Latest Contact Info) Description 03/14/2018 Orders Only [facility] CLINCONV ProviderMel MD [address] [place], [place] [phone] Social History Tobacco Use Types Packs/Day Years Used Date Smoking Tobacco: Never Assessed Comments Unknown Sex and Gender Information Value Date Recorded Sex Assigned at Not on file Legal Sex Female 8:19 PM PHP CONSULTANT Gender Identity Female 04/26/2019 10:43 AM PHP CONSULTANT Sexual Orientation Straight 04/26/2019 10 :41 AM PHP CONSULTANT documented as of this encounter Plan [...] documented as of this encounter Care Teams Equipment Coordinator Relationship Specialty Start Date End Date Migue Hill DO PCP - General Family Medicine 09/10/21 Milton Funes MD [address] [facility] [address] [place] [address] Consulting Physician Cardiothoracic Surgery 03/30/23 documented as of this encounter
--- OUTSIDE RECORDS SUMMARY | 2025-05-07 16:26 | XMS_ITS | Encounter Summary ---
Author Organization [facility] Facility Care Team Providers Care Office Technology Professor Name Role Phone Migue Hill DO Primary Care Provider + Milton Funes MD Unavailable [phone] Encounter Details Date Type Department Care Team (Latest Contact Info) Description 11/27/2017 Orders Only [facility] CLINCONV ProviderMel MD [address] [place], [place] [phone] Social History Tobacco Use Types Packs/Day Years Used Date Smoking Tobacco: Never Assessed Comments Unknown Sex and Gender Information Value Date Recorded Sex Assigned at Not on file Legal Sex Female 8:19 PM TRENCH DIGGER HELPER Gender Identity Female 04/26/2019 10:43 AM TRENCH DIGGER HELPER Sexual Orientation Straight 04/26/2019 10 :41 AM TRENCH DIGGER HELPER documented as of this encounter Plan of [...] documented as of this encounter Care Teams Office Technology Professor Relationship Specialty Start Date End Date Migue Hill DO PCP - General Family Medicine 09/10/21 Milton Funes MD [address] [facility] [address] [place] [address] Consulting Physician Cardiothoracic Surgery 03/30/23 documented as of this encounter
--- OUTSIDE RECORDS SUMMARY | 2025-05-07 16:26 | XMS_ITS | Continuity of Care Document ---
Author Organization [facility] Address [address] [place] [address] Assessment No assessment recorded. Plan of Treatment Reminders Order Date Submit Date Provider Last Modified By Organization Details Last Modified Time Details Appointments ANY 2025 01:15P Coty Ryder MD Not available Not available Not available ANY 2025 01:15P Coty Hill, DO Not available Not available Not available Lab None recorded. Referral cardiolog ist referral 2024 025 LINA Caruso MD, [address], [address], [place], [address], 03/29/2025 09:30:13 Procedures None recorded. Surgeries None recorded. Imaging XR, forearm, 2 view - left forearm 2024 025 LINA [facility] [place] [address], [place], [address], 03/27/2025 20:57:29 Medication Orders None recorded. Patient TargetsNo targets recorded. Patient Instructions Encounter Date Encounter Id Patient Instructions Last Modified By Organization Details Last Modified Time 03/27/2025 [id number] A healthy lifestyle: care instructions [email or web address] Not available 03/27/2025 17:41:13 Reason for Referral Utilization Specialist Referral for Mo derate aortic valve stenosis Referring Physician: Migue Hill, Family Medicine, Encounter Date: 03/27/2025 Results Created Date Observation Date Name Description Value Unit Range Abnormal Flag Note LastModifiedBy Organization Detail LastModifiedTime 03/23/2003/2303/23/2025 TSH+F REE T4 TSH 2.59 mIU/L 0.40-4 .50 normal Not Available [address], [address], 03/24/2025 00:52:36 03/23/20 25 03/23/2025 TSH+F REE T4 T4, free 0.7 NG/dL 0.8-1. 8 low Not Available [address], [address], 03/24/2025 00:52:36 03/23/2003/24/2025 BASIC METAB OLIC PANEL glucose 83 mg/dL 65-99 normal Fasti ng refer ence inter quynh Not Available [address], [address], 03/24/2025 04:28:42 03/23/20 25 03/24/2025 BASIC METAB OLIC PANEL urea nitrogen (BUN) 22 mg/dL 7-25 normal Not Available [address], [address], 03/24/2025 04:28:42 03/23/20 25 03/24/2025 BASIC METAB OLIC PANEL creatinine 1.01 mg/dL 0.60-0 .95 high Not Available [address], [address], 03/24/2025 04:28:42 03/23/20 25 03/24/2025 BASIC METAB OLIC PANEL eGFR 54 mL/mi n/1.7 3m2 > or = 60 low Not Available [address], [address], 03/24/2025 04:28:42 03/23/20 25 03/24/2025 BASIC METAB OLIC PANEL BUN/creatini ne ratio 22 (calc ) 6-22 normal Not Available [address], [address], 03/24/2025 04:28:42 03/23/20 25 03/24/2025 BASIC METAB OLIC PANEL sodium 138 mmol/ L 135-14 6 normal Not Available [address], [address], 03/24/2025 04:28:42 03/23/20 25 03/24/2025 BASIC METAB OLIC PANEL potassium 3.9 mmol/ L 3.5-5. 3 normal Not Available [address], [address], 03/24/2025 04:28:42 03/23/20 25 03/24/2025 BASIC METAB OLIC PANEL chloride 107 mmol/ L 98-110 normal Not Available [address], [address], 03/24/2025 04:28:42 03/23/20 25 03/24/2025 BASIC METAB OLIC PANEL carbon dioxide 23 mmol/ L 20-32 normal Not Available [address], [address], 03/24/2025 04:28:42 03/23/20 25 03/24/2025 BASIC METAB OLIC PANEL calcium 9.4 mg/dL 8.6-10 .4 normal Not Available [address], [address], 03/24/2025 04:28:42 03/23/20 25 03/24/2025 HEPAT IC FUNCT ION PANEL protein, total 7.4 g/dL 6.1-8. 1 normal Not Available [address], [address], 03/24/2025 04:28:44 03/23/20 25 03/24/2025 HEPAT IC FUNCT ION PANEL albumin 4.4 g/dL 3.6-5. 1 normal Not Available [address], [address], 03/24/2025 04:28:44 03/23/20 25 03/24/2025 HEPAT IC FUNCT ION PANEL globulin 3.0 g/dL_ (calc ) 1.9-3. 7 normal Not Available [address], [address], 03/24/2025 04:28:44 03/23/20 25 03/24/2025 HEPAT IC FUNCT ION PANEL albumin/glob ulin ratio 1.5 (calc ) 1.0-2. 5 normal Not Available [address], [address], 03/24/2025 04:28:44 03/23/20 25 03/24/2025 HEPAT IC FUNCT ION PANEL bilirubin, total 0.3 mg/dL 0.2-1. 2 normal Not Available [address], [address], 03/24/2025 04:28:44 03/23/20 25 03/24/2025 HEPAT IC FUNCT ION PANEL bilirubin, direct 0.1 mg/dL < or = 0.2 normal Not Available [address], [address], 03/24/2025 04:28:44 03/23/20 25 03/24/2025 HEPAT IC FUNCT ION PANEL bilirubin, indirect 0.2 mg/dL _(ravinder c) 0.2-1. 2 normal Not Available [address], [address], 03/24/2025 04:28:44 03/23/20 25 03/24/2025 HEPAT IC FUNCT ION PANEL alkaline phosphatase 63 U/L 37-153 normal Not Available [facility] [address] [place] [address] [place], [address], 03/24/2025 04:28:44 03/23/20 25 03/24/2025 HEPAT IC FUNCT ION PANEL AST 21 U/L 10-35 normal Not Available [employer] [address], [address], 03/24/2025 04:28:44 03/23/20 25 03/24/2025 HEPAT IC FUNCT ION PANEL ALT 15 U/L 6-29 normal Not Available [employer] [address], [address], 03/24/2025 04:28:44 03/23/20 25 03/27/2025 IODIN E, SERUM /PLAS MA iodine, serum/plasma 39 mcg/L 52-109 low This test was jayden blount and its rosa tical perfo rmanc e nereyda cteri stics have been deter mined by [facility] [place], [place]. It has not been clear ed or appro maria m by the U.S. Food and Drug Admin istra tion. This assay has been valid ated pursu ant to the CLIA regul ation s and is used for clini ravinder purpo ses. Not Available [employer] [address], [address], 03/27/2025 11:43:43 03/23/2003/27/2025 TRYPT ASE tryptase 7.4 mcg/L <11.0 Not Available [employer] [address], [address], 03/27/2025 21:13:37 03/23/20 25 03/24/2025 CBC (INCL UDES DIFF/ PLT) white blood cell count 10.0 thous and/u L 3.8-10 .8 normal Not Available [employer] [address], [address], 03/24/2025 02:37:21 03/23/20 25 03/24/2025 CBC (INCL UDES DIFF/ PLT) red blood cell count 4.33 issa on/uL 3.80-5 .10 normal Not Available [address], [address], 03/24/2025 02:37:21 03/23/2003/24/2025 CBC (INCL UDES DIFF/ PLT) hemoglobin 12.3 g/dL 11.7-1 5.5 normal Not Available [address], [address], 03/24/2025 02:37:21 03/23/20 25 03/24/2025 CBC (INCL UDES DIFF/ PLT) hematocrit 39.3 % 35.0-4 5.0 normal Not Available [facility] [address], [address], 03/24/2025 02:37:21 03/23/20 25 03/24/2025 CBC (INCL UDES DIFF/ PLT) MCV 90.8 fL 80.0-1 00.0 normal Not Available [address], [address], 03/24/2025 02:37:21 03/23/20 25 03/24/2025 CBC (INCL UDES DIFF/ PLT) MCH 28.4 pg 27.0-3 3.0 normal Not Available [address], [address], 03/24/2025 02:37:21 03/23/20 25 03/24/2025 CBC (INCL UDES DIFF/ PLT) MCHC 31.3 g/dL 32.0-3 6.0 low For adult s, a sligh t decre ase in the calcu lated MCHC value (in the range of 30 to 32 g/dL) is most likel y not clini nadeem ruggiero t; robb er, it shoul d be inter prete d with cauti on in [facility] latio n with other red cell taylor eters and the patie nt's clini ravinder condi tion. Not Available [facility] [address], [address], 03/24/2025 02:37:21 03/23/20 25 03/24/2025 CBC (INCL UDES DIFF/ PLT) RDW 13.2 % 11.0-1 5.0 normal Not Available [address], [address], 03/24/2025 02:37:21 03/23/20 25 03/24/2025 CBC (INCL UDES DIFF/ PLT) platelet count 246 thous and/u L 140-40 0 normal Not Available [address], [address], 03/24/2025 02:37:21 03/23/20 25 03/24/2025 CBC (INCL UDES DIFF/ PLT) MPV 10.2 fL 7.5-12 .5 normal Not Available [address], [address], 03/24/2025 02:37:21 03/23/20 25 03/24/2025 CBC (INCL UDES DIFF/ PLT) absolute neutrophils 6820 cells /uL 1500-7 800 normal Not Available [address], [address], 03/24/2025 02:37:21 03/23/20 25 03/24/2025 CBC (INCL UDES DIFF/ PLT) absolute lymphocytes 2090 cells /uL 850-39 00 normal Not Available [address], [address], 03/24/2025 02:37:21 03/23/20 25 03/24/2025 CBC (INCL UDES DIFF/ PLT) absolute monocytes 840 cells /uL 200-95 0 normal Not Available [address], [address], 03/24/2025 02:37:21 03/23/20 25 03/24/2025 CBC (INCL UDES DIFF/ PLT) absolute eosinophils 170 cells /uL 15-500 normal Not Available [address], [address], 03/24/2025 02:37:21 03/23/20 25 03/24/2025 CBC (INCL UDES DIFF/ PLT) absolute basophils 80 cells /uL 0-200 normal Not Available [address], [address], 03/24/2025 02:37:21 03/23/20 25 03/24/2025 CBC (INCL UDES DIFF/ PLT) neutrophils 68.2 % normal Not Available [address], [address], 03/24/2025 02:37:21 03/23/20 25 03/24/2025 CBC (INCL UDES DIFF/ PLT) lymphocytes 20.9 % normal Not Available [address], [address], 03/24/2025 02:37:21 03/23/20 25 03/24/2025 CBC (INCL UDES DIFF/ PLT) monocytes 8.4 % normal Not Available [address], [address], 03/24/2025 02:37:21 03/23/20 25 03/24/2025 CBC (INCL UDES DIFF/ PLT) eosinophils 1.7 % normal Not Available [address], [address], 03/24/2025 02:37:21 03/23/20 25 03/24/2025 CBC (INCL UDES DIFF/ PLT) basophils 0.8 % normal Not Available [address], [address], 03/24/2025 02:37:21 03/23/20 25 03/24/2025 T3, FREE T3, free 2.6 pg/mL 2.3-4. 2 normal Not Available [facility] [address], [place], [address], 03/24/2025 06:28:30 03/23/2003/29/2025 ZINC zinc 65 mcg/d L 60-130 (Note ) This test was devel oped and its rosa tical perfo rmanc e nereyda cteri stics have been deter mined by [facility]. It has not been clear ed or appro maria m by the FDA. This assay has been valid ated pursu ant to the CLIA regul ation s and is used for clini ravinder purpo ses. MDF med fusio n [address] [facility] [address] [phone] [facility] Haley MD, PhD Not Available [facility] [address], [place], [address], 03/29/2025 04:25:05 03/27/20 25 03/27/2025 XR, forea rm, 2 view No observ ation record ed. [facility] [place] [address], [place], [address], 03/28/2025 10:10:35 04/18/20 25 10/21/2016 elect rocar diogr am No observ ation record ed. BARCODE Not Available 2024 16:09:22 04/19/20 25 04/19/2025 elect rocar diogr am No observ ation record ed. LINA In-Office Order Internal Use Only DO Not Attach Compendium DO Not Attach Compendium, Do Not Delete/merge, [id number] 04/19/2025 16:19:31 04/19/20 elect rocar diogr am No observ ation record ed. [email or web address] Not Available 04/19 16:24:28 05/06/20 25 winston r monit or No observ ation record ed. [facility] [address], [place], [address], 05/07/2025 13:07:07 Result Notes None recorded. Problems Name Problem SNOMED Code Status Onset Date Resolution Date Notes Provider Name and Address Organization Details Recorded Time Irritable bowel syndrome with diarrhea 146221640 Active 2023 Migue Hill DO Attn: Yvonne saritha,[address] [facility], [place], [address], [place] - [facility] 4 13:25:41 Depressive disorder 16624500 Active 2023 Migue Hill DO Attn: Yvonne melara,[address] [facility], [place], [place], [address] [place] [address] 2, [place] [facility] 4 13:25:42 Chronic kidney disease stage 3A 046462625 Active 2023 Migue Hill DO Attn: Yvonne melara,[address] [place], [place], [address] [place] [address], [place] - [facility] 4 13:25:44 Idiopathic peripheral neuropathy 68166094 Active 2023 Migue Hill DO Attn: Yvonne melara,[address] [facility], [place], [place], [address] [place] [address], [place] [facility] 4 13:25:45 Coronary arterioscleros is 77990351 Active 2023 Migue Hill DO Attn: Yvonne melara,[address] [facility], [place], [place], [address] [place] [address], [place] [facility] 4 13:25:48 Aortic valve stenosis 28625585 Active 2023 Migue Hill DO Attn: Yvonne melara,[address] [place], [place], [address] [place] [address], [place] [facility] 4 13:25:49 Hypothyroidism 19958455 Active 2023 Migue Hill DO Attn: Yvonne melara,[address] [place], [place], [address] [place] [address], [place] - [facility] 4 13:25:51 History of cerebrovascula r accident 596837865 Active 2023 Migue Hill DO Attn: Yvonne g,[address] [facility], [place], [address], [place] [facility] 4 13:25:52 Essential hypertension 13219418 Active 2023 Migeu Hill DO Attn: Accountin g,[address] [facility], [place], [address], [place] [facility] 4 13:25:54 Chronic obstructive pulmonary disease 63298132 Active 2023 Migue Hill DO Attn: Accountin g,[address] [facility], [place], [address], [place] [facility] 4 13:25:56 Atrial fibrillation 73593864 Active 2023 Migue Hill DO Attn: Mary Annin g,[address] [facility], [place], [address], [place] [facility] 13:25:58 Fatigue 35954466 Active 2023 Migue Hill DO Attn: Mary Annin g,[address] [facility], [place], [address], [place] [facility] 5 13:34:32 Obstructive sleep apnea syndrome 42590289 Active 2023 Migue Hill DO Attn: Accountin g,[address] [facility], [place], [address], [place] [facility] 4 13:31:28 Vitamin D deficiency 95525338 Active 2023 Migue Hill DO Attn: Mary Annin g,[address] [facility], [place], [address], [place] [facility] 4 13:31:30 Restless legs syndrome 34015466 Active 2023 Migue Hill DO Attn: Accountin g,[address] [facility], [place], [address], [place] [facility] 4 13:31:31 Obesity 429913785 Active 2023 Migue Hill DO Attn: Yvonne melara,[address], [place], [address], [place] - [facility] 4 08:48:15 Asthenia 78286412 Active 2024 Migue Hill DO Attn: Yvonne melara,[address], [place], [address], [place] - [facility] 5 15:08:50 Problem Notes None recorded. Procedures Surgical History Date Name Laterality Status Provider Name and Address Organization Details Recorded Time Appendectomy completed [facility] 06/18/2023 12:33:25 Cholecystectomy completed [facility] - [facility] 06/18/2023 12:33:31 Eye Surgery completed [facility] - [facility] 06/18/2023 12:33:37 Heart Surgery completed [facility] - [facility] 06/18/2023 12:33:43 hysterectomy completed [facility] - [facility] 06/18/2023 12:33:50 Imaging Results None recorded. Procedure Notes None recorded. Medical Equipment None Reported. Allergies Allergen ID Allergen Name Allergen Category Reaction Reaction Severity Criticality Documentation Date Start Date Code Code System Note Provider Name and Address Organization Details Recorded Time 531605 Adhesive agent (substanc e) environme nt,medica tion Not available Not available Not available 09/21/20242016 12088 0007 SNOMED unrec ogniz ed react ion (text : Conta ct [place] titis , code: 52129 004) (from the [facility] sourc e) CALLIE Self, [place] - [facility] 12:59:51 287741 amlodipin e medicatio n other Not available low 09/21/20242015 73541 RxNorm weary weary unrec ogniz ed react ion (text : Unkno wn, code: 50454 5006) (from the [facility] sourc e) CALLIE Self, [place] - [facility] 5 12:59:53 450363 amoxicill in medicatio n diarrhea Not available low 09/21/20242019 723 RxNorm Azalea Dugan MA null, [place] - [facility] 5 12:59:55 593501 armodafin il medicatio n dyspnea Not available high 09/21/20242015 84236 5 RxNorm Dyspn ea Dyspn ea unrec ogniz ed react ion (text : Unkno wn, code: 89619 5006) ([facility]) Azalea Dugan MA null, [place] - [facility] 5 12:59:57 735812 bupropion Not available Not available Not available high 09/21/20242015 19326 RxNorm Seizu res Seizu res unrec ogniz ed react ion (text : Unkno wn, code: 52819 5006) (from [facility]) unrec ogniz ed react ion (text : Seizu res, code: 70408 4009) ([facility]) Azalea Dugan MA null, [place] - [facility] 5 13:00:01 698396 clonidine medicatio n Not available Not available low 09/21/20242018 2599 RxNorm unrec ogniz ed react ion (text : Fatig ue, code: 22494 001) ([facility]) Azalea Dugan MA null, [place] - [facility] 5 13:00:03 840315 escitalop romeo Not available other Not available low 09/21/20242016 86080 8 RxNorm Fatig ue Azalea Dugan MA null, [place] - [facility] 5 13:00:06 939316 paroxetin e Not available Not available Not available Not available 03/21/2025 92253 RxNorm Not Available lina - [employer] - prod 12:18:01 432313 nebivolol medicatio n Not available Not available Not available 03/21/2025 64444 RxNorm Not Available lina - [employer] - prod 12:18:01 310067 levothyro xine sodium medicatio n Not available Not available Not available 03/21/2025 72035 RxNorm Not Available lina - [employer] - prod 5 12:18:01 617177 zinc gluconate medicatio n Not available Not available Not available 03/21/2025 39897 RxNorm Not Available lina - [employer] - prod 5 12:18:01 718895 spironola ctone medicatio n Not available Not available Not available 03/21/2025 9997 RxNorm Not Available lina - [employer] - prod 5 12:18:01 871581 naproxen medicatio n Not available Not available Not available 03/21/2025 7258 RxNorm Not Available lina - [employer] - prod 5 12:18:01 166892 irbesarta n medicatio n Not available Not available Not available 03/21/2025 56747 RxNorm Not Available lina [employer] - prod 5 12:18:01 303258 hydrochlo rothiazid e medicatio n Not available Not available Not available 03/21/2025 5487 RxNorm Not Available lina - [employer] - prod 5 12:18:01 573591 fluconazo le medicatio n Not available Not available Not available 03/21/2025 4450 RxNorm Not Available lina [employer] External Data [employer] - prod 5 12:18:01 574973 venlafaxi ne medicatio n Not available Not available Not available 03/21/2025 42375 RxNorm Not Available lina - [employer] - prod 5 12:18:01 486336 tetracycl ine medicatio n Not available Not available Not available 03/21/2025 33412 RxNorm Not Available lina - [employer] - prod 5 12:18:01 980945 sertralin e medicatio n Not available Not available Not available 03/21/2025 00243 RxNorm Not Available lina [employer] External [employer] - prod 5 12:18:01 828665 rosuvasta tin medicatio n Not available Not available Not available 03/21/2025 03376 2 RxNorm Not Available lina - [employer] - prod 5 12:18:01 423944 quinapril medicatio n Not available Not available Not available 03/21/2025 19179 RxNorm Not Available lina - [employer] - prod 5 12:18:01 524111 magnesium medicatio n diarrhea Not available low 03/21/20252023 6574 RxNorm Uncon troll able diarr hea Not Available lina - [employer] - prod 5 12:19:11 768854 quinapril hydrochlo ride medicatio n other Not available low 03/21/20252016 67717 9 RxNorm weary Not Available lina - [employer] - prod 12:19:11 198476 zinc environme nt,medica tion rash Not available high 03/21/20252016 82518 RxNorm Not Available lina - [employer] - prod 5 12:19:11 114991 levothyro xine sodium medicatio n Not available Not available low 03/27/2025 77557 RxNorm Not Available lina - [employer] - prod 16:08:31 Medications Name Sig Start Date Stop [...] 03/27/2025 142/84 mm[Hg] Savannah Moran Attn: Accounting,[address] [facility], [place], [address], [facility] 03/27/2025 15:50:35 Date Recorded Body height Body mass index (BMI) Body weight Oxygen saturation Heart rate Provider Name and Address Organization Details Last Updated DateTime 03/27/2025 154.94 cm 35.1 kg/m2 55913.18 g 96 % 89 /min Lesly Escalante [facility] 15:27:21 Social History Question Answer Notes LastModified by [employer] Details LastModified Time Tobacco Smoking Status Never [facility]oker [facility] 06/18/2023 12:34:37 What Is Your Level Of Caffeine Consumption? None [email or web address] Information not available 06/18/2023 What Was The Date Of Your Most Recent Tobacco Screening? 04/19/2025 [email or web address] Information not available 04/19/2025 Has Tobacco Cessation Counseling Been Provided? No Information not available 09/17/2023 Sex: Female Functional Status Question Answer Note LastModified by [employer] Details LastModified Time Do you use any illicit or recreational drugs? No Information not available 09/17/2023 Do you or have you ever used any other forms of tobacco or nicotine? No Information not available 09/17/2023 What is your level of alcohol consumption? None [email or web address] Information not available 06/18/2023 Mental Status None recorded. Family History Relationship Description Onset Age of this Age Resolved Age Notes LastModified by Organization Details LastModified Time Father Cerebrovascu lar accident [email or web address] Not available 06/2023 12:34:03 Father Heart disease [email or web address] Not available 2023 12:34:17 Mother Hypertensive disorder [email or web address] Not available 2023 12:34:10 Medical History Condition Response Coronary Artery Disease Y Other N High Blood Pressure Y Atrial Fibrillation Y Thyroid Problems Y Kidney or Bladder Problems Y GI Problems Y Depression N COPD Y Blood Clots N Skin Problems N Eating Disorder N Anemia N Heart Attack (IN) N Anxiety Disorder N Diabetes N Muscle, Joint, or Bone Problems N Arthritis N Seizures/Epilepsy Y Acid Reflux (GERD) N Cancer N Stroke Y Asthma N Allergies N ADHD N Substance Abuse N High Cholesterol N Hepatitis N Liver Disease N Schizophrenia N Headaches N Heart Failure N Osteoporosis Y Gynecological HistoryNo gynecological history recorded. Obstetrics History GPAL:G 0 P 0 0 0 0 Immunizations Vaccine Type Date Status Note Provider Nam e and Address Organization Details Recorded Time Influenza, split virus, trivalent, preservative 2 completed Not Available [facility] 04/19/2025 13:37:27 Influenza, split virus, trivalent, PF 3 completed Not Available [facility] 04/19/2025 13:37:27 Influenza, high-dose, trivalent, PF 5 completed Not Available [facility] 04/19/2025 13:37:27 Influenza, high-dose, trivalent, PF 6 completed Not Available [facility] 04/19/2025 13:37:27 Influenza, high-dose, trivalent, PF 7 completed Not Available [facility] 04/19/2025 13:37:27 Influenza, high-dose, trivalent, PF 8 completed Not Available [facility] 04/19/2025 13:37:27 Influenza, high-dose, trivalent, PF 9 completed Not Available [facility] 04/19/2025 13:37:27 zoster recombinant 0 completed Not Available [facility] 04/19/2025 13:37:27 Influenza, high-dose, quadrivalent, PF 0 completed Not Available [facility] 04/19/2025 13:37:27 pneumococcal polysaccharide PPV23 0 completed Not Available [facility] 04/19/2025 13:37:27 zoster recombinant 1 completed Not Available [facility] 04/19/2025 13:37:27 COVID-19, mRNA, LNP-S, PF, [...] 50 mcg/0.25mL dose 1 completed Not Available [facility] 04/19/2025 13:37:27 COVID-19, mRNA, LNP-S, PF, 100 mcg/0.5mL dose or 50 mcg/0.25mL dose 2 completed Not Available [facility] 04/19/2025 13:37:27 Pneumococcal conjugate PCV 13 2 completed Not Available [facility] 04/19/2025 13:37:27 COVID-19, mRNA, LNP-S, bivalent, PF, 50 mcg/0.5 mL or 25mcg/0.25 mL dose 2 completed Not Available [facility] 04/19/2025 13:37:27 Influenza, high-dose, quadrivalent, PF 2 completed Not Available [facility] 04/19/2025 13:37:27 COVID-19, mRNA, LNP-S, bivalent, PF, 50 mcg/0.5 mL or 25mcg/0.25 mL dose 3 completed Not Available [facility] 04/19/2025 13:37:27 COVID-19, mRNA, LNP-S, PF, 50 mcg/0.5 mL 3 completed Not Available [facility] 04/19/2025 13:37:27 Influenza, adjuvanted, quadrivalent, PF 3 completed Not Available [facility] 04/19/2025 13:37:27 RSV, recombinant, protein subunit RSVpreF, adjuvant reconstituted, 0.5 mL, PF 3 completed Not Available [facility] 04/19/2025 13:37:27 COVID-19, mRNA, LNP-S, PF, 50 mcg/0.5 mL 4 completed Not Available [facility] 04/19/2025 13:37:27 COVID-19, mRNA, LNP-S, PF, 50 mcg/0.5 mL 4 completed Not Available [facility] 04/19/2025 13:37:27 Influenza, high-dose, trivalent, PF 4 completed Not Available [facility] 04/19/2025 13:37:27 COVID-19, mRNA, LNP-S, PF, 50 mcg/0.5 mL 5 completed Not Available [facility] 04/19/2025 13:37:27 COVID-19, mRNA, LNP-S, PF, 10 mcg/0.2 mL 5 completed Not Available [facility] 04/19/2025 13:37:27 Influenza, adjuvanted, trivalent, PF 5 completed Not Available [facility] 04/19/2025 13:37:27 Past Encounters Encounter ID Performer Location Encounter Start Date Encounter Closed Date Diagnosis/Indication Diagnosis SNOMED-CT Code Diagnosis ICD10 Code Diagnosis IMO Codes Diagnosis Note [id number] Migue Hill DO [facility] [address] [address] 03/27/2025 14:43:50 03/28/2025 11:32:07 Essential hypertension 82519091 I10 hydralazin e 50 mg tiddecreas e to bidChronic conditionm onitor bp at home Coronary arteriosclerosis 45023841 I25.10 plavixChro jefry conditionh ad stents placed at [facility] Atrial fibrillation 4943 6004 I48.91 s/p watchman procedured oing wellChroni c conditionA t goal Chronic ki dney disease stage 3A 202580210 N18.31 Chronic conditionA t goalMainta in blood pressure Chronic ob structive pulmonary disease 80966914 J44.9 recent pftChronic condition Obstructiv e sleep apnea syndrome 80320663 G47.[address] Cruz Moderate a ortic valve stenosis 403836501 I35.0 [id number] sees cardiologi stDr. Tobias repeat echosevere ly enlarged atrium on leftecho reviewedca rdiology note reviewedpe ak gradient across the valve is 38 mm hgi will refer her to Dr. Caruso for a second opinion Asthenia 05094282 R53.1 [id number] goes to the [facility] a recent fall Obese class II 435482245 1 12599 E66.812 E66.3 [id number] healthy dietweight loss Pain in left arm 6838966 00 M79.602 [id number] recent fall Health Concerns Section Related Observation LastModified by Organization Detai ls LastModified Time None Recorded Concern Status LastModified by Organization Details LastModified Time None Recorded Payers Encounter Date Sequence Insurance Name Policy Number Policy Wallace Covered Member ID Wallace Member ID Guarantor Name 03/27/2025 2 [place] ([facility]) [id number] Ana Laura Perez [id number] Ana Laura Field Notes Date Note Type Note Provider Name and Address Organization Details Recorded Time 03/27/2025 text/html routine 3 month follow up Migue Hill DO Attn: Accounting,[address] [facility], [place], [address], [place] - [place] 03/27/2025 17:53:44 OBGyn Episode No OBEpisode recorded.
--- OUTSIDE RECORDS SUMMARY | 2025-05-07 16:27 | XMS_ITS ---
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 She does not have evidence of obstruction but her spirometry flows are reduced and I suspect this is related to her kyphosis. She has multi valve regurgitation and I did ask her to contact her shell trim tool setter regarding the recent echo results. Assessment & [...] disorder) Assessment & Plan (03/20/2025 11:48 AM DIRECTOR AUTOMOTIVE): PLMD are under reasonable control with Requip [...] q.h.s. Assessment & Plan (04/06/2023 10:41 AM DIRECTOR AUTOMOTIVE): The RLS/PLMD symptoms are being controlled with [...] night. Assessment & Plan (04/07/2022 11:14 AM DIRECTOR AUTOMOTIVE): The PLMS are under control with Requip [...] 11/09/2019 Assessment & Plan (03/20/2025 11:49 AM DIRECTOR AUTOMOTIVE): The patient continues to benefit from CPAP [...] The patient will switch to [facility] in [place] and I will send an order to [...] her supplier who is [facility] in [facility] to change the auto titrating range to 17-20 cm water. She will follow up here in 2 months to assess her progress. Assessment & Plan (04/06/2023 10:41 AM DIRECTOR AUTOMOTIVE): The patient continues to benefit from the auto titrating CPAP unit with a range of 15-20 cm water pressure for ongoing BARBARA symptoms. She will follow up here in 6 months. Her DME supplier is [facility] in [place]. Assessment & Plan (10/06/2022 11:32 AM CDT): She continues to benefit from the auto titrating CPAP unit with a range of 15-20 cm water pressure. Her DME supplier is [email or web address] in [facility]. She will follow-up with me in 6 months. Assessment & Plan (04/07/2022 11:14 AM DIRECTOR AUTOMOTIVE): The patient continues to benefit from the auto titrating CPAP unit with a range of 15-20 cm water pressure. Her DME supplier is [facility] in [address] She will follow-up with me in [...] & Plan (10/19/2019 9:31 AM CDT): Seeing chief revenue officer Assessment & Plan (08/22/2019 4:21 PM CDT): [...] mg daily Coronary artery disease invo lving [place] coronary artery of [place] heart without angina pectoris 07/08/2019 Dyslipidemia 07/08/2019 Assessment & Plan (12/24/2022 11:38 AM CDT): Patient is well controlled. Continue current treatment. Assessment & Plan (11/06/2021 10:13 AM CDT): Patient is well controlled. Continue current treatment. Peripheral polyneuropathy 04/15/2019 Assessment & Plan (03/23/2023 4:51 PM DIRECTOR AUTOMOTIVE): Chronic condition Worsening Add gabapentin 100 mg [...] treatment. Assessment & Plan (04/21/2022 1:54 PM DIRECTOR AUTOMOTIVE): Patient is well controlled. Continue current treatment. Assessment & Plan (12/16/2021 11:50 AM CDT): Patient is well controlled. Continue current treatment. Assessment & Plan (11/06/2021 10:07 AM CDT): Patient is well controlled. Continue current treatment. Assessment & Plan (05/07/2021 3:04 PM DIRECTOR AUTOMOTIVE): Patient is well controlled. Continue current treatment. Assessment & Plan (02/05/2021 10:37 AM CDT): Doing well with hydralazine Cardiology notes reviewed Assessment & Plan (11/05/2020 11:40 AM CDT): Patient is well controlled. Continue current treatment. Will start hydralazine Assessment & Plan (10/02/2020 11:01 AM CDT): Stable Has been off medication on own Assessment & Plan (05/13/2020 10:51 AM DIRECTOR AUTOMOTIVE): Can not tolerate multiple meds Discussed Wishes [...] week Assessment & Plan (07/19/2019 9:27 AM DIRECTOR AUTOMOTIVE): Patient is well controlled. Continue current treatment. Assessment & Plan (05/04/2019 11:11 AM DIRECTOR AUTOMOTIVE): Start isosorbide Assessment & Plan (04/25/2019 12:37 PM DIRECTOR AUTOMOTIVE): Patient is well controlled. Continue current treatment. Assessment & Plan (04/19/2019 9:55 AM DIRECTOR AUTOMOTIVE): Patient is well controlled. Continue current treatment. [...] treatment. Assessment & Plan (05/07/2021 3:04 PM DIRECTOR AUTOMOTIVE): Check a TSH and free T4 in [...] months Assessment & Plan (05/13/2020 10:52 AM DIRECTOR AUTOMOTIVE): Recheck lab in 3 months Assessment & Plan (03/07/2020 4:49 PM CDT): Keep off of LT4 Recheck TFT's Assessment & Plan (02/09/2020 10:48 AM CDT): No new orders Sees chief revenue officer Assessment & Plan (11/09/2019 11:37 AM CDT): Stable Assessment & Plan (10/26/2019 10:14 AM CDT): Sees chief revenue officer Assessment & Plan (10/24/2019 1:03 PM CDT): [...] accordingly Assessment & Plan (05/04/2019 11:11 AM DIRECTOR AUTOMOTIVE): Patient is well controlled. Continue current treatment. [...] treatment. Assessment & Plan (04/21/2022 1:54 PM DIRECTOR AUTOMOTIVE): occ sob Check a cxr Assessment & Plan (01/07/2022 1:45 PM CDT): Patient is well controlled. Continue current treatment. Assessment & Plan (12/16/2021 11:50 AM CDT): Patient is well controlled. Continue current treatment. Assessment & Plan (11/06/2021 10:07 AM CDT): Patient is well controlled. Continue current treatment. Assessment & Plan (05/07/2021 3:03 PM DIRECTOR AUTOMOTIVE): Patient is well controlled. Continue current treatment. Assessment & Plan (02/05/2021 10:42 AM CDT): Patient is well controlled. Continue current treatment. Assessment & Plan (05/13/2020 10:51 AM DIRECTOR AUTOMOTIVE): Patient is well controlled. Continue current treatment. Assessment & Plan (02/09/2020 10:47 AM CDT): Patient is well controlled. Continue current treatment. Assessment & Plan (11/09/2019 11:38 AM CDT): Stable Assessment & Plan (10/26/2019 10:13 AM CDT): Patient is well controlled. Continue current treatment. Assessment & Plan (10/19/2019 9:30 AM CDT): Patient is well controlled. Continue current treatment. Assessment & Plan (07/19/2019 9:27 AM DIRECTOR AUTOMOTIVE): Sees Dr. Cruz Assessment & Plan (04/19/2019 9:55 AM DIRECTOR AUTOMOTIVE): Patient is well controlled. Continue current treatment. Assessment & Plan (01/10/2019 12:03 PM CDT): Patient is well controlled. Continue current treatment. Assessment & Plan (09/27/2018 11:23 AM CDT): Check a cxr Chronic fatigue 10/08/2016 Assessment & Plan (03/23/2023 4:52 PM DIRECTOR AUTOMOTIVE): Chronic condition Worsening Check lab including a b 12 and a tsh Assessment & Plan (04/21/2022 1:55 PM DIRECTOR AUTOMOTIVE): Worsening Chronic condition Not at goal Will have a stress test Assessment & Plan (05/07/2021 3:02 PM DIRECTOR AUTOMOTIVE): No new issues Assessment & Plan (02/05/2021 10:45 AM CDT): Overall doing well Assessment & Plan (11/05/2020 11:41 AM CDT): Recent hair analysis from outside company reviewed Discussed with pt Assessment & Plan (05/13/2020 10:51 AM DIRECTOR AUTOMOTIVE): Patient is well controlled. Continue current treatment. Assessment & Plan (10/26/2019 10:14 AM CDT): No new orders Assessment & Plan (10/19/2019 9:30 AM CDT): Has had her thyroid stopped by endocrinology Assessment & Plan (04/25/2019 12:37 PM DIRECTOR AUTOMOTIVE): Patient is well controlled. Continue current treatment. Assessment & Plan (04/19/2019 9:55 AM DIRECTOR AUTOMOTIVE): Doing better Had meds adjusted Assessment & [...] 05/28/2016 Assessment & Plan (05/07/2021 3:04 PM DIRECTOR AUTOMOTIVE): She will have a colonoscopy with Dr. [...] diet Assessment & Plan (04/21/2022 1:55 PM DIRECTOR AUTOMOTIVE): Healthy diet Assessment & Plan (01/07/2022 1:39 [...] 11/05/2020 Assessment & Plan (05/04/2019 11:10 AM DIRECTOR AUTOMOTIVE): Doing better Finish rx Assessment & Plan (04/28/2019 11:43 AM DIRECTOR AUTOMOTIVE): Better Finish abx Fu 3 days Assessment & Plan (04/25/2019 12:36 PM DIRECTOR AUTOMOTIVE): z rafal Malignant tumor of breast 04/15/2019 Polyp of colon 04/15/2019 08/05/2021 Weakness 12/13/2018 02/09/2020 Assessment & Plan (11/09/2019 11:37 AM CDT): Work up negative Assessment & Plan (10/26/2019 10:19 AM CDT): Check b 12 bnp Sed rate Assessment & Plan (10/19/2019 9:31 AM CDT): Check lab Assessment & Plan (07/19/2019 9:27 AM DIRECTOR AUTOMOTIVE): Will have a cardiac cath Assessment & [...] 11/11/201711/06 Assessment & Plan (05/07/2021 3:03 PM DIRECTOR AUTOMOTIVE): sma 7 in 3 months Assessment & [...] 11/11/20172021 Assessment & Plan (05/07/2021 3:05 PM DIRECTOR AUTOMOTIVE): She remains on Requip at night time [...]
--- OUTSIDE RECORDS SUMMARY | 2025-05-07 16:27 | XMS_ITS | Data Portability ---
Author Organization [place] - [facility] OFFICE Address [address] [place] [id number] Care Team Providers Care High Lead Yarder Name Role Phone ELEUTERIO CESILIA Primary Care Provider [phone] Assessment No assessment recorded. Plan of Treatment Reminders Order Date Submit Date Provider Last Modified By Organization Details Last Modified Time Details Appointments None recorded. Lab None recorded. Referral None recorded. Procedures None recorded. Surgeries None recorded. Imaging None recorded. Medication Orders Bystolic 2.5 mg tablet 2021 022 [facility]armacy #3259, [address] [place], [address], 17:07:40 hydralazine 25 mg tablet 2021 022 [facility]/Pharmacy #3259, [address] [place], [address], 13:10:02 hydralazine 25 mg tablet 2021 022 [facility]/Pharmacy #3259, [address] [place], [address], 13:06:59 Xarelto 20 mg tablet 2021 022 [facility]armacy #3259, [address] [place], [address], 11:39:54 Patient TargetsNo targets recorded. Patient Instructions Encounter Date Encounter Id Patient Instructions Last Modified By Organization Details Last Modified Time 08/28/2021 [id number] Weight loss 20 pounds Exercise advised Low cholesterol diet advised Low sodium diet advised. [email or web address] Not available 08/28/2021 13:06:23 02/19/2022 [id number] Weight loss 20 pounds Exercise advised Low cholesterol diet advised Low sodium diet advised. [email or web address] Not available 02/19/2022 11:53:36 Reason for Referral None Reported. Results Created Date Observation Date Name Description Value Unit Range Abnormal Flag Note LastModifiedBy Organization Detail LastModifiedTime 06/02/19 22 05/29/2021 elect rocar diogr am No observ ation record ed. [email or web address] Not Available 2021 12:48:43 07/09/19 22 06/18/2021 event monit or No observ ation record ed. [email or web address] Not Available 2021 12:53:17 09/24/19 22 09/17/2021 , echoc ardio gram No observ ation record ed. [email or web address] Not Available 2021 10:45:29 12/04/19 22 11/27/2021 elect rocar diogr am No observ ation record ed. [email or web address] Not Available 2021 11:54:52 04/17/20 22 04/15/2022 elect rocar diogr am No observ ation record ed. [email or web address] Not Available 2021 09:02:00 Result Notes None recorded. Problems Name Problem SNOMED Code Status Onset Date Resolution Date Notes Provider Name and Address Organization Details Recorded Time Chronic obstructiv e pulmonary disease 45001343 Active 2018 An[place]udh [place], [place] - [facility] 2 06:04:07 Chronic fatigue syndrome 25753723 Active 2018 An[place]ud[place] [facility] 2 06:03:59 Essential hypertensi on 02254220 Active 2018 An[place]ud[place] - [facility] 2 06:04:16 Malignant neoplasm of breast 091460290 Completed 201806/06/2019 Janell [place] - [facility] 0 12:08:27 Polyp of colon 65424809 Active 2018 Loli [place] - [facility] 9 04:01:52 Hypothyroi dism 09118678 Active 2018 Oleary [place] [facility] 2 06:04:20 Diabetic peripheral neuropathy 384317858 Completed 201806/06/2019 Lucita G[place] [facility] 0 12:30:13 Obesity 342824999 Active 2018 Loli Q[place]ada [place] [facility] 9 04:04:00 Body mass index 30+ - obesity 467589248 Active 2018 H[place] [facility] 9 04:04:09 Stenosis of bile duct 92288469 Active 2018 H[place] [facility] 9 04:04:35 Chronic kidney disease 220445258 Active 2018 Oleary [place] [facility] 2 06:04:03 Palpitatio ns 07570751 Active 2018 Ole[place]to [place] [facility] 9 11:12:41 Restless legs syndrome 72347770 Active 2018 Ole[place] [facility] 9 11:13:21 Dyslipidem ia 457892012 Active 2019 Ole[place] [facility] 2 06:04:13 Coronary atheroscle rosis 630245629 Active 2019 Ole[place] [facility] 2 06:04:10 Obstructiv e sleep apnea syndrome 35478365 Active 2019 Ole[place] [facility] 2 06:04:23 Heart murmur 67416095 Active 2019 Ole[place] [facility] 0 07:39:04 Problem Notes None recorded. Procedures Surgical History Date Name Laterality Status Provider Name and Address Organization Details Recorded Time Xcapsl ctrc rmvl cplx wo ecp completed Oleary [place] - [facility] 04/15/2019 11:10:36 Cholecystectomy completed [place]ary [place] - [facility] 04/15/2019 11:10:55 Hyste[place] completed Oleary [place] - [facility] 04/15/2019 11:11:10 Imaging Results None recorded. Procedure Notes None recorded. Medical Equipment None Reported. Allergies Allergen ID Allergen Name Allergen Category Reaction Reaction Severity Criticality Documentation Date Start Date Code Code System Note Provider Name and Address Organization Details Recorded Time 54560 nebivolol medicatio n Not available Not available Not available 09/07/2022 12482 RxNorm Elayne Mignon [place] - [facility] 3 15:40:19 9213 armodafin il medicatio n Not available Not available Not available 04/15/2019 04824 5 RxNorm Oleary [place] [facility] 9 11:15:54 9214 bupropion Not available Not available Not available Not available 04/15/2019 05196 RxNorm Ole[place] [facility] 9 11:16:26 9215 tetracycl ine medicatio n Not available Not available Not available 04/15/2019 83439 RxNorm Oleary [place] [facility] 9 11:16:45 9216 zinc environme nt,medica tion Not available Not available Not available 04/15/2019 42872 RxNorm Oleary [place] [facility] 9 11:16:55 9217 escitalop romeo Not available Not available Not available Not available 04/15/2019 05187 8 RxNorm Ole[place] [facility] 9 11:17:21 9218 rosuvasta tin medicatio n Not available Not available Not available 04/15/2019 64134 2 RxNorm Ole[place] [facility] 9 11:17:56 9219 sertralin e medicatio n Not available Not available Not available 04/15/2019 84805 RxNorm Ole[place] [facility] 9 11:18:13 9220 venlafaxi ne medicatio n Not available Not available Not available 04/15/2019 72218 RxNorm Oleary [place] [facility] 9 11:18:30 9221 adhesive environme nt,medica tion Not available Not available Not available 04/15/2019 Anirudh Chaudhary [place] - [facility] 9 11:18:39 9222 amlodipin e medicatio n Not available Not available Not available 04/15/2019 83649 RxNorm Myrtle Hemphill [place], [place] - [facility] 0 10:36:45 9223 clonidine medicatio n Not available Not available Not available 04/15/2019 2599 RxNorm Anirudh [place], [place] - [facility] 9 11:19:02 9224 hydrochlo rothiazid e medicatio n Not available Not available Not available 04/15/2019 5487 RxNorm Anirudh Mesto [place], [place] - [facility] 9 11:19:35 9225 irbesarta n medicatio n Not available Not available Not available 04/15/2019 31214 RxNorm Anirudh Mesaditya null, [facility] 9 11:19:54 9226 naproxen medicatio n Not available Not available Not available 04/15/2019 7258 RxNorm Anirudh Royto [place], [place] - [facility] 9 11:20:09 9227 paroxetin e Not available Not available Not available Not available 04/15/2019 33532 RxNorm Anirudh Mesto null, [facility] 9 11:27:23 9228 quinapril medicatio n Not available Not available Not available 04/15/2019 03429 RxNorm Anirudh Royto null, [facility] 9 11:27:44 9229 spironola ctone medicatio n Not available Not available Not available 04/15/2019 9997 RxNorm Anirudh Royto null, [place] - [facility] 9 11:28:02 Medications Name Sig Start Date Stop Date Status Note LastModified by Organization Details LastModified Time hydrocort isone 5 mg tablet 1.5 tabs, QID 02/11 completed pt. no longer takes 09/28/20 20 sm Not Available Not Available Not Available levothyro xine 137 mcg tablet OD 02/11 completed Pt is no more on this medicati on 02/12/20 20 sm Not Available Not Available Not Available potassium chloride ER 10 mEq capsule,e xtended release TAKE 1 CAPSULE BY MOUTH EVERY DAY active Not Available Not Available No t Available clonidine HCl 0.1 mg tablet 04/18 completed Not Available Not Available Not Available prednison e 10 mg tablet 5 mg once a day 11/29 completed pt not taking 11/05/19 21 TL Not Available Not Available Not Available ropinirol e 1 mg tablet TAKE 1 TABLET BY MOUTH NIGHTLY TAKE 1 ADDITION AL TABLET IF NEEDED active Not Available Not Available No t Available azithromy popeye 250 mg tablet TAKE 2 TABLETS BY MOUTH TODAY, THEN TAKE 1 TABLET DAILY FOR 4 DAYS 11/29 completed pt not taking 11/05/19 21 TL Not Available Not Available Not Available cephalexi n 250 mg capsule 08/13 completed Not Available Not Available Not Available hydrocodo ne 5 mg-acetam inophen 325 mg tablet active Not Available Not Available Not Available fluconazo le 200 mg tablet 04/18 completed Not Available Not Available Not Available isosorbid e mononitra te ER 30 mg tablet,ex tended release 24 hr TAKE 1 TABLET BY MOUTH EVERY DAY 02/11 completed Pt isnot taking this medicati on 02/12/20 20 sm Not Available Not Available Not Available prednison e 5 mg tablet 1 tablet once a day 02/11 completed 1 tablet oncea day 02/12/20 20 sm Not Available Not Available Not Available methylpre dnisolone 4 mg tablet 1 tablet in am and 1/2 in afternoo n 02/11 completed Not Available Not Available Not Available atenolol 25 mg tablet TAKE 1 TABLET BY MOUTH EVERY DAY active Not Available Not Available No t Available nystatin 500,000 unit tablet 08/28 completed Not Available Not Available Not Available hydralazi ne 25 mg tablet TAKE 1 TABLET BY MOUTH THREE TIMES A DAY 2022 active Not Available Not Available Not Avai lable triamcino lone acetonide 0.5 % topical ointment 04/18 completed Not Available Not Available Not Available amlodipin e 2.5 mg tablet Take 1 tablet every day by oral route. 11/04 completed pt not taking 05/06/20 20 TL Not Available Not Available Not Available ciproflox acin 500 mg tablet 04/18 completed Not Available Not Available Not Available levothyro xine 25 mcg tablet 05/06 completed pt not taking 05/06/20 20 TL Not Available Not Available Not Available Hague Thyroid 15 mg tablet OD 04/18 completed Not Available Not Available Not Available amitripty line 10 mg tablet 02/19 completed Not Available Not Available Not Available docusate sodium 100 mg capsule TAKE 1 CAPSULE BY MOUTH EVERY 12 HOURS NEEDED FOR CONSTIPA TION active Not Available Not Available No t Available gabapenti n 300 mg capsule 08/28 completed Not Available Not Available Not Available irbesarta n 75 mg tablet Take 1 tablet every day by oral route. 05/06 completed Pt is no more on this medicati on because of side effects 03/11/20 sm Not Available Not Available Not Available mupirocin 2 % topical ointment 04/18 completed Not Available Not Available Not Available ergocalci ferol (vitamin D2) 1,250 mcg (50,000 unit) capsule TAKE 1 CAPSULE BY MOUTH ONCE A WEEK ON MONDAYS FOR 8 WEEKS active Not Available Not Available No t Available albuterol sulfate HFA 90 mcg/actua tion aerosol inhaler 05/06 completed pt not using 05/06/20 20 TL Not Available Not Available Not Available hydrocort isone 2.5 % topical ointment 02/11 completed pt. no longer take Not Available Not Available Not Available dicyclomi ne 10 mg capsule 11/27 completed Not Available Not Available Not Available progester one micronize d 100 mg capsule TAKE 1 CAPSULE BY MOUTH EVERY DAY 08/28 completed Not Available Not Available Not Available cholecalc iferol (vitamin D3) 25 mcg (1,000 unit) capsule TAKE 2 CAPSULES BY MOUTH EVERY DAY active Not Available Not Available No t Available Oyster Shell Calcium-V itamin D3 500 mg-5 mcg (200 unit) tablet TAKE 1 TABLET BY MOUTH TWICE A DAY WITH MEALS active Not Available Not Available No t Available Vitamin B6 100 mg tablet Take 1 tablet by oral route. 08/28 completed pt no longer takes 02/29/20 21 nj Not Available Not Available Not Available Vitamin D3 25 mcg (1,000 unit) tablet TAKE 2 TABLETS BY MOUTH EVERY DAY active Not Available Not Available No t Available cholestyr amine (with sugar) 4 gram oral powder PLEASE SEE ATTACHED FOR DETAILED DIRECTIO NS active Not Available Not Available No t Available cholestyr amine (with sugar) 4 gram powder for susp in a packet TAKE A FOURTH TO 1 PACKET EVERY MORNING active Not Available Not Available No t Available rosuvasta tin 10 mg tablet Take 0.5 tablets every day by oral route. 05/06 completed pt not taking 05/06/20 20 TL Not Available Not Available Not Available vitamin K 08/28 completed pt no longer takes 02/29/20 21 nj Not Available Not Available Not Available aspirin 81 mg once a day 05/06 completed pt not taking 05/06/20 20 TL Not Available Not Available Not Available Co Q-10 1 tablet once day active Not Available Not Available No t Available testoster one 08/28 completed pt no longer takes 02/29/20 21 nj Not Available Not Available Not Available vitamin B complex 1 tablet once day 08/28 completed pt no longer takes 02/29/20 21 nj Not Available Not Available Not Available progester one 1 tablet once daqy 05/06 completed Not Available Not Available Not Available potassium 02/11 completed Not Available Not Available Not Available Multivita mins 1 tablet once day 08/28 completed pt no longer takes 02/29/20 21 nj Not Available Not Available Not Available Mag 64 11/27 completed Not Available Not Available Not Available N-Acetyl- L-Cystein e 08/28 completed pt no longer takes 02/29/20 21 nj Not Available Not Available Not Available Bystolic 5 mg tablet 1/2 tab, OD 02/11 completed pt is no more on this medicati on 02/12/20 20 sm Not Available Not Available Not Available nebivolol 2.5 mg tablet Take 2 tablets every day by oral route. active Not Available Not Available No t Available Evamist 1.53 mg/spray (1.7 %) transderm al spray 08/28 completed pt no longer takes 02/29/20 21 nj Not Available Not Available Not Available cholecalc iferol (vitamin D3) 50 mcg (2,000 unit) capsule TAKE 1 CAPSULE BY MOUTH EVERY DAY active Not Available Not Available No t Available Vitamin D3 50 mcg (2,000 unit) tablet TAKE 1 TABLET BY MOUTH EVERY DAY active Not Available Not Available No t Available taurine 1,000 mg capsule Take 1 capsule by oral route. 08/28 completed pt no longer takes 02/29/20 21 nj Not Available Not Available Not Available B12 2,000 MCG active Not Available Not Available No t Available Livalo 2 mg tablet Take 1 tablet every day by oral route. 02/11 completed Pt is not taking this medicati on 02/12/20 20 sm Not Available Not Available Not Available Probiotic 1 tablet once day active Not Available Not Available No t Available calcium 167 mg-magnes ium 65 mg-herbal complex no.180 200 mg tablet Take 1 tablet twice a day by oral route. 08/28 completed pt no longer takes 02/29/20 21 nj Not Available Not Available Not Available Xarelto 20 mg tablet TAKE 1 TABLET BY MOUTH EVERY DAY 2022 active Not Available Not Available Not Avai lable Eliquis 2.5 mg tablet active Not Available Not Available Not Available folic acid 0.8 mg capsule Take 1 capsule every day by oral route. active Not Available Not Available No t Available Vitamin B12 1 tablet once day 08/28 completed pt no longer takes 02/29/20 nj Not Available Not Available Not Available Fish Oil 1,000 mg (120 mg-180 mg) capsule Take 1 capsule every day by oral route. active Not Available Not Available No t Available Shingrix (PF) 50 mcg/0.5 mL intramusc ular suspensio n, kit 05/06 completed Not Available Not Available Not Available Fluzone High-Dose 2244-8094 (PF) 180 mcg/0.5 mL intramusc ular syringe 02/11 completed Not Available Not Available Not Available Fluzone High-Dose (PF) 180 mcg/0.5 mL intramusc ular syringe 02/11 completed Not Available Not Available Not Available Fluzone High-Dose Quad (PF) 240 mcg/0.7 mL IM syringe 05/06 completed Not Available Not Available Not Available Flowflex COVID-19 Antigen Home Test kit active Not Available Not Available Not Available Vitals Date Recorded Body height Body mass index (BMI) Body weight Heart rate Oxygen saturation Systolic And Diastolic Provider Name and Address Organization Details Last Updated DateTime 2 154.94 cm 36.1 kg/m2 33016.1 4 g 42 /min 98 % 158/72 mm[Hg] Carmen [facility] 2 11:12:53 Date Recorded Body height Body mass index (BMI) Body weight Heart rate Oxygen saturation Systolic And Diastolic Provider Name and Address Organization Details Last Updated DateTime 2 154.94 cm 35.7 kg/m2 28217.9 6 g 102 /min 96 % 220/120 mm[Hg] [facility] 2 12:38:37 Date Recorded Body height Body mass index (BMI) Body weight Heart rate Oxygen saturation Systolic And Diastolic Provider Name and Address Organization Details Last Updated DateTime 2 154.94 cm 36.1 kg/m2 90059.1 4 g 84 /min 97 % 160/72 mm[Hg] [facility] 2 11:45:57 Date Recorded Body height Body mass index (BMI) Body weight Heart rate Oxygen saturation Systolic And Diastolic Provider Name and Address Organization Details Last Updated DateTime 2 154.94 cm 35.7 kg/m2 49667.9 6 g 83 /min 96 % 168/78 mm[Hg] Carmen Guthrie [facility] 2 16:45:18 Social History Question Answer Notes LastModified by Toplist Details LastModified Time Tobacco Smoking Status Never Smoker Not Available [facility]2020 03:30:41 Marital Status Single Informatio n not available 04/15/2019 What Was The Date Of Your Most Recent Tobacco Screening? 03/11/2020 Information not available 05/04/2020 How Much Tobacco Do You Smoke? No [id number] Information not available 03/19/2020 How Many Years Have You Smoked Tobacco? 0 [id number] Information not available 03/19/2020 Sex: Unknown Functional Status Question Answer Note LastModified by Toplist Details LastModified Time What is your level of alcohol consumption? None [id number] Information not available 03/19/2020 Do you or have you ever used smokeless tobacco? Never used smokeless tobacco [id number] Information not available 03/19/2020 Do you or have you ever used e-cigarettes or vape? Never used electronic cigarettes [id number] Information not available 03/19/2020 Mental Status None recorded. Family History Relationship Description Onset Age of this Age Resolved Age Notes LastModified by Organization Details LastModified Time Father Heart disease hmesto Not available 2018 11:29:55 Father Cerebrovascu lar accident hmesto Not available 11:30:05 Father Parkinson's disease hmesto Not available 2018 11:30:20 Sister Dementia hmesto Not available 1 06/15/2018 11:30:28 Medical History Condition Response Thyroid Disease Y COPD Y Cancer Y Hypertension Y Kidney Disease Y Gynecological HistoryNo gynecological history recorded. Obstetrics History GPAL:G 0 P 0 0 0 0 Past Encounters Encounter ID Performer Location Encounter Start Date Encounter Closed Date Diagnosis/Indication Diagnosis SNOMED-CT Code Diagnosis ICD10 Code Diagnosis IMO Codes Diagnosis Note [id number] Jeff Jay MD [facility] [address] [place] [address] 04/18/2019 15:31:18 04/19/2019 17:38:16 Dyspnea on exertion 47319109 R06.09 Patient states that she has dyspnea on minium exertion. She also feels fatigue and weakness. will consider a ECHO and stress. Essential hypertension 44919869 I10 some what controlled . Patient states that she was not taking her bystolic for a week due to med error. She states that she felt better without the medication . Obstructiv e sleep apnea syndrome 82773564 G47.33 CPAP nightly managed by Dr. Cruz Heart murmur 59272680 R0 1.1 will consider an ECHO. [id number] MD Ira [facility] Office [address] [place] [address] 04/20/2019 14:06:50 04/20/2019 14:53:24 Dyspnea on exertion 04062242 R06.09 Patient states that she has dyspnea on exertion. She also feels fatigue and weakness. She had recent echo in the [facility]. Will get report. Essential hypertension 50417978 I10 Need better control Will d/c Bystolic. Start Imdur 30 mg daily She does not want to try CCB, DAREN, ARB or HCTZ (all reportedly caused fatigue) Obstructiv e sleep apnea syndrome 38531790 G47.33 CPAP nightly managed by Dr. Cruz Heart murmur 05473258 R0 1.1 Follow echo report [id number] Jeff Jay MD [facility] [place] [address] 06/06/2019 11:45:47 06/06/2019 14:21:54 Dyspnea on exertion 76819838 R06.09 Patient states that she has dyspnea on exertion. She also feels fatigue and weakness. She had recent echo in the [facility]. 06/06/19 Will get cardiac CTA. patient continues to complain of increase fatigue and weakness. Essential hypertension 18978964 I10 Need better control She does not want to try CCB, DAREN, ARB or HCTZ (all reportedly caused fatigue). 06/06/19 pt currently not taking the imdur. she states she was unable to tolerate the medication . Patient currently taking Bystolic 2.5 mg. Obstructiv e sleep apnea syndrome 11956438 G47.33 CPAP nightly managed by Dr. Cruz Heart murmur 37458744 R0 1.1 Follow echo report Lightheadedness 81473022 8 R42 Patient states that she has some lightheade dness and fatigue. also complaint of SOB. No complaints of chest pain. Dyslipidemia 428821506 E 78.5 Coronary arteriosclerosis 37319429 I25.10 with fatigue Could be angina equivalent Will arrange for cardiac CTA, the patient will need further investigat ions, and would benefit from CT to look for any Coronary Artery Disease [id number] Jeff Jay MD [facility] [place] [address] 07/17/2019 15:08:46 07/17/2019 15:58:27 Lightheadedness 218431790 R42 Patient states that she has some lightheade dness and fatigue. also complaint of SOB. No complaints of chest pain. The patient will be scheduled for left heart catheteriz ation, with coronary angiogram, and possible PTCA/Stent . The procedure was discussed with the patient, and risks, benefits, and alternativ e options were explained. The patient was given informatio n about heart catheteriz ation and interventi onal procedures . The patient agrees to proceed. Dyspnea on exertion 6084 5006 R06.09 Patient states that she has dyspnea on exertion. She also feels fatigue and weakness. She had recent echo in the [facility]. cardiac CTA. with proximal LAD disease. The patient will be scheduled for left heart catheteriz ation, with coronary angiogram, and possible PTCA/Stent . The procedure was discussed with the patient, and risks, benefits, and alternativ e options were explained. The patient was given informatio n about heart catheteriz ation and interventi onal procedures . The patient agrees to proceed. Essential hypertension 08495331 I10 Need better control She does not want to try CCB, DAREN, ARB or HCTZ (all reportedly caused fatigue). 06/06/19 pt currently not taking the imdur. she states she was unable to tolerate the medication . Patient currently taking Bystolic 2.5 mg. Obstructiv e sleep apnea syndrome 37189101 G47.33 CPAP nightly managed by Dr. Cruz Heart murmur 84311451 R0 1.1 Follow echo report Dyslipidemia 460471587 E 78.5 Coronary arteriosclerosis 26067267 I25.10 with fatigue Could be angina equivalent The patient will be scheduled for left heart catheteriz ation, with coronary angiogram, and possible PTCA/Stent . The procedure was discussed with the patient, and risks, benefits, and alternativ e options were explained. The patient was given informatio n about heart catheteriz ation and interventi onal procedures . The patient agrees to proceed. [id number] MD Ira Britton Office [address] [place] [address] 08/14/2019 11:21:00 08/14/2019 12:11:08 Dyspnea on exertion 30354196 R06.09 Consider repeat CPAP titration study. RVSP is elevated. 10/11/2018 : Echocardio graphic Studies : The left atrium is mildly dilated There is mild concentric left ventricula r hypertroph y Left ventricula r systolic function is normal Ejection fraction =60-65% There is mild mitral regurgitat ion There is mild tricuspid regurgitat ion mild pulmonary hypertensi on ZRight ventricula r systolic pressure is 47mmhg mild aortic regurgitat ion Diastolic dysfunctio n Grade 1 Essential hypertension 56460054 I10 Fair control. She does not want to try CCB, DAREN, ARB or HCTZ (all reportedly caused fatigue). 06/06/19 pt currently not taking the imdur. she states she was unable to tolerate the medication . Patient currently taking Bystolic 2.5 mg. Obstructiv e sleep apnea syndrome [id number] G47.33 CPAP nightly managed by Dr. Cruz Dyslipidemia 139404549 E 78.5 Needs to keep LDL less than 70, and HDL more than 40. LIPID 06/07/2019 CH 218 HDL 74 TR 235 LDL 108 Reportedly had LDL 81 (07/2019) Unable to afford Livalo.Had fatigue with Rosuvastat in. Will start Rosuvastat in 10mg 1/2 tab QOD. Coronary arteriosclerosis 83941507 I25.10 [facility] 07/27/2019 with mild/mod disease: distal LAD 50% stenosis; distal LCX 60%, ostial branch off LCX 90%Maximal medical treatment. [id number] MD Ira Britton Office [address] [place] [address] 02/12/2020 10:55:50 02/12/2020 11:41:04 Coronary arteriosclerosis 98272881 I25.10 [facility] 07/27/2019 with mild to moderate disease; distal LAD 50% stenosis; distal LCX 60%, ostial branch off LCX 90%.Roxanne l medical treatment. Dyspnea on exertion 6084 5006 R06.09 Repeat sleep study 01/02/2020 recommends continuing current CPAP settings Echo 10/11/2018 : The left atrium is mildly dilated There is mild concentric left ventricula r hypertroph y Left ventricula r systolic function is normal Ejection fraction =60-65% There is mild mitral regurgitat ion There is mild tricuspid regurgitat ion mild pulmonary hypertenms ion ZRight ventricula r systolic pressure is 47mmhg mild aortic regurgitat ion Diastolic dysfunctio n Grade 1 Essential hypertension 25077483 I10 BP is elevated in office today and her home BP diary shows poor control Will start irbesartan 75mg daily 02/12/2020 and follow-up in 1 month Obstructiv e sleep apnea syndrome 36284163 G47.33 Complaint with nightly CPAP use Managed by Dr. Cruz Dyslipidemia 101016177 E 78.5 Needs to keep LDL less than 70, and HDL more than 40. 020 LDL 98Currentl y not on any statin or other lipid therapy [id number] MD Ira Britton e Office [address] [place] [address] 03/11/2020 09:55:35 03/11/2020 10:36:14 Coronary arteriosclerosis 05727639 I25.10 03/11/2020 [facility] 07/27/2019 with mild to moderate disease; distal LAD 50% stenosis; distal LCX 60%, ostial branch off LCX 90%.Roxanne l medical treatment. Dyspnea on exertion 6084 5006 R06.09 03/11/2020 Repeat sleep study 01/02/2020 recommends continuing current CPAP settings Echo 10/11/2018 : The left atrium is mildly dilated There is mild concentric left ventricula r hypertroph y Left ventricula r systolic function is normal Ejection fraction =60-65% There is mild mitral regurgitat ion There is mild tricuspid regurgitat ion mild pulmonary hypertenms ion ZRight ventricula r systolic pressure is 47mmhg mild aortic regurgitat ion Diastolic dysfunctio n Grade 1 Essential hypertension 28743965 I10 03/11/2020 Pt is no longer taking irbesartan due to fatigue and confusion. BP remains high today. I will start Amlodipine 2.5mg in place of irbestarta n and have her follow up in one month. BP is elevated in office today and her home BP diary shows poor control Education on compliance , impact of HTN, side effects of medication . Obstructiv e sleep apnea syndrome 94712519 G47.33 03/11/2020 Complaint with nightly CPAP use Managed by Dr. Cruz Dyslipidemia 441659679 E 78.5 03/11/2020 Needs to keep LDL less than 70, and HDL more than 40. 020 LDL 98Currentl y not on any statin or other lipid therapy [id number] MD Ira Britton Office [address] [place] [address] 05/06/2020 11:55:58 05/06/2020 12:27:40 Coronary arteriosclerosis 31831945 I25.10 Remains asymptomat [facility] 07/27/2019 with mild to moderate disease: distal LAD 50% stenosis, distal LCX 60%, ostial branch off LCx 90%. Maximal medical treatment Dyspnea on exertion 6084 5006 R06.09 Repeat sleep study 01/02/2020 recommends continuing current CPAP settings Echo 10/11/2018 : The left atrium is mildly dilated There is mild concentric left ventricula r hypertroph y Left ventricula r systolic function is normal Ejection fraction =60-65% There is mild mitral regurgitat ion There is mild tricuspid regurgitat ion mild pulmonary hypertenms ion ZRight ventricula r systolic pressure is 47mmhg mild aortic regurgitat ion Diastolic dysfunctio n Grade 1 Essential hypertension 04754966 I10 Declines antihypert ensive therapy Obstructiv e sleep apnea syndrome 01576200 G47.33 Complaint with nightly CPAP use Managed by pulmonary (Dr. Cruz) Dyslipidemia 576309204 E 78.5 Needs to keep LDL less than 70, and HDL more than 40. 10/19/2019 LDL 98Currentl y not on any statin or other lipid therapy; declines starting.W ill get fasting lipids for follow-up [id number] MD Ira Britton Office [address] [place] [address] 11/04/2020 11:29:51 11/04/2020 12:15:45 Coronary arteriosclerosis 76902196 I25.10 Remains asymptomat [facility] 07/27/2019 with mild to moderate disease: distal LAD 50% stenosis, distal LCX 60%, ostial branch off LCx 90%. Maximal medical treatment Dyspnea on exertion 6084 5006 R06.09 Repeat sleep study 01/02/2020 recommends continuing current CPAP settings Echo 10/11/2018 : The left atrium is mildly dilated There is mild concentric left ventricula r hypertroph y Left ventricula r systolic function is normal Ejection fraction =60-65% There is mild mitral regurgitat ion There is mild tricuspid regurgitat ion mild pulmonary hypertensi on Right ventricula r systolic pressure is 47mmhg mild aortic regurgitat ion Diastolic dysfunctio n Grade 1 Essential hypertension 48438304 I10 Declines anti hypertensi ve therapy Obstructiv e sleep apnea syndrome 83520255 G47.33 Complaint with nightly CPAP use Managed by pulmonary (Dr. Cruz) Dyslipidemia 905642419 E 78.5 Needs to keep LDL less than 70, and HDL more than 40. 10/19/2019 LDL 98Currentl y not on any statin or other lipid therapy; declines starting.W ill get fasting lipids for follow-up [id number] Jeff Jay MD [facility] OFF[facility] [place] [address] 11/29/2020 09:00:43 11/29/2020 15:34:04 Coronary arteriosclerosis 36717057 I25.10 [facility] without chest [facility] 07/27/2019 with mild to moderate disease: distal LAD 50% stenosis, distal LCX 60%, ostial branch off LCx 90%.Roxanne l medical treatment Dyspnea on exertion 6084 5006 R06.09 Repeat sleep study 01/02/2020 recommende d continuing current CPAP settings Echo 04/16/2020 : Study quality: Technicall y difficult. Technical limitation s - poor acoustic window, COPD. LV chamber size is normal. There is borderline LVH. LV systolic function is normal. There is normal global systolic function and contractil ity. The estimated LVEF is 55-60% (normal). LV relaxation is impaired. Left atrium chamber is mildly dilated. The aortic valve is mildly calcified. There is mild aortic root calcificat ion,there is mild aortic regurgitat ion,the mitral valve leaflet is mildly thickened, there is mild mitral regurgitat ion,there is trace tricuspid regurgitat ion,there is no pericardia l effusion present. Essential hypertension 60483661 I10 Instructed to continue hydralazin e as ordered despite fatigue as fatigue should resolve within a few weeks of blood pressure normalizin g Obstructiv e sleep apnea syndrome 50089549 G47.33 Complaint with nightly CPAP use Managed by pulmonary (Dr. Cruz) Dyslipidemia 068912604 E 78.5 Needs to keep LDL less than 70, and HDL more than 40. 020 LDL 98Currentl y not on any statin or other lipid therapy; declines starting.W ill get fasting lipids for follow-up [id number] Jeff Jay MD [facility] [address] [place] [address] 02/28/2021 09:40:13 03/01/2021 08:25:28 Coronary arteriosclerosis 03991329 I25.10 Remains without chest pain or dyspneaLHC 07/27/2019 with mild to moderate disease: distal LAD 50% stenosis, distal LCX 60%, ostial branch off LCx 90%.Roxanne l medical treatment Dyspnea on exertion 6084 5006 R06.09 Repeat sleep study 01/02/2020 recommende d continuing current CPAP settings Echo 04/16/2020 : Study quality: Technicall y difficult. Technical limitation s - poor acoustic window, COPD. LV chamber size is normal. There is borderline LVH. LV systolic function is normal. There is normal global systolic function and contractil ity. The estimated LVEF is 55-60% (normal). LV relaxation is impaired. Left atrium chamber is mildly dilated. The aortic valve is mildly calcified. There is mild aortic root calcificat ion,there is mild aortic regurgitat ion,the mitral valve leaflet is mildly thickened, there is mild mitral regurgitat ion,there is trace tricuspid regurgitat ion,there is no pericardia l effusion present. Essential hypertension 14823556 I10 Instructed to continue hydralazin e, home reading are fair Obstructiv e sleep apnea syndrome 41294738 G47.33 Complaint with nightly CPAP use Managed by pulmonary (Dr. Cruz) Dyslipidemia 115680919 E 78.5 Needs to keep LDL less than 70, and HDL more than 40. 020 LDL 98Currentl y not on any statin or other lipid therapy; declines starting.W ill consider crestor qod, she wants to wait on That [id number] MD Ira Britton Office [address] [place] [address] 05/29/2021 11:00:31 05/29/2021 11:48:31 Coronary arteriosclerosis 52832619 I25.10 Remains without chest pain or dyspneaLHC 07/27/2019 with mild to moderate disease: distal LAD 50% stenosis, distal LCX 60%, ostial branch off LCx 90%.Roxanne l medical treatment Dyspnea on exertion 6084 5006 R06.09 Repeat sleep study 01/02/2020 recommende d continuing current CPAP settings Echo 04/16/2020 : Study quality: Technicall y difficult. Technical limitation s - poor acoustic window, COPD. LV chamber size is normal. There is borderline LVH. LV systolic function is normal. There is normal global systolic function and contractil ity. The estimated LVEF is 55-60% (normal). LV relaxation is impaired. Left atrium chamber is mildly dilated. The aortic valve is mildly calcified. There is mild aortic root calcificat ion,there is mild aortic regurgitat ion,the mitral valve leaflet is mildly thickened, there is mild mitral regurgitat ion,there is trace tricuspid regurgitat ion,there is no pericardia l effusion present. Essential hypertension 06182197 I10 Instructed to continue hydralazin e, home reading are fair Obstructiv e sleep apnea syndrome 52796367 G47.33 Complaint with nightly CPAP use Managed by pulmonary (Dr. Cruz) Dyslipidemia 482755212 E 78.5 Needs to keep LDL less than 70, and HDL more than 40. 020 LDL 98Currentl y not on any statin or other lipid therapy; declines starting.W ill consider crestor qod, she wants to wait on That Paroxysmal atrial fibrillation 577851316 I48.0 now in afibwill need XareltoShe refused any Beta javed [id number] MD Ira Britton Office [address] [place] [address] 08/28/2021 12:31:32 08/28/2021 13:38:27 Coronary arteriosclerosis 74383536 I25.10 [facility] with mild to moderate disease: distal LAD 50% stenosis, distal LCX 60%, ostial branch off LCx 90%.Roxanne l medical treatment Dyspnea on exertion 6084 5006 R06.09 Repeat sleep study 01/02/2020 recommende d continuing current CPAP settingsOb tain echo to evaluate for structural /functiona l disease. Essential hypertension 67397521 I10 Instructed to continue hydralazin e Obstructiv e sleep apnea syndrome 28027347 G47.33 Complaint with nightly CPAP use, but she is a mouth breather, and had nasal Cpap Managed by pulmonary (Dr. Cruz) needs to follow up with him Dyslipidemia 677940442 E 78.5 Needs to keep LDL less than 70, and HDL more than 40. 020 LDL 98Currentl y not on any statin or other lipid therapy; declines starting.W ill consider crestor qod, she wants to wait on That Paroxysmal atrial fibrillation 495478991 I48.0 now in afibwill need XareltoShe refused any Beta javed [id number] MD Ira Britton e Office [address] [place] [address] 11/27/2021 12:18:09 11/27/2021 13:38:45 Coronary arteriosclerosis 71944258 I25.10 Remains without chest pain or dyspneaLHC 07/27/2019 with mild to moderate disease: distal LAD 50% stenosis, distal LCX 60%, ostial branch off LCx 90%.Roxanne l medical treatment Dyspnea on exertion 6084 5006 R06.09 Repeat sleep study 01/02/2020 recommende d continuing current CPAP settingsOb tain echo to evaluate for structural /functiona l disease. Essential hypertension 59702690 I10 Instructed to continue hydralazin e, will increase to 3 times a day Obstructiv e sleep apnea syndrome 12245128 G47.33 Complaint with nightly CPAP use, but she is a mouth breather, and had nasal Cpap Managed by pulmonary (Dr. Cruz) needs to follow up with him Dyslipidemia 694090785 E 78.5 Needs to keep LDL less than 70, and HDL more than 40. 020 LDL 98Currentl y not on any statin or other lipid therapy; declines starting.W ill consider crestor qod, she wants to wait on That Paroxysmal atrial fibrillation 699147095 I48.0 now in afibOn XareltoShe refused any Beta javed [id number] MD Ira Britton Office [address] [place] [address] 02/19/2022 11:27:45 02/19/2022 11:55:05 Coronary arteriosclerosis 19611582 I25.10 Remains without chest pain or dyspneaLHC 07/27/2019 with mild to moderate disease: distal LAD 50% stenosis, distal LCX 60%, ostial branch off LCx 90%.Roxanne l medical treatment Dyspnea on exertion 6084 5006 R06.09 Repeat sleep study 01/02/2020 recommende d continuing current CPAP settingsOb tain echo to evaluate for structural /functiona l disease. Essential hypertension 51225204 I10 Instructed to continue hydralazin e, will increase to 3 times a day Obstructiv e sleep apnea syndrome 13998240 G47.33 Complaint with nightly CPAP use, but she is a mouth breather, and had nasal Cpap Managed by pulmonary (Dr. Cruz) needs to follow up with him Dyslipidemia 130310402 E 78.5 Needs to keep LDL less than 70, and HDL more than 40. 020 LDL 98Currentl y not on any statin or other lipid therapy; declines starting.W ill consider crestor qod, she wants to wait on That Paroxysmal atrial fibrillation 899309464 I48.0 now in afibOn XareltoShe refused any Beta javed [id number] MD Ira Britton Office [address] [place] [address] 04/15/2022 16:28:11 04/15/2022 17:13:42 Coronary arteriosclerosis 53963755 I25.10 [facility] with mild to moderate disease: distal LAD 50% stenosis, distal LCX 60%, ostial branch off LCx 90%.Roxanne l medical treatment Dyspnea on exertion 6084 5006 R06.09 Repeat sleep study 01/02/2020 recommende d continuing current CPAP settingsOb tain echo to evaluate for structural /functiona l disease. Essential hypertension 68855951 I10 Instructed to continue hydralazin e, will increase to 3 times a day Obstructiv e sleep apnea syndrome 60571634 G47.33 Complaint with nightly CPAP use, but she is a mouth breather, and had nasal Cpap Managed by pulmonary (Dr. Cruz) needs to follow up with him Dyslipidemia 510027588 E 78.5 Needs to keep LDL less than 70, and HDL more than 40. 020 LDL 98Currentl y not on any statin or other lipid therapy; declines starting.W ill consider crestor qod, she wants to wait on That Paroxysmal atrial fibrillation 768579110 I48.0 now in afibOn Zina refused any Beta javed Atypical chest pain 1025 38021 R07.89 Lexiscan Myoview stress test, pt can not walk. Has known coronary artery disease, with atypical symptoms now, the patient is not able to walk on treadmill Health Concerns Section Related Observation LastModified by Organization Detai ls LastModified Time None Recorded Concern Status LastModified by Organization Details LastModified Time None Recorded Advance Directives Directive None Recorded Payers Insurance Date Sequence Insurance Name Policy Number Policy Wallace Covered Member ID Wallace Member ID Guarantor Name 05/29/2021 1 [email or web address] - DOS PRIOR TO 2024 (PPO) Ana Laura Ansari Field [id number] Ana Laura Field 04/14/2022 1 [employer] PRIOR TO 05/17/2024 (PPO) Ana Laura Ansari Field [id number] PATEL Ana Laura Field Notes Date Note Type Note Provider Name and Address Organization Details Recorded Time 05/29/2021 text/html Hospitalization Contact RecordReported by Patient 02/28/21CC : Cardiac follow up, Fatigue, [id number] -year-old Female with h/o Hypertension, and COPD , mild-mod CAD ([facility] 07/27/2019), BARBARA on CPAP, here for 3 month follow-up.She was last seen in the clinic on 11/29/20, since then she is doing well, her home BP is fair, her home readings are good Denies chest pain.Denies shortness of breath at rest. Has mild dyspnea on exertion.No orthopnea. No PNDs.She has occasional heart palpitations.Denies dizziness. Denies syncope or near syncope.No ankle or leg edema.No major bleeding events.No reported side effects from medications. Taking medications as prescribed with no missed doses.Denies snoring, daytime somnolence and AM headache, she is on Cpap.*Last LDL was 108 done on 06/06/19.Pt dose not takes any statins.*No known history of tobacco, alcohol, or drug use. Patient also denies the use of caffeine. Previously :She was started on hydralazine 25 mg BID for persistent hypertension. fatigue since starting it, but also states her fatigue is chronic, improved now She previously reported that she was not able to tolerate the irbesartan. Reported fatigue and confusion with irbesartan, to the point of inability to remember her address She is following a youth worker in [place] for her hypothyroidism. She was previously taking 2.5 mg bystolic. She was unable to tolerate the 5 mg due to some fatigue. She stopped the bystolic all together and she reports feeling better since stopping it. *ECHO 04/16/20:Study quality:technically difficult,technical limitations-poor acoustic window,COPD.LV chamber size is normal,there is borderline LVH,LV systolic function is normal,there is normal global systolic function and contractility,the estimated LVEF is 55-60% (normal),LV relaxation is impaired,left atrium chamber is mildly dilated,the aortic valve is mildly calcified,there is mild aortic root calcification,there is mild aortic regurgitation,the mitral valve leaflet is mildly thickened,there is mild mitral regurgitation,there is trace tricuspid regurgitation,there is no pericardial effusion present. *[facility] 07/27/2019 with mild/mod disease: distal LAD 50% stenosis; distal LCX 60%, ostial branch off LCX 90% *Had cardiac CTA done in 06/19/19 showed Calcified lesion noted in distal LM at the trifurcation of LAD, Ramus and LCX, causing less than 25% stenosis. Otherwise, no significant disease. Normal EF 78%. Mild left atrial dilatation.Results from this visit, or from the past:US, doppler, venous [id number] acute or chronic deep venous thrombosis of the left lower extremity,no acute deep vein thromosis of the right common femoral vein. COVID-19 RNA (SARS-CoV-2), , face man-PCR, respiratory specimen 12-25-2019 12/25/2019 : Simental COVID -19 RNA Not detected 07/27/19: TC 182, TG 101, HDL 81 ,LDL 81, PT 13.1, INR 0.97 07/27/19: TC 182, TG 101, HDL 81 ,LDL 81, PT 13.1, INR 0.97 07/27/19: Na 141, K 3.8 , CL 107 ,CO2 23, GLU 108, BUN 024, CR 0.8, 07/27/19: HB 12.8, HT 41 LIPID 06/07/2019 CH 218 HDL 74 TR 235 LDL 108 CMP 06/07/2019 GL 82 BUN 34 CR 1.04 NA 144 K 4.1 CH 104 CO2 29 CA 9.4 ALK PH 92 AST 23 ALT 28 CK 125 EKG 11/04/20:low voltage chest leads,poor R progression in chest leads 02/12/2020 EKG : Low voltage in chest leads ,Poor R progression in chest leads EKG, 04/18/19: Sinus Rhythm; ABN EKG, mu ECHO 04/16/20:Study quality:technically difficult,technical limitations-poor acoustic window,COPD.LV chamber size is normal,there is borede borderline LVH,LV systolic function is normal,there is normal global systolic function and contractility,the estimated LVEF is 55-60% (normal),LV relaxation is impaired,left atrium chamber is mildly dilated,the aortic valve is milldy calcified,there is mild aortic root calcification,there is mild aortic regurgitation,the mitral valve leaflet is mildly thickened,there is mild mitral regurgitation,there is trace tricuspid regurgitation,there is no pericardial effusion present. 07/27/19 LHC: Mild to moderate 2 vessel disease as above. CT Angiogram 06/19/2019 Calcified lesion noted in distal LM at the trifucation of LAD, Ramus and LCX, causing less than 25% stenosis. Otherwise, no significant disease. Normal EF 78%. Mild left atrial dilatation. 05/31/20-No acute or chronic deep venous thrombosis of the left lower extremity,no acute deep vein thromosis of the right common femoral vein. 10/11/2018 : Echocardiographic Studies : The left atrium is mildly dilated There is mild concentric left ventricular hypertrophy Left ventricular systolic function is normal Ejection fraction =60-65% There is mild mitral regurgitation There is mild tricuspid regurgitation mild pulmonary hypertension Right ventricular systolic pressure is 47mmhg mild aortic regurgitation Diastolic dysfunction Grade 1 11/18/2017: [facility] Lexiscan : 1) No evidence of ischemia or infarct noted ,2) Normal left ventricular wall motion ,3) Calculated ejection fraction is 79% 12/27/2019 : Chest X-Ray : Stable appearance of the chest since the prior study XR, chest, 2 view 09-27-201809/27/18 Chest XR: No evidence for acute cardiopulmonary abnormality. Very mild cardiomegaly again noted. Chronic appearing findings which Jeff Jay MD [address] [place], [address], [facility] 05/29/2021 11:40:33 08/28/2021 text/html Hospitalization Contact RecordReported by Patient 08/28/21CC : Cardiac follow up, [id number] -year-old Female with h/o Hypertension, and COPD , mild-mod CAD ([facility] 07/27/2019), BARBARA on CPAP, here for 3 month follow-up with event monitor results. She was last seen in the clinic on 05/29/21, since then she still has fatigueShe denies ER visits and hospitalizations since she was last seen. Denies chest pain.Denies shortness of breath at rest. Has mild dyspnea on exertion.No orthopnea. No PNDs.Denies heart palpitations.Denies dizziness. Denies syncope or near syncope.No ankle or leg edema.No major bleeding events.No reported side effects from medications. Taking medications as prescribed with no missed doses.Denies snoring, daytime somnolence and AM headache.*Last LDL was 98 done on 10/18/19 .Pt dose not takes any statins. *Had Unremarkable Holter done on 06/18/21 She was started on hydralazine 25 mg BID for persistent hypertension. fatigue since starting it, but also states her fatigue is chronic, improved now She previously reported that she was not able to tolerate the irbesartan. Reported fatigue and confusion with irbesartan, to the point of inability to remember her address She is following a youth worker in [place] for her hypothyroidism. She was previously taking 2.5 mg bystolic. She was unable to tolerate the 5 mg due to some fatigue. She stopped the bystolic all together and she reports feeling better since stopping it. *ECHO 04/16/20:Study quality:technically difficult,technical limitations-poor acoustic window,COPD.LV chamber size is normal,there is borderline LVH,LV systolic function is normal,there is normal global systolic function and contractility,the estimated LVEF is 55-60% (normal),LV relaxation is impaired,left atrium chamber is mildly dilated,the aortic valve is mildly calcified,there is mild aortic root calcification,there is mild aortic regurgitation,the mitral valve leaflet is mildly thickened,there is mild mitral regurgitation,there is trace tricuspid regurgitation,there is no pericardial effusion present. *[facility] 07/27/2019 with mild/mod disease: distal LAD 50% stenosis; distal LCX 60%, ostial branch off LCX 90% *Had cardiac CTA done in 06/19/19 showed Calcified lesion noted in distal LM at the trifurcation of LAD, Ramus and LCX, causing less than 25% stenosis. Otherwise, no significant disease. Normal EF 78%. Mild left atrial dilatation.Results from this visit, or from the past:US, doppler, venous [id number] acute or chronic deep venous thrombosis of the left lower extremity,no acute deep vein thromosis of the right common femoral vein. COVID-19 RNA (SARS-CoV-2), QL, face man-PCR, respiratory specimen 12-25-2019 12/25/2019 : Simental COVID -19 RNA Not detected 07/27/19: TC 182, TG 101, HDL 81 ,LDL 81, PT 13.1, INR 0.97 07/27/19: TC 182, TG 101, HDL 81 ,LDL 81, PT 13.1, INR 0.97 07/27/19: Na 141, K 3.8 , CL 107 ,CO2 23, GLU 108, BUN 024, CR 0.8, 07/27/19: HB 12.8, HT 41 LIPID 06/07/2019 CH 218 HDL 74 TR 235 LDL 108 CMP 06/07/2019 GL 82 BUN 34 CR 1.04 NA 144 K 4.1 CH 104 CO2 29 CA 9.4 ALK PH 92 AST 23 ALT 28 CK 125 EKG 11/04/20:low voltage chest leads,poor R progression in chest leads 02/12/2020 EKG : Low voltage in chest leads ,Poor R progression in chest leads EKG, 04/18/19: Sinus Rhythm; ABN EKG, ECHO 04/16/20:Study quality:technically difficult,technical limitations-poor acoustic window,COPD.LV chamber size is normal,there is borede borderline LVH,LV systolic function is normal,there is normal global systolic function and contractility,the estimated LVEF is 55-60% (normal),LV relaxation is impaired,left atrium chamber is mildly dilated,the aortic valve is milldy calcified,there is mild aortic root calcification,there is mild aortic regurgitation,the mitral valve leaflet is mildly thickened,there is mild mitral regurgitation,there is trace tricuspid regurgitation,there is no pericardial effusion present. 07/27/19 LHC: Mild to moderate 2 vessel disease as [address] CT Angiogram 06/19/2019 Calcified lesion noted in distal LM at the trifucation of LAD, Ramus and LCX, causing less than 25% stenosis. Otherwise, no significant disease. Normal EF 78%. Mild left atrial dilatation. 05/31/20-No acute or chronic deep venous thrombosis of the left lower extremity,no acute deep vein thromosis of the right common femoral vein. 10/11/2018 : Echocardiographic Studies : The left atrium is mildly dilated There is mild concentric left ventricular hypertrophy Left ventricular systolic function is normal Ejection fraction =60-65% There is mild mitral regurgitation There is mild tricuspid regurgitation mild pulmonary hypertension Right ventricular systolic pressure is 47mmhg mild aortic regurgitation Diastolic dysfunction Grade 1 11/18/2017: [facility] Lexiscan : 1) No evidence of ischemia or infarct noted ,2) Normal left ventricular wall motion ,3) Calculated ejection fraction is 79% 12/27/2019 : Chest X-Ray : Stable appearance of the chest since the prior study XR, chest, 2 view 2019 09/27/18 Chest XR: No evidence for acute cardiopulmonary abnormality. Very mild cardiomegaly again noted. Chronic appearing findings which Jeff Jay MD [address] [place], [address], [facility] 08/28/2021 13:07:02 11/27/2021 text/html Hospitalization Contact RecordReported by Patient 11/27/21CC : Cardiac follow up, dyspnea on [id number] -year-old Female with h/o Hypertension, and COPD , mild-mod CAD ([facility] 07/27/2019), BARBARA on CPAP, here for 3 month follow-up with ECHO results. She was last seen in the clinic on 10/28/21 , since then she has fatigueShe denies ER visits and hospitalizations since she was last seen. Denies chest pain.Denies shortness of breath at rest. Has mild dyspnea on exertion.No orthopnea. No PNDs.Denies heart palpitations.Denies dizziness. Denies syncope or near syncope.No ankle or leg edema.No major bleeding events.No reported side effects from medications. Taking medications as prescribed with no missed doses.Denies snoring, daytime somnolence and AM headache.*Last LDL 98 was done on 10/18/19 .Pt dose not takes any statins. Previously:She still has fatigue *Had Unremarkable Holter done on 06/18/21 She was started on hydralazine 25 mg BID for persistent hypertension. fatigue since starting it, but also states her fatigue is chronic, improved now She previously reported that she was not able to tolerate the irbesartan. Reported fatigue and confusion with irbesartan, to the point of inability to remember her address She is following a youth worker in [place] for her hypothyroidism. She was previously taking 2.5 mg bystolic. She was unable to tolerate the 5 mg due to some fatigue. She stopped the bystolic all together and she reports feeling better since stopping it. (09/17/2021)-ECHO.Stud y quality: Technically difficult. Technical limitations- poor acoustic window, COPD. LV chamber size is normal. LV wall thickness is moderately increased. The estimated left ventricle ejection fraction is 70-75% (normal). LV relaxation is impaired. Left Atrium chamber is mildly dilated. The aortic valve is mildly calcified. There is mild aortic root calcification. There is mild to moderate aortic regurgitation. There is mild aortic valve stenosis. There is mild calcification of mitral valve posterior leaflet. The mitral valve leaflet is mildly thickened. There is mild triscupid regurgitation. Mild elevation of estimated RV systolic pressure. Estimated RVSP systolic pressure is 45 mmHg. Irregular. *[facility] 07/27/2019 with mild/mod disease: distal LAD 50% stenosis; distal LCX 60%, ostial branch off LCX 90% *Had cardiac CTA done in 06/19/19 showed Calcified lesion noted in distal LM at the trifurcation of LAD, Ramus and LCX, causing less than 25% stenosis. Otherwise, no significant disease. Normal EF 78%. Mild left atrial dilatation.Results from this visit, or from the past:US, doppler, venous [id number] acute or chronic deep venous thrombosis of the left lower extremity,no acute deep vein thromosis of the right common femoral vein. COVID-19 RNA (SARS-CoV-2), , face man-PCR, respiratory specimen 12-25-2019 12/25/2019 : Simental COVID -19 RNA Not detected 07/27/19: TC 182, TG 101, HDL 81 ,LDL 81, PT 13.1, INR 0.97 07/27/19: TC 182, TG 101, HDL 81 ,LDL 81, PT 13.1, INR 0.97 07/27/19: Na 141, K 3.8 , CL 107 ,CO2 23, GLU 108, BUN 024, CR 0.8, 07/27/19: HB 12.8, HT 41 LIPID 06/07/2019 CH 218 HDL 74 TR 235 LDL 108 CMP 06/07/2019 GL 82 BUN 34 CR 1.04 NA 144 K 4.1 CH 104 CO2 29 CA 9.4 ALK PH 92 AST 23 ALT 28 CK 125 EKG 11/04/20:low voltage chest leads,poor R progression in chest leads 02/12/2020 EKG : Low voltage in chest leads ,Poor R progression in chest leads EKG, 04/18/19: Sinus Rhythm; ABN EKG, mu ECHO 04/16/20:Study quality:technically difficult,technical limitations-poor acoustic window,COPD.LV chamber size is normal,there is borede borderline LVH,LV systolic function is normal,there is normal global systolic function and contractility,the estimated LVEF is 55-60% (normal),LV relaxation is impaired,left atrium chamber is mildly dilated,the aortic valve is milldy calcified,there is mild aortic root calcification,there is mild aortic regurgitation,the mitral valve leaflet is mildly thickened,there is mild mitral regurgitation,there is trace tricuspid regurgitation,there is no pericardial effusion present. 07/27/19 LHC: Mild to moderate 2 vessel [address] Angiogram 06/19/2019 Calcified lesion noted in distal LM at the trifucation of LAD, Ramus and LCX, causing less than 25% stenosis. Otherwise, no significant disease. Normal EF 78%. Mild left atrial dilatation. 05/31/20-No acute or chronic deep venous thrombosis of the left lower extremity,no acute deep vein thromosis of the right common femoral vein. 10/11/2018 : Echocardiographic Studies : The left atrium is mildly dilated There is mild concentric left ventricular hypertrophy Left ventricular systolic function is normal Ejection fraction =60-65% There is mild mitral regurgitation There is mild tricuspid regurgitation mild pulmonary hypertension Right ventricular systolic pressure is 47mmhg mild aortic regurgitation Diastolic dysfunction Grade 1 11/18/2017: [facility] Lexiscan : 1) No evidence of ischemia or infarct noted ,2) Normal left ventricular wall motion ,3) Calculated ejection fraction is 79% 12/27/2019 : Chest X-Ray : Stable appearance of the chest since the prior study XR, chest, 2 view 09-27-2018 09/27/18 Chest XR: No evidence for acute cardiopulmonary abnormality. Very mild cardiomegaly again noted. Chronic appearing findings which Jeff Jay MD [address] [place], [address], [facility] 11/27/2021 13:10:05 02/19/2022 text/html Hospitalization Contact RecordReported by Patient 02/19/22CC : Cardiac follow up, dyspnea on [id number] -year-old Female with h/o Hypertension, and COPD , mild-mod CAD ([facility] 07/27/2019), BARBARA on CPAP, here for 3 month follow-up. She was last seen in the clinic on 11/27/21, since then she has Hypertension here today, but her home BP reading are OK.She denies ER visits and hospitalizations since she was last seen. Denies shortness of breath at rest. Has mild dyspnea on exertion.No orthopnea. No PNDs.Denies heart palpitations.Denies dizziness. Denies syncope or near syncope.No ankle or leg edema.No major bleeding events.No reported side effects from medications. Taking medications as prescribed with no missed doses.Denies snoring, daytime somnolence and AM headache.*Last LDL 98 was done on 10/18/19 .Pt dose not takes any statins. Previously:She still has fatigue *Had Unremarkable Holter done on 06/18/21 She was started on hydralazine 25 mg BID for persistent hypertension. fatigue since starting it, but also states her fatigue is chronic, improved now She previously reported that she was not able to tolerate the irbesartan. Reported fatigue and confusion with irbesartan, to the point of inability to remember her address She is following a youth worker in [place] for her hypothyroidism. She was previously taking 2.5 mg bystolic. She was unable to tolerate the 5 mg due to some fatigue. She stopped the bystolic all together and She reports feeling better since stopping it.ECHO (09/17/2021)-. LV chamber size is normal. LV wall thickness is moderately increased. The estimated left ventricle ejection fraction is 70-75% (normal). LV relaxation is impaired. Left Atrium chamber is mildly dilated. The aortic valve is mildly calcified. There is mild aortic root calcification. There is mild to moderate aortic regurgitation. There is mild aortic valve stenosis. There is mild calcification of mitral valve posterior leaflet. The mitral valve leaflet is mildly thickened. There is mild triscupid regurgitation. Mild elevation of estimated RV systolic pressure. Estimated RVSP systolic pressure is 45 mmHg. Irregular. *[facility] 07/27/2019 with mild/mod disease: distal LAD 50% stenosis; distal LCX 60%, ostial branch off LCX 90% *Had cardiac CTA done in 06/19/19 showed Calcified lesion noted in distal LM at the trifurcation of LAD, Ramus and LCX, causing less than 25% stenosis. Otherwise, no significant disease. Normal EF 78%. Mild left atrial dilatation.Results from this visit, or from the past:US, doppler, venous [id number] acute or chronic deep venous thrombosis of the left lower extremity,no acute deep vein thromosis of the right common femoral vein. COVID-19 RNA (SARS-CoV-2), QL, face man-PCR, respiratory specimen 12-25-2019 12/25/2019 : Simental COVID -19 RNA Not detected 07/27/19: TC 182, TG 101, HDL 81 ,LDL 81, PT 13.1, INR 0.97 07/27/19: TC 182, TG 101, HDL 81 ,LDL 81, PT 13.1, INR 0.97 07/27/19: Na 141, K 3.8 , CL 107 ,CO2 23, GLU 108, BUN 024, CR 0.8, 07/27/19: HB 12.8, HT 41 LIPID 06/07/2019 CH 218 HDL 74 TR 235 LDL 108 CMP 06/07/2019 GL 82 BUN 34 CR 1.04 NA 144 K 4.1 CH 104 CO2 29 CA 9.4 ALK PH 92 AST 23 ALT 28 CK 125 EKG 11/04/20:low voltage chest leads,poor R progression in chest leads 02/12/2020 EKG : Low voltage in chest leads ,Poor R progression in chest leads EKG, 04/18/19: Sinus Rhythm; ABN EKG, ECHO 04/16/20:Study quality:technically difficult,technical limitations-poor acoustic window,COPD.LV chamber size is normal,there is borede borderline LVH,LV systolic function is normal,there is normal global systolic function and contractility,the estimated LVEF is 55-60% (normal),LV relaxation is impaired,left atrium chamber is mildly dilated,the aortic valve is milldy calcified,there is mild aortic root calcification,there is mild aortic regurgitation,the mitral valve leaflet is mildly thickened,there is mild mitral regurgitation,there is trace tricuspid regurgitation,there is no pericardial effusion present. 07/27/19 [facility]: Mild to moderate 2 [address] Angiogram 06/19/2019 Calcified lesion noted in distal LM at the trifucation of LAD, Ramus and LCX, causing less than 25% stenosis. Otherwise, no significant disease. Normal EF 78%. Mild left atrial dilatation. 05/31/20-No acute or chronic deep venous thrombosis of the left lower extremity,no acute deep vein thromosis of the right common femoral vein. 10/11/2018 : Echocardiographic Studies : The left atrium is mildly dilated There is mild concentric left ventricular hypertrophy Left ventricular systolic function is normal Ejection fraction =60-65% There is mild mitral regurgitation There is mild tricuspid regurgitation mild pulmonary hypertension Right ventricular systolic pressure is 47mmhg mild aortic regurgitation Diastolic dysfunction Grade 1 11/18/2017: [facility] Lexiscan : 1) No evidence of ischemia or infarct noted ,2) Normal left ventricular wall motion ,3) Calculated ejection fraction is 79% 12/27/2019 : Chest X-Ray : Stable appearance of the chest since the prior study XR, chest, 2 view 09-27-2019 09/27/18 Chest XR: No evidence for acute cardiopulmonary abnormality. Very mild cardiomegaly again noted. Chronic appearing findings which Jeff Jay MD [address] [place], [address], [facility] 02/19/2022 11:53:58 04/15/2022 text/html Hospitalization Contact RecordReported by Patient 04/15/22CC : Cardiac follow up, chest pain86 -year-old Female with h/o Hypertension, and COPD , mild-mod CAD ([facility] 07/27/2019), BARBARA on CPAP, here for 3 month follow-up. She was last seen in the clinic on 02/19/22, since then she had some more chest painShe denies ER visits and hospitalizations since she was last seen. Has chest pain, and back painDenies shortness of breath at rest. Has mild dyspnea on exertion.No orthopnea. No PNDs.Had heart palpitations.Denies dizziness. Denies syncope or near syncope.No ankle or leg edema.No major bleeding events.No reported side effects from medications. Taking medications as prescribed with no missed doses.Denies snoring, daytime somnolence and AM headache.*Last LDL was 98 done on 10/18/19.Pt dose not takes any statins. She still has fatigue*Had Unremarkable Holter done on 06/18/21 She was started on hydralazine 25 mg BID for persistent hypertension. fatigue since starting it, but also states her fatigue is chronic, improved now She previously reported that she was not able to tolerate the irbesartan. Reported fatigue and confusion with irbesartan, to the point of inability to remember her address She is following a youth worker in [place] for her hypothyroidism. She reports feeling better since stopping it.ECHO (09/17/2021)-. LV chamber size is normal. LV wall thickness is moderately increased. The estimated left ventricle ejection fraction is 70-75% (normal). LV relaxation is impaired. Left Atrium chamber is mildly dilated. The aortic valve is mildly calcified. There is mild aortic root calcification. There is mild to moderate aortic regurgitation. There is mild aortic valve stenosis. There is mild calcification of mitral valve posterior leaflet. The mitral valve leaflet is mildly thickened. There is mild triscupid regurgitation. Mild elevation of estimated RV systolic pressure. Estimated RVSP systolic pressure is 45 mmHg. Irregular. *[facility] 07/27/2019 with mild/mod disease: distal LAD 50% stenosis; distal LCX 60%, ostial branch off LCX 90% *Had cardiac CTA done in 06/19/19 showed Calcified lesion noted in distal LM at the trifurcation of LAD, Ramus and LCX, causing less than 25% stenosis. Otherwise, no significant disease. Normal EF 78%. Mild left atrial dilatation.Results from this visit, or from the past:US, doppler, venous [id number] acute or chronic deep venous thrombosis of the left lower extremity,no acute deep vein thromosis of the right common femoral vein. COVID-19 RNA (SARS-CoV-2), QL, face man-PCR, respiratory specimen 12-25-2019 12/25/2019 : Simental COVID -19 RNA Not detected 07/27/19: TC 182, TG 101, HDL 81 ,LDL 81, PT 13.1, INR 0.97 07/27/19: TC 182, TG 101, HDL 81 ,LDL 81, PT 13.1, INR 0.97 07/27/19: Na 141, K 3.8 , CL 107 ,CO2 23, GLU 108, BUN 024, CR 0.8, 07/27/19: HB 12.8, HT 41 LIPID 06/07/2019 CH 218 HDL 74 TR 235 LDL 108 CMP 06/07/2019 GL 82 BUN 34 CR 1.04 NA 144 K 4.1 CH 104 CO2 29 CA 9.4 ALK PH 92 AST 23 ALT 28 CK 125 EKG 11/04/20:low voltage chest leads,poor R progression in chest leads 02/12/2020 EKG : Low voltage in chest leads ,Poor R progression in chest leads EKG, 04/18/19: Sinus Rhythm; ABN EKG, mu ECHO 04/16/20:Study quality:technically difficult,technical limitations-poor acoustic window,COPD.LV chamber size is normal,there is borede borderline LVH,LV systolic function is normal,there is normal global systolic function and contractility,the estimated LVEF is 55-60% (normal),LV relaxation is impaired,left atrium chamber is mildly dilated,the aortic valve is milldy calcified,there is mild aortic root calcification,there is mild aortic regurgitation,the mitral valve leaflet is mildly thickened,there is mild mitral regurgitation,there is trace tricuspid regurgitation,there is no pericardial effusion present. 07/27/19 LHC: Mild to moderate 2 vessel disease as [address]. CT Angiogram 06/19/2019 Calcified lesion noted in distal LM at the trifucation of LAD, Ramus and LCX, causing less than 25% stenosis. Otherwise, no significant disease. Normal EF 78%. Mild left atrial dilatation. 05/31/20-No acute or chronic deep venous thrombosis of the left lower extremity,no acute deep vein thromosis of the right common femoral vein. 10/11/2018 : Echocardiographic Studies : The left atrium is mildly dilated There is mild concentric left ventricular hypertrophy Left ventricular systolic function is normal Ejection fraction =60-65% There is mild mitral regurgitation There is mild tricuspid regurgitation mild pulmonary hypertension Right ventricular systolic pressure is 47mmhg mild aortic regurgitation Diastolic dysfunction Grade 1 11/18/2017: [facility] Lexiscan : 1) No evidence of ischemia or infarct noted ,2) Normal left ventricular wall motion ,3) Calculated ejection fraction is 79% 12/27/2019 : Chest X-Ray : Stable appearance of the chest since the prior study XR, chest, 2 view 09-27-2018 09/27/18 Chest XR: No evidence for acute cardiopulmonary abnormality. Very mild cardiomegaly again noted. Chronic appearing findings which Jeff Jay MD [address] [place], [address], [facility] 04/15/2022 17:08:31 OBGyn Episode No OBEpisode recorded.
--- OUTSIDE RECORDS SUMMARY | 2025-05-07 16:27 | XMS_ITS | Clinical Summary ---
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 Name Role Phone Migue Hill DO Primary Care Provider + Milton Funes MD Unavailable [phone] Allergies Active Allergy Reactions Criticality Noted Date [...] fatigue Fluconazole Other (See comments) Low 04/19/2019 [place] like flu sx Venlafaxine Unknown 03/30/2016 Weakness [...] mg total) by mouth daily Active omega 1-dwl-ply-fis h oil 1,600-500-800 mg/5 mL liquid Take [...] Plan (11/06/2021 10:15 AM CDT): 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 She does not have evidence of obstruction but her spirometry flows are reduced and I suspect this is related to her kyphosis. She has multi valve regurgitation and I did ask her to contact her supervisor cigar processing regarding the recent echo results. Assessment & [...] disorder) Assessment & Plan (03/20/2025 11:48 AM WIRELESS TEAM MEMBER): PLMD are under reasonable control with Requip [...] q.h.s. Assessment & Plan (04/06/2023 10:41 AM WIRELESS TEAM MEMBER): The RLS/PLMD symptoms are being controlled with [...] night. Assessment & Plan (04/07/2022 11:14 AM WIRELESS TEAM MEMBER): The PLMS are under control with Requip [...] 11/09/2019 Assessment & Plan (03/20/2025 11:49 AM WIRELESS TEAM MEMBER): The patient continues to benefit from CPAP [...] The patient will switch to [employer] in [place] and I will send an order to [...] order sent to her supplier who is [email or web address] in [facility] to change the auto titrating range to 17-20 cm water. She will follow up here in 2 months to assess her progress. Assessment & Plan (04/06/2023 10:41 AM WIRELESS TEAM MEMBER): The patient continues to benefit from the auto titrating CPAP unit with a range of 15-20 cm water pressure for ongoing BARBARA symptoms. She will follow up here in 6 months. Her DME supplier is [employer] in [place]. Assessment & Plan (10/06/2022 11:32 AM CDT): She continues to benefit from the auto titrating CPAP unit with a range of 15-20 cm water pressure. Her DME supplier is [employer] in [facility]. She will follow-up with me in 6 months. Assessment & Plan (04/07/2022 11:14 AM WIRELESS TEAM MEMBER): The patient continues to benefit from the auto titrating CPAP unit with a range of 15-20 cm water pressure. Her DME supplier is [employer] in [address] She will follow-up with me in [...] & Plan (10/19/2019 9:31 AM CDT): Seeing forging press setter up Assessment & Plan (08/22/2019 4:21 PM CDT): [...] mg daily Coronary artery disease invo lving andreafski coronary artery of andreafski heart without angina pectoris 07/08/2019 Dyslipidemia 07/08/2019 Assessment & Plan (12/24/2022 11:38 AM CDT): Patient is well controlled. Continue current treatment. Assessment & Plan (11/06/2021 10:13 AM CDT): Patient is well controlled. Continue current treatment. Peripheral polyneuropathy 04/15/2019 Assessment & Plan (03/23/2023 4:51 PM WIRELESS TEAM MEMBER): Chronic condition Worsening Add gabapentin 100 mg [...] treatment. Assessment & Plan (04/21/2022 1:54 PM WIRELESS TEAM MEMBER): Patient is well controlled. Continue current treatment. Assessment & Plan (12/16/2021 11:50 AM CDT): Patient is well controlled. Continue current treatment. Assessment & Plan (11/06/2021 10:07 AM CDT): Patient is well controlled. Continue current treatment. Assessment & Plan (05/07/2021 3:04 PM WIRELESS TEAM MEMBER): Patient is well controlled. Continue current treatment. Assessment & Plan (02/05/2021 10:37 AM CDT): Doing well with hydralazine Cardiology notes reviewed Assessment & Plan (11/05/2020 11:40 AM CDT): Patient is well controlled. Continue current treatment. Will start hydralazine Assessment & Plan (10/02/2020 11:01 AM CDT): Stable Has been off medication on own Assessment & Plan (05/13/2020 10:51 AM WIRELESS TEAM MEMBER): Can not tolerate multiple meds Discussed Wishes [...] week Assessment & Plan (07/19/2019 9:27 AM WIRELESS TEAM MEMBER): Patient is well controlled. Continue current treatment. Assessment & Plan (05/04/2019 11:11 AM WIRELESS TEAM MEMBER): Start isosorbide Assessment & Plan (04/25/2019 12:37 PM WIRELESS TEAM MEMBER): Patient is well controlled. Continue current treatment. Assessment & Plan (04/19/2019 9:55 AM WIRELESS TEAM MEMBER): Patient is well controlled. Continue current treatment. [...] treatment. Assessment & Plan (05/07/2021 3:04 PM WIRELESS TEAM MEMBER): Check a TSH and free T4 in [...] months Assessment & Plan (05/13/2020 10:52 AM WIRELESS TEAM MEMBER): Recheck lab in 3 months Assessment & Plan (03/07/2020 4:49 PM CDT): Keep off of LT4 Recheck TFT's Assessment & Plan (02/09/2020 10:48 AM CDT): No new orders Sees forging press setter up Assessment & Plan (11/09/2019 11:37 AM CDT): Stable Assessment & Plan (10/26/2019 10:14 AM CDT): Sees forging press setter up Assessment & Plan (10/24/2019 1:03 PM CDT): [...] accordingly Assessment & Plan (05/04/2019 11:11 AM WIRELESS TEAM MEMBER): Patient is well controlled. Continue current treatment. [...] treatment. Assessment & Plan (04/21/2022 1:54 PM WIRELESS TEAM MEMBER): occ sob Check a cxr Assessment & Plan (01/07/2022 1:45 PM CDT): Patient is well controlled. Continue current treatment. Assessment & Plan (12/16/2021 11:50 AM CDT): Patient is well controlled. Continue current treatment. Assessment & Plan (11/06/2021 10:07 AM CDT): Patient is well controlled. Continue current treatment. Assessment & Plan (05/07/2021 3:03 PM WIRELESS TEAM MEMBER): Patient is well controlled. Continue current treatment. Assessment & Plan (02/05/2021 10:42 AM CDT): Patient is well controlled. Continue current treatment. Assessment & Plan (05/13/2020 10:51 AM WIRELESS TEAM MEMBER): Patient is well controlled. Continue current treatment. Assessment & Plan (02/09/2020 10:47 AM CDT): Patient is well controlled. Continue current treatment. Assessment & Plan (11/09/2019 11:38 AM CDT): Stable Assessment & Plan (10/26/2019 10:13 AM CDT): Patient is well controlled. Continue current treatment. Assessment & Plan (10/19/2019 9:30 AM CDT): Patient is well controlled. Continue current treatment. Assessment & Plan (07/19/2019 9:27 AM WIRELESS TEAM MEMBER): Sees Dr. Cruz Assessment & Plan (04/19/2019 9:55 AM WIRELESS TEAM MEMBER): Patient is well controlled. Continue current treatment. Assessment & Plan (01/10/2019 12:03 PM CDT): Patient is well controlled. Continue current treatment. Assessment & Plan (09/27/2018 11:23 AM CDT): Check a cxr Chronic fatigue 10/08/2016 Assessment & Plan (03/23/2023 4:52 PM WIRELESS TEAM MEMBER): Chronic condition Worsening Check lab including a b 12 and a tsh Assessment & Plan (04/21/2022 1:55 PM WIRELESS TEAM MEMBER): Worsening Chronic condition Not at goal Will have a stress test Assessment & Plan (05/07/2021 3:02 PM WIRELESS TEAM MEMBER): No new issues Assessment & Plan (02/05/2021 10:45 AM CDT): Overall doing well Assessment & Plan (11/05/2020 11:41 AM CDT): Recent hair analysis from outside company reviewed Discussed with pt Assessment & Plan (05/13/2020 10:51 AM WIRELESS TEAM MEMBER): Patient is well controlled. Continue current treatment. Assessment & Plan (10/26/2019 10:14 AM CDT): No new orders Assessment & Plan (10/19/2019 9:30 AM CDT): Has had her thyroid stopped by endocrinology Assessment & Plan (04/25/2019 12:37 PM WIRELESS TEAM MEMBER): Patient is well controlled. Continue current treatment. Assessment & Plan (04/19/2019 9:55 AM WIRELESS TEAM MEMBER): Doing better Had meds adjusted Assessment & [...] 05/28/2016 Assessment & Plan (05/07/2021 3:04 PM WIRELESS TEAM MEMBER): She will have a colonoscopy with Dr. [...] diet Assessment & Plan (04/21/2022 1:55 PM WIRELESS TEAM MEMBER): Healthy diet Assessment & Plan (01/07/2022 1:39 [...] 11/05/2020 Assessment & Plan (05/04/2019 11:10 AM WIRELESS TEAM MEMBER): Doing better Finish rx Assessment & Plan (04/28/2019 11:43 AM WIRELESS TEAM MEMBER): Better Finish abx Fu 3 days Assessment & Plan (04/25/2019 12:36 PM WIRELESS TEAM MEMBER): z rafal Malignant tumor of breast 04/15/2019 Polyp of colon 04/15/2019 08/05/2021 Weakness 12/13/2018 02/09/2020 Assessment & Plan (11/09/2019 11:37 AM CDT): Work up negative Assessment & Plan (10/26/2019 10:19 AM CDT): Check b 12 bnp Sed rate Assessment & Plan (10/19/2019 9:31 AM CDT): Check lab Assessment & Plan (07/19/2019 9:27 AM WIRELESS TEAM MEMBER): Will have a cardiac cath Assessment & [...] 11/11/201711/06 Assessment & Plan (05/07/2021 3:03 PM WIRELESS TEAM MEMBER): sma 7 in 3 months Assessment & [...] 11/11/20172021 Assessment & Plan (05/07/2021 3:05 PM WIRELESS TEAM MEMBER): She remains on Requip at night time [...] Department Care Team Description 03/27/2025 5:19 PM WIRELESS TEAM MEMBER - 03/27/2025 11:59 PM WIRELESS TEAM MEMBER Hospital Encounter [address] [address] Pain in left arm Discharge Disposition: Discharge to home or self care 03/20/2025 11:15 AM WIRELESS TEAM MEMBER Office Visit [facility] Pulmonary [address] [place] [address] Quinn Cruz MD PLMD (periodic limb movement disorder) (Primary Dx); Dyspnea on exertion; BARBARA (obstructive sleep apnea) 02/22/2025 10:40 AM CDT - 02/22/2025 11:59 PM CDT Hospital Encounter [facility] Office [facility] [address] [place] [address] Follow-up examination of abnormal mammogram Discharge Disposition: Discharge to home or self care 02/22/2025 10:38 AM CDT - 02/22/2025 11:59 PM CDT Hospital Encounter [facility] Medical Office [address] [place] [address] Follow-up examination of abnormal mammogram Discharge Disposition: Discharge to home or self care 02/20/2025 1:00 PM CDT Ancillary Procedure [facility] Medical [facility] Cardiology at [address] [place] [address] Nonrheumatic aortic valve insufficiency; Nonrheumatic aortic valve [...] UPPER GASTROINTESTINAL ENDOSCOPY COLONOSCOPY 03/16/2016 Dr. Kruse [facility] APPENDECTOMY 1960 FRACTURE SURGERY 2022 ABDOMINAL SURGERY [...] on file Legal Sex Female 8:19 PM WIRELESS TEAM MEMBER Gender Identity Female 04/26/2019 10:43 AM WIRELESS TEAM MEMBER Sexual Orientation Straight 04/26/2019 10 :41 AM WIRELESS TEAM MEMBER Obstetrics History Para Term AB IAB SAB Ectopic Multiple Livin g Live Births 0 0 0 0 0 0 0 0 0 0 0 Last Filed Vital Signs Vital Sign Reading Time Taken Comments Blood Pressure 122/64 03/20/2025 11:09 AM WIRELESS TEAM MEMBER Pulse 85 03/20/2025 11:09 AM WIRELESS TEAM MEMBER Temperature 36.4 C (97.5 F) 03/20/2025 11:09 AM WIRELESS TEAM MEMBER Respiratory Rate 18 03/20/2025 11:09 AM WIRELESS TEAM MEMBER Oxygen Saturation 98% 03/20/2025 11:09 AM WIRELESS TEAM MEMBER Inhaled Oxygen Concentration - - Weight 86 kg (189 lb 8 oz) 03/20/2025 11:[address] Height 154.9 cm (5' 0.98) 03/20/2025 11:[address] Body Mass Index 35.83 03/20/2025 11:09 AM WIRELESS TEAM MEMBER Plan of Treatment Health Maintenance Due Date [...] history exists Medical Devices Implanted Type Area Precipitator Device Identifier Shelf Expiration Date Model / Serial / Lot [employer] Puja Watchman Flx Procedure Device Wmflxperproc - [id number] - [id number] Implanted:Qty: 1 on 02/09/2023 by Rogers Montanez MD at [facility] Left Atrial Appendage Occluder [employer] Puja 10/13/2025 [id number] / [id number] / [id number] [employer] Device Vascular Closure Femoral Artery Bioabsorbable Dual Method Vascade 6-7fr Collagen [id number] - S0 - [id number] Implanted:Qty: 1 on 04/20/2023 by Rogers Montanez MD at [facility] Vascular Closure Device Right: Femoral Vein [employer] 12/28/2024 [id number] / 0 / [id number] Irvin V[employer] Device Clsr Perclose Prostyle Sut-Mediatd Closure-Repair Sys 54443-62 - S0 - [id number] Implanted:Qty: 1 on 04/20/2023 by Rogers Montanez MD at [facility] Vascular Closure Device Right: Femoral [employer] 01/14/2025 85969-35 / 0 / [id number] [employer] V[employer] Device Clsr Perclose Prostyle Sut-Mediatd Closure-Repair Sys 43731-14 - S0 - [id number] Implanted:Qty: 1 on 02/09/2023 by Rogers Montanez MD at [facility] [employer] 11/13/2024 [id number] / 0 / [id number] [employer] V[employer] Device Clsr Perclose Prostyle Sut-Mediatd Closure-Repair Sys 55726-47 - S0 - [id number] Implanted:Qty: 1 on 02/09/2023 by Rogers Montanez MD at [facility] [employer] 09/13/2024 [id number] / 0 / [id number] [employer] Puja Synergy Xd Monorail 2.5mm 20mm 144cm Delivery System 1 Access [id number] - S0 - [id number] Implanted:Qty: 1 on 07/20/2023 by Rogers Montanez MD at [facility] [employer] 06/23/2024 [id number] / 0 / [id number] [employer] Puja Synergy Xd Monorail 3mm 32mm 144cm Delivery System 1 Access Port [id number] - S0 - [id number] Implanted:Qty: 1 on 07/20/2023 by Rogers Montanez MD at [facility] [employer] 06/08/2024 [id number] / 0 / [id number] Procedures Procedure Name Priority Date/Time Associated Diagnosis Comments XR RADIUS ULNA LEFT 2 VIEWS Schedule TAYE, Read TAYE (Appt Today, Awaiting Results) 03/27/2025 5:22 PM WIRELESS TEAM MEMBER Pain in left arm US BREAST LEFT [...] CREATININE RATIO, URINE Routine 04/13/2022 2:40 PM WIRELESS TEAM MEMBER Diabetic peripheral neuropathy (HCC) Primary hypertension DEXA AXIAL SKELETON BONE DENSITY 1 OR MORE SITES 07/12/2020 2:16 PM WIRELESS TEAM MEMBER from Last 3 Months or Most Recently Relevant to Health Maintenance Results * XR Radius Ulna Left 2 Views (03/27/2025 5:22 PM WIRELESS TEAM MEMBER) Anatomical Region Laterality Modality Upper Extremities, Forearm Left Compu chemo Radiography 03/27/2025 6:54 PM WIRELESS TEAM MEMBER Impressions 03/27/2025 6:54 PM WIRELESS TEAM MEMBER Nondisplaced fracture of the distal left ulnar shaft. Electronically signed by: Abiel Ramachandran MD Narrative 03/27/2025 6:54 PM WIRELESS TEAM MEMBER EXAMINATION: XR RADIUS ULNA LEFT 2 VIEWS [...] as per ACR guidelines. OVERALL FINAL ASSESSMENT: [id number] Electronically signed by: Cookie Cantrell M.D. Narrative [...] as per ACR guidelines. OVERALL FINAL ASSESSMENT: [id number] Electronically signed by: Cookie Cantrell M.D. 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 Left Ventricle: Normal left ventricular systolic [...] CDT) Glucose 99 65 - 139 mg/dL [facility] Comment: Non-fasting reference interval BUN 20 7 - 25 mg/dL [facility] Creatinine 1.19(H) 0.60 - 0.95 mg/dL Nati SearsNuno Horvath eGFR 44(L) > OR = 60 mL/min/1.7 3m2 Nati SearsNuno Horvath BUN/creat ratio 17 6 - 22 (calc) Nati SearsNuno Horvath Sodium 141 135 - 146 mmol/L Nati SearsNuno Horvath Potassium, pl 4.0 3.5 - 5.3 mmol/L Nati eSars rosalina Horvath Chloride 106 98 - 110 mmol/L Nati SearsNuno Horvath CO2 27 20 - 32 mmol/L Nati Sears rosalina Horvath Calcium 9.3 8.6 - 10.4 mg/dL Nati Sears rosalina Horvath Blood 11/29/2023 1:41 PM CDT 11/29/2023 1:42 PM CDT Narrative [facility] - 11/30/2023 12:32 AM CDT FASTING:NO FASTING: NO us Rogers Montanez MD LAB BLOOD ORDERABLES Final Resul t [facility] [address] [place] [address] * Hemoglobin A1c (12/24/2022 2:43 PM CDT) Hgb A1C 5.3 <5.7 % of total Hgb [facility] Comment: For the purpose of screening for the presence of diabetes: <5.7% Consistent with the absence of diabetes 5.7-6.4% Consistent with increased risk for diabetes (prediabetes) > or =6.5% Consistent with diabetes This assay result is consistent with a decreased risk of diabetes. Currently, no consensus exists regarding use of hemoglobin A1c for diagnosis of diabetes in children. According to [place] Diabetes Association (ADA) guidelines, hemoglobin A1c <7.0% represents optimal control in non- diabetic patients. Different metrics may apply to specific patient populations. Standards of Medical Care in Diabetes(ADA). Blood 12/24/2022 2:43 PM CDT 12/24/2022 2:44 PM CDT Narrative [facility] - 12/25/2022 3:39 PM CDT FASTING:YES FASTING: YES Migue Hill DO LAB BLOOD ORDERABLES Fin al Result Performing Organization Address City/[facility]/ZIP Co de Phone Number [facility] [address] [place] [phone] * Lipid panel (12/24/2022 2:43 PM CDT) Pathologist [facility] Cholesterol 166 <200 mg/dL [facility] HDL 57 > OR = 50 mg/dL [facility] ro[facility] Triglycerides 123 <150 mg/dL [facility] rosalina Horvath LDL 87 mg/dL (calc) [facility] Comment: Reference range: <100 Desirable range <100 mg/dL for primary prevention; <70 mg/dL for patients with CHD or diabetic patients with > or = 2 CHD risk factors. LDL-C is now calculated using the Isabel calculation, which is a validated novel method providing better accuracy than the Friedewald equation in the estimation of LDL-C. Peter HARRIS et al. ALEXANDER. 2013;310(19): 0872-6663 (http://education.Pneuron/faq/ZHH398) Chol/HDL ratio 2.9 <5.0 (calc) [facility] Non-HDL, (LDL+VLDL) 109 <130 mg/dL (calc) [facility] Comment: For patients with diabetes plus 1 major ASCVD risk factor, treating to a non-HDL-C goal of <100 mg/dL (LDL-C of <70 mg/dL) is considered a therapeutic option. Blood 12/24/2022 2:43 PM CDT 12/24/2022 2:44 PM CDT Narrative [facility] - 12/25/2022 3:39 PM CDT FASTING:YES FASTING: YES Migue Hill DO LAB BLOOD ORDERABLES Fin al Result Performing Organization Address City/[facility]/ZIP Co de Phone Number [facility] [address] [place] [phone] * DIABETES EYE EXAM (12/18/2022) Historical Provider HEALTH MAINTENANCE Final Result * Albumin Creatinine Ratio, Urine (04/13/2022 2:40 PM WIRELESS TEAM MEMBER) Creatinine, ur 56 20 - 275 mg/dL [...] a diagnostic category. Urine 04/13/2022 2:40 PM WIRELESS TEAM MEMBER 04/13/2022 2:40 PM WIRELESS TEAM MEMBER Narrative [facility] - 04/14/2022 1:30 PM WIRELESS TEAM MEMBER SPLIT 04/11/2022 FROM [id number] FASTING:NO FASTING: NO Migue Hill DO LAB URINE ORDERABLES Fin al Result [facility] [address] [place] [address] * Dexa Axial Skeleton Bone Density 1 or 2 Site (07/12/2020 2:16 PM WIRELESS TEAM MEMBER) Anatomical Region Laterality Modality Body N/A Radiographic Lizzie ging 07/12/2020 4:32 PM WIRELESS TEAM MEMBER Narrative 07/12/2020 4:33 PM WIRELESS TEAM MEMBER Patient Name: ANA LAURA OLIVA Ordering Dr: Migue Hill DO D.O.B: 1935 Exam Date: 07/12/20 1416 Age: 84 Sex: Female MR#: [id number] Loc: RADIOLOGY REPORT Order #[id number] Bone Density Bone Density Hip/Spine (STD) Signed EXAM DESCRIPTION: Bone Density Hip/Spine (STD) REASON FOR STUDY: 84 year old female with given history of premature menopause. Precipitator/Model: Focus IP A (S/N [id number]) CLINICAL INFORMATION: Current height: 61 inches Maximum [...] by Sienna Gant M.D. MD: Report ID: [id number] Reading Location: [place] [address] REPORT ELECTRONICALLY SIGNED IN OTHER VENDOR SYSTEM Resulting Agency Comment O Procedure Note Sienna Gant MD - 07/12/2020 Patient Name: ANA LAURA OLIVA Dr: Migue Hill DO, D.O.B: 1935 Exam Date: 07/12/20 141 Age: 84 Sex: Female MR#: [id number] Loc: RADIOLOGY REPORT Order #[id number] Bone Density Bone Density Hip/Spine (STD) Signed EXAM DESCRIPTION: Bone Density Hip/Spine (STD) REASON FOR STUDY: 84 year old female with given history of premature menopause. Precipitator/Model: Focus IP A (S/N [id number]) CLINICAL INFORMATION: Current height: 61 inches Maximum [...] by Sienna Gant M.D. MD: Report ID: [id number] Reading Location: [place] [address] REPORT ELECTRONICALLY SIGNED IN OTHER VENDOR SYSTEM Migue Hill DO IMG DXA PROCEDURES Final Result from Last 3 Months or Most Recently Relevant to Health Maintenance Insurance [facility] H[facility]/PPO Address: [facility] [address] [place] [address] [facility] H[facility]/PPO Address: [address] [address] [place] [address] [facility]/PPO Address: [address] [address] [place] [address] Advance Directives For more information, please contact: [phone] Documents on File Type Date Recorded Patient Engineer Remote Control Diesel Expl anation ADVANCE DIRECTIVE 02/11/2023 7:21 PM LIVIN G WILL ADVANCE DIRECTIVE 02/11/2023 7:21 PM POWER OF GROCERY STOCKER-MEDICAL ADVANCE DIRECTIVE 02/10/2023 9:34 PM LIVIN G WILL ADVANCE DIRECTIVE 02/10/2023 9:34 PM POWER OF GROCERY STOCKER-MEDICAL ADVANCE DIRECTIVE 12/17/2003 * Full Code (Latest [...] 12:57 PM 09/09/2021 12:57 PM Care Teams Grain Elevator Superintendent Relationship Specialty Start Date End Date Migue Hill DO PCP - General Family Medicine 09/10/21 Milton Funes MD [address] [facility] [address] [place] [address] Consulting Physician Cardiothoracic Surgery 03/30/23
[2025-05-07 16:39] LABS: Hematocrit 40.5 % (37.0-47.0); Hemoglobin 13.1 g/dL (12.0-15.0); Immature Granulocyte Percent A 0.2 % (0-0.5); Lymphocytes Absolute Auto 1.85 K/mm3 (0.9-3.2); Mean Corpuscular HGB Conc 32.3 g/dl (32-36); Mean Corpuscular Hemoglobin 28.2 pg (26-34); Mean Corpuscular Volume 87.1 fl (80-100); Nucleated Red Blood Cells Absolute Auto 0.000 K/mm3 (0.0-0.012); Nucleated Red Blood Cells Perc 0.0 % (0.0-0.2); Platelet Count Result 224 k/mm3 (150-375); Red Blood Count 4.65 M/mm3 (4.2-5.4); White Blood Count 8.1 K/mm3 (4.5-10.0)
[2025-05-07 16:40] LABS: INR 1.0; Partial Thromboplastin Time 29.4 Seconds (22.3-36.8); Prothrombin Time 13.0 Seconds (11.1-14.7)
[2025-05-07 17:05] LABS: Alanine Aminotransferase 24 U/L (6-35); Albumin Level 4.6 g/dL (3.5-5.1); Alkaline Phosphatase 93 U/L (38-126); Anion Gap 11 mmol/L (4-12); Aspartate Amino Transferase 35 U/L (14-36); Bilirubin,Total 0.4 mg/dL (0.2-1.3); Blood Urea Nitrogen 16 mg/dL (7-17); Calcium 9.4 mg/dL (8.4-10.2); Carbon Dioxide 25 mmol/L (22-30); Chloride 108 mmol/L (98-107); Estimated CRCL calculation 42 ml/min; Estimated Glomerular Filt Rate > 60; Glucose 96 mg/dL (65-110); Magnesium 2.0 mg/dL (1.6-2.3); Potassium 3.4 mmol/L (3.4-5.0); Sodium 144 mmol/L (137-145); Total Protein 8.0 g/dL (6.3-8.2)
[2025-05-07 17:11] LABS: Thyroid Stimulating Hormone Reflex 2.060 uIU/mL (0.465-4.68)
[2025-05-07 17:16] LABS: Troponin I < 0.012 ng/mL (0.000-0.034)
== END 2025-05-07 17:34 | disposition home or self-care (01) ==
PROVIDERS: Emergency Provider Emergency Medicine; PCP Family Medicine
DX: R00.2 Palpitations (principal); I48.0 Paroxysmal atrial fibrillation; M17.12 Unilateral primary osteoarthritis, left knee; G47.33 Obstructive sleep apnea (adult) (pediatric); G25.81 Restless legs syndrome; Z66 Do not resuscitate; Z98.42 Cataract extraction status, left eye; Z98.41 Cataract extraction status, right eye; Z90.710 Acquired absence of both cervix and uterus
CPT/HCPCS: 36415; 71045; 80053; 83735; 84443; 84484; 85025; 85610; 85730; 93005; 99284